=== PATIENT | female | born 1960 | race Caucasian/White ===

== ENCOUNTER → 2017-12-12 11:21 | Outpatient (CLI) | payer MEDICAID, SELFPAY ==
[2017-12-12 12:36] LABS: Amphetamine Urine VISTA NEGATIVE (<1000 ng/mL); Barbiturate Urine VISTA NEGATIVE (< 200 ng/mL); Benzodiazepine Urine VISTA NEGATIVE (< 200 ng/mL); Cocaine Urine VISTA NEGATIVE (< 300 ng/mL); Ecstacy Urine VISTA POSITIVE (< 500 ng/mL); Methadone Urine VISTA NEGATIVE (< 300 ng/mL); PCP Urine VISTA NEGATIVE (< 25 ng/mL); THC Urine VISTA NEGATIVE (< 50 ng/mL); Vista UDS pH Range 5
== END ==
PROVIDERS: Family Provider Internal Medicine; PCP Internal Medicine; Visit Provider Anesthesiology Pain Medicine
DX: F11.20 Opioid dependence, uncomplicated (principal)
CPT/HCPCS: 80307

== ENCOUNTER → 2018-09-24 15:18 | Outpatient (CLI) | payer MEDICAID, SELFPAY ==
[2018-09-24 17:06] LABS: Amphetamine Urine VISTA NEGATIVE (<1000 ng/mL); Barbiturate Urine VISTA NEGATIVE (< 200 ng/mL); Benzodiazepine Urine VISTA NEGATIVE (< 200 ng/mL); Cocaine Urine VISTA NEGATIVE (< 300 ng/mL); Ecstacy Urine VISTA POSITIVE (< 500 ng/mL); Methadone Urine VISTA NEGATIVE (< 300 ng/mL); PCP Urine VISTA NEGATIVE (< 25 ng/mL); THC Urine VISTA NEGATIVE (< 50 ng/mL); Vista UDS pH Range 7
--- OUTSIDE RECORDS SUMMARY | 2018-11-26 17:47 | XMS RPT_ITS ---
:1960 Author Organization OHIP Care Team Providers Name Role Phone [place], Dipika S Attending Unavailable [place], Dipika S Primary Care Unavailable [place], Dipika S Admitting Unavailable [place], Dipika S Attending Unavailable [place], Dipika S Primary Care Unavailable [place], Dipika S Attending Unavailable [place], Dipika S Primary Care Unavailable [place], Dipika S Admitting Unavailable [place], Dipika S Admitting Unavailable [place], Dipika S Attending Unavailable [place], Dipika S Primary Care Unavailable [place], Dipika S Attending Unavailable [place], Dipika S Primary Care Unavailable [place], Dipika S Admitting Unavailable [place], Dipika S Admitting Unavailable [place], Dipika S Attending Unavailable [place], Dipika S Primary Care Unavailable Rodrigo De La Torre Admitting Unavailable Rodrigo De La Torre Attending Unavailable [place], Dipika S Primary Care Unavailable Rodrigo De La Torre Admitting Unavailable BrittRodrigo looney Attending Unavailable [place], Dipika S Primary Care Unavailable [place], Dipika S Admitting Unavailable [place], Dipika S Attending Unavailable [place], Dipika S Primary Care Unavailable Alejandro Smith Admitting Unavailable SmithAlejandro chavez Attending Unavailable [place], Dipika S Primary Care Unavailable [place], Dipika S Admitting Unavailable [place], Dipika S Attending Unavailable [place], Dipika S Primary Care Unavailable SmithAlejandro chavez Admitting Unavailable SmithAlejandro chavez Attending Unavailable [place], Dipika S Primary Care Unavailable Alejandro Smith Admitting Unavailable SmithAlejandro chavez Attending Unavailable [place], Dipika S Primary Care Unavailable Alejandro Smith Admitting Unavailable SmithAlejandro chavez Attending Unavailable [place], Dipika S Primary Care Unavailable Alejandro Smith Admitting Unavailable Alejandro Smith Attending Unavailable [place], Dipika S Primary Care Unavailable Khalida Daniels Admitting Unavailable Khalida Daniels Attending Unavailable [place], Dipika S Primary Care Unavailable Carol Cancino Attending Unavailable BasaliCarol Referring Unavailable ROYAL, DIPIKA Primary Care Unavailable BasaliCarol Attending Unavailable BasaliCarol Referring Unavailable ROYAL, DIPIKA Primary Care Unavailable BasalCarol callahan Attending Unavailable BasaliCarol Referring Unavailable ROYAL, DIPIKA Primary Care Unavailable Mogalla, Yashasvini Admitting Unavailable Mogalla, Yashasvini Attending Unavailable Physician, No PCP Primary Care Unavailable JUAN J PARK Attending Unavailable PARKJUAN J Referring Unavailable PARKJUAN J Attending Unavailable JUAN J PARK Referring Unavailable TESTRACHRISTIAN BOSS Attending Unavailable ROYAL, DIPIKA S Referring Unavailable PARKJUAN J DOBBINS Attending Unavailable TESTRACHRISTIAN BOSS Attending Unavailable TESTCHRISTIAN IRVIN Referring Unavailable PARKJUAN J DOBBINS Attending Unavailable PARKJUAN J DOBBINS K Referring Unavailable PARKJUAN J Attending Unavailable JUAN J PARK Attending Unavailable PARKJUAN J K Referring Unavailable PARKJUAN J Attending Unavailable PARK, JUAN J K Referring Unavailable PARK, JUAN J K Attending Unavailable PARK, JUAN J K Referring Unavailable PARK, JUAN J K Attending Unavailable PARK, JUAN J K Referring Unavailable TESTRAKE, CHRISTIAN Attending Unavailable TESTRAKE, CHRISTIAN Referring Unavailable TESTRAKE, CHRISTIAN Attending Unavailable TESTRAKE, CHRISTIAN Attending Unavailable TESTRAKE, CHRISTIAN Attending Unavailable TESTRAKE, CHRISTIAN Referring Unavailable TESTRAKE, CHRISTIAN Referring Unavailable TESTRAKE, CHRISTIAN Attending Unavailable TESTRAKE, CHRISTIAN Referring Unavailable TESTRAKE, CHRISTIAN Attending Unavailable CAROLINE KENDALL Attending Unavailable DIPIKA EL Primary Care Unavailable PROBLEMS PROBLEMS DATE TYPE CONDITION / CODE ATTENDING STATUS SOURCE 08/20/2018 Active Nondisplaced NA Active [facility] fracture of distal [facility] phalanx of left [place] lesser toe(s), Repository subsequent encounter for fracture with routine healing / S92.535D(ICD-10) 07/29/2018 Active Other instability, NA Active [place] left ankle / [facility] M25.372(ICD-10) [place] Repository 07/11/2018 Active Pain, unspecified / NA Active [facility] R52(ICD-10) [facility] [place] Rep[facility] 06/08/2018 Admitting Unknown / [place], Active [place] Diagnosis UNK(Unknown) [facility] Repository 05/29/2018 Active Tinea unguium / NA Active [facility] B35.1(ICD-10) [facility] [place] Repository 12/12/2017 Unknown F11.20 - Opioid Basali, Ayman Active [facility] dependence, Community uncomplicated / Hospital F11.20(ICD-10) Repository PROCEDURES PROCEDURES No Procedure Records FoundRESULTS RESULTS CNOV Observed: 09/26/2018 Status: COMPLETED Source: [place] 2:50 PM [facility] REPOSITORY Office Visit (PODIWS) NADYA MONCADA ([id number]) 1960 F Date Time Provider Department 09/26/18 2:50 PM TESTCHRISTIAN IRVIN During your visit today, we recorded the following information about you: Taya Hannah RN 09/26/2018 2:59 PM Signed AMB ROOMING INTAKE FLOWSHEET DATA Risk Screening Do you have concerns about personal safety or safety in the home?: No Patient presents for diabetic nail care. She does not check her blood sugar regularly. Christian Salmeron, DPM 09/26/2018 2:59 PM Signed Subjective: Patient presents to clinic c/o painful toenails. They state that the nails are especially painful with shoe gear and pressure. Patient states that nails 1-5 b/l are painful. Patient admits to being diabetic and but does not check her sugars. Has had toe fracture but has no issues since transferring back to diabetic shoes. States her diabetic shoes are amazing. No other pedal complaints at this time. Patient states no change in medications or medical history since last visit. Objective: Patient presents to clinic ambulating in diabetic shoes Vasc: DP and PT pulses are palpable bilateral. CFT is less than 5 seconds bilateral. Skin temperature is warm to cool proximal to distal bilateral. There is no edema or varicosities noted. Neuro: Protective sensation is intact to the foot and toes when tested with the 5.07 SWM bilateral. Vibratory sensation is decreased at the hallux IPJ bilateral. The hallux is downgoing bilateral. Derm: Nails 1-5 b/l are present, discolored-yellow, thick, crumbly, dystrophic and with subungal debris. Skin is of normal turgor, texture and hair growth is present bilateral. There are callus to left 1st metatarsal. No ulcerations, scars, verruca or other lesions noted. Ortho: Muscle strength is 5/5 for all pedal groups tested. Ankle joint DF is full with the knee extended with no pain or crepitus noted. 1st MPJ ROM is full bilateral. Assessment: (B35.1) Onychomycosis (primary encounter diagnosis) (M79.675) Pain in toe of left foot (M79.674) Pain in toe of right foot (E11.49) Other diabetic neurological complication associated with type 2 diabetes mellitus (HCC) hyperkeratosis Plan: Patient was seen and evaluated. Nails 1-5 bilateral were debrided in length and thickness. Callus filed today as courtesy. Continue with lotion to feet. Continue with diabetic shoes. Patient was instructed on the continued importance of diabetic foot care along with proper diet and keeping their blood sugar under control to prevent complications. Patient is to RTC in 3-4 months. Christian Salmeron DPM Referring Provider: SELF [200] Allergies As of Date: 09/26/2018 (No Known Allergies) Date Reviewed: 09/26/2018 Reviewed by: Taya Hannah RN - Fully Assessed Reason for Visit: Diabetic Foot Care [916] Primary Visit Diagnosis:Onychomycosis [B35.1] Other Visit Diagnoses:Pain in toe of left foot [M79.675] Pain in toe of right foot [M79.674] Other diabetic neurological complication associated with type 2 diabetes mellitus (HCC) [E11.49] Prescriptions as of 09/26/2018 Sig: MULTIVITAMIN TABLET Take 1 tablet by mouth once d* HYDROCODONE 5 MG-ACETAMINOPHE* Take 1 tablet by mouth every * METFORMIN 500 MG TABLET Take 500 mg by mouth daily wi* LYRICA 100 MG CAPSULE Take 1 capsule by mouth three* BUSPIRONE 15 MG TABLET Take 15 mg by mouth three jody* MELOXICAM 15 MG TABLET Take 15 mg by mouth once maria eugenia* ATORVASTATIN 40 MG TABLET Take 40 mg by mouth once maria eugenia* UREA 40 % TOPICAL CREAM Apply 1 application to affect* AMMONIUM LACTATE-SODIUM LACTA* Apply 1 application to affect* LOSARTAN 50 MG TABLET Take 50 mg by mouth once maria eugenia* OMEPRAZOLE 40 MG CAPSULE,MARLENE* Take 40 mg by mouth once maria eugenia* AMITRIPTYLINE 50 MG TABLET Take 50 mg by mouth daily at * TIZANIDINE 4 MG TABLET Take 4 mg by mouth every 6 ho* BUPROPION XL 150 MG TAB Take 300 mg by mouth once kaylynn* SERTRALINE 100 MG TABLET Take 200 mg by mouth once kaylynn* MILNACIPRAN 50 MG TABLET Take by mouth twice daily. METRONIDAZOLE 0.75 % TOPICAL * Apply 1 application to affect* POLYETHYLENE GLYCOL 3350 17 G* Take 17 g by mouth once daily. CHOLECALCIFEROL (VITAMIN D3) * Take by mouth. TRAMADOL 50 MG TABLET Take 1 tablet by mouth four t* PREGABALIN 50 MG CAPSULE Take 50 mg by mouth three jody* FENTANYL 75 MCG/HR TRANSDERMA* Apply 1 Patch as directed delmi* Problem List As Of Date 09/26/2018 Noted Resolved Type 2 diabetes mellitus without retinopathy (H*INVALID FOR* Other vitreous opacities [H43.399] INVALID FOR*05/25/2016 Vitreous floaters of both eyes [H43.393] INVALID FOR* Essential hypertension [I10] INVALID FOR* Prediabetes [R73.03] INVALID FOR* Corneal abrasion, right, subsequent encounter [*INVALID FOR* Contusion of right eyeball [S05.11XA] INVALID FOR* Rce (recurrent corneal erosion), 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 Follow-up and Disposition History Recorded Encounter Status:Closed by CHRISTIAN SALMERON DPM on 09/26/18 PROGRESS Observed: 09/26/2018 Status: COMPLETED Source: [place] 2:46 PM [facility] HNO ID: [id number] Author: Christian Salmeron Service: (none) Author Type: Physician Type: Progress Notes Filed: 09/26/2018 2:59 PM Note Text: Subjective: Patient presents to clinic c/o painful toenails. They state that the nails are especially painful with shoe gear and pressure. Patient states that nails 1-5 b/l are painful. Patient admits to being diabetic and but does not check her sugars. Has had toe fracture but has no issues since transferring back to diabetic shoes. States her diabetic shoes are amazing. No other pedal complaints at this time. Patient states no change in medications or medical history since last visit. Objective: Patient presents to clinic ambulating in diabetic shoes Vasc: DP and PT pulses are palpable bilateral. CFT is less than 5 seconds bilateral. Skin temperature is warm to cool proximal to distal bilateral. There is no edema or varicosities noted. Neuro: Protective sensation is intact to the foot and toes when tested with the 5.07 SWM bilateral. Vibratory sensation is decreased at the hallux IPJ bilateral. The hallux is downgoing bilateral. Derm: Nails 1-5 b/l are present, discolored-yellow, thick, crumbly, dystrophic and with subungal debris. Skin is of normal turgor, texture and hair growth is present bilateral. There are callus to left 1st metatarsal. No ulcerations, scars, verruca or other lesions noted. Ortho: Muscle strength is 5/5 for all pedal groups tested. Ankle joint DF is full with the knee extended with no pain or crepitus noted. 1st MPJ ROM is full bilateral. Assessment: (B35.1) Onychomycosis (primary encounter diagnosis) (M79.675) Pain in toe of left foot (M79.674) Pain in toe of right foot (E11.49) Other diabetic neurological complication associated with type 2 diabetes mellitus (HCC) hyperkeratosis Plan: Patient was seen and evaluated. Nails 1-5 bilateral were debrided in length and thickness. Callus filed today as courtesy. Continue with lotion to feet. Continue with diabetic shoes. Patient was instructed on the continued importance of diabetic foot care along with proper diet and keeping their blood sugar under control to prevent complications. Patient is to RTC in 3-4 months. Christian Salmeron DPM PROGRESS Observed: 09/26/2018 Status: COMPLETED Source: [place] 2:32 PM [facility] REPOSITORY HNO ID: [id number] Author: Taya Hannah RN Service: (none) Author Type: (none) Type: Progress Notes Filed: 09/26/2018 2:59 PM Note Text: AMB ROOMING INTAKE FLOWSHEET DATA Risk Screening Do you have concerns about personal safety or safety in the home?: No Patient presents for diabetic nail care. She does not check her blood sugar regularly. URINE DRUG SCREEN Collected: 09/24/2018 Status: F Source: [place] ([place]) 3:22 PM [facility] REPOSITORY Order Comment: List of Drugs Taken or Suspected? UNK TYPE CODE TESTS RESULT OUT OF RANGE REFERENCE UNITS LAB L505.0075 TO BE Normal CONFIRMED Result Comment: CONFIRMATORY TESTING FOR ALL POSITIVE URINE DRUG SCREEN RESULTS WILL ONLY BE SENT OUT UPON PHYSICIAN ORDER. VISTA Urine Drug Screen methods provide only preliminary analytical test results. A more specific alternate chemical method must be used in order to obtain a confirmed analytical result. Gas chromatography/mass spectrometery (GC/MS) is the preferred confirmatory method. Clinical consideration and professional judgement should be applied to any drug of abuse test result, particularly when preliminary positive results are used. URINE TCA TESTING MUST BE ORDERED SEPARATELY. USE TEST MNEMONIC: [facility] LAB L505.5005 VISTA UDS PH 7 Normal LAB L505.5015 <1000 ng/mL AMPHETAMINES Normal NEGATIVE LAB L505.5025 < 200 ng/mL BARBITIURATES Normal NEGATIVE LAB L505.5035 < 200 ng/mL BENZODIAZIPINE Normal NEGATIVE LAB L505.5045 < 300 ng/mL COCAINE Normal NEGATIVE LAB L505.5055 < 500 High ng/mL ECSTACY POSITIVE LAB L505.5065 < 300 ng/mL METHADONE Normal NEGATIVE LAB L505.5075 < 300 ng/mL OPIATES Normal NEGATIVE LAB L505.5085 < 25 ng/mL PCP Normal NEGATIVE LAB L505.5095 < 50 ng/mL THC Normal NEGATIVE Performed By: #### L505.5000 #### [facility] [address] [place], [place], [address] PROGRESS Observed: 08/20/2018 Status: COMPLETED Source: [place] 11:38 AM [facility] HNO ID: [id number] Author: Christian Salmeron Service: (none) Author Type: Physician Type: Progress Notes Filed: 08/23/2018 9:31 PM Note Text: Follow up podiatric office visit for: Chief Complaint: This 58 year old who presents for follow up:fracture of left 3rd toe and left hallux. Patient was wearing surgical shoes but has stopped. Patient has very little pain. She feels the pain is worse with cold weather. She does have ankle instability on left but has discontinued the brace. Patient has new xrays to review. PAIN EVALUATION No data found. No results found for: HBA1C PCP: Dipika El DO PAST MEDICAL HISTORY Diagnosis Date - Degenerative disc disease - Depression - Fibromyalgia - PTSD (post-traumatic stress disorder) - Rosacea - Sleep apnea Current Outpatient Prescriptions: amitriptyline (ELAVIL) 50 mg tablet Take 50 mg by mouth daily at bedtime. Ammonium,Pot.and Sodium Lactates (AMLACTIN) crea Apply 1 application to affected area once daily. atorvastatin (LIPITOR) 40 mg tablet Take 40 mg by mouth once daily. buPROPion XL (WELLBUTRIN XL) 150 mg 24 hr tablet Take 300 mg by mouth once daily. busPIRone (BUSPAR) 15 mg tablet Take 15 mg by mouth three times daily. Half tab AM Half tab PM Cholecalciferol, Vitamin D3, 3,000 unit tab Take by mouth. losartan (COZAAR) 50 mg tablet Take 50 mg by mouth once daily. LYRICA 100 mg capsule Take 1 capsule by mouth three times daily. meloxicam (MOBIC) 15 mg tablet Take 15 mg by mouth once daily. metFORMIN (GLUCOPHAGE) 500 mg tablet Take 500 mg by mouth daily with breakfast. metroNIDAZOLE (METROCREAM) 0.75 % cream Apply 1 application to affected area twice daily. Milnacipran (SAVELLA) 50 mg tab Take by mouth twice daily. multivitamin (DAILY MULTI-VITAMIN) tablet Take 1 tablet by mouth once daily. Omeprazole 40 mg capsule Take 40 mg by mouth once daily. polyethylene glycol 3350 (MIRALAX, GLYCOLAX) 17 gram packet Take 17 g by mouth once daily. pregabalin (LYRICA) 50 mg capsule Take 50 mg by mouth three times daily. sertraline (ZOLOFT) 100 mg tablet Take 200 mg by mouth once daily. tiZANidine (ZANAFLEX) 4 mg tablet Take 4 mg by mouth every 6 hours as needed. traMADol (ULTRAM) 50 mg tablet Take 1 tablet by mouth four times daily. urea (CARMOL) 40 % crea Apply 1 application to affected area as needed. fentaNYL (DURAGESIC) 75 mcg/hr Apply 1 Patch as directed every 72 hours. HYDROcodone-acetaminophen (NORCO) 5-325 mg per tablet Take 1 tablet by mouth every 8 hours as needed. Receives from Dr. Cancino - Pain management No current facility-administered medications for this visit. ALLERGIES No Known Allergies PAST SURGICAL HISTORY Procedure Laterality Date - APPENDECTOMY HX 1990 - KNEE SCOPE,DIAGNOSTIC 2012 Left knee - PAST SURGICAL HISTORY OF 2013 Cervical Fusion C6-C7 - PAST SURGICAL HISTORY OF 2002 Left Carpal Tunnel Release - PAST SURGICAL HISTORY OF 1998 D AND C Hysteroscopy with Balloon Ablation - PAST SURGICAL HISTORY OF 1996 D AND C - PAST SURGICAL HISTORY OF 1988 Right Carpal Tunnel Release - PAST SURGICAL HISTORY OF 1984 Benign Lesions Removed from face and body - ROTATOR CUFF REPAIR 1991 Right shoulder (2nd repair) - ROTATOR CUFF REPAIR 1989 Right shoulder - TONSILLECTOMY HX 1964 Physical Exam: Constitutional: Pt is a well developed 58 year old female who is alert, oriented, cooperative and in no apparent distress. OBJECTIVE: NVSI unchanged from previous visit. Dermatological: Nails 1-5 b/l are normal. Webspaces clean and dry 1-4 b/l. Skin appears well hydrated and supple. good color, texture, turgor. No open lesions present. No callosities present. Musculoskeletal/Orthopaedic: Patient has no pain to palpation of b/l feet xrays of left foot reviewed. There is healing fracture of left 3rd toe ASSESSMENT: (F12.103I) Closed nondisplaced fracture of proximal phalanx of lesser toe of left foot with routine healing, subsequent encounter (primary encounter diagnosis) (M25.372) Ankle instability, left PLAN: 1. History and physical examination completed today. 2. Patient was examined and informed of current findings. Fracture of left 3rd toe appears to be healing. Discussed continued use of surgical shoe. Patient has already resumed regular shoes. Recommend firm sole shoe. Discussed repeating xrays in 3 weeks. Patient declined. 3. Discussed ankle instability. Patient has discontinued ankle brace. Christian Salmeron DPM PROGRESS Observed: 08/20/2018 Status: COMPLETED Source: [place] 11:13 AM [facility] REPOSITORY HNO ID: [id number] Author: Francisca Trotter Ma Service: (none) Author Type: (none) Type: Progress Notes Filed: 08/23/2018 9:31 PM Note Text: Patient presents with: Established Patient: 3 week follow up left ankle instability and left toe fracture AMB ROOMING INTAKE FLOWSHEET DATA Risk Screening Do you have concerns about personal safety or safety in the home?: No Patient states she got tired of wearing the post op shoe and stopped wearing it on Saturday. Has not been wearing the lace up ankle brace either. Denies any pain today in her toe and ankle. X-ray done today. CNOV Observed: 08/20/2018 Status: COMPLETED Source: [place] 10:40 AM [facility] REPOSITORY Office Visit (PODIWS) NADYA MONCADA ([id number]) 1960 F Date Time Provider Department 08/20/18 10:40 AM CHRISTIAN SALMERON During your visit today, we recorded the following information about you: Francisca Trotter Lilly 08/23/2018 9:31 PM Signed Patient presents with: Established Patient: 3 week follow up left ankle instability and left toe fracture AMB ROOMING INTAKE FLOWSHEET DATA Risk Screening Do you have concerns about personal safety or safety in the home?: No Patient states she got tired of wearing the post op shoe and stopped wearing it on Saturday. Has not been wearing the lace up ankle brace either. Denies any pain today in her toe and ankle. X-ray done today. Christian EVERARDO Salmeron 08/23/2018 9:31 PM Signed Follow up podiatric office visit for: Chief Complaint: This 58 year old who presents for follow up:fracture of left 3rd toe and left hallux. Patient was wearing surgical shoes but has stopped. Patient has very little pain. She feels the pain is worse with cold weather. She does have ankle instability on left but has discontinued the brace. Patient has new xrays to review. PAIN EVALUATION No data found. No results found for: HBA1C PCP: Dipika El DO PAST MEDICAL HISTORY Diagnosis Date - Degenerative disc disease - Depression - Fibromyalgia - PTSD (post-traumatic stress disorder) - Rosacea - Sleep apnea Current Outpatient Prescriptions: amitriptyline (ELAVIL) 50 mg tablet Take 50 mg by mouth daily at bedtime. Ammonium,Pot.and Sodium Lactates (AMLACTIN) crea Apply 1 application to affected area once daily. atorvastatin (LIPITOR) 40 mg tablet Take 40 mg by mouth once daily. buPROPion XL (WELLBUTRIN XL) 150 mg 24 hr tablet Take 300 mg by mouth once daily. busPIRone (BUSPAR) 15 mg tablet Take 15 mg by mouth three times daily. Half tab AM Half tab PM Cholecalciferol, Vitamin D3, 3,000 unit tab Take by mouth. losartan (COZAAR) 50 mg tablet Take 50 mg by mouth once daily. LYRICA 100 mg capsule Take 1 capsule by mouth three times daily. meloxicam (MOBIC) 15 mg tablet Take 15 mg by mouth once daily. metFORMIN (GLUCOPHAGE) 500 mg tablet Take 500 mg by mouth daily with breakfast. metroNIDAZOLE (METROCREAM) 0.75 % cream Apply 1 application to affected area twice daily. Milnacipran (SAVELLA) 50 mg tab Take by mouth twice daily. multivitamin (DAILY MULTI-VITAMIN) tablet Take 1 tablet by mouth once daily. Omeprazole 40 mg capsule Take 40 mg by mouth once daily. polyethylene glycol 3350 (MIRALAX, GLYCOLAX) 17 gram packet Take 17 g by mouth once daily. pregabalin (LYRICA) 50 mg capsule Take 50 mg by mouth three times daily. sertraline (ZOLOFT) 100 mg tablet Take 200 mg by mouth once daily. tiZANidine (ZANAFLEX) 4 mg tablet Take 4 mg by mouth every 6 hours as needed. traMADol (ULTRAM) 50 mg tablet Take 1 tablet by mouth four times daily. urea (CARMOL) 40 % crea Apply 1 application to affected area as needed. fentaNYL (DURAGESIC) 75 mcg/hr Apply 1 Patch as directed every 72 hours. HYDROcodone-acetaminophen (NORCO) 5-325 mg per tablet Take 1 tablet by mouth every 8 hours as needed. Receives from Dr. Cancino - Pain management No current facility-administered medications for this visit. ALLERGIES No Known Allergies PAST SURGICAL HISTORY Procedure Laterality Date - APPENDECTOMY HX 1990 - KNEE SCOPE,DIAGNOSTIC 2012 Left knee - PAST SURGICAL HISTORY OF 2013 Cervical Fusion C6-C7 - PAST SURGICAL HISTORY OF 2002 Left Carpal Tunnel Release - PAST SURGICAL HISTORY OF 1998 D AND C Hysteroscopy with Balloon Ablation - PAST SURGICAL HISTORY OF 1996 D AND C - PAST SURGICAL HISTORY OF 1988 Right Carpal Tunnel Release - PAST SURGICAL HISTORY OF 1984 Benign Lesions Removed from face and body - ROTATOR CUFF REPAIR 1991 Right shoulder (2nd repair) - ROTATOR CUFF REPAIR 1989 Right shoulder - TONSILLECTOMY HX 1964 Physical Exam: Constitutional: Pt is a well developed 58 year old female who is alert, oriented, cooperative and in no apparent distress. OBJECTIVE: NVSI unchanged from previous visit. Dermatological: Nails 1-5 b/l are normal. Webspaces clean and dry 1-4 b/l. Skin appears well hydrated and supple. good color, texture, turgor. No open lesions present. No callosities present. Musculoskeletal/Orthopaedic: Patient has no pain to palpation of b/l feet xrays of left foot reviewed. There is healing fracture of left 3rd toe ASSESSMENT: (E11.256I) Closed nondisplaced fracture of proximal phalanx of lesser toe of left foot with routine healing, subsequent encounter (primary encounter diagnosis) (M25.372) Ankle instability, left PLAN: 1. History and physical examination completed today. 2. Patient was examined and informed of current findings. Fracture of left 3rd toe appears to be healing. Discussed continued use of surgical shoe. Patient has already resumed regular shoes. Recommend firm sole shoe. Discussed repeating xrays in 3 weeks. Patient declined. 3. Discussed ankle instability. Patient has discontinued ankle brace. EVERARDO Haas RN 08/20/2018 11:46 AM Signed Follow up as scheduled for nail care OK to wear regular shoe Referring Provider: CHRISTIAN SALMERON [[id number]] Allergies As of Date: 08/20/2018 (No Known Allergies) Date Reviewed: 08/20/2018 Reviewed by: Francisca Trotter Ma - Fully Assessed Reason for Visit: Established Patient [175] Cmt: 3 week follow up left ankle instability and left toe fracture Primary Visit Diagnosis:Closed nondisplaced fracture of proximal phalanx of lesser toe of left foot with routine healing, subsequent encounter [S92.515D] Other Visit Diagnosis:Ankle instability, left [M25.372] Prescriptions as of 08/20/2018 Sig: AMITRIPTYLINE 50 MG TABLET Take 50 mg by mouth daily at * AMMONIUM LACTATE-SODIUM LACTA* Apply 1 application to affect* ATORVASTATIN 40 MG TABLET Take 40 mg by mouth once maria eugenia* BUPROPION XL 150 MG TAB Take 300 mg by mouth once kaylynn* BUSPIRONE 15 MG TABLET Take 15 mg by mouth three jody* CHOLECALCIFEROL (VITAMIN D3) * Take by mouth. LOSARTAN 50 MG TABLET Take 50 mg by mouth once maria eugenia* LYRICA 100 MG CAPSULE Take 1 capsule by mouth three* MELOXICAM 15 MG TABLET Take 15 mg by mouth once maria eugenia* METFORMIN 500 MG TABLET Take 500 mg by mouth daily wi* METRONIDAZOLE 0.75 % TOPICAL * Apply 1 application to affect* MILNACIPRAN 50 MG TABLET Take by mouth twice daily. MULTIVITAMIN TABLET Take 1 tablet by mouth once d* OMEPRAZOLE 40 MG CAPSULE,MARLENE* Take 40 mg by mouth once maria eugenia* POLYETHYLENE GLYCOL 3350 17 G* Take 17 g by mouth once daily. PREGABALIN 50 MG CAPSULE Take 50 mg by mouth three jody* SERTRALINE 100 MG TABLET Take 200 mg by mouth once kaylynn* TIZANIDINE 4 MG TABLET Take 4 mg by mouth every 6 ho* TRAMADOL 50 MG TABLET Take 1 tablet by mouth four t* UREA 40 % TOPICAL CREAM Apply 1 application to affect* FENTANYL 75 MCG/HR TRANSDERMA* Apply 1 Patch as directed delmi* HYDROCODONE 5 MG-ACETAMINOPHE* Take 1 tablet by mouth every * Problem List As Of Date 08/20/2018 Noted Resolved Type 2 diabetes mellitus without retinopathy (H*INVALID FOR* Other vitreous opacities [H43.399] INVALID FOR*05/25/2016 Vitreous floaters of both eyes [H43.393] INVALID FOR* Essential hypertension [I10] INVALID FOR* Prediabetes [R73.03] INVALID FOR* Corneal abrasion, right, subsequent encounter [*INVALID FOR* Contusion of right eyeball [S05.11XA] INVALID FOR* Rce (recurrent corneal erosion), 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]INVALID FOR* Corneal epithelial and basement membrane dystro*INVALID FOR* Other instructions from your clinician: Follow up as scheduled for nail care OK to wear regular shoe Follow-up and Disposition History Recorded Encounter Status:Closed by CHRISTIAN SALMERON DPM on 08/23/18 XR FOOT 3V AP/LAT/OBL Observed: 08/20/2018 Status: F Source: [facility] 9:09 AM [facility] REPOSITORY * * *Final Report* * * DATE OF EXAM: Aug 20 2018 9:09AM WRX [id number] - XR FOOT 3V AP/LAT/OBL LT / PROCEDURE REASON: Closed nondisplaced fracture of distal phalanx of lesser toe of left foot with r * * * * Physician Interpretation * * * * HISTORY: 58-YEAR-OLD FEMALE WITH Closed nondisplaced fracture of distal phalanx of lesser toe of left foot with routine healing, subsequent encounter . follow up to left foot fracture TECHNIQUE: XR FOOT 3V AP/LAT/OBL LT Laterality: LEFT Number of different views (projections): 3 COMPARISON: and 07/29/2018 RESULT: Nondisplaced intra-articular fracture of the third proximal phalanx is unchanged in appearance with indistinctness of the proximal extent of the fracture consistent with partial healing. IMPRESSION: INTRA-ARTICULAR NONDISPLACED FRACTURE OF THE THIRD PROXIMAL PHALANX PARTIALLY HEALED AND UNCHANGED. Pathology Manager: MANISHA Transcribe Date/Time: Aug 20 2018 2:26P Dictated by : VIOLA WATERS MD This examination was interpreted and the report reviewed and electronically signed by: VIOLA WATERS MD on Aug 20 2018 2:31PM EST [id number] PROGRESS Observed: 08/20/2018 Status: COMPLETED Source: [place] 9:01 AM [facility] REPOSITORY O ID: [id number] Author: Temitope (Rt) Itzel Augustin Service: (none) Author Type: Iron Erector Type: Progress Notes Filed: 08/20/2018 9:10 AM Note Text: Radiology Service Progress Note PATIENT NAME: Nadya Moncada DATE OF SERVICE: August 20, 2018 TIME: 9:01 AM PATIENT IDENTITY VERIFICATION COMPLETED USING TWO (2) METHODS: Patient confirmed name verbally and Date of . PATIENT GENDER DATA: Female. status: : No status: NO. PATIENT RELEVANT IMPLANT DATA REVIEWED: Not Applicable RADIOLOGY DEPARTMENT: General X-ray: Exam(s) Completed: Lower Extremity X-Ray(s): Foot, Left and Wt. Bearing: PERIPHERAL IV DATA: Not applicable SIGNED BY: RT Rachelle August 20, 2018 9:01 AM MRI KNEE W/O CONTRAST Observed: 08/07/2018 Status: C Source: [facility] 10:00 AM [facility] REPOSITORY Exam Date/Time: 08/07/2018 10:49 EST Reason for Exam: LEFT KNEE INTERNAL DERANGEMENT SPRAIN OF POSTERIOR CRUCIATE LIGAMENT OF LEFT KNEE FEET FIRST;Internal derangement Addendum ADDENDUM: Ordering clinician is Alejandro Smith. This should be reflected in the report. FINAL REPORT Dictated: 08/13/2018 12:22 pm Daryl Padilla MD Signed (Electronic Signature): 08/13/2018 12:22 pm Signed by: Daryl Padilla MD Technologist: CF Report STUDY: MRI of the left knee without contrast dated 08/07/2018. INDICATION: Knee pain. Multiple falls. Assess for internal derangement. COMPARISON: None. ACCESSION NUMBER(S): [id number] ORDERING CLINICIAN: Rodrigo Smith TECHNIQUE: Multiplanar multisequence MRI of the left knee was performed without intravenous contrast. FINDINGS: LIGAMENTS AND TENDONS: There is thickening of the anterior cruciate ligament with diffuse increased intermediate signal intensity within its substance. There is a mild partial-thickness interstitial tear at the femoral attachment in the anterior cruciate ligament, as seen at slice 12 of the coronal plane and 15 of the axial plane. The posterior cruciate ligament is intact. The medial and fibular collateral ligaments are intact. The popliteus and biceps femoris tendons, iliotibial band, and extensor mechanism are intact. MENISCI: There is complex tearing of the lateral meniscus, with appearance of flap tear component at the posterior horn into posterior horn body junction as seen at slice 21 of the axial 21 of the sagittal and 11 of the coronal planes. There may be a degree of horizontal tearing of the anterior horn of the lateral meniscus. There is complex tearing of the medial meniscus with Exam Date/Time: 08/07/2018 10:49 EST Report maceration of the posterior horn into the body of the medial meniscus. The body of the medial meniscus is extruded peripherally. JOINTS: There is moderate diffuse thinning of the hyaline articular cartilage in the medial femorotibial joint space with foci of full-thickness fissuring/loss. There is mild diffuse thinning of the hyaline articular cartilage in the lateral femorotibial joint space with some foci of full- thickness fissuring such as seen on the lateral femoral condyle at slice 15 of the coronal plane. There is moderate diffuse thinning of the hyaline articular cartilage in the patellofemoral joint space with a focus of full-thickness fissuring/loss on the medial facet of the patella near the patellar apex. There is a small volume joint effusion. OSSEOUS STRUCTURES: There is edema in the inferior pole the patella without macrotrabecular fracture line evident. There is marginal femorotibial and patellofemoral osteophyte formation. No dislocation is evident. SOFT TISSUES: There is a small volume of fluid in a popliteal cyst. IMPRESSION: 1. Contusion of the inferior pole of the patella. 2. Complex tearing of the medial and lateral meniscus discussed above. 3. Myxoid degeneration of the anterior cruciate ligament with mild interstitial tearing at the femoral attachment. 4. Tricompartmental degenerative change of the knee, moderate to severe in nature. 5. Small volume joint effusion and popliteal cyst. FINAL REPORT Dictated: 08/08/2018 1:27 pm Daryl Padilla MD Signed (Electronic Signature): 08/08/2018 1:27 pm Signed by: Daryl Padilla MD Technologist: CFF Report last revised on 08/13/2018 12:22 EST by Daryl Padilla MD PROGRESS Observed: 07/29/2018 Status: COMPLETED Source: [place] 11:54 AM [facility] REPOSITORY HNO ID: [id number] Author: Taya Hannah RN Service: (none) Author Type: (none) Type: Progress Notes Filed: 07/29/2018 12:37 PM Note Text: Per Nadya Ruffin provided with a lace up ankle brace, size M, and instructed/educated in its application, wear, and care. All questions were answered, and patient was able to demonstrate competence with the necessary skills to utilize the above equipment. Patient signed Madelyn PPA. Brace billed to Madelyn. Taya Hannah RN XR ANKLE 3V AP/LAT/OBL Observed: 07/29/2018 Status: F Source: [facility] 11:34 AM [facility] REPOSITORY * * *Final Report* * * DATE OF EXAM: Jul 29 2018 11:34AM [id number] - XR ANKLE 3V AP/LAT/OBL LT / PROCEDURE REASON: Ankle instability, left * * * * Physician Interpretation * * * * Left ankle Indication: Pain. Views: AP, Lat, Oblique Comparison: July 11 Findings: .. Degenerative changes are seen. There are calcifications at the Achilles insertion site, and there is a plantar calcaneal spur (enthesophytes). IMPRESSION: No acute pathology LEFT FOOT: Indication: Fracture follow-up. Views: AP, Lat, Oblique Comparison: 07/11/2018 Findings: Nondisplaced fracture through the base of the proximal phalanx of the third digit again seen in good alignment. There is new bone formation. Degenerative changes are seen. There are calcifications at the Achilles insertion site, and there is a plantar calcaneal spur (enthesophytes). Impression Healing fracture Pathology Manager: PSCB Transcribe Date/Time: Jul 29 2018 11:16P Dictated by : ALEXEI CRAIN DO This examination was interpreted and the report reviewed and electronically signed by: ALEXEI CRAIN DO on Jul 29 2018 11:25PM EST [id number] XR FOOT 3V AP/LAT/OBL Observed: 07/29/2018 Status: F Source: [facility] 11:32 AM [facility] REPOSITORY * * *Final Report* * * DATE OF EXAM: Jul 29 2018 11:32AM [id number] - XR FOOT 3V AP/LAT/OBL LT / PROCEDURE REASON: Pain * * * * Physician Interpretation * * * * Left ankle Indication: Pain. Views: AP, Lat, Oblique Comparison: July 11 Findings: .. Degenerative changes are seen. There are calcifications at the Achilles insertion site, and there is a plantar calcaneal spur (enthesophytes). IMPRESSION: No acute pathology LEFT FOOT: Indication: Fracture follow-up. Views: AP, Lat, Oblique Comparison: 07/11/2018 Findings: Nondisplaced fracture through the base of the proximal phalanx of the third digit again seen in good alignment. There is new bone formation. Degenerative changes are seen. There are calcifications at the Achilles insertion site, and there is a plantar calcaneal spur (enthesophytes). Impression Healing fracture [facility] Transcribe Date/Time: Jul 29 2018 11:16P Dictated by : ALEXEI CRAIN DO This examination was interpreted and the report reviewed and electronically signed by: ALEXEI CRAIN DO on Jul 29 2018 11:25PM EST [id number] PROGRESS Observed: 07/29/2018 Status: COMPLETED Source: [place] 11:15 AM [facility] REPOSITORY HNO ID: [id number] Author: Itzel Bush (Rt) Service: (none) Author Type: Iron Erector Type: Progress Notes Filed: 07/29/2018 11:35 AM Note Text: Radiology Service Progress Note PATIENT NAME: Nadya Moncada DATE OF SERVICE: July 29, 2018 TIME: 11:15 AM PATIENT IDENTITY VERIFICATION COMPLETED USING TWO (2) METHODS: Patient confirmed name verbally and Date of . PATIENT GENDER DATA: Female. status: : No status: NO. PATIENT RELEVANT IMPLANT DATA REVIEWED: Not Applicable RADIOLOGY DEPARTMENT: General X-ray: Exam(s) Completed: Lower Extremity X-Ray(s): Ankle, Left and Wt. Bearing and Foot, Left and Wt. Bearing: PERIPHERAL IV DATA: Not applicable SIGNED BY: RT Rachelle July 29, 2018 11:15 AM PROGRESS Observed: 07/29/2018 Status: COMPLETED Source: [place] 10:47 AM [facility] REPOSITORY O ID: [id number] Author: Christian Salmeron Service: (none) Author Type: Physician Type: Progress Notes Filed: 07/29/2018 12:37 PM Note Text: Follow up podiatric office visit for: Chief Complaint: This 58 year old who presents for follow up:fracture of left hallux and left 3rd toe. Patient also here because of left ankle pain. HPI: Patient presents to clinic for evaluation primarily of left ankle. Patient reports that last week she fell on the left ankle but is unsure regarding the exact mechanism. She states that since falling, she has pain to left ankle. Patient does report instability of left ankle. Of note, she has fallen at least 3 times in last month. She states the left lower extremity is weak. Patient is taking norco for left knee pain but this is not helping with the ankle. She does have fracture of left hallux and left 3rd toe. She has no pain. She is wearing surgical shoe. PAIN EVALUATION 07/29/2018 Pain Score: 10 Pain Location: Ankle-Left Description: Aching;Throbbing Duration Amount of Time: 8 Duration Units: Days Frequency: Continuous Intervention: Medication No results found for: HBA1C PCP: Dipika El DO PAST MEDICAL HISTORY Diagnosis Date - Degenerative disc disease - Depression - Fibromyalgia - PTSD (post-traumatic stress disorder) - Rosacea - Sleep apnea Current Outpatient Prescriptions: multivitamin (DAILY MULTI-VITAMIN) tablet Take 1 tablet by mouth once daily. LYRICA 100 mg capsule Take 1 capsule by mouth three times daily. busPIRone (BUSPAR) 15 mg tablet Take 15 mg by mouth three times daily. Half tab AM Half tab PM meloxicam (MOBIC) 15 mg tablet Take 15 mg by mouth once daily. atorvastatin (LIPITOR) 40 mg tablet Take 40 mg by mouth once daily. urea (CARMOL) 40 % crea Apply 1 application to affected area as needed. Ammonium,Pot.and Sodium Lactates (AMLACTIN) crea Apply 1 application to affected area once daily. losartan (COZAAR) 50 mg tablet Take 50 mg by mouth once daily. Omeprazole 40 mg capsule Take 40 mg by mouth once daily. amitriptyline (ELAVIL) 50 mg tablet Take 50 mg by mouth daily at bedtime. tiZANidine (ZANAFLEX) 4 mg tablet Take 4 mg by mouth every 6 hours as needed. buPROPion XL (WELLBUTRIN XL) 150 mg 24 hr tablet Take 300 mg by mouth once daily. sertraline (ZOLOFT) 100 mg tablet Take 200 mg by mouth once daily. Milnacipran (SAVELLA) 50 mg tab Take by mouth twice daily. metroNIDAZOLE (METROCREAM) 0.75 % cream Apply 1 application to affected area twice daily. polyethylene glycol 3350 (MIRALAX, GLYCOLAX) 17 gram packet Take 17 g by mouth once daily. Cholecalciferol, Vitamin D3, 3,000 unit tab Take by mouth. metFORMIN (GLUCOPHAGE) 500 mg tablet Take 500 mg by mouth daily with breakfast. traMADol (ULTRAM) 50 mg tablet Take 1 tablet by mouth four times daily. pregabalin (LYRICA) 50 mg capsule Take 50 mg by mouth three times daily. fentaNYL (DURAGESIC) 75 mcg/hr Apply 1 Patch as directed every 72 hours. No current facility-administered medications for this visit. ALLERGIES No Known Allergies PAST SURGICAL HISTORY Procedure Laterality Date - APPENDECTOMY HX 1990 - KNEE SCOPE,DIAGNOSTIC 2012 Left knee - PAST SURGICAL HISTORY OF 2013 Cervical Fusion C6-C7 - PAST SURGICAL HISTORY OF 2002 Left Carpal Tunnel Release - PAST SURGICAL HISTORY OF 1998 D AND C Hysteroscopy with Balloon Ablation - PAST SURGICAL HISTORY OF 1996 D AND C - PAST SURGICAL HISTORY OF 1988 Right Carpal Tunnel Release - PAST SURGICAL HISTORY OF 1984 Benign Lesions Removed from face and body - ROTATOR CUFF REPAIR 1991 Right shoulder (2nd repair) - ROTATOR CUFF REPAIR 1989 Right shoulder - TONSILLECTOMY HX 1964 Physical Exam: Constitutional: Pt is a well developed 58 year old female who is alert, oriented, cooperative and in no apparent distress. OBJECTIVE: NVSI unchanged from previous visit. Dermatological: Nails 1-5 b/l are normal. Webspaces clean and dry 1-4 b/l. Skin appears well hydrated and supple. good color, texture, turgor. No open lesions present. No callosities present. Musculoskeletal/Orthopaedic: Patient has pain to palpation of left lateral ankle along atfl. There is no pain to palpation of left 1st or left 3rd toe xrays of left foot reviewed. There is healing of fracture of left hallux and left 3rd toe xrays of left ankle reviewed. No acute fracture present ASSESSMENT: (M25.372) Ankle instability, left (primary encounter diagnosis) (S92.503D) Closed nondisplaced fracture of proximal phalanx of lesser toe of left foot with routine healing, subsequent encounter PLAN: 1. History and physical examination completed today. 2. Patient was examined and informed of current findings 3. Discussed her left ankle pain. xrays of left ankle were ordered. No fracture. Recommend ankle brace and she can resume home therapy as she was doing prior to injury. 4. Fractures of toes are healing nicely. Continue with surgical shoe or stiff sole shoe. Repeat xrays in 3 weeks Christian Salmeron DPM CNOV Observed: 07/29/2018 Status: COMPLETED Source: [place] 10:25 AM [facility] REPOSITORY Office Visit (PODIWS) NADYA MONCADA ([id number]) 1960 F Date Time Provider Department 07/29/18 10:25 AM CHRISTIAN SALMERON During your visit today, we recorded the following information about you: Christian Salmeron DPM 07/29/2018 12:37 PM Signed Follow up podiatric office visit for: Chief Complaint: This 58 year old who presents for follow up:fracture of left hallux and left 3rd toe. Patient also here because of left ankle pain. HPI: Patient presents to clinic for evaluation primarily of left ankle. Patient reports that last week she fell on the left ankle but is unsure regarding the exact mechanism. She states that since falling, she has pain to left ankle. Patient does report instability of left ankle. Of note, she has fallen at least 3 times in last month. She states the left lower extremity is weak. Patient is taking norco for left knee pain but this is not helping with the ankle. She does have fracture of left hallux and left 3rd toe. She has no pain. She is wearing surgical shoe. PAIN EVALUATION 07/29/2018 Pain Score: 10 Pain Location: Ankle-Left Description: Aching;Throbbing Duration Amount of Time: 8 Duration Units: Days Frequency: Continuous Intervention: Medication No results found for: HBA1C PCP: Dipika El DO PAST MEDICAL HISTORY Diagnosis Date - Degenerative disc disease - Depression - Fibromyalgia - PTSD (post-traumatic stress disorder) - Rosacea - Sleep apnea Current Outpatient Prescriptions: multivitamin (DAILY MULTI-VITAMIN) tablet Take 1 tablet by mouth once daily. LYRICA 100 mg capsule Take 1 capsule by mouth three times daily. busPIRone (BUSPAR) 15 mg tablet Take 15 mg by mouth three times daily. Half tab AM Half tab PM meloxicam (MOBIC) 15 mg tablet Take 15 mg by mouth once daily. atorvastatin (LIPITOR) 40 mg tablet Take 40 mg by mouth once daily. urea (CARMOL) 40 % crea Apply 1 application to affected area as needed. Ammonium,Pot.and Sodium Lactates (AMLACTIN) crea Apply 1 application to affected area once daily. losartan (COZAAR) 50 mg tablet Take 50 mg by mouth once daily. Omeprazole 40 mg capsule Take 40 mg by mouth once daily. amitriptyline (ELAVIL) 50 mg tablet Take 50 mg by mouth daily at bedtime. tiZANidine (ZANAFLEX) 4 mg tablet Take 4 mg by mouth every 6 hours as needed. buPROPion XL (WELLBUTRIN XL) 150 mg 24 hr tablet Take 300 mg by mouth once daily. sertraline (ZOLOFT) 100 mg tablet Take 200 mg by mouth once daily. Milnacipran (SAVELLA) 50 mg tab Take by mouth twice daily. metroNIDAZOLE (METROCREAM) 0.75 % cream Apply 1 application to affected area twice daily. polyethylene glycol 3350 (MIRALAX, GLYCOLAX) 17 gram packet Take 17 g by mouth once daily. Cholecalciferol, Vitamin D3, 3,000 unit tab Take by mouth. metFORMIN (GLUCOPHAGE) 500 mg tablet Take 500 mg by mouth daily with breakfast. traMADol (ULTRAM) 50 mg tablet Take 1 tablet by mouth four times daily. pregabalin (LYRICA) 50 mg capsule Take 50 mg by mouth three times daily. fentaNYL (DURAGESIC) 75 mcg/hr Apply 1 Patch as directed every 72 hours. No current facility-administered medications for this visit. ALLERGIES No Known Allergies PAST SURGICAL HISTORY Procedure Laterality Date - APPENDECTOMY 1990 - KNEE SCOPE,DIAGNOSTIC 2012 Left knee - PAST SURGICAL HISTORY OF 2013 Cervical Fusion C6-C7 - PAST SURGICAL HISTORY OF 2002 Left Carpal Tunnel Release - PAST SURGICAL HISTORY OF 1998 D AND C Hysteroscopy with Balloon Ablation - PAST SURGICAL HISTORY OF 1996 D AND C - PAST SURGICAL HISTORY OF 1988 Right Carpal Tunnel Release - PAST SURGICAL HISTORY OF 1984 Benign Lesions Removed from face and body - ROTATOR CUFF REPAIR 1991 Right shoulder (2nd repair) - ROTATOR CUFF REPAIR 1989 Right shoulder - TONSILLECTOMY HX 1964 Physical Exam: Constitutional: Pt is a well developed 58 year old female who is alert, oriented, cooperative and in no apparent distress. OBJECTIVE: NVSI unchanged from previous visit. Dermatological: Nails 1-5 b/l are normal. Webspaces clean and dry 1-4 b/l. Skin appears well hydrated and supple. good color, texture, turgor. No open lesions present. No callosities present. Musculoskeletal/Orthopaedic: Patient has pain to palpation of left lateral ankle along atfl. There is no pain to palpation of left 1st or left 3rd toe xrays of left foot reviewed. There is healing of fracture of left hallux and left 3rd toe xrays of left ankle reviewed. No acute fracture present ASSESSMENT: (M25.372) Ankle instability, left (primary encounter diagnosis) (S92.515D) Closed nondisplaced fracture of proximal phalanx of lesser toe of left foot with routine healing, subsequent encounter PLAN: 1. History and physical examination completed today. 2. Patient was examined and informed of current findings 3. Discussed her left ankle pain. xrays of left ankle were ordered. No fracture. Recommend ankle brace and she can resume home therapy as she was doing prior to injury. 4. Fractures of toes are healing nicely. Continue with surgical shoe or stiff sole shoe. Repeat xrays in 3 weeks EVERARDO Haas RN 07/29/2018 12:37 PM Signed Per Nadya Ruffin provided with a lace up ankle brace, size M, and instructed/educated in its application, wear, and care. All questions were answered, and patient was able to demonstrate competence with the necessary skills to utilize the above equipment. Patient signed Madelyn RINALDI. Brace billed to Madelyn. Taya Hannah RN Referring Provider: SELF [[id number]] Allergies As of Date: 07/29/2018 (No Known Allergies) Date Reviewed: 07/29/2018 Reviewed by: Francisca Trotter Ma - Fully Assessed Reason for Visit: Established Patient [175] Cmt: 3 week follow up Left hallux and Left 3rd toe fracture Primary Visit Diagnosis:Ankle instability, left [M25.372] Other Visit Diagnosis:Closed nondisplaced fracture of proximal phalanx of lesser toe of left foot with routine healing, subsequent encounter [H67.915I] Order(s):XR ANKLE GENERAL 3V AP/LAT/OBL LT [[id number]] Order #: [id number] FUTURE Prescriptions as of 07/29/2018 Sig: MULTIVITAMIN TABLET Take 1 tablet by mouth once d* HYDROCODONE 5 MG-ACETAMINOPHE* Take 1 tablet by mouth every * LYRICA 100 MG CAPSULE Take 1 capsule by mouth three* BUSPIRONE 15 MG TABLET Take 15 mg by mouth three jody* MELOXICAM 15 MG TABLET Take 15 mg by mouth once maria eugenia* ATORVASTATIN 40 MG TABLET Take 40 mg by mouth once maria eugenia* UREA 40 % TOPICAL CREAM Apply 1 application to affect* AMMONIUM LACTATE-SODIUM LACTA* Apply 1 application to affect* LOSARTAN 50 MG TABLET Take 50 mg by mouth once maria eugenia* OMEPRAZOLE 40 MG CAPSULE,MARLENE* Take 40 mg by mouth once maria eugenia* AMITRIPTYLINE 50 MG TABLET Take 50 mg by mouth daily at * TIZANIDINE 4 MG TABLET Take 4 mg by mouth every 6 ho* BUPROPION XL 150 MG TAB Take 300 mg by mouth once kaylynn* SERTRALINE 100 MG TABLET Take 200 mg by mouth once kaylynn* MILNACIPRAN 50 MG TABLET Take by mouth twice daily. METRONIDAZOLE 0.75 % TOPICAL * Apply 1 application to affect* POLYETHYLENE GLYCOL 3350 17 G* Take 17 g by mouth once daily. CHOLECALCIFEROL (VITAMIN D3) * Take by mouth. METFORMIN 500 MG TABLET Take 500 mg by mouth daily wi* TRAMADOL 50 MG TABLET Take 1 tablet by mouth four t* PREGABALIN 50 MG CAPSULE Take 50 mg by mouth three jody* FENTANYL 75 MCG/HR TRANSDERMA* Apply 1 Patch as directed delmi* Problem List As Of Date 07/29/2018 Noted Resolved Type 2 diabetes mellitus without retinopathy (H*INVALID FOR* Other vitreous opacities [H43.399] INVALID FOR*05/25/2016 Vitreous floaters of both eyes [H43.393] INVALID FOR* Essential hypertension [I10] INVALID FOR* Prediabetes [R73.03] INVALID FOR* Corneal abrasion, right, subsequent encounter [*INVALID FOR* Contusion of right eyeball [S05.11XA] INVALID FOR* Rce (recurrent corneal erosion), 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 Follow-up and Disposition History Recorded Encounter Status:Closed by CHRISTIAN SALMERON DPM on 07/29/18 PROGRESS Observed: 07/11/2018 Status: COMPLETED Source: [place] 11:15 AM [facility] REPOSIT[facility] O ID: [id number] Author: Christian Salmeron Service: (none) Author Type: Physician Type: Progress Notes Filed: 07/19/2018 10:33 PM Note Text: Follow up podiatric office visit for: Chief Complaint: This 58 year old who presents for follow up:fracture of left hallux Patient has been wearing surgical shoe. Patient has no pain in left great toe Patient has new xrays to review. Patient does have pain of left 2nd interspace. She is unsure if she has pain due to neuropathy or possible recent injury. PAIN EVALUATION No data found. No results found for: HBA1C PCP: Dipika El DO PAST MEDICAL HISTORY Diagnosis Date - Degenerative disc disease - Depression - Fibromyalgia - PTSD (post-traumatic stress disorder) - Rosacea - Sleep apnea Current Outpatient Prescriptions: metFORMIN (GLUCOPHAGE) 500 mg tablet Take 500 mg by mouth daily with breakfast. LYRICA 100 mg capsule Take 1 capsule by mouth three times daily. traMADol (ULTRAM) 50 mg tablet Take 1 tablet by mouth four times daily. busPIRone (BUSPAR) 15 mg tablet Take 15 mg by mouth three times daily. Half tab AM Half tab PM meloxicam (MOBIC) 15 mg tablet Take 15 mg by mouth once daily. atorvastatin (LIPITOR) 40 mg tablet Take 40 mg by mouth once daily. urea (CARMOL) 40 % crea Apply 1 application to affected area as needed. Ammonium,Pot.and Sodium Lactates (AMLACTIN) crea Apply 1 application to affected area once daily. losartan (COZAAR) 50 mg tablet Take 50 mg by mouth once daily. Omeprazole 40 mg capsule Take 40 mg by mouth once daily. amitriptyline (ELAVIL) 50 mg tablet Take 50 mg by mouth daily at bedtime. tiZANidine (ZANAFLEX) 4 mg tablet Take 4 mg by mouth every 6 hours as needed. buPROPion XL (WELLBUTRIN XL) 150 mg 24 hr tablet Take 300 mg by mouth once daily. sertraline (ZOLOFT) 100 mg tablet Take 200 mg by mouth once daily. pregabalin (LYRICA) 50 mg capsule Take 50 mg by mouth three times daily. Milnacipran (SAVELLA) 50 mg tab Take by mouth twice daily. fentaNYL (DURAGESIC) 75 mcg/hr Apply 1 Patch as directed every 72 hours. metroNIDAZOLE (METROCREAM) 0.75 % cream Apply 1 application to affected area twice daily. polyethylene glycol 3350 (MIRALAX, GLYCOLAX) 17 gram packet Take 17 g by mouth once daily. Cholecalciferol, Vitamin D3, 3,000 unit tab Take by mouth. No current facility-administered medications for this visit. ALLERGIES No Known Allergies PAST SURGICAL HISTORY Procedure Laterality Date - APPENDECTOMY HX 1990 - KNEE SCOPE,DIAGNOSTIC 2012 Left knee - PAST SURGICAL HISTORY OF 2013 Cervical Fusion C6-C7 - PAST SURGICAL HISTORY OF 2002 Left Carpal Tunnel Release - PAST SURGICAL HISTORY OF 1998 D AND C Hysteroscopy with Balloon Ablation - PAST SURGICAL HISTORY OF 1996 D AND C - PAST SURGICAL HISTORY OF 1988 Right Carpal Tunnel Release - PAST SURGICAL HISTORY OF 1984 Benign Lesions Removed from face and body - ROTATOR CUFF REPAIR 1991 Right shoulder (2nd repair) - ROTATOR CUFF REPAIR 1989 Right shoulder - TONSILLECTOMY HX 1964 Physical Exam: Constitutional: Pt is a well developed 58 year old female who is alert, oriented, cooperative and in no apparent distress. OBJECTIVE: NVSI unchanged from previous visit. Dermatological: Nails 1-5 b/l are normal. Webspaces clean and dry 1-4 b/l. Skin appears well hydrated and supple. good color, texture, turgor. No open lesions present. No callosities present. Musculoskeletal/Orthopaedic: Patient has no pain to palpation of left foot xrays of left foot reviewed. Healing hallux fracture was noted. There appears lucency of left 3rd toe concerning for new fracture. ASSESSMENT: (S63.925H) Closed nondisplaced fracture of distal phalanx of lesser toe of left foot with routine healing, subsequent encounter (primary encounter diagnosis) PLAN: 1. History and physical examination completed today. 2. Patient was examined and informed of current findings. Fracture of left hallux appears healing nicely. 3. On xray findings, there appears to be new fracture of left 3rd toe. It appears nondisplaced 4. Recommend continued use of surgical shoe. 5. Repeat xrays in 3 weeks. 6. F/u in 3 weeks Christian Salmeron DPM CNOV Observed: 07/11/2018 Status: COMPLETED Source: [place] 10:25 AM [facility] REPOSITORY Office Visit (PODIWS) NADYA MONCADA ([id number]) 1960 F Date Time Provider Department 07/11/18 10:25 AM CHRISTIAN SALMERON PODADAIR During your visit today, we recorded the following information about you: Christian Salmeron DPM 07/19/2018 10:33 PM Signed Follow up podiatric office visit for: Chief Complaint: This 58 year old who presents for follow up:fracture of left hallux Patient has been wearing surgical shoe. Patient has no pain in left great toe Patient has new xrays to review. Patient does have pain of left 2nd interspace. She is unsure if she has pain due to neuropathy or possible recent injury. PAIN EVALUATION No data found. No results found for: HBA1C PCP: Dipika El, PAST MEDICAL HISTORY Diagnosis Date - Degenerative disc disease - Depression - Fibromyalgia - PTSD (post-traumatic stress disorder) - Rosacea - Sleep apnea Current Outpatient Prescriptions: metFORMIN (GLUCOPHAGE) 500 mg tablet Take 500 mg by mouth daily with breakfast. LYRICA 100 mg capsule Take 1 capsule by mouth three times daily. traMADol (ULTRAM) 50 mg tablet Take 1 tablet by mouth four times daily. busPIRone (BUSPAR) 15 mg tablet Take 15 mg by mouth three times daily. Half tab AM Half tab PM meloxicam (MOBIC) 15 mg tablet Take 15 mg by mouth once daily. atorvastatin (LIPITOR) 40 mg tablet Take 40 mg by mouth once daily. urea (CARMOL) 40 % crea Apply 1 application to affected area as needed. Ammonium,Pot.and Sodium Lactates (AMLACTIN) crea Apply 1 application to affected area once daily. losartan (COZAAR) 50 mg tablet Take 50 mg by mouth once daily. Omeprazole 40 mg capsule Take 40 mg by mouth once daily. amitriptyline (ELAVIL) 50 mg tablet Take 50 mg by mouth daily at bedtime. tiZANidine (ZANAFLEX) 4 mg tablet Take 4 mg by mouth every 6 hours as needed. buPROPion XL (WELLBUTRIN XL) 150 mg 24 hr tablet Take 300 mg by mouth once daily. sertraline (ZOLOFT) 100 mg tablet Take 200 mg by mouth once daily. pregabalin (LYRICA) 50 mg capsule Take 50 mg by mouth three times daily. Milnacipran (SAVELLA) 50 mg tab Take by mouth twice daily. fentaNYL (DURAGESIC) 75 mcg/hr Apply 1 Patch as directed every 72 hours. metroNIDAZOLE (METROCREAM) 0.75 % cream Apply 1 application to affected area twice daily. polyethylene glycol 3350 (MIRALAX, GLYCOLAX) 17 gram packet Take 17 g by mouth once daily. Cholecalciferol, Vitamin D3, 3,000 unit tab Take by mouth. No current facility-administered medications for this visit. ALLERGIES No Known Allergies PAST SURGICAL HISTORY Procedure Laterality Date - APPENDECTOMY HX 1990 - KNEE SCOPE,DIAGNOSTIC 2012 Left knee - PAST SURGICAL HISTORY OF 2013 Cervical Fusion C6-C7 - PAST SURGICAL HISTORY OF 2002 Left Carpal Tunnel Release - PAST SURGICAL HISTORY OF 1998 D AND C Hysteroscopy with Balloon Ablation - PAST SURGICAL HISTORY OF 1996 D AND C - PAST SURGICAL HISTORY OF 1988 Right Carpal Tunnel Release - PAST SURGICAL HISTORY OF 1984 Benign Lesions Removed from face and body - ROTATOR CUFF REPAIR 1991 Right shoulder (2nd repair) - ROTATOR CUFF REPAIR 1989 Right shoulder - TONSILLECTOMY HX 1964 Physical Exam: Constitutional: Pt is a well developed 58 year old female who is alert, oriented, cooperative and in no apparent distress. OBJECTIVE: NVSI unchanged from previous visit. Dermatological: Nails 1-5 b/l are normal. Webspaces clean and dry 1-4 b/l. Skin appears well hydrated and supple. good color, texture, turgor. No open lesions present. No callosities present. Musculoskeletal/Orthopaedic: Patient has no pain to palpation of left foot xrays of left foot reviewed. Healing hallux fracture was noted. There appears lucency of left 3rd toe concerning for new fracture. ASSESSMENT: (J83.433P) Closed nondisplaced fracture of distal phalanx of lesser toe of left foot with routine healing, subsequent encounter (primary encounter diagnosis) PLAN: 1. History and physical examination completed today. 2. Patient was examined and informed of current findings. Fracture of left hallux appears healing nicely. 3. On xray findings, there appears to be new fracture of left 3rd toe. It appears nondisplaced 4. Recommend continued use of surgical shoe. 5. Repeat xrays in 3 weeks. 6. F/u in 3 weeks EVERARDO Haas RN 07/11/2018 11:22 AM Signed OK to transition into a regular shoe Referring Provider: SELF [[id number]] Allergies As of Date: 07/11/2018 (No Known Allergies) Date Reviewed: 07/11/2018 Reviewed by: Taya Hannah RN - Fully Assessed Reason for Visit: Established Patient [[id number]] Cmt: follow up left great toe fx Primary Visit Diagnosis:Closed nondisplaced fracture of distal phalanx of lesser toe of left foot with routine healing, subsequent encounter [B07.208B] Order(s):XR FOOT GENERAL 3V AP/LAT/OBL LT [[id number]] Order #: [id number] FUTURE Prescriptions as of 07/11/2018 Sig: METFORMIN 500 MG TABLET Take 500 mg by mouth daily wi* LYRICA 100 MG CAPSULE Take 1 capsule by mouth three* TRAMADOL 50 MG TABLET Take 1 tablet by mouth four t* BUSPIRONE 15 MG TABLET Take 15 mg by mouth three jody* MELOXICAM 15 MG TABLET Take 15 mg by mouth once maria eugenia* ATORVASTATIN 40 MG TABLET Take 40 mg by mouth once maria eugenia* UREA 40 % TOPICAL CREAM Apply 1 application to affect* AMMONIUM LACTATE-SODIUM LACTA* Apply 1 application to affect* LOSARTAN 50 MG TABLET Take 50 mg by mouth once maria eugenia* OMEPRAZOLE 40 MG CAPSULE,MARLENE* Take 40 mg by mouth once maria eugenia* AMITRIPTYLINE 50 MG TABLET Take 50 mg by mouth daily at * CONNIEZANIDINE 4 MG TABLET Take 4 mg by mouth every 6 ho* BUPROPION XL 150 MG TAB Take 300 mg by mouth once kaylynn* SERTRALINE 100 MG TABLET Take 200 mg by mouth once kaylynn* PREGABALIN 50 MG CAPSULE Take 50 mg by mouth three jody* MILNACIPRAN 50 MG TABLET Take by mouth twice daily. FENTANYL 75 MCG/HR TRANSDERMA* Apply 1 Patch as directed delmi* METRONIDAZOLE 0.75 % TOPICAL * Apply 1 application to affect* POLYETHYLENE GLYCOL 3350 17 G* Take 17 g by mouth once daily. CHOLECALCIFEROL (VITAMIN D3) * Take by mouth. 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 Follow-up and Disposition History Recorded Encounter Status:Closed by CHRISTIAN SALMERON DPM on 07/19/18 PROGRESS Observed: 07/11/2018 Status: COMPLETED Source: [place] 10:09 AM [facility] REPOS[facility] O ID: [id number] Author: Temitope (Rt) Itzel Augustin Service: (none) Author Type: Iron Erector Type: Progress Notes Filed: 07/11/2018 10:09 AM Note Text: Radiology Service Progress Note PATIENT NAME: Nadya Moncada DATE OF SERVICE: July 11, 2018 TIME: 10:09 AM PATIENT IDENTITY VERIFICATION COMPLETED USING TWO (2) METHODS: Patient confirmed name verbally and Date of . PATIENT GENDER DATA: Female. status: : No status: NO. PATIENT RELEVANT IMPLANT DATA REVIEWED: Not Applicable RADIOLOGY DEPARTMENT: General X-ray: Exam(s) Completed: Lower Extremity X-Ray(s): Foot, Left and Wt. Bearing: PERIPHERAL IV DATA: Not applicable SIGNED BY: RT Rachelle July 11, 2018 10:09 AM XR FOOT 3V AP/LAT/OBL Observed: 07/11/2018 Status: F Source: [facility] 10:08 AM [facility] REPOSITORY * * *Final Report* * * DATE OF EXAM: Jul 11 2018 10:08AM [id number] [id number] - XR FOOT 3V AP/LAT/OBL LT / PROCEDURE REASON: Pain * * * * Physician Interpretation * * * * Indication: Left foot pain Comparison: None 3 views of the left foot are obtained. There is an oblique fracture through the base of the proximal phalanx of the left third toe extending to the articular surface. There is no dislocation. Joint spaces are maintained. Impression: Fracture of the base of the proximal phalanx of the left third toe Pathology Manager: MANISHA Transcribe Date/Time: Jul 11 2018 5:05P Dictated by : DIMITRY FLYNN MD This examination was interpreted and the report reviewed and electronically signed by: DIMITRY FLYNN MD on Jul 11 2018 5:08PM EST [id number] PROGRESS Observed: 06/24/2018 Status: COMPLETED Source: [place] 1:50 PM [facility] REPOSIT[facility] HNO ID: [id number] Author: Christian Salmeron Service: (none) Author Type: Physician Type: Progress Notes Filed: 06/24/2018 8:30 PM Note Text: Chief Complaint: This 57 year old female who presents with chief complaint:fracture of left hallux HPI Patient presents to clinic for evaluation of left hallux Patient recently admitted to ICU for medication overdose for attempted suicide. She was admitted to hospital and when admitted to hospital, she fell when nurses attempted to transfer. She subsequently broke her left great toe. She was seen by podiatry in [place] who treated patient with surgical shoe. She is currently taping the left hallux and left 2nd toe together. She states that the surgical shoe has higher heel than her right shoe and is causing her right lower extremity pain. Of note, patient is in counseling for the attempted suicide. She has significant support at [facility]. She has no desire to commit suicide. PAIN EVALUATION No data found. No results found for: HBA1C PCP: Dipika El DO PAST MEDICAL HISTORY Diagnosis Date - Degenerative disc disease - Depression - Fibromyalgia - PTSD (post-traumatic stress disorder) - Rosacea - Sleep apnea Current Outpatient Prescriptions: metFORMIN (GLUCOPHAGE) 500 mg tablet Take 500 mg by mouth daily with breakfast. LYRICA 100 mg capsule Take 1 capsule by mouth three times daily. traMADol (ULTRAM) 50 mg tablet Take 1 tablet by mouth four times daily. busPIRone (BUSPAR) 15 mg tablet Take 15 mg by mouth three times daily. Half tab AM Half tab PM meloxicam (MOBIC) 15 mg tablet Take 15 mg by mouth once daily. atorvastatin (LIPITOR) 40 mg tablet Take 40 mg by mouth once daily. urea (CARMOL) 40 % crea Apply 1 application to affected area as needed. Ammonium,Pot.and Sodium Lactates (AMLACTIN) crea Apply 1 application to affected area once daily. losartan (COZAAR) 50 mg tablet Take 50 mg by mouth once daily. Omeprazole 40 mg capsule Take 40 mg by mouth once daily. amitriptyline (ELAVIL) 50 mg tablet Take 50 mg by mouth daily at bedtime. tiZANidine (ZANAFLEX) 4 mg tablet Take 4 mg by mouth every 6 hours as needed. buPROPion XL (WELLBUTRIN XL) 150 mg 24 hr tablet Take 300 mg by mouth once daily. sertraline (ZOLOFT) 100 mg tablet Take 200 mg by mouth once daily. pregabalin (LYRICA) 50 mg capsule Take 50 mg by mouth three times daily. Milnacipran (SAVELLA) 50 mg tab Take by mouth twice daily. fentaNYL (DURAGESIC) 75 mcg/hr Apply 1 Patch as directed every 72 hours. metroNIDAZOLE (METROCREAM) 0.75 % cream Apply 1 application to affected area twice daily. polyethylene glycol 3350 (MIRALAX, GLYCOLAX) 17 gram packet Take 17 g by mouth once daily. Cholecalciferol, Vitamin D3, 3,000 unit tab Take by mouth. No current facility-administered medications for this visit. ALLERGIES No Known Allergies PAST SURGICAL HISTORY Procedure Laterality Date - APPENDECTOMY HX 1990 - KNEE SCOPE,DIAGNOSTIC 2012 Left knee - PAST SURGICAL HISTORY OF 2013 Cervical Fusion C6-C7 - PAST SURGICAL HISTORY OF 2002 Left Carpal Tunnel Release - PAST SURGICAL HISTORY OF 1998 D AND C Hysteroscopy with Balloon Ablation - PAST SURGICAL HISTORY OF 1996 D AND C - PAST SURGICAL HISTORY OF 1988 Right Carpal Tunnel Release - PAST SURGICAL HISTORY OF 1984 Benign Lesions Removed from face and body - ROTATOR CUFF REPAIR 1991 Right shoulder (2nd repair) - ROTATOR CUFF REPAIR 1989 Right shoulder - TONSILLECTOMY HX 1964 FAMILY HISTORY Problem Relation Age of Onset - Glaucoma Father - Cataract Mother Social History Marital status: Spouse name: Years of education: Number of children: Social History Main Topics Smoking status: Former Smoker Packs/day: 1.00 Years: 20.00 Types: Cigarettes Quit date: 12/31/2008 Smokeless tobacco: Never Used Alcohol use: No Drug use: No REVIEW OF SYSTEMS GENERAL: Negative for Malaise, significant weight loss, fever RESPIRATORY: Negative for cough, wheezing and shortness of breath CARDIOVASCULAR: Negative for chest pain, leg swelling and palpitations GI: Negative for abdominal discomfort, blood in stools or black stools and change in bowel habits : Negative for dysuria, frequency and incontinence MUSCULOSKELETAL: Negative for joint pain or swelling, back pain, and muscle pain. SKIN: Negative for lesions, rash, and itching. HEMATOLOGY/LYMPHOLOGY Negative for prolonged bleeding, bruising easily, and swollen nodes. ENDOCRINE: Negative for cold or heat intolerance, polyuria, polydipsia and goiter. NEURO: negative Physical Exam: Constitutional: Pt is a well developed 57 year old female who is alert, oriented and cooperative Eyes: Following during examination. No redness or drainage. Respiratory: RR normal and nonlabored. Even breathing. No evidence of distress or shortness of breath. Psychology: Patient is engaged during conversation. Normal affect and mood. Does not appear depressed or anxious during encounter. Vascular: Dorsalis pedis and posterior tibial pulses palpable as b/l Capillary Fill time < 5 seconds to digits 1-5 b/l Skin temperature warm to warm proximal to distal b/l Hair growth present to digits Neurological: intact light touch/epicritic sensation b/l intact protective sensation no significant neurological deficits Dermatological: Nails 1-5 b/l appear normal. Webspaces clean and dry 1-4 b/l. Skin appears well hydrated and supple. good color, texture, turgor. No open lesions present. No callosities present. Musculoskeletal/Orthopaedic: Patient has no pain to palpation of left hallux Foot type is neutral structurally AJ ROM is full with knee extended and flexed 1st MPJ is full when loaded and no pain or crepitus are noted with ROM. MTJ, STJ are full and free of pain and crepitus. +5/5 muscle strength dorsiflexion, plantarflexion, inversion, eversion b/l Radiographs: 3 views left foot reviewed June 24, 2018 from outside hospital: I have personally reviewed and interpreted these XR myself: Nondisplaced fracture of left hallux distal phalanx. Fracture appears to be intra-articular ASSESSMENT: (S92.425A) Closed nondisplaced fracture of distal phalanx of left great toe, initial encounter (primary encounter diagnosis) PLAN: 1. History and physical examination performed. 2. XR reviewed with patient and interpreted today 3. Discussed fracture of left hallux. Fracture appears nondisplaced. Recommend continued use of surgical shoe. Will repeat xrays in 3 weeks. Possible transition to diabetic shoes in 3 weeks 4. Discussed past attempt as suicide. Patient currently in rehab and under counseling. Christian Salmeron DPM PROGRESS Observed: 06/24/2018 Status: COMPLETED Source: [place] 1:40 PM [facility] REPOSITORY HNO ID: [id number] Author: Maryam Weems Ma Service: (none) Author Type: (none) Type: Progress Notes Filed: 06/24/2018 8:30 PM Note Text: AMB ROOMING INTAKE FLOWSHEET DATA Risk Screening Do you have concerns about personal safety or safety in the home?: No Patient fell in bathroom at rehab on 06/14/18 and had XR taken showing broken L great toe. She reports constant numbness. She is NWB and using post op shoe with lukas tape. Maryam Weems Ma CNOV Observed: 06/24/2018 Status: COMPLETED Source: [place] 1:25 PM [facility] REPOSITORY Office Visit (PODIWS) NADYA MONCADA ([id number]) 1960 F Date Time Provider Department 06/24/18 1:25 PM CHRISTIAN SALMERON During your visit today, we recorded the following information about you: Maryam Weems Ma 06/24/2018 8:30 PM Signed AMB ROOMING INTAKE FLOWSHEET DATA Risk Screening Do you have concerns about personal safety or safety in the home?: No Patient fell in bathroom at rehab on 06/14/18 and had XR taken showing broken L great toe. She reports constant numbness. She is NWB and using post op shoe with lukas tape. Maryam Mustafa [place], [facility] 06/24/2018 8:30 PM Signed Chief Complaint: This 57 year old female who presents with chief complaint:fracture of left hallux HPI Patient presents to clinic for evaluation of left hallux Patient recently admitted to ICU for medication overdose for attempted suicide. She was admitted to hospital and when admitted to hospital, she fell when nurses attempted to transfer. She subsequently broke her left great toe. She was seen by podiatry in [place] who treated patient with surgical shoe. She is currently taping the left hallux and left 2nd toe together. She states that the surgical shoe has higher heel than her right shoe and is causing her right lower extremity pain. Of note, patient is in counseling for the attempted suicide. She has significant support at [facility]. She has no desire to commit suicide. PAIN EVALUATION No data found. No results found for: HBA1C PCP: Dipika El, PAST MEDICAL HISTORY Diagnosis Date - Degenerative disc disease - Depression - Fibromyalgia - PTSD (post-traumatic stress disorder) - Rosacea - Sleep apnea Current Outpatient Prescriptions: metFORMIN (GLUCOPHAGE) 500 mg tablet Take 500 mg by mouth daily with breakfast. LYRICA 100 mg capsule Take 1 capsule by mouth three times daily. traMADol (ULTRAM) 50 mg tablet Take 1 tablet by mouth four times daily. busPIRone (BUSPAR) 15 mg tablet Take 15 mg by mouth three times daily. Half tab AM Half tab PM meloxicam (MOBIC) 15 mg tablet Take 15 mg by mouth once daily. atorvastatin (LIPITOR) 40 mg tablet Take 40 mg by mouth once daily. urea (CARMOL) 40 % crea Apply 1 application to affected area as needed. Ammonium,Pot.and Sodium Lactates (AMLACTIN) crea Apply 1 application to affected area once daily. losartan (COZAAR) 50 mg tablet Take 50 mg by mouth once daily. Omeprazole 40 mg capsule Take 40 mg by mouth once daily. amitriptyline (ELAVIL) 50 mg tablet Take 50 mg by mouth daily at bedtime. tiZANidine (ZANAFLEX) 4 mg tablet Take 4 mg by mouth every 6 hours as needed. buPROPion XL (WELLBUTRIN XL) 150 mg 24 hr tablet Take 300 mg by mouth once daily. sertraline (ZOLOFT) 100 mg tablet Take 200 mg by mouth once daily. pregabalin (LYRICA) 50 mg capsule Take 50 mg by mouth three times daily. Milnacipran (SAVELLA) 50 mg tab Take by mouth twice daily. fentaNYL (DURAGESIC) 75 mcg/hr Apply 1 Patch as directed every 72 hours. metroNIDAZOLE (METROCREAM) 0.75 % cream Apply 1 application to affected area twice daily. polyethylene glycol 3350 (MIRALAX, GLYCOLAX) 17 gram packet Take 17 g by mouth once daily. Cholecalciferol, Vitamin D3, 3,000 unit tab Take by mouth. No current facility-administered medications for this visit. ALLERGIES No Known Allergies PAST SURGICAL HISTORY Procedure Laterality Date - APPENDECTOMY HX 1990 - KNEE SCOPE,DIAGNOSTIC 2012 Left knee - PAST SURGICAL HISTORY OF 2013 Cervical Fusion C6-C7 - PAST SURGICAL HISTORY OF 2002 Left Carpal Tunnel Release - PAST SURGICAL HISTORY OF 1998 D AND C Hysteroscopy with Balloon Ablation - PAST SURGICAL HISTORY OF 1996 D AND C - PAST SURGICAL HISTORY OF 1988 Right Carpal Tunnel Release - PAST SURGICAL HISTORY OF 1984 Benign Lesions Removed from face and body - ROTATOR CUFF REPAIR 1991 Right shoulder (2nd repair) - ROTATOR CUFF REPAIR 1989 Right shoulder - TONSILLECTOMY HX 1964 FAMILY HISTORY Problem Relation Age of Onset - Glaucoma Father - Cataract Mother Social History Marital status: Spouse name: Years of education: Number of children: Social History Main Topics Smoking status: Former Smoker Packs/day: 1.00 Years: 20.00 Types: Cigarettes Quit date: 12/31/2008 Smokeless tobacco: Never Used Alcohol use: No Drug use: No REVIEW OF SYSTEMS GENERAL: Negative for Malaise, significant weight loss, fever RESPIRATORY: Negative for cough, wheezing and shortness of breath CARDIOVASCULAR: Negative for chest pain, leg swelling and palpitations GI: Negative for abdominal discomfort, blood in stools or black stools and change in bowel habits : Negative for dysuria, frequency and incontinence MUSCULOSKELETAL: Negative for joint pain or swelling, back pain, and muscle pain. SKIN: Negative for lesions, rash, and itching. HEMATOLOGY/LYMPHOLOGY Negative for prolonged bleeding, bruising easily, and swollen nodes. ENDOCRINE: Negative for cold or heat intolerance, polyuria, polydipsia and goiter. NEURO: negative Physical Exam: Constitutional: Pt is a well developed 57 year old female who is alert, oriented and cooperative Eyes: Following during examination. No redness or drainage. Respiratory: RR normal and nonlabored. Even breathing. No evidence of distress or shortness of breath. Psychology: Patient is engaged during conversation. Normal affect and mood. Does not appear depressed or anxious during encounter. Vascular: Dorsalis pedis and posterior tibial pulses palpable as b/l Capillary Fill time < 5 seconds to digits 1-5 b/l Skin temperature warm to warm proximal to distal b/l Hair growth present to digits Neurological: intact light touch/epicritic sensation b/l intact protective sensation no significant neurological deficits Dermatological: Nails 1-5 b/l appear normal. Webspaces clean and dry 1-4 b/l. Skin appears well hydrated and supple. good color, texture, turgor. No open lesions present. No callosities present. Musculoskeletal/Orthopaedic: Patient has no pain to palpation of left hallux Foot type is neutral structurally AJ ROM is full with knee extended and flexed 1st MPJ is full when loaded and no pain or crepitus are noted with ROM. MTJ, STJ are full and free of pain and crepitus. +5/5 muscle strength dorsiflexion, plantarflexion, inversion, eversion b/l Radiographs: 3 views left foot reviewed June 24, 2018 from outside hospital: I have personally reviewed and interpreted these XR myself: Nondisplaced fracture of left hallux distal phalanx. Fracture appears to be intra-articular ASSESSMENT: (T37.362G) Closed nondisplaced fracture of distal phalanx of left great toe, initial encounter (primary encounter diagnosis) PLAN: 1. History and physical examination performed. 2. XR reviewed with patient and interpreted today 3. Discussed fracture of left hallux. Fracture appears nondisplaced. Recommend continued use of surgical shoe. Will repeat xrays in 3 weeks. Possible transition to diabetic shoes in 3 weeks 4. Discussed past attempt as suicide. Patient currently in rehab and under counseling. EVERARDO Haas Ma 06/24/2018 2:01 PM Signed Continue post op shoe Follow up in 2 weeks with repeat XR Referring Provider: ER STAFF [[id number]] Allergies As of Date: 06/24/2018 (No Known Allergies) Date Reviewed: 06/24/2018 Reviewed by: Maryam Weems Ma - Fully Assessed Reason for Visit: New Patient [172] Primary Visit Diagnosis:Closed nondisplaced fracture of distal phalanx of left great toe, initial encounter [S92.425A] Order(s):XR FOOT GENERAL 3V AP/LAT/OBL LT [[id number]] Order #: [id number] FUTURE Prescriptions as of 06/24/2018 Sig: METFORMIN 500 MG TABLET Take 500 mg by mouth daily wi* LYRICA 100 MG CAPSULE Take 1 capsule by mouth three* TRAMADOL 50 MG TABLET Take 1 tablet by mouth four t* BUSPIRONE 15 MG TABLET Take 15 mg by mouth three jody* MELOXICAM 15 MG TABLET Take 15 mg by mouth once maria eugenia* ATORVASTATIN 40 MG TABLET Take 40 mg by mouth once maria eugenia* UREA 40 % TOPICAL CREAM Apply 1 application to affect* AMMONIUM LACTATE-SODIUM LACTA* Apply 1 application to affect* LOSARTAN 50 MG TABLET Take 50 mg by mouth once maria eugenia* OMEPRAZOLE 40 MG CAPSULE,MARLNEE* Take 40 mg by mouth once maria eugenia* AMITRIPTYLINE 50 MG TABLET Take 50 mg by mouth daily at * TIZANIDINE 4 MG TABLET Take 4 mg by mouth every 6 ho* BUPROPION XL 150 MG TAB Take 300 mg by mouth once kaylynn* SERTRALINE 100 MG TABLET Take 200 mg by mouth once kaylynn* PREGABALIN 50 MG CAPSULE Take 50 mg by mouth three jody* MILNACIPRAN 50 MG TABLET Take by mouth twice daily. FENTANYL 75 MCG/HR TRANSDERMA* Apply 1 Patch as directed delmi* METRONIDAZOLE 0.75 % TOPICAL * Apply 1 application to affect* POLYETHYLENE GLYCOL 3350 17 G* Take 17 g by mouth once daily. CHOLECALCIFEROL (VITAMIN D3) * Take by mouth. 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 Follow-up and Disposition History Recorded Encounter Status:Closed by CHRISTIAN SALMERON DPM on 06/24/18 PATIENT SUMMARY Observed: 06/18/2018 Status: C Source: [facility] 3:04 PM HEALTH SYSTEM REPOSITORY PATIENT DISCHARGE INSTRUCTIONS If you are having an emergency and are not able to reach your physician, CALL 911 or go to the nearest emergency room and take this document with you. [facility]04 [address] [place]. [address] PATIENT INFORMATION Name: NADYA MONCADA Address: [address] [place] [id number] Age: 57 Years Phone: : 1960 12:00 MRN: [id number] Sex: Female Race: White Ethnicity: Not Hispan/Lat Admitted From: [facility] Medical Service: Internal Medicine Nurse Unit/Bed: (PA) [facility] [id number] Admit Date: 06/09/2018 00:22 PCP: Physician, No PCP PHYSICIANS INVOLVED WITH CARE Attending Physicians: None found Admitting Physician: Laith Wilcox MD - Internal Medicine Primary Care Physician:Physician, No PCP,Family Practice,Internal Medicine,, - Consults: Emilee Benites MD - Psychiatry Shazia MCGEE, Gerard - Podiatry Ria GUILLORY, Shanta Veronica - Internal Medicine YOU WERE TREATED IN THE HOSPITAL FOR: Drug overdose, intentional; Rhabdomyolysis FOLLOW-UP APPOINTMENTS: Provider: Specialty: Address: Date: No PCP Physician Family Practice; Internal Medicine 5 to 7 days Provider: Specialty: Address: Date: Ramon Rodrigeuz MD Neurological Surgery [address] [place] [address] [place] [address] (1) Three Weeks ALLERGIES: No Known Allergies MEASUREMENTS: Last Charted: Weight: 112.5 kg /248 lbs 0 oz ( 06/09/18 02:19:00 ) MEDICATIONS For: STONE, NADYA This is your list of medication(s). Keep it with you at all times. Your doctor may have changed doses, add, held or stopped some of your medications. Please share this information with your family docto r. Carry this list of medications with you in case of an emergency. Update it when medications are stopped, doses are changed, or new medications (including [id number] products) are added. Ask your doctor if you have any questions. THESE ARE THE MEDICATIONS YOU SHOULD BE TAKING amitriptyline (amitriptyline 50 mg oral tablet) 1 Tab(s) By Mouth 3 Times a day. ascorbic acid (Vitamin C 500 mg oral tablet) 2 Tab(s) By Mouth once a day. 2 tab = 1000 mg. atorvastatin (atorvastatin 40 mg oral tablet) 1 Tab(s) By Mouth Bedtime. BuPROPion (buPROPion 300 mg/24 hours oral tablet, extended release) 1 Tab(s) By Mouth every 24 hours. BusPIRone (busPIRone 15 mg oral tablet) 1 Tab(s) By Mouth Bedtime. BusPIRone (busPIRone 15 mg oral tablet) 0.5 Tab(s) By Mouth once a day. 0.5 tab = 7.5 mg. cholecalciferol (Vitamin D3 5000 intl units oral capsule) 1 Capsule By Mouth Once Daily, Saturday, Saturday, Saturday. losartan (losartan 50 mg oral tablet) 1 Tab(s) By Mouth once a day. MetFORMIN (metFORMIN 500 mg oral tablet, extended release) 1 Tab(s) By Mouth once a day. MethylPREDNISolone (Medrol Dosepak 4 mg oral tablet) as directed on package labeling. Refills: 0. milnacipran (Savella 50 mg oral tablet) 1 Tab(s) By Mouth Twice a day. multivitamin 1 Tab(s) By Mouth once a day. multivitamin with minerals (PreserVision AREDS 2 oral capsule) 1 Capsule By Mouth once a day. omeprazole (omeprazole 40 mg oral delayed release capsule) 1 Capsule By Mouth once a day. polyethylene glycol 3350 (Glycolax oral powder for reconstitution(Obsolete)) 17 gram By Mouth once a day as needed Constipation. pregabalin (Lyrica 100 mg oral capsule) 1 Capsule By Mouth 3 Times a day., SEE COMPLIANCE sertraline (sertraline 100 mg oral tablet) 1.5 Tab(s) By Mouth Bedtime. 1.5 tab = 150 mg. TiZANidine (tiZANidine 4 mg oral tablet) 1 Tab(s) By Mouth Twice a day., SEE COMPLIANCE MEDICATION CHANGE DETAILS (Not your Final Home Medication List) During the course of your visit, your home medication list was updated with the most current information. The details of those changes are shown below: NEW MEDICATIONS [facility], [address] [place] [address], [phone] MethylPREDNISolone (Medrol Dosepak 4 mg oral tablet) as directed on package labeling. Refills: 0. Comment UPDATED MEDICATIONS None UNCHANGED MEDICATIONS Other Medications amitriptyline (amitriptyline 50 mg oral tablet) 1 Tab(s) By Mouth 3 Times a day. Comment ascorbic acid (Vitamin C 500 mg oral tablet) 2 Tab(s) By Mouth once a day. 2 tab = 1000 mg. Comment atorvastatin (atorvastatin 40 mg oral tablet) 1 Tab(s) By Mouth Bedtime. Comment BuPROPion (buPROPion 300 mg/24 hours oral tablet, extended release) 1 Tab(s) By Mouth every 24 hours. Comment BusPIRone (busPIRone 15 mg oral tablet) 1 Tab(s) By Mouth Bedtime. Comment BusPIRone (busPIRone 15 mg oral tablet) 0.5 Tab(s) By Mouth once a day. 0.5 tab = 7.5 mg. Comment cholecalciferol (Vitamin D3 5000 intl units oral capsule) 1 Capsule By Mouth Once Daily, Saturday, Saturday, Saturday. Comment losartan (losartan 50 mg oral tablet) 1 Tab(s) By Mouth once a day. Comment MetFORMIN (metFORMIN 500 mg oral tablet, extended release) 1 Tab(s) By Mouth once a day. Comment milnacipran (Savella 50 mg oral tablet) 1 Tab(s) By Mouth Twice a day. Comment multivitamin 1 Tab(s) By Mouth once a day. Comment multivitamin with minerals (PreserVision AREDS 2 oral capsule) 1 Capsule By Mouth once a day. Comment omeprazole (omeprazole 40 mg oral delayed release capsule) 1 Capsule By Mouth once a day. Comment polyethylene glycol 3350 (Glycolax oral powder for reconstitution(Obsolete)) 17 gram By Mouth once a day as needed Constipation. Comment pregabalin (Lyrica 100 mg oral capsule) 1 Capsule By Mouth 3 Times a day., SEE COMPLIANCE Comment sertraline (sertraline 100 mg oral tablet) 1.5 Tab(s) By Mouth Bedtime. 1.5 tab = 150 mg. Comment TiZANidine (tiZANidine 4 mg oral tablet) 1 Tab(s) By Mouth Twice a day., SEE COMPLIANCE Comment STOP TAKING THESE MEDICATIONS meloxicam (meloxicam 15 mg oral tablet) 1 Tab(s) By Mouth Bedtime. DO NOT TAKE UNTIL YOU TALK TO YOUR DOCTOR None NON-MEDICATION PRESCRIPTION SCHEDULING PHONE NUMBER: IMMUNIZATIONS/VACCINATIONS: The Center for Disease Control recommends that all adults caring for infants, receive the Tdap vaccination. Please ask your physician about this vaccine. Administered during your visit Date Influenza Quadrivalent PF Vaccine 0.5 mL (Flucelvax GEq) 06/12/2018 13:28 SELECTED LAB RESULTS Lab Result Order Date Hemoglobin 12.0 gm/dL 06/16/2018 Hematocrit 37.3 % 06/16/2018 WBC Count 12.8 thou/mcL 06/16/2018 Platelet Count 288 thou/mcL 06/16/2018 Sodium Level 139 mMol/L 06/16/2018 Potassium Level 4.0 mMol/L 06/16/2018 Creatinine 0.99 mg/dL 06/16/2018 BUN 18 mg/dL 06/16/2018 Thyroid Stimulating Hormone 2.19 mcIU/mL 06/08/2018 Total Bilirubin 0.6 mg/dL 06/09/2018 Hemoglobin A1c 6.6 % tl hgb 06/09/2018 Glucose Level 115 mg/dL 06/16/2018 ADVANCE DIRECTIVE/HEALTH CARE DECISIONS: Advance Directive/Health Care Decisions Executed by Patient: Patient/family unable to respond DISCHARGE INSTRUCTIONS: Discharge Diet Continue your regular diet. Discharge Activities As tolerated. Notify Physician If you gain 2-3 pounds overnight or 4-5 pounds in 5 days, notify your physician. Worsening or recurring symptoms. SUICIDE HOTLINE: Your mental and emotional well-being are important. If you are in a mental health crisis, or having thoughts of suicide, please call the nationwide suicide hotline, anytime day or night, at 5-758-950-DQFD. Important information about accessing your health information through the [facility] [employer] patient portal If you initiated the self-registration process for [facility] [employer] during your stay, please check your personal email for an invitation to enroll in [employer] and complete the steps outlined in the email. If you would prefer to enroll while in the hospital, ask a member of your care team. We would be happy to assist you. If you have already [facility], go to [email or web address] to login and access your health information. [facility] PATIENT EDUCATION PATIENT DISCHARGE INSTRUCTION Signature Page for: NADYA MONCADA Date/Time: 06/18/2018 15:04:30 A Clinician has explained the information on my discharge instructions and has provided me with a copy. My questions have been answered to my satisfaction. Patient Signature Date/Time Responsible Party Date/Time Relationship to Patient Clinician Signature Date/Time CLINICAL SUMMARY Observed: 06/18/2018 Status: C Source: [facility] RO[facility] 3:04 PM HEALTH SYSTEM REPOSITORY CLINICAL SUMMARY Please take this summary document to your follow up appointments. Mag[facility] Galvez'tanya 06/18/18 15:04 [address] [place]. [address] PATIENT INFORMATION Name: NADYA MONCADA Address: [facility] [address] Age: 57 Years Phone: : 1960 12:00 MRN: [id number] Sex: Female Race: White Ethnicity: Not Hispan/Lat [facility] Medical Service: Internal Medicine Nurse Unit/Bed: ([address] [id number] Admit Date: 06/09/2018 00:22 PCP: Physician, No PCP PHYSICIANS INVOLVED WITH CARE Attending Physicians: None found Admitting Physician: Laith Wilcox MD - Internal Medicine Primary Care Physician:Physician, No PCP,Family Practice,Internal Medicine,, - Consults: Delmis GUILLORY , Emilee - Psychiatry Shazia MCGEE, Gerard - Podiatry Ria GUILLORY, Shanta Veronica - Internal Medicine DIAGNOSES: Drug overdose, intentional; Rhabdomyolysis Problems Active Hypotension Back pain Allergies NKA Procedures Neck MEASUREMENTS: Last Charted: Weight: 112.5 kg /248 lbs 0 oz ( 06/09/18 02:19:00 ) VITAL SIGNS: Last Charted: Pulse Rate: 94 BPM (06/18 13:33) Blood Pressure: 132/73 mm Hg (06/18 13:33) Pain Score: 6(06/18 12:36) CODE STATUS: Full Resuscitation Comment: Provide all therapy to prevent/treat cardiac or respiratory arrest. Last Bowel Movement: Date/Time: 06/18 11:00 Formed Stool X: 1 MENTAL STATUS: Level of Conciousness: Alert (06/18 08:37) Orientation: Oriented x 4 (06/18 08:37) MEDICATIONS ORDERED / RECOMMENDED TO BE CONTINUED for: STONE, NADYA amitriptyline (amitriptyline 50 mg oral tablet) 1 Tab(s) By Mouth 3 Times a day. ascorbic acid (Vitamin C 500 mg oral tablet) 2 Tab(s) By Mouth once a day. 2 tab = 1000 mg. atorvastatin (atorvastatin 40 mg oral tablet) 1 Tab(s) By Mouth Bedtime. BuPROPion (buPROPion 300 mg/24 hours oral tablet, extended release) 1 Tab(s) By Mouth every 24 hours. BusPIRone (busPIRone 15 mg oral tablet) 1 Tab(s) By Mouth Bedtime. BusPIRone (busPIRone 15 mg oral tablet) 0.5 Tab(s) By Mouth once a day. 0.5 tab = 7.5 mg. cholecalciferol (Vitamin D3 5000 intl units oral capsule) 1 Capsule By Mouth Once Daily, Saturday, Saturday, Saturday. losartan (losartan 50 mg oral tablet) 1 Tab(s) By Mouth once a day. MetFORMIN (metFORMIN 500 mg oral tablet, extended release) 1 Tab(s) By Mouth once a day. MethylPREDNISolone (Medrol Dosepak 4 mg oral tablet) as directed on package labeling. Refills: 0. milnacipran (Savella 50 mg oral tablet) 1 Tab(s) By Mouth Twice a day. multivitamin 1 Tab(s) By Mouth once a day. multivitamin with minerals (PreserVision AREDS 2 oral capsule) 1 Capsule By Mouth once a day. omeprazole (omeprazole 40 mg oral delayed release capsule) 1 Capsule By Mouth once a day. polyethylene glycol 3350 (Glycolax oral powder for reconstitution(Obsolete)) 17 gram By Mouth once a day as needed Constipation. pregabalin (Lyrica 100 mg oral capsule) 1 Capsule By Mouth 3 Times a day., SEE COMPLIANCE sertraline (sertraline 100 mg oral tablet) 1.5 Tab(s) By Mouth Bedtime. 1.5 tab = 150 mg. TiZANidine (tiZANidine 4 mg oral tablet) 1 Tab(s) By Mouth Twice a day., SEE COMPLIANCE MEDICATION CHANGE DETAILS NEW MEDICATIONS [facility], [address] [place] [address], [phone] MethylPREDNISolone (Medrol Dosepak 4 mg oral tablet) as directed on package labeling. Refills: 0. Comment UPDATED MEDICATIONS None UNCHANGED MEDICATIONS Other Medications amitriptyline (amitriptyline 50 mg oral tablet) 1 Tab(s) By Mouth 3 Times a day. Comment ascorbic acid (Vitamin C 500 mg oral tablet) 2 Tab(s) By Mouth once a day. 2 tab = 1000 mg. Comment atorvastatin (atorvastatin 40 mg oral tablet) 1 Tab(s) By Mouth Bedtime. Comment BuPROPion (buPROPion 300 mg/24 hours oral tablet, extended release) 1 Tab(s) By Mouth every 24 hours. Comment BusPIRone (busPIRone 15 mg oral tablet) 1 Tab(s) By Mouth Bedtime. Comment BusPIRone (busPIRone 15 mg oral tablet) 0.5 Tab(s) By Mouth once a day. 0.5 tab = 7.5 mg. Comment cholecalciferol (Vitamin D3 5000 intl units oral capsule) 1 Capsule By Mouth Once Daily, Saturday, Saturday, Saturday. Comment losartan (losartan 50 mg oral tablet) 1 Tab(s) By Mouth once a day. Comment MetFORMIN (metFORMIN 500 mg oral tablet, extended release) 1 Tab(s) By Mouth once a day. Comment milnacipran (Savella 50 mg oral tablet) 1 Tab(s) By Mouth Twice a day. Comment multivitamin 1 Tab(s) By Mouth once a day. Comment multivitamin with minerals (PreserVision AREDS 2 oral capsule) 1 Capsule By Mouth once a day. Comment omeprazole (omeprazole 40 mg oral delayed release capsule) 1 Capsule By Mouth once a day. Comment polyethylene glycol 3350 (Glycolax oral powder for reconstitution(Obsolete)) 17 gram By Mouth once a day as needed Constipation. Comment pregabalin (Lyrica 100 mg oral capsule) 1 Capsule By Mouth 3 Times a day., SEE COMPLIANCE Comment sertraline (sertraline 100 mg oral tablet) 1.5 Tab(s) By Mouth Bedtime. 1.5 tab = 150 mg. Comment TiZANidine (tiZANidine 4 mg oral tablet) 1 Tab(s) By Mouth Twice a day., SEE COMPLIANCE Comment STOP TAKING THESE MEDICATIONS meloxicam (meloxicam 15 mg oral tablet) 1 Tab(s) By Mouth Bedtime. DO NOT TAKE UNTIL YOU TALK TO YOUR DOCTOR None RECONCILING PROVIDER(S) 06/18/18 13:22:24 EDT Electronically Signed by Laith Wilcox MD MethylPREDNISolone (Medrol Dosepak 4 mg oral tablet) 06/11/18 11:58:05 EDT Electronically Signed by Shanta Hawthorne MD BuPROPion (buPROPion 300 mg/24 hours oral tablet, extended release) BusPIRone (busPIRone 15 mg oral tablet) MetFORMIN (metFORMIN 500 mg oral tablet, extended release) TiZANidine (tiZANidine 4 mg oral tablet) amitriptyline (amitriptyline 50 mg oral tablet) ascorbic acid (Vitamin C 500 mg oral tablet) atorvastatin (atorvastatin 40 mg oral tablet) cholecalciferol (Vitamin D3 5000 intl units oral capsule) losartan (losartan 50 mg oral tablet) milnacipran (Savella 50 mg oral tablet) multivitamin multivitamin with minerals (PreserVision AREDS 2 oral capsule) omeprazole (omeprazole 40 mg oral delayed release capsule) polyethylene glycol 3350 (Glycolax oral powder for reconstitution(Obsolete)) pregabalin (Lyrica 100 mg oral capsule) sertraline (sertraline 100 mg oral tablet) Inpatient Medication History (active at the time of summary): Do not administer these medications until re-evaluated by a provider at the next level of care. Dexamethasone 4 mg Tab (Decadron GEq) (Decadron) 4 mg = 1 Tab, PO, Tab, Q6h, x 30 Day(s), 06/14/18 11:15:00 EDT Last Dose: 06/18/18 12:36:00 TiZANidine 4 mg Tab (Zanaflex GEq) (TiZANidine) 4 mg = 1 Tab, PO, Tab, BID,, x 30 Day(s), 06/12/18 10:20:00 EDT Last Dose: 06/18/18 08:42:00 Pantoprazole 40 mg Tab EC (Protonix GEq) (pantoprazole) 40 mg = 1 Tab, PO, Tab EC, ac bkfst,, x 30 Day(s), 06/12/18 10:24:00 EDT Last Dose: 06/18/18 08:42:00 BusPIRone 15 mg Tab (Buspar GEq) (BusPIRone) 15 mg = 1 Tab, PO, Tab, Bedtime,, x 30 Day(s), 06/11/18 11:54:00 EDT Last Dose: 06/17/18 20:47:00 Sertraline 50 mg Tab (Zoloft GEq) (sertraline) 150 mg = 3 Tab, PO, Tab, Bedtime,, x 30 Day(s), 06/11/18 11:54:00 EDT Last Dose: 06/17/18 20:48:00 Amitriptyline 50 mg Tab (Elavil GEq) (amitriptyline) 50 mg = 1 Tab, PO, Tab, TID,, x 30 Day(s), 06/11/18 11:54:00 EDT Last Dose: 06/18/18 14:08:00 Pregabalin 100 mg Cap (Lyrica GEq) (Lyrica) 100 mg = 1 Cap, PO, Cap, TID,, x 30 Day(s), 06/11/18 11:54:00 EDT Last Dose: 06/18/18 14:08:00 Ascorbic Acid 250 mg Tab (Vitamin C GEq) (Vitamin C) 1,000 mg = 4 Tab, PO, Tab, Daily,, x 30 Day(s), 06/11/18 11:54:00 EDT Last Dose: 06/18/18 08:43:00 BuPROPion XL 150 mg Tab (Wellbutrin XL GEq) (BuPROPion) 300 mg = 2 Tab, PO, Tab XL, Daily,, x 30 Day(s), 06/11/18 11:54:00 EDT Last Dose: 06/18/18 08:44:00 BusPIRone 5 mg Tab (Buspar GEq) (BusPIRone) 7.5 mg = 1.5 Tab, PO, Tab, Daily,, x 30 Day(s), 06/11/18 11:54:00 EDT Last Dose: 06/18/18 08:44:00 Cholecalciferol 5000 Unit Cap (Vitamin D-3 GEq) (Vitamin D3) 5,000 Unit = 1 Cap, PO, Cap, QMon+Wed+Fri,, x 30 Day(s), 06/11/18 11:54:00 EDT Last Dose: 06/18/18 08:42:00 Losartan 50 mg Tab (Cozaar GEq) (losartan) 50 mg = 1 Tab, PO, Tab, Daily,, x 30 Day(s), 06/11/18 11:54:00 EDT Last Dose: 06/18/18 08:42:00 Insulin U100 Lispro per unit MDV (HumaLOG GEq) (Insulin Lispro Sliding Scale (HumaLOG)*) Conservative Scale, Inject, Subcut,, ac+bedtime, x 30 Day(s), 06/10/18 19:38:00 EDT COMMENTS and SPECIAL INSTRUCTIONS: > 0 - 60 Give 12.5 grams (25 mL) of Dextrose 50% for hypoglycemia blood glucose less than 60 mg/dL and patient cannot eat or drink. Repeat in 15 minutes if glucose remains less than 60 mg/dL. 61 - 200 0 Unit 201 - 250 2 Unit 251 - 300 4 Unit 301 - 350 6 Unit 351 - 400 8 Unit 401 - 450 10 Unit 451 or greater 12 Unit and call physician > Enoxaparin 40 mg/0.4 mL Syringe (Lovenox GEq) (Lovenox) 40 mg = 0.4 mL, Subcut, Inject, Daily, x 30 Day(s), 06/10/18 9:45:00 EDT Last Dose: 06/18/18 08:43:00 oxygen Nasal Cannula, FIO2/LPM: 0-6, Target O2 Sat: Greater Than 92%, Supplemental oxygen titration to maintain saturation greater than 92% OxyCODONE/Acetaminophen 5 mg/325 mg Tab (Percocet GEq) (Percocet 5 mg/325 mg) 1 Tab, PO, Tab, Q4h, x 30 Day(s), PRN Pain - Moderate, 06/15/18 9:09:00 EDT Last Dose: 06/18/18 12:36:00 COMMENTS and SPECIAL INSTRUCTIONS: Maximum 4 Gm Acetaminophen/Day for Adults PEG Powder 17 Gm (MiraLax GEq) (polyethylene glycol 3350) 17 Gm = 1 Packet, PO, Powder, Daily, PRN, Constipation Last Dose: 06/15/18 21:04:00 COMMENTS and SPECIAL INSTRUCTIONS: Mix with 4 to 8 oz. of water, juice, soda, coffee, or tea until completely dissolved. Acetaminophen 325 mg Tab (Tylenol GEq) (acetaminophen) 650 mg = 2 Tab, PO, Tab, Q4h, PRN, Pain - Mild, x 30 Day(s), 06/11/18 22:47:00 EDT Last Dose: 06/15/18 13:33:00 Atropine 0.1 mg/mL Syringe 10 mL 0.5 mg = 5 mL, IV Push, Inject, Q3min, PRN, See Comments, x 6 Time(s)/Dose(s), 06/09/18 8:16:00 EDT COMMENTS and SPECIAL INSTRUCTIONS: as needed for symptomatic bradycardia with a heart rate less than 50 beats per minute. If needed, may repeat doses in 3 - 5 minutes up to a TOTAL of 3 mg. Nitroglycerin Subl Tab 0.4 mg #25 (Nitrostat GEq) (Nitrostat*) 0.4 mg = 1 Tab, Subl, Tab Subl, Q5min, PRN, See Comments, x 30 Day(s), 06/09/18 8:16:00 EDT COMMENTS and SPECIAL INSTRUCTIONS: PRN Chest Pain - Administer Q5 min x 3 doses as needed per episode of chest pain. If no relief after 3 doses contact Physician. Hold if systolic blood pressure less than 100 mmHg. Dextrose 50% Syringe 25 Gm/50 mL (Dextrose 50% Syringe*) 12.5 Gm = 25 mL, IV Push, Inject, PRN, PRN, See Comments, x 30 Day(s), 06/09/18 2:31:00 EDT Glucagon 1 mg Vial (Glucagen GEq) (Glucagon) 1 mg, Subcut, Inject, PRN, PRN, See Comments, x 30 Day(s), 06/09/18 2:31:00 EDT COMMENTS and SPECIAL INSTRUCTIONS: If IV access is not obtainable: For hypoglycemia blood glucose less than 60 mg/dL and patient cannot eat or drink. Repeat in 15 minutes if glucose remains less than 60 mg/dL. INACTIVE MEDICATIONS GIVEN IN THE LAST 36 HOURS: Medications Discontinued or Completed in the last 36 hours: Amitriptyline 50 mg Tab (Elavil GEq)(unverified) 50 mg = 1 Tab, PO, Tab,, 06/11/18 11:54:00 EDT Last Dose: 06/18/18 14:08:00 Pregabalin 100 mg Cap (Lyrica GEq)(unverified) 100 mg = 1 Cap, PO, Cap,, 06/11/18 11:54:00 EDT Last Dose: 06/18/18 14:08:00 Dexamethasone 4 mg Tab (Decadron GEq)(unverified) 4 mg = 1 Tab, PO, Tab, 06/14/18 11:15:00 EDT Last Dose: 06/18/18 12:36:00 Insulin U100 Lispro per unit MDV (HumaLOG GEq)(unverified) Conservative Scale, Inject, Subcut,, 06/10/18 19:38:00 EDT BuPROPion XL 150 mg Tab (Wellbutrin XL GEq)(unverified) 300 mg = 2 Tab, PO, Tab XL,, 06/11/18 11:54:00 EDT Last Dose: 06/18/18 08:44:00 BusPIRone 5 mg Tab (Buspar GEq)(unverified) 7.5 mg = 1.5 Tab, PO, Tab,, 06/11/18 11:54:00 EDT Last Dose: 06/18/18 08:44:00 Cholecalciferol 5000 Unit Cap (Vitamin D-3 GEq)(unverified) 5,000 Unit = 1 Cap, PO, Cap,, 06/11/18 11:54:00 EDT Last Dose: 06/18/18 08:42:00 Losartan 50 mg Tab (Cozaar GEq)(unverified) 50 mg = 1 Tab, PO, Tab,, 06/11/18 11:54:00 EDT Last Dose: 06/18/18 08:42:00 Pregabalin 100 mg Cap (Lyrica GEq)(unverified) 100 mg = 1 Cap, PO, Cap,, 06/11/18 11:54:00 EDT Last Dose: 06/18/18 08:44:00 Amitriptyline 50 mg Tab (Elavil GEq)(unverified) 50 mg = 1 Tab, PO, Tab,, 06/11/18 11:54:00 EDT Last Dose: 06/18/18 08:43:00 Enoxaparin 40 mg/0.4 mL Syringe (Lovenox GEq)(unverified) 40 mg = 0.4 mL, Subcut, Inject, 06/10/18 9:45:00 EDT Last Dose: 06/18/18 08:43:00 TiZANidine 4 mg Tab (Zanaflex GEq)(unverified) 4 mg = 1 Tab, PO, Tab,, 06/12/18 10:20:00 EDT Last Dose: 06/18/18 08:42:00 Ascorbic Acid 250 mg Tab (Vitamin C GEq)(unverified) 1,000 mg = 4 Tab, PO, Tab,, 06/11/18 11:54:00 EDT Last Dose: 06/18/18 08:43:00 Insulin U100 Lispro per unit MDV (HumaLOG GEq)(unverified) Conservative Scale, Inject, Subcut,, 06/10/18 19:38:00 EDT Pantoprazole 40 mg Tab EC (Protonix GEq)(unverified) 40 mg = 1 Tab, PO, Tab EC,, 06/12/18 10:24:00 EDT Last Dose: 06/18/18 08:42:00 Dexamethasone 4 mg Tab (Decadron GEq)(unverified) 4 mg = 1 Tab, PO, Tab, 06/14/18 11:15:00 EDT Last Dose: 06/18/18 06:06:00 Dexamethasone 4 mg Tab (Decadron GEq)(unverified) 4 mg = 1 Tab, PO, Tab, 06/14/18 11:15:00 EDT Last Dose: 06/18/18 00:21:00 BusPIRone 15 mg Tab (Buspar GEq)(unverified) 15 mg = 1 Tab, PO, Tab,, 06/11/18 11:54:00 EDT Last Dose: 06/17/18 20:47:00 Amitriptyline 50 mg Tab (Elavil GEq)(unverified) 50 mg = 1 Tab, PO, Tab,, 06/11/18 11:54:00 EDT Last Dose: 06/17/18 20:48:00 Pregabalin 100 mg Cap (Lyrica GEq)(unverified) 100 mg = 1 Cap, PO, Cap,, 06/11/18 11:54:00 EDT Last Dose: 06/17/18 20:48:00 Sertraline 50 mg Tab (Zoloft GEq)(unverified) 150 mg = 3 Tab, PO, Tab,, 06/11/18 11:54:00 EDT Last Dose: 06/17/18 20:48:00 TiZANidine 4 mg Tab (Zanaflex GEq)(unverified) 4 mg = 1 Tab, PO, Tab,, 06/12/18 10:20:00 EDT Last Dose: 06/17/18 20:48:00 Dexamethasone 4 mg Tab (Decadron GEq)(unverified) 4 mg = 1 Tab, PO, Tab, 06/14/18 11:15:00 EDT Last Dose: 06/17/18 17:08:00 Insulin U100 Lispro per unit MDV (HumaLOG GEq)(unverified) Conservative Scale, Inject, Subcut,, 06/10/18 19:38:00 EDT Amitriptyline 50 mg Tab (Elavil GEq)(unverified) 50 mg = 1 Tab, PO, Tab,, 06/11/18 11:54:00 EDT Last Dose: 06/17/18 13:06:00 Pregabalin 100 mg Cap (Lyrica GEq)(unverified) 100 mg = 1 Cap, PO, Cap,, 06/11/18 11:54:00 EDT Last Dose: 06/17/18 13:06:00 Dexamethasone 4 mg Tab (Decadron GEq)(unverified) 4 mg = 1 Tab, PO, Tab, 06/14/18 11:15:00 EDT Last Dose: 06/17/18 13:06:00 Insulin U100 Lispro per unit MDV (HumaLOG GEq)(unverified) Conservative Scale, Inject, Subcut,, 06/10/18 19:38:00 EDT Amitriptyline 50 mg Tab (Elavil GEq)(unverified) 50 mg = 1 Tab, PO, Tab,, 06/11/18 11:54:00 EDT Last Dose: 06/17/18 09:10:00 Enoxaparin 40 mg/0.4 mL Syringe (Lovenox GEq)(unverified) 40 mg = 0.4 mL, Subcut, Inject, 06/10/18 9:45:00 EDT Last Dose: 06/17/18 09:10:00 Pregabalin 100 mg Cap (Lyrica GEq)(unverified) 100 mg = 1 Cap, PO, Cap,, 06/11/18 11:54:00 EDT Last Dose: 06/17/18 09:10:00 Losartan 50 mg Tab (Cozaar GEq)(unverified) 50 mg = 1 Tab, PO, Tab,, 06/11/18 11:54:00 EDT Last Dose: 06/17/18 09:09:00 BusPIRone 5 mg Tab (Buspar GEq)(unverified) 7.5 mg = 1.5 Tab, PO, Tab,, 06/11/18 11:54:00 EDT Last Dose: 06/17/18 09:09:00 BuPROPion XL 150 mg Tab (Wellbutrin XL GEq)(unverified) 300 mg = 2 Tab, PO, Tab XL,, 06/11/18 11:54:00 EDT Last Dose: 06/17/18 09:14:00 Ascorbic Acid 250 mg Tab (Vitamin C GEq)(unverified) 1,000 mg = 4 Tab, PO, Tab,, 06/11/18 11:54:00 EDT Last Dose: 06/17/18 09:10:00 TiZANidine 4 mg Tab (Zanaflex GEq)(unverified) 4 mg = 1 Tab, PO, Tab,, 06/12/18 10:20:00 EDT Last Dose: 06/17/18 09:08:00 Pantoprazole 40 mg Tab EC (Protonix GEq)(unverified) 40 mg = 1 Tab, PO, Tab EC,, 06/12/18 10:24:00 EDT Last Dose: 06/17/18 09:09:00 Insulin U100 Lispro per unit MDV (HumaLOG GEq)(unverified) Conservative Scale, Inject, Subcut,, 06/10/18 19:38:00 EDT Dexamethasone 4 mg Tab (Decadron GEq)(unverified) 4 mg = 1 Tab, PO, Tab, 06/14/18 11:15:00 EDT Last Dose: 06/17/18 09:09:00 MEDICATION LEVEL RESULTS: Lab Result Date Acetaminophen (Tylenol) Level <10 06/09/18 11:39:00 Salicylate Level <4.0 06/08/18 22:33:00 Tricyclic Antidepressants Urine (Tricyclic Antidep POSITIVE 06/08/18 23:02:00 IMMUNIZATIONS/VACCINATIONS: The Center for Disease Control recommends that all adults caring for infants, receive the Tdap vaccination. Please ask your physician about this vaccine. Administered during your visit Date Influenza Quadrivalent PF Vaccine 0.5 mL (Flucelvax GEq) 06/12/2018 13:28 FOLLOW-UP APPOINTMENTS: Provider: Specialty: Address: Date: No PCP Physician Family Practice; Internal Medicine 5 to 7 days Provider: Specialty: Address: Date: Ramon Rodriguez MD Neurological Surgery [address] [place] [address] [place] [address] (2) Three Weeks TRANSFER ORDERS/INSTRUCTIONS: 06/18/18 13:20:01 EDT- Electronically signed by Laith Wilcox MD Transfer Details Admit to Care of Provider: Admit to covering physician. Provider contact for questions: [facility] [phone]. Skilled Care Duration: Other: TBD. Skilled Care Medical Predictability: SNF services necessary for continued skilled care needs. Transfer Level of Care: [facility]. Transfer Reason: PT/OT/Nursing. Transfer Orders Transfer Consults: Occupational Therapy. Physical Therapy. Registered Nurse. ADVANCE DIRECTIVE/HEALTH CARE DECISIONS: Advance Directive/Health Care Decisions Executed by Patient: Patient/family unable to respond DISCHARGE INSTRUCTIONS: Discharge Diet Continue your regular diet. Discharge Activities As tolerated. Notify Physician If you gain 2-3 pounds overnight or 4-5 pounds in 5 days, notify your physician. Worsening or recurring symptoms. SELECTED LAB RESULTS Lab Result Order Date Hemoglobin 12.0 gm/dL 06/16/2018 Hematocrit 37.3 % 06/16/2018 WBC Count 12.8 thou/mcL 06/16/2018 Platelet Count 288 thou/mcL 06/16/2018 Sodium Level 139 mMol/L 06/16/2018 Potassium Level 4.0 mMol/L 06/16/2018 Creatinine 0.99 mg/dL 06/16/2018 BUN 18 mg/dL 06/16/2018 Thyroid Stimulating Hormone 2.19 mcIU/mL 06/08/2018 Total Bilirubin 0.6 mg/dL 06/09/2018 Hemoglobin A1c 6.6 % tl hgb 06/09/2018 Glucose Level 115 mg/dL 06/16/2018 X-RAY EXAMS: XR Chest 1 View - 06/09/18 10:28:58 See Radiology Report for More Detail Physician Signature Date/Time PATIENT EDUCATION DISCHARGE SUMMARY Observed: 06/18/2018 Status: F Source: [place] 1:24 PM HEALTH SYSTEM REPOSITORY Patient: NADYA MONCADA MRN: [id number] Age: 57 years Sex: Female : 1960 Associated Diagnoses: None Author: Laith Wilcox MD Discharge Information Admit Date: 06/09/18 00:22 Discharge Disposition: longterm facility 03 Reason For Visit: OVERDOSE Admitting Physician: Laith Wilcox MD Attending Physician: MCSA, Manda Consulting Physician: Shanta Rollins MD Consulting Physician: Delmis GUILLORY , Emilee Consulting Physician: Gerard Mccray DPM Primary Care Physician: Physician, No PCP Active/Final Diagnosis(es) Hypotension, unspecified Poisoning by unspecified drugs, medicaments and biological substances, accidental (unintentional), initial encounter Poisoning by unspecified drugs, medicaments and biological substances, intentional self-harm, initial encounter Radiculopathy, site unspecified Rhabdomyolysis . Hospital Course Hospital Course 57-year-old woman with history of hypertension, diabetes mellitus, hyperlipidemia, GERD, obesity, anxiety/depression, chronic back pain came in with altered mental status, family found her less responsi ve with bottles of wine and empty medication bottles. She took tizanidine, amitriptyline. She became hypotensive, was started on bicarbonate infusion per poison control recommendations and admitted to [facility]. Improved clinically and transfered to the floor , doing well . Patient is not suicidal or homicidal at this point and expresses remorse and understanding for her attempt. 1. Intentional Drug overdose with tizanidine, TCAs: off bicarb gtt, resolved. Not suicidal now , cleared for dc by psych . 2. Hypotension, combination of volume depletion, tizanidine, TCAs: resolved. Off IV fluids and eating at this time. 2. Suicidal attempt: Seen by psych cleared for discharge with no need for inpatient psych hospitalilzation as has good family support and patient is remorseful. Psychotropic drugs resumed . 3. Acute encephalopathy: From drug overdose, resolved. She is alert awake oriented ?4 4. Acute kidney injury: Improved. 5. Rhabdomyolysis: CPK levels trended down to normal . left leg is chronically weaker as patient has seen pain management for 20+ years. PT/OT per neurosurgery 6. Depression/anxiety: on SSRI. stable, no SI or HI now . Psych following 7. Type 2 diabetes mellitus: stable. resume home metformin on dc 8. Physical deconditioning- PT/OT recommends snf #9: Back pain/left leg pain/numbness: Hip x-ray did not reveal any fracture. There is severe degenerative disc disease which patient states she has had. MRI L spine is demonstrates mod DJD, systemic sidra roid and aggressive PT/OT per neurosurgery.change dexamethasone to medrol pack on discharge. 11. Obesity, with BMI 38.8, wt loss advised. OP diet and lifestyle modifications Patient feels well , wants to be discharged . d/c to SNF today . Procedures Performed None. Medications Discharge Medications BuPROPion (buPROPion 300 mg/24 hours oral tablet, extended release) 1 Tab = 300 mg By Mouth every 24 hours BusPIRone (busPIRone 15 mg oral tablet) 0.5 Tab = 7.5 mg By Mouth once a day 0.5 tab = 7.5 mg BusPIRone (busPIRone 15 mg oral tablet) 1 Tab = 15 mg By Mouth Tablet Bedtime MetFORMIN (metFORMIN 500 mg oral tablet, extended release) 1 Tab = 500 mg By Mouth Tab, Extended Release once a day MethylPREDNISolone (Medrol Dosepak 4 mg oral tablet) See instructions By Mouth x 6 Day(s) TiZANidine (tiZANidine 4 mg oral tablet) 1 Tab = 4 mg By Mouth Twice a day COMMENTS: SEE COMPLIANCE amitriptyline (amitriptyline 50 mg oral tablet) 1 Tab = 50 mg By Mouth 3 Times a day ascorbic acid (Vitamin C 500 mg oral tablet) 2 Tab = 1,000 mg By Mouth once a day atorvastatin (atorvastatin 40 mg oral tablet) 1 Tab = 40 mg By Mouth Bedtime cholecalciferol (Vitamin D3 5000 intl units oral capsule) 1 Cap = 5,000 Unit By Mouth Once Daily, Saturday, Saturday, Saturday losartan (losartan 50 mg oral tablet) 1 Tab = 50 mg By Mouth Tablet once a day milnacipran (Savella 50 mg oral tablet) 1 Tab = 50 mg By Mouth Twice a day multivitamin 1 Tab By Mouth once a day multivitamin with minerals (PreserVision AREDS 2 oral capsule) 1 Cap By Mouth once a day omeprazole (omeprazole 40 mg oral delayed release capsule) 1 Cap = 40 mg By Mouth once a day polyethylene glycol 3350 (Glycolax oral powder for reconstitution(Obsolete)) 17 Gm By Mouth once a day, As Needed Constipation pregabalin (Lyrica 100 mg oral capsule) 1 Cap = 100 mg By Mouth 3 Times a day COMMENTS: SEE COMPLIANCE sertraline (sertraline 100 mg oral tablet) 1.5 Tab = 150 mg By Mouth Bedtime 1.5 tab = 150 mg Non-medication prescriptions No non-medication prescriptions charted Immunizations Influenza Quadrivalent PF Vaccine 0.5 mL (Flucelvax GEq): 06/12/2018 13:28, current visit influenza virus vaccine: 06/12/2018, historical Allergies NKA Results Review Discharge Lab Results 06/16/18 04:01, Hemoglobin = 12.0 gm/dL 06/16/18 04:01, Hematocrit = 37.3 % 06/16/18 04:01, WBC Count = 12.8 thou/mcL H 06/16/18 04:01, Platelet Count = 288 thou/mcL 06/16/18 04:01, Sodium Level = 139 mMol/L 06/16/18 04:01, Potassium Level = 4.0 mMol/L 06/16/18 04:01, Creatinine = 0.99 mg/dL 06/16/18 04:01, BUN = 18 mg/dL 06/08/18 22:33, TSH = 2.19 mcIU/mL 06/09/18 04:56, Bilirubin Total = 0.6 mg/dL 06/09/18 05:08, Glucose POCT = 88 mg/dL 06/16/18 04:01, Glucose Level = 115 mg/dL H 06/09/18 04:56, Hemoglobin A1c = 6.6 % tl hgb H Pending Labs/ Orders No unresulted orders Measurements (Last Charted) Weight: 112.5 kg /248 lbs 0 oz (Actual) (06/09/18 02:19:00) Height: 170.18 cm /67.00 in (Type not Indicated) (06/09/18 02:19:00) Physical Examination General: Appears to be stated age. No acute distress. Pleasant. Skin: Warm/dry. No icterus noted. Neck: Supple. No thyromegaly or adenopathy noted. Cardiovascular: No thrills or heaves. Regular rate and rhythm. S1-S2. No murmurs, rubs or gallops.. Respiratory: Patient appears to be breathing comfortably. No wheeze, rales or rhonchi noted bilaterally.. Abdomen: Positive bowel sounds. No organomegaly noted. Soft nontender nondistended.. Extremities: No signs of muscle atrophy noted. No clubbing, cyanosis or edema. 2+ radial pulses. Psych: Alert and oriented x3. Normal mood. Neurology: No focal motor deficits in both the upper and lower extremities. No gross sensory loss noted in both the upper or lower extremities. Discharge Plan Discharge Instructions for the patient Discharge Activities As tolerated. Discharge Diet Continue your regular diet. Notify Physician If you gain 2-3 pounds overnight or 4-5 pounds in 5 days, notify your physician Worsening or recurring symptoms. Follow Up Appointments Provider: No PCP Physician Specialty: Family Practice; Internal Medicine Address: Date: 5 to 7 days Provider: Ramon Rodriguez MD Specialty: Neurological Surgery Address: [address] [place] [address] [place] [address] (1) Date: Three Weeks Patient Education Given No patient education charted Total Discharge Time 40 min GLUCOSE POCT Collected: 06/18/2018 Status: F Source: [facility] (UPLOADED) 12:17 PM HEALTH SYSTEM REPOSITORY TYPE CODE TESTS RESULT OUT OF RANGE REFERENCE UNITS LAB 2340-8(LOIN 70-110 mg/dL C) Normal Glucose 92 POCT-LAB Result Comment: Treatment ranges and critical values established by Patient Care Services. All follow-up actions were taken by Patient Care Services. Performed By: #### [id number] #### [facility] POINT OF CARE CREATINE KINASE (CK) Collected: 06/18/2018 Status: F Source: [facility] 11:06 AM HEALTH SYSTEM REPOSITORY TYPE CODE TESTS RESULT OUT OF RANGE REFERENCE UNITS LAB 2157-6(SUKHDEEP 21-232 Units/L NC) Normal Creatine 74 Kinase Random Performed By: #### [id number] #### [facility], [address] [place], [place]. GLUCOSE POCT Collected: 06/18/2018 Status: F Source: [facility] (UPLOADED) 7:25 AM HEALTH SYSTEM REPOSITORY TYPE CODE TESTS RESULT OUT OF RANGE REFERENCE UNITS LAB 2340-8(LOIN 70-110 mg/dL C) Normal Glucose 94 POCT-LAB Result Comment: Treatment ranges and critical values established by Patient Care Services. All follow-up actions were taken by Patient Care Services. Performed By: #### [id number] #### [facility] POINT OF CARE GLUCOSE POCT Collected: 06/17/2018 Status: F Source: [facility] (UPLOADED) 8:40 PM HEALTH SYSTEM REPOSITORY TYPE CODE TESTS RESULT OUT OF REFERENCE UNITS RANGE LAB 2340-8(LOIN 70-110 mg/dL C) High Glucose 123 POCT-LAB Result Comment: Treatment ranges and critical values established by Patient Care Services. All follow-up actions were taken by Patient Care Services. Performed By: #### [id number] #### [facility] POINT OF CARE GLUCOSE POCT Collected: 06/17/2018 Status: F Source: [facility] (UPLOADED) 4:48 PM HEALTH SYSTEM REPOSITORY TYPE CODE TESTS RESULT OUT OF RANGE REFERENCE UNITS LAB 2340-8(LOIN 70-110 mg/dL C) Normal Glucose 98 POCT-LAB Result Comment: Treatment ranges and critical values established by Patient Care Services. All follow-up actions were taken by Patient Care Services. Performed By: #### 2430-8 #### [facility] POINT OF CARE PROGRESS NOTES Observed: 06/17/2018 Status: F Source: [facility] 1:30 PM HEALTH SYSTEM REPOSITORY Patient: NADYA MONCADA MRN: [id number] Age: 57 years Sex: Female : 1960 Associated Diagnoses: None Author: Emilee Benites MD Admit Date: 06/09/18 00:22 Hospital Days: 8 date of service: 06/17/2018 Assessment Narrative Description: Reviewed chart. Discussed patient with nursing staff. Discussed stressors with patient. Insight-oriented and supportive psychotherapy employed. 57 yo with PMH of HTN, HLD, DM, GERD, obesity, anxiety, depression and chronic back pain presented with altered mental status after being found at a hotel with empty bottles of wine and pill tevin les nearby. Pt apparently took 14 tabs of Tizainidine 4mg, unknown amount of amitryptyline 50 mg each and drank 1 and a half bottles of wine. Pt's family suspected sucide attempt related to possible internet scam where pt had been talking to someone online, sending money and had finally planned to meet him but he failed to show up at the airport. Pt treated in the ICU and placed on suicide preca utions. Psychiatry consulted and pt cleared for d/c when medically stable due to impulsive nature of overedose, good outpt support and pt remorseful and future oriented. Pt seen after chart review and d/w staff. Pt remains in house waiting for SNF placement in [facility]. She is oriented and pleasant, cooperative and ready to engage today. She was sitting up in a c hair and admits she continues to grieve the loss of the relationship she thought she had for the past 4.5months. she knows she was scammed but is still emotionally hurt by it. She is very glad she survived the overdose and adamantly denies she has any further thoughts of suicide/. She states it was impulsive and after things had built up for so many months and after waiting at the airport f or 10hours and he no showed, she felt there was no way out and no way to save face. She has a great support system and is back on her medication. she is future oriented and trying to get herself stab le physically/emotionally then will proceed with prosecution of the scammer. Pt will f/u with her outpt mental health providers in [place] and has already checked in with her therapist. Pt showed t his MD and the [facility] resident pics/vid of the [facility] which seemed to be therapeutic for her. she reports being in a much better place emotionally. denies current cp/sob/n/v. has ongoing acute on c hronic back and leg pain. sleep and appetite are stable. time spent in support exclusive of em service Psychotherapy Reported by: patient Treatment Compliance: engaged Psychotherapy interventions: supportive/insight oriented. 11:50-12:10p. time exclusive of em [facility] Progress: beginning Themes Discussed: improve insight, sobriety, acceptance, interpersonal conflict Treatment Factors: ongoing treatment and compliance needed Treatment Goals: manage stress, symptom reduction, improve coping skills/ insight, treatment compliance Physical Examination Last Charted Vital Signs Temperature: 97 (06/17 07:48) Pulse: 77 (06/17 07:48) Respiration: 16 (06/17 07:48) BP: 145/80 (06/17 07:48) Pulse Ox: 96 (06/17 07:48) Oxygen Delivery: Room air (06/17 10:48) Pain Score: 6 (06/17 10:10) Mental Status Exam Appearance/Behavior: Age appears stated age, Grooming appropriate, dress subdued, Eye contact appropriate, Attitude towards examiner cooperative. Motor: normal. Level of consciousness: normal. Orientation: Alert, person, place, time, situation. Affect: appropriate. Mood: anxious, depressed, lessening. Speech: coherent, Language names 2 objects, rate of speech normal. Thought: process coherent, content (Normal, Hallucinations none, Delusions none). Associations: intact. Lethality: Suicidal s/p impulsive attempt. no current ideation, intent or plan and contracts for safety, Homicidal none. Memory: normal. Attention span/Concentration: normal. Fund of knowledge: estimated intelligence average. Judgment: improving. Insight: improving. Strengths: supportive family, supportive friends, desire to get better. 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 clear for d/c from psych s/p 2. pt linked with [facility] in [place] with Dr. Chacon and sees therapist weekly 3. restarted on home psychotropics- tolerating well following peripherally feel free to call with questions or concerns. Psychiatry staff may be reached through our answering service, [facility] at [phone]. thank you Health Status Allergies NKA Vital Signs (Past 36 Hours) Last Charted Minimum Maximum Temperature 97 (06/17 07:48) 97 (06/17 07:48) 97.2 (06/16 22:00) Pulse 77 (06/17 07:48) 77 (06/17 07:48) 101 (06/16 15:00) Resp 16 (06/17 07:48) 16 (06/17 07:48) 18 (06/16 22:00) Pulse Ox 96 (06/17 07:48) 91 (06/16 15:00) 96 (06/17 07:48) Pain Score 6 (06/17 10:10) 3 (06/16 11:30) 9 (06/17 09:10) BP 145/80 (06/17 07:48) Minimum Maximum Systolic BP 123/87 (06/16 15:00) 145/80 (06/17 07:48) Diastolic BP 145/67 (06/16 07:00) 132/87 (06/16 22:00) Inpatient Medications: Dexamethasone 4 mg Tab (Decadron GEq) 4 mg = 1 Tab, PO, Tab, Q6h, x 30 Day(s), 06/14/18 11:15:00 EDT Last Dose: 06/17/18 13:06:00 TiZANidine 4 mg Tab (Zanaflex GEq) 4 mg = 1 Tab, PO, Tab, BID,, x 30 Day(s), 06/12/18 10:20:00 EDT Last Dose: 06/17/18 09:08:00 Pantoprazole 40 mg Tab EC (Protonix GEq) 40 mg = 1 Tab, PO, Tab EC, ac bkfst,, x 30 Day(s), 06/12/18 10:24:00 EDT Last Dose: 06/17/18 09:09:00 BusPIRone 15 mg Tab (Buspar GEq) 15 mg = 1 Tab, PO, Tab, Bedtime,, x 30 Day(s), 06/11/18 11:54:00 EDT Last Dose: 06/16/18 22:07:00 Sertraline 50 mg Tab (Zoloft GEq) 150 mg = 3 Tab, PO, Tab, Bedtime,, x 30 Day(s), 06/11/18 11:54:00 EDT Last Dose: 06/16/18 22:07:00 Amitriptyline 50 mg Tab (Elavil GEq) 50 mg = 1 Tab, PO, Tab, TID,, x 30 Day(s), 06/11/18 11:54:00 EDT Last Dose: 06/17/18 13:06:00 Pregabalin 100 mg Cap (Lyrica GEq) 100 mg = 1 Cap, PO, Cap, TID,, x 30 Day(s), 06/11/18 11:54:00 EDT Last Dose: 06/17/18 13:06:00 Ascorbic Acid 250 mg Tab (Vitamin C GEq) 1,000 mg = 4 Tab, PO, Tab, Daily,, x 30 Day(s), 06/11/18 11:54:00 EDT Last Dose: 06/17/18 09:10:00 BuPROPion XL 150 mg Tab (Wellbutrin XL GEq) 300 mg = 2 Tab, PO, Tab XL, Daily,, x 30 Day(s), 06/11/18 11:54:00 EDT Last Dose: 06/17/18 09:14:00 BusPIRone 5 mg Tab (Buspar GEq) 7.5 mg = 1.5 Tab, PO, Tab, Daily,, x 30 Day(s), 06/11/18 11:54:00 EDT Last Dose: 06/17/18 09:09:00 Cholecalciferol 5000 Unit Cap (Vitamin D-3 GEq) 5,000 Unit = 1 Cap, PO, Cap, QMon+Wed+Fri,, x 30 Day(s), 06/11/18 11:54:00 EDT Last Dose: 06/16/18 08:23:00 Losartan 50 mg Tab (Cozaar GEq) 50 mg = 1 Tab, PO, Tab, Daily,, x 30 Day(s), 06/11/18 11:54:00 EDT Last Dose: 06/17/18 09:09:00 Insulin U100 Lispro per unit MDV (HumaLOG GEq) Conservative Scale, Inject, Subcut,, ac+bedtime, x 30 Day(s), 06/10/18 19:38:00 EDT , Comment: << Sliding Scale Comments >> 0 - 60 Give 12.5 grams (25 mL) of Dextrose 50% for hypogl Last Dose: Not Given Enoxaparin 40 mg/0.4 mL Syringe (Lovenox GEq) 40 mg = 0.4 mL, Subcut, Inject, Daily, x 30 Day(s), 06/10/18 9:45:00 EDT Last Dose: 06/17/18 09:10:00 oxygen Nasal Cannula, FIO2/LPM: 0-6, Target O2 Sat: Greater Than 92%, Supplemental oxygen titration to maintain saturation greater than 92% Last Dose: Not Given OxyCODONE/Acetaminophen 5 mg/325 mg Tab (Percocet GEq) 1 Tab, PO, Tab, Q4h, x 30 Day(s), PRN Pain - Moderate, 06/15/18 9:09:00 EDT , Comment: Maximum 4 Gm Acetaminophen/Day for Adults Last Dose: 06/17/18 10:10:00 PEG Powder 17 Gm (MiraLax GEq) 17 Gm = 1 Packet, PO, Powder, Daily, PRN, Constipation , Comment: Mix with 4 to 8 oz. of water, juice, soda, coffee, or tea until completely dissolved. Last Dose: 06/15/18 21:04:00 Acetaminophen 325 mg Tab (Tylenol GEq) 650 mg = 2 Tab, PO, Tab, Q4h, PRN, Pain - Mild, x 30 Day(s), 06/11/18 22:47:00 EDT Last Dose: 06/15/18 14:33:00 Nitroglycerin Subl Tab 0.4 mg #25 (Nitrostat GEq) 0.4 mg = 1 Tab, Subl, Tab Subl, Q5min, PRN, See Comments, x 30 Day(s), 06/09/18 8:16:00 EDT , Comment: PRN Chest Pain - Administer Q5 min x 3 doses as needed per episode of chest pain. Last Dose: Not Given Glucagon 1 mg Vial (Glucagen GEq) 1 mg, Subcut, Inject, PRN, PRN, See Comments, x 30 Day(s), 06/09/18 2:31:00 EDT , Comment: If IV access is not obtainable: For hypoglycemia blood glucose less than 60 mg/dL and patient c Last Dose: Not Given Current IV Orders: Atropine 0.1 mg/mL Syringe 10 mL 0.5 mg = 5 mL, IV Push, Inject, Q3min, PRN, See Comments, x 6 Time(s)/Dose(s), 06/09/18 8:16:00 EDT , Comment: as needed for symptomatic bradycardia with a heart rate less than 50 beats Last Dose: Not Given Dextrose 50% Syringe 25 Gm/50 mL 12.5 Gm = 25 mL, IV Push, Inject, PRN, PRN, See Comments, x 30 Day(s), 06/09/18 2:31:00 EDT Last Dose: Not Given 06/16/18 04:01, Hemoglobin = 12.0 gm/dL 06/16/18 04:01, Hematocrit = 37.3 % 06/16/18 04:01, WBC Count = 12.8 thou/mcL H 06/16/18 04:01, Platelet Count = 288 thou/mcL 06/16/18 04:01, Sodium Level = 139 mMol/L 06/16/18 04:01, Potassium Level = 4.0 mMol/L 06/16/18 04:01, Creatinine = 0.99 mg/dL 06/16/18 04:01, BUN = 18 mg/dL 06/08/18 22:33, TSH = 2.19 mcIU/mL 06/09/18 04:56, Bilirubin Total = 0.6 mg/dL 06/09/18 05:08, Glucose POCT = 88 mg/dL 06/16/18 04:01, Glucose Level = 115 mg/dL H 06/09/18 04:56, Hemoglobin A1c = 6.6 % tl hgb H reviewed History of Present Illness Date of Admission Admit Date: 06/09/18 00:22 Hospital Days: 8 GLUCOSE POCT Collected: 06/17/2018 Status: F Source: [facility] (UPLOADED) 11:31 AM HEALTH SYSTEM REPOSITORY TYPE CODE TESTS RESULT OUT OF RANGE REFERENCE UNITS LAB 2340-8(LOIN 70-110 mg/dL C) Normal Glucose 106 POCT-LAB Result Comment: Treatment ranges and critical values established by Patient Care Services. All follow-up actions were taken by Patient Care Services. Performed By: #### [id number] #### [facility] POINT OF CARE PROGRESS NOTES Observed: 06/17/2018 Status: F Source: [facility] 9:03 AM [facility]ALTH SYSTEM REPOSITORY Patient: NADYA MONCADA MRN: [id number] Age: 57 years Sex: Female : 1960 Associated Diagnoses: None Author: Dee GUILLORY , Manuel Daigle Supervising Physician Comments Documentation By: Attending Physician. Chief Complaint F/U Drug overdose/suicidal attempt Subjective: sitting up in bed , no new issues ambulating and tolerating diet better still awaiting SNF placement Health Status Allergies Allergic Reactions (Selected) NKA Medication List (Selected) Inpatient Medications Ordered Atropine 0.1 mg/mL Syringe 10 mL: 0.5 mg, IV Push, Q3min, PRN: See Comments BuPROPion: 300 mg, PO, Daily BusPIRone: 15 mg, PO, Bedtime BusPIRone: 7.5 mg, PO, Daily Decadron: 4 mg, PO, Q6h Dextrose 50% Syringe*: 12.5 Gm, IV Push, PRN, PRN: See Comments Glucagon: 1 mg, Subcut, PRN, PRN: See Comments Insulin Lispro Sliding Scale (HumaLOG)*: Conservative Scale, Subcut, ac+bedtime Lovenox: 40 mg, Subcut, Daily Lyrica: 100 mg, PO, TID Nitrostat*: 0.4 mg, Subl, Q5min, PRN: See Comments Percocet 5 mg/325 m Tab, PO, Q4h, PRN: Pain - Moderate TiZANidine: 4 mg, PO, BID Vitamin C: 1,000 mg, PO, Daily Vitamin D3: 5,000 Unit, PO, QMon+Wed+Fri acetaminophen: 650 mg, PO, Q4h, PRN: Pain - Mild amitriptyline: 50 mg, PO, TID losartan: 50 mg, PO, Daily oxygen: 1 Each, Inhalation, Daily pantoprazole: 40 mg, PO, ac bkfst polyethylene glycol 3350: 17 Gm, PO, Daily, PRN: Constipation sertraline: 150 mg, PO, Bedtime Documented Medications Documented Glycolax oral powder for reconstitution(Obsolete): 17 Gm, PO, Daily, PRN: Constipation, Each, 0 Refill(s) Lyrica 100 mg oral capsule: 1 Cap, PO, TID, Each, 0 Refill(s) PreserVision AREDS 2 oral capsule: 1 Cap, PO, Daily, Each, 0 Refill(s) Savella 50 mg oral tablet: 1 Tab, PO, BID, Each, 0 Refill(s) Vitamin C 500 mg oral tablet: 2 Tab, PO, Daily, 2 tab = 1000 mg, Each, 0 Refill(s) Vitamin D3 5000 intl units oral capsule: 1 Cap, PO, QMon+Wed+Fri, Each, 0 Refill(s) amitriptyline 50 mg oral tablet: 1 Tab, PO, TID, Each, 0 Refill(s) atorvastatin 40 mg oral tablet: 1 Tab, PO, Bedtime, Each, 0 Refill(s) buPROPion 300 mg/24 hours oral tablet, extended release: 1 Tab, PO, Q24h, Each, 0 Refill(s) busPIRone 15 mg oral tablet: 0.5 Tab, PO, Daily, 0.5 tab = 7.5 mg, Each, 0 Refill(s) busPIRone 15 mg oral tablet: 1 Tab, PO, Bedtime, Each, 0 Refill(s) losartan 50 mg oral tablet: 1 Tab, PO, Daily, 30 Tab, 0 Refill(s) metFORMIN 500 mg oral tablet, extended release: 1 Tab, PO, Daily, 30 Tab, 0 Refill(s) multivitamin: 1 Tab, PO, Daily, Tab, 0 Refill(s) omeprazole 40 mg oral delayed release capsule: 1 Cap, PO, Daily, Each, 0 Refill(s) sertraline 100 mg oral tablet: 1.5 Tab, PO, Bedtime, 1.5 tab = 150 mg, Each, 0 Refill(s) tiZANidine 4 mg oral tablet: 1 Tab, PO, BID, Each, 0 Refill(s) Subjective see above Objective Last Charted Vital Signs Temperature: 97 (06/17 07:48) Pulse: 77 (06/17 07:48) Respiration: 16 (06/17 07:48) BP: 145/80 (06/17 07:48) Pulse Ox: 96 (06/17 07:48) Oxygen Delivery: Room air (06/16 22:00) Pain Score: 7 (06/17 02:24) General: pt is morbidly obese, awake, alert, oriented x3, vitals stable, no acute distress , +obese HEENT: NC, AT, conj clear, no tearing, oral mucosa moist NECK: Supple, trachea-central CHEST: CAROL+, Clear to auscultation. no wheezing, rales, Unlaboured breathing CVS: S1S2 +, RRR, No murmurs P/A: Soft, NT, ND, BS are present. RESP THERAPIST: moving all extremities without any focal motor or sensory deficits PSYCH: Mood and affect WNL, denies hallucinations or delusions EXTREMITIES: appears to have trouble ambulating on the left leg. has 5/5 strength in bilateral LE Skin: warm, dry, no rash Results Review Labs - Last 36 hours (Max 2 / lab test) CHEMISTRY Sodium 139 (06/16 04:01) Potassium 4.0 (06/16 04:01) Chloride 101 (06/16 04:01) CO2 29 (06/16 04:01) Glucose 115 (06/16 04:01) Glucose POCT No result BUN 18 (06/16 04:01) Creatinine 0.99 (06/16 04:01) Calcium Total 9.7 (06/16 04:01) Magnesium No result HEMATOLOGY WBC 12.8 (06/16 04:01) RBC 4.64 (06/16 04:01) Hb 12.0 (06/16 04:01) Hematocrit 37.3 (06/16 04:01) Platelets 288 (06/16 04:01) MCV 80.3 (06/16 04:01) MCH 25.9 (06/16 04:01) RDW 17.2 (06/16 04:) MCHC 32.2 (06/16 04:01) Neutrophil Ab No result Monocyte Ab No result Eosinophil Ab No result Basophil Ab No result Lymphocyte Ab No result OTHER LABS Anion Gap 9.0 mMol/L (06/16 04:01) 9.0 mMol/L (06/15 04:36) Est CrCl IBW (mL/min)-RX 59.50 mL/min (06/16 04:01) 66.94 mL/min (06/15 04:36) Est CrCl AdjBW (mL/min)-R 79.17 mL/min (06/16 04:01) 89.06 mL/min (06/15 04:36) GFR Est. Non >60 mL/min (06/15 04:36) GFR Est. Lucia >60 mL/min (06/15 04:36) MPV 8.3 FL (06/16 04:01) 8.9 FL (06/15 04:36) General Results Reviewed Results: Radiology : RADIOLOGY(Date Range: 06/08/2018 23:11 EDT - 06/09/2018 10:28 EDT) Assessment Assessment and Plan 57-year-old woman with history of hypertension, diabetes mellitus, hyperlipidemia, GERD, obesity, anxiety/depression, chronic back pain came in with altered mental status, family found her less responsi ve with bottles of wine and empty medication bottles. Pubertal surgery she took tizanidine, amitriptyline. She became hypotensive, was started on bicarbonate infusion per poison control recommendations and admitted to ICU.now awake and doing well. Patient is actively not suicidal or homicidal at this point and expresses remorse and understanding for her attempt. 1. Intentional Drug overdose with tizanidine, TCAs: off bicarb gtt, resolved 2. Hypotension, combination of volume depletion, tizanidine, TCAs: resolved. Off IV fluids and eating at this time. 2. Suicidal attempt: Seen by psych cleared for discharge with no need for inpatient psych hospitalilzation as has good family support and patient is remorseful. Will fold back psychotropic drugs. 3. Acute encephalopathy: From drug overdose, resolved. She is alert awake oriented ?4 4. Acute kidney injury: Improved. 5. Rhabdomyolysis: CPK levels trending down, off IVF from 6K-->1K . continue to hold statin for now. Counseled patient to avoid Mobic for now. left leg is chronically weaker as patient has seen pain management for 20+ years. PT/OT per neurosurgery 6. Depression/anxiety: on SSRI. stable . Psych following 7. Type 2 diabetes mellitus: stable. On insulin sliding scale 8. Physical deconditioning- PT?OT recommends snf #9: Back pain/left leg pain/numbness: Hip x-ray did not reveal any fracture. There is severe degenerative disc disease which patient states she has had. MRI L spine is demonstrates mod DJD, systemic sidra roid and aggressive PT/OT per neurosurgery.change dexamethasone to medrol pack on discharge. 11. Obesity, with BMI 38.8, wt loss advised. OP diet and lifestyle modifications 10. DVT prophylaxis: SQ Lovenox Patient is full code Disposition: retirement facility when precert available c/w PT/OT and ambulate in [place] under supervision GLUCOSE POCT Collected: 06/17/2018 Status: F Source: [facility] (UPLOADED) 6:42 AM [facility]ALTH SYSTEM REPOSITORY TYPE CODE TESTS RESULT OUT OF RANGE REFERENCE UNITS LAB 2340-8(LOIN 70-110 mg/dL C) Normal Glucose 110 POCT-LAB Result Comment: Treatment ranges and critical values established by Patient Care Services. All follow-up actions were taken by Patient Care Services. Performed By: #### [id number] #### [facility] POINT OF CARE GLUCOSE POCT Collected: 06/16/2018 Status: F Source: [facility] (UPLOADED) 8:45 PM [facility]ALTH SYSTEM REPOSITORY TYPE CODE TESTS RESULT OUT OF RANGE REFERENCE UNITS LAB 2340-8(LOIN 70-110 mg/dL C) Normal Glucose 108 POCT-LAB Result Comment: Treatment ranges and critical values established by Patient Care Services. All follow-up actions were taken by Patient Care Services. Performed By: #### [id number] #### [facility]INT [facility] CARE GLUCOSE POCT Collected: 06/16/2018 Status: F Source: [facility] (UPLOADED) 5:15 PM [facility]ALTH SYSTEM REPOSITORY TYPE CODE TESTS RESULT OUT OF RANGE REFERENCE UNITS LAB 2340-8(LOIN 70-110 mg/dL C) Normal Glucose 91 POCT-LAB Result Comment: Treatment ranges and critical values established by Patient Care Services. All follow-up actions were taken by Patient Care Services. Performed By: #### [id number] #### [facility]INT [facility] C[facility] GLUCOSE POCT Collected: 06/16/2018 Status: F Source: [facility] (UPLOADED) 12:29 PM [facility]ALTH SYSTEM REPOSITORY TYPE CODE TESTS RESULT OUT OF RANGE REFERENCE UNITS LAB 2340-8(LOIN 70-110 mg/dL C) Normal Glucose 90 POCT-LAB Result Comment: Treatment ranges and critical values established by Patient Care Services. All follow-up actions were taken by Patient Care Services. Performed By: #### [id number] #### [facility] POINT OF CARE PROGRESS NOTES Observed: 06/16/2018 Status: F Source: [facility] 9:55 AM [facility] SYSTEM REPOSITORY Patient: NADYA MONCADA MRN: [id number] Age: 57 years Sex: Female : 1960 Associated Diagnoses: None Author: Dee GUILLORY , Manuel Daigle Supervising Physician Comments Documentation By: Attending Physician. Chief Complaint F/U Drug overdose/suicidal attempt Subjective: sitting up in bed , no new issues states left leg is not any better awaiting SNF placement Health Status Allergies Allergic Reactions (Selected) NKA Medication List (Selected) Inpatient Medications Ordered Atropine 0.1 mg/mL Syringe 10 mL: 0.5 mg, IV Push, Q3min, PRN: See Comments BuPROPion: 300 mg, PO, Daily BusPIRone: 15 mg, PO, Bedtime BusPIRone: 7.5 mg, PO, Daily Decadron: 4 mg, PO, Q6h Dextrose 50% Syringe*: 12.5 Gm, IV Push, PRN, PRN: See Comments Glucagon: 1 mg, Subcut, PRN, PRN: See Comments Insulin Lispro Sliding Scale (HumaLOG)*: Conservative Scale, Subcut, ac+bedtime Lovenox: 40 mg, Subcut, Daily Lyrica: 100 mg, PO, TID Nitrostat*: 0.4 mg, Subl, Q5min, PRN: See Comments Percocet 5 mg/325 m Tab, PO, Q4h, PRN: Pain - Moderate TiZANidine: 4 mg, PO, BID Vitamin C: 1,000 mg, PO, Daily Vitamin D3: 5,000 Unit, PO, QMon+Wed+Fri acetaminophen: 650 mg, PO, Q4h, PRN: Pain - Mild amitriptyline: 50 mg, PO, TID losartan: 50 mg, PO, Daily oxygen: 1 Each, Inhalation, Daily pantoprazole: 40 mg, PO, ac bkfst polyethylene glycol 3350: 17 Gm, PO, Daily, PRN: Constipation sertraline: 150 mg, PO, Bedtime Documented Medications Documented Glycolax oral powder for reconstitution(Obsolete): 17 Gm, PO, Daily, PRN: Constipation, Each, 0 Refill(s) Lyrica 100 mg oral capsule: 1 Cap, PO, TID, Each, 0 Refill(s) PreserVision AREDS 2 oral capsule: 1 Cap, PO, Daily, Each, 0 Refill(s) Savella 50 mg oral tablet: 1 Tab, PO, BID, Each, 0 Refill(s) Vitamin C 500 mg oral tablet: 2 Tab, PO, Daily, 2 tab = 1000 mg, Each, 0 Refill(s) Vitamin D3 5000 intl units oral capsule: 1 Cap, PO, QMon+Wed+Fri, Each, 0 Refill(s) amitriptyline 50 mg oral tablet: 1 Tab, PO, TID, Each, 0 Refill(s) atorvastatin 40 mg oral tablet: 1 Tab, PO, Bedtime, Each, 0 Refill(s) buPROPion 300 mg/24 hours oral tablet, extended release: 1 Tab, PO, Q24h, Each, 0 Refill(s) busPIRone 15 mg oral tablet: 0.5 Tab, PO, Daily, 0.5 tab = 7.5 mg, Each, 0 Refill(s) busPIRone 15 mg oral tablet: 1 Tab, PO, Bedtime, Each, 0 Refill(s) losartan 50 mg oral tablet: 1 Tab, PO, Daily, 30 Tab, 0 Refill(s) metFORMIN 500 mg oral tablet, extended release: 1 Tab, PO, Daily, 30 Tab, 0 Refill(s) multivitamin: 1 Tab, PO, Daily, Tab, 0 Refill(s) omeprazole 40 mg oral delayed release capsule: 1 Cap, PO, Daily, Each, 0 Refill(s) sertraline 100 mg oral tablet: 1.5 Tab, PO, Bedtime, 1.5 tab = 150 mg, Each, 0 Refill(s) tiZANidine 4 mg oral tablet: 1 Tab, PO, BID, Each, 0 Refill(s) Subjective see above Objective Last Charted Vital Signs Temperature: 97.1 (06/16 07:00) Pulse: 100 (06/16 07:00) Respiration: 16 (06/16 07:00) BP: 145/67 (06/16 07:00) Pulse Ox: 92 (06/16 07:00) Oxygen Delivery: Room air (06/16 07:00) Pain Score: 9 (06/16 05:38) General: pt is morbidly obese, awake, alert, oriented x3, vitals stable, no acute distress HEENT: NC, AT, conj clear, no tearing, oral mucosa moist NECK: Supple, trachea-central CHEST: CAROL+, Clear to auscultation. no wheezing, rales, Unlaboured breathing CVS: S1S2 +, RRR, No murmurs P/A: Soft, NT, ND, BS are present. RESP THERAPIST: moving all extremities without any focal motor or sensory deficits PSYCH: Mood and affect WNL, denies hallucinations or delusions EXTREMITIES: appears to have trouble ambulating on the left leg. has 5/5 strength in bilateral LE Skin: warm, dry, no rash Results Review Labs - Last 36 hours (Max 2 / lab test) CHEMISTRY Sodium 139 (06/16 04:01) 138 (06/15 04:36) Potassium 4.0 (06/16 04:01) 4.5 (06/15 04:36) Chloride 101 (06/16 04:01) 102 (06/15 04:36) CO2 29 (06/16 04:01) 27 (06/15 04:36) Glucose 115 (06/16 04:01) 140 (06/15 04:36) Glucose POCT No result BUN 18 (06/16 04:01) 14 (06/15 04:36) Creatinine 0.99 (06/16 04:01) 0.88 (06/15 04:36) Calcium Total 9.7 (06/16 04:01) 9.5 (06/15 04:36) Magnesium No result HEMATOLOGY WBC 12.8 (06/16 04:01) 8.2 (06/15 04:36) RBC 4.64 (06/16 04:01) 4.42 (06/15 04:36) Hb 12.0 (06/16 04:01) 11.5 (06/15 04:36) Hematocrit 37.3 (06/16 04:01) 35.6 (06/15 04:36) Platelets 288 (06/16 04:01) 224 (06/15 04:36) MCV 80.3 (06/16 04:01) 80.5 (06/15 04:36) MCH 25.9 (06/16 04:01) 26.0 (06/15 04:36) RDW 17.2 (06/16 04:01) 16.7 (06/15 04:36) MCHC 32.2 (06/16 04:01) 32.3 (06/15 04:36) Neutrophil Ab No result Monocyte Ab No result Eosinophil Ab No result Basophil Ab No result Lymphocyte Ab No result OTHER LABS Anion Gap 9.0 mMol/L (06/16 04:01) 9.0 mMol/L (06/15 04:36) Est CrCl IBW (mL/min)-RX 59.50 mL/min (06/16 04:01) 66.94 mL/min (06/15 04:36) Est CrCl AdjBW (mL/min)-R 79.17 mL/min (06/16 04:01) 89.06 mL/min (06/15 04:36) GFR Est. Non >60 mL/min (06/15 04:36) 57 mL/min (06/14 04:13) GFR Est. Lucia >60 mL/min (06/15 04:36) >60 mL/min (06/14 04:13) MPV 8.3 FL (06/16 04:01) 8.9 FL (06/15 04:36) General Results Reviewed Results: Radiology : RADIOLOGY(Date Range: 06/08/2018 23:11 EDT - 06/09/2018 10:28 EDT) Assessment Assessment and Plan 57-year-old woman with history of hypertension, diabetes mellitus, hyperlipidemia, GERD, obesity, anxiety/depression, chronic back pain came in with altered mental status, family found her less responsi ve with bottles of wine and empty medication bottles. Pubertal surgery she took tizanidine, amitriptyline. She became hypotensive, was started on bicarbonate infusion per poison control recommendations and admitted to ICU.now awake and doing well. Patient is actively not suicidal or homicidal at this point and expresses remorse and understanding for her attempt. 1. Intentional Drug overdose with tizanidine, TCAs: off bicarb gtt, resolved 2. Hypotension, combination of volume depletion, tizanidine, TCAs: resolved. Off IV fluids and eating at this time. 2. Suicidal attempt: Seen by psych cleared for discharge with no need for inpatient psych hospitalilzation as has good family support and patient is remorseful. Will fold back psychotropic drugs. 3. Acute encephalopathy: From drug overdose, resolved. She is alert awake oriented ?4 4. Acute kidney injury: Improved. 5. Rhabdomyolysis: CPK levels trending down, off IVF from 6K-->1K . continue to hold statin for now. Counseled patient to avoid Mobic for now. left leg is chronically weaker as patient has seen pain management for 20+ years. PT/OT per neurosurgery 6. Depression/anxiety: on SSRI. stable . Psych following 7. Type 2 diabetes mellitus: stable. On insulin sliding scale 8. Physical deconditioning- PT?OT recommends snf #9: Back pain/left leg pain/numbness: Hip x-ray did not reveal any fracture. There is severe degenerative disc disease which patient states she has had. MRI L spine is demonstrates mod DJD, systemic sidra roid and aggressive PT/OT per neurosurgery.change dexamethasone to medrol pack on discharge. 11. Obesity, with BMI 38.8, wt loss advised. OP diet and lifestyle modifications 10. DVT prophylaxis: Lovenox Patient is full code Disposition: retirement facility in 1-2 days if precert available c/w PT/OT and ambulate in [place] tid under supervision GLUCOSE POCT Collected: 06/16/2018 Status: F Source: [facility] (UPLOADED) 7:15 AM HEALTH SYSTEM REPOSITORY TYPE CODE TESTS RESULT OUT OF REFERENCE UNITS RANGE LAB 2340-8(LOIN 70-110 mg/dL C) High Glucose 116 POCT-LAB Result Comment: Treatment ranges and critical values established by Patient Care Services. All follow-up actions were taken by Patient Care Services. Performed By: #### [id number] #### [facility] POINT OF CARE CBC Collected: 06/16/2018 Status: F Source: [facility] 4:01 AM [facility]ALTH SYSTEM REPOSITORY TYPE CODE TESTS RESULT OUT OF REFERENCE UNITS RANGE LAB 50056-1(LO 142-424 thou/mcL INC) Normal Platelet Count 288 LAB 95442-2(LO 35.0-45.0 % INC) Normal Hematocrit 37.3 LAB 70804-7(LO 11.0-14.8 % INC) RDW High 17.2 LAB 718-7(LOIN 12.0-16.0 gm/dL C) Normal Hemoglobin 12.0 LAB 05117-9(LO 3.80-5.10 million/mcL INC) Red Normal Blood Cell 4.64 Count LAB 77142-1(LO 32.0-36.0 gm/dL INC) MCHC Normal 32.2 LAB 58880-3(LO 27.0-34.0 Picograms INC) Low MCH 25.9 LAB 50591-4(LO 6.2-12.1 FL INC) MPV Normal 8.3 LAB 23708-0(LO 80.0-97.0 FL INC) MCV Normal 80.3 LAB 30731-4(LO 4.6-10.2 thou/mcL INC) WBC High Count 12.8 Performed By: #### [id number] #### [facility], [address] [place], [place] BASIC METABOLIC PANEL Collected: 06/16/2018 Status: F Source: [facility] 4:01 AM [facility] SYSTEM REPOSITORY TYPE CODE TESTS RESULT OUT OF RANGE REFERENCE UNITS LAB 2160-0(SUKHDEEP 0.66-1.30 mg/dL NC) Normal Creatinine 0.99 LAB 27275-2(LO 70-110 mg/dL INC) High Glucose Level 115 LAB 2951-2(SUKHDEEP 136-145 mMol/L NC) Sodium Normal Level 139 LAB 08573-8(LO 8-20 mg/dL INC) BUN Normal 18 LAB 74272-9(LO 6.0-18.0 mMol/L INC) Anion Normal Gap 9.0 LAB 2823-3(SUKHDEEP 3.6-5.1 mMol/L NC) Normal Potassium Level 4.0 LAB 2028-9(SUKHDEEP 22-32 mMol/L NC) Carbon Normal Dioxide Level 29 LAB 09047-8(LO 8.9-10.3 mg/dL INC) Calcium Normal Total 9.7 LAB 2075-0(SUKHDEEP 98-107 mMol/L NC) Chloride Normal Level 101 Performed By: #### [id number] #### [facility], [address], [place]. GLUCOSE POCT Collected: 06/15/2018 Status: F Source: [facility] (UPLOADED) 8:23 PM [facility]ALTH SYSTEM REPOSITORY TYPE CODE TESTS RESULT OUT OF REFERENCE UNITS RANGE LAB 2340-8(LOIN 70-110 mg/dL C) High Glucose 138 POCT-LAB Result Comment: Treatment ranges and critical values established by Patient Care Services. All follow-up actions were taken by Patient Care Services. Performed By: #### [id number] #### [facility] POINT [facility] CARE GLUCOSE POCT Collected: 06/15/2018 Status: F Source: [facility] (UPLOADED) 4:32 PM HEALTH SYSTEM REPOSITORY TYPE CODE TESTS RESULT OUT OF REFERENCE UNITS RANGE LAB 2340-8(LOIN 70-110 mg/dL C) High Glucose 141 POCT-LAB Result Comment: Treatment ranges and critical values established by Patient Care Services. All follow-up actions were taken by Patient Care Services. Performed By: #### [id number] #### [facility] POINT OF CARE PROGRESS NOTES Observed: 06/15/2018 Status: F Source: [facility] 12:43 PM [facility]ALTH SYSTEM REPOSITORY Patient: NADYA MONCADA MRN: [id number] Age: 57 years Sex: Female : 1960 Associated Diagnoses: None Author: Christoph GUILLORY , Shanta Alvarez Supervising Physician Comments Documentation By: Attending Physician. Chief Complaint F/U Drug overdose Subjective: ;left leg pain is better but fell on 06/14/18 with left toe fracture nondisplaced Health Status Allergies Allergic Reactions (Selected) NKA Medication List (Selected) Inpatient Medications Ordered Atropine 0.1 mg/mL Syringe 10 mL: 0.5 mg, IV Push, Q3min, PRN: See Comments BuPROPion: 300 mg, PO, Daily BusPIRone: 15 mg, PO, Bedtime BusPIRone: 7.5 mg, PO, Daily Decadron: 4 mg, PO, Q6h Dextrose 50% Syringe*: 12.5 Gm, IV Push, PRN, PRN: See Comments Glucagon: 1 mg, Subcut, PRN, PRN: See Comments Insulin Lispro Sliding Scale (HumaLOG)*: Conservative Scale, Subcut, ac+bedtime Lovenox: 40 mg, Subcut, Daily Lyrica: 100 mg, PO, TID Nitrostat*: 0.4 mg, Subl, Q5min, PRN: See Comments Percocet 5 mg/325 m Tab, PO, Q4h, PRN: Pain - Moderate TiZANidine: 4 mg, PO, BID Vitamin C: 1,000 mg, PO, Daily Vitamin D3: 5,000 Unit, PO, QMon+Wed+Fri acetaminophen: 650 mg, PO, Q4h, PRN: Pain - Mild amitriptyline: 50 mg, PO, TID losartan: 50 mg, PO, Daily oxygen: 1 Each, Inhalation, Daily pantoprazole: 40 mg, PO, ac bkfst polyethylene glycol 3350: 17 Gm, PO, Daily, PRN: Constipation sertraline: 150 mg, PO, Bedtime Documented Medications Documented Glycolax oral powder for reconstitution(Obsolete): 17 Gm, PO, Daily, PRN: Constipation, Each, 0 Refill(s) Lyrica 100 mg oral capsule: 1 Cap, PO, TID, Each, 0 Refill(s) PreserVision AREDS 2 oral capsule: 1 Cap, PO, Daily, Each, 0 Refill(s) Savella 50 mg oral tablet: 1 Tab, PO, BID, Each, 0 Refill(s) Vitamin C 500 mg oral tablet: 2 Tab, PO, Daily, 2 tab = 1000 mg, Each, 0 Refill(s) Vitamin D3 5000 intl units oral capsule: 1 Cap, PO, QMon+Wed+Fri, Each, 0 Refill(s) amitriptyline 50 mg oral tablet: 1 Tab, PO, TID, Each, 0 Refill(s) atorvastatin 40 mg oral tablet: 1 Tab, PO, Bedtime, Each, 0 Refill(s) buPROPion 300 mg/24 hours oral tablet, extended release: 1 Tab, PO, Q24h, Each, 0 Refill(s) busPIRone 15 mg oral tablet: 0.5 Tab, PO, Daily, 0.5 tab = 7.5 mg, Each, 0 Refill(s) busPIRone 15 mg oral tablet: 1 Tab, PO, Bedtime, Each, 0 Refill(s) losartan 50 mg oral tablet: 1 Tab, PO, Daily, 30 Tab, 0 Refill(s) metFORMIN 500 mg oral tablet, extended release: 1 Tab, PO, Daily, 30 Tab, 0 Refill(s) multivitamin: 1 Tab, PO, Daily, Tab, 0 Refill(s) omeprazole 40 mg oral delayed release capsule: 1 Cap, PO, Daily, Each, 0 Refill(s) sertraline 100 mg oral tablet: 1.5 Tab, PO, Bedtime, 1.5 tab = 150 mg, Each, 0 Refill(s) tiZANidine 4 mg oral tablet: 1 Tab, PO, BID, Each, 0 Refill(s) Subjective see above Objective Last Charted Vital Signs Temperature: 97.4 (06/15 07:35) Pulse: 111 (06/15 07:35) Respiration: 18 (06/15 07:35) BP: 131/76 (06/15 07:35) Pulse Ox: 96 (06/15 07:35) Oxygen Delivery: Room air (06/15 07:35) Pain Score: 5 (06/15 07:14) General: pt is morbidly obese, awake, alert, oriented x3, vitals stable, no acute distress HEENT: NC, AT, conj clear, no tearing, oral mucosa moist NECK: Supple, trachea-central CHEST: CAROL+, Clear to auscultation. no wheezing, rales, Unlaboured breathing CVS: S1S2 +, RRR, No murmurs P/A: Soft, NT, ND, BS are present. RESP THERAPIST: moving all extremities without any focal motor or sensory deficits PSYCH: Mood and affect WNL EXTREMITIES: appears to have trouble ambulating on the left leg. left toe TTP Skin: warm, dry, no rash Results Review Labs - Last 36 hours (Max 2 / lab test) CHEMISTRY Sodium 138 (06/15 04:36) 138 (06/14 04:13) Potassium 4.5 (06/15 04:36) 4.1 (06/14 04:13) Chloride 102 (06/15 04:36) 101 (06/14 04:13) CO2 27 (06/15 04:36) 29 (06/14 04:13) Glucose 140 (06/15 04:36) 111 (06/14 04:13) Glucose POCT No result BUN 14 (06/15 04:36) 15 (06/14 04:13) Creatinine 0.88 (06/15 04:36) 0.99 (06/14 04:13) Calcium Total 9.5 (06/15 04:36) 9.1 (06/14 04:13) Magnesium No result HEMATOLOGY WBC 8.2 (06/15 04:36) 6.1 (06/14 04:13) RBC 4.42 (06/15 04:36) 4.17 (06/14 04:13) Hb 11.5 (06/15 04:36) 10.7 (06/14 04:13) Hematocrit 35.6 (06/15 04:36) 33.5 (06/14 04:13) Platelets 224 (06/15 04:36) 218 (06/14 04:13) MCV 80.5 (06/15 04:36) 80.4 (06/14 04:13) MCH 26.0 (06/15 04:36) 25.8 (06/14 04:13) RDW 16.7 (06/15 04:36) 16.5 (06/14 04:13) MCHC 32.3 (06/15 04:36) 32.1 (06/14 04:13) Neutrophil Ab No result Monocyte Ab No result Eosinophil Ab No result Basophil Ab No result Lymphocyte Ab No result OTHER LABS Anion Gap 9.0 mMol/L (06/15 04:36) 8.0 mMol/L (06/14 04:13) Est CrCl IBW (mL/min)-RX 66.94 mL/min (06/15 04:36) 59.50 mL/min (06/14 04:13) Est CrCl AdjBW (mL/min)-R 89.06 mL/min (06/15 04:36) 79.17 mL/min (06/14 04:13) GFR Est. Non >60 mL/min (06/15 04:36) 57 mL/min (06/14 04:13) GFR Est. Lucia >60 mL/min (06/15 04:36) >60 mL/min (06/14 04:13) Creatine Kinase Random 1481 Units/L (06/12 12:24) MPV 8.9 FL (06/15 04:36) 8.5 FL (06/14 04:) General Results Reviewed Results: Radiology : RADIOLOGY(Date Range: 06/08/2018 23:11 EDT - 06/09/2018 10:28 EDT) Assessment Assessment and Plan 57-year-old woman with history of hypertension, diabetes mellitus, hyperlipidemia, GERD, obesity, anxiety/depression, chronic back pain came in with altered mental status, family found her less responsi ve with bottles of wine and empty medication bottles. Pubertal surgery she took tizanidine, amitriptyline. She became hypotensive, was started on bicarbonate infusion per poison control recommendations and admitted to ICU.now awake and doing well. Patient is actively not suicidal or homicidal at this point and expresses remorse and understanding for her attempt. patient fell on 06/14/18 and foot x ra y demonstrated Subtle nondisplaced fracture of the lateral base of the distal phalanx of the great toe extending into the IP joint. 1. Intentional Drug overdose with tizanidine, TCAs: off bicarb gtt, doing well. 2. Hypotension, combination of volume depletion, tizanidine, TCAs: Improved with IV fluids, blood pressure is stable today. Off IV fluids and eating at this time. 2. Suicidal attempt: Seen by psych cleared for discharge with no need for inpatient psych hospitalilzation as has good family support and patient is remorseful. Will fold back psychotropic drugs. 3. Acute encephalopathy: From drug overdose, improved, is alert awake oriented ?4 4. Acute kidney injury: Improved. 5. Rhabdomyolysis: CPK levels trending down, off IVF from 6K-->1K . We will hold statin for now. Counseled patient to avoid Mobic for now. left leg is chronically weaker as patient has seen pain management for 20+ years. 6. Depression/anxiety: restarted home medications and monitor on psychotropic drugs. 7. Type 2 diabetes mellitus: On insulin sliding scale 8. DVT prophylaxis: Lovenox #9: Back pain/left leg pain/numbness: Hip x-ray did not reveal any fracture. There is severe degenerative disc disease which patient states she has had. MRI L spine is demonstrates Modest degenerative changes primarily involving lower lumbar facets. Central canal and foramina remain patent. There is a small 2 mm nodular focus along the cauda equina of the L2 level NS evalauted. likely no need for surgery. aggressive PT 10) nondisplaced toe fracture on left: podiatry consult. boot, splint, conserbative manageemnt Patient is full code Disposition: pending acceptance by retirement facility for ambulation and aggressive PT . hopefully can d/c saturday if pre-cert comes through appreciate podiatry GLUCOSE POCT Collected: 06/15/2018 Status: F Source: [facility] (UPLOADED) 11:53 AM HEALTH SYSTEM REPOSITORY TYPE CODE TESTS RESULT OUT OF REFERENCE UNITS RANGE LAB 2340-8(LOIN 70-110 mg/dL C) High Glucose 137 POCT-LAB Result Comment: Treatment ranges and critical values established by Patient Care Services. All follow-up actions were taken by Patient Care Services. Performed By: #### 0370-8 #### [facility] GLUCOSE POCT Collected: 06/15/2018 Status: F Source: [facility] (UPLOADED) 7:36 AM HEALTH SYSTEM REPOSITORY TYPE CODE TESTS RESULT OUT OF REFERENCE UNITS RANGE LAB 2340-8(LOIN 70-110 mg/dL C) High Glucose 133 POCT-LAB Result Comment: Treatment ranges and critical values established by Patient Care Services. All follow-up actions were taken by Patient Care Services. Performed By: #### 0120-8 #### [facility] CONSULTATION Observed: 06/15/2018 Status: F Source: [facility] 7:29 AM [facility]ALTH SYSTEM REPOSITORY Patient: NADYA MONCADA MRN: [id number] Age: 57 years Sex: Female : 1960 Associated Diagnoses: None Author: Gerard Mccray DPM Supervising Physician Comments Documentation By: Consulting Physician. Admission Information admitted for overdose History of Present Illness she tells me fell using walker going to bathroom and foot gave out under her and felt pop in toe area. Past Medical History Active Back pain Hypotension Suicidal thoughts Surgical History Surgical/Procedure Hx Neck ([id number]). Health Status Allergies Allergic Reactions (All) NKA Family History Family Hx No family history items have been selected or recorded. Physical Examination Last Charted Vital Signs Temperature: 98.7 (06/14 22:47) Pulse: 90 (06/14 22:47) Respiration: 16 (06/14 22:47) BP: 137/72 (06/14 22:47) Pulse Ox: 94 (06/14 22:47) Oxygen Delivery: Room air (06/15 00:00) Pain Score: 7 (06/15 06:14) Pulses DP/PT palpable to toes. sensation intact to toes. Pain ipj hallux direct palpation and with rom mild edema. No pain ankle no pain rearfoot no pain 5th met base. Results Review General Results Radiology : RADIOLOGY 06/14/2018 15:59 EDT XR Foot 3+ Views LT REPORT Impression and Plan Impression and Plan Diagnosis Hypotension, unspecified Poisoning by unspecified drugs, medicaments and biological substances, accidental (unintentional), initial encounter Poisoning by unspecified drugs, medicaments and biological substances, intentional self-harm, initial encounter Radiculopathy, site unspecified Rhabdomyolysis Fracture lateral base distal phalanx <5% of ipj joint involvement non displaced initial encounter. . Narrative Description: Discussed fracture small non displaced base minimal joint involvement. No surgical internvetion needed. Strapping of toe with tape. Demonstrated to conitnue upon discharge. WB as tolerated to foot in surgical shoe. \ She will follow with her current [facility] at [facility]. GFRAA Collected: 06/15/2018 Status: F Source: [facility] 4:36 AM [facility]ALTH SYSTEM REPOSITORY TYPE CODE TESTS RESULT OUT OF RANGE REFERENCE UNITS LAB 01819-3(LO mL/min INC) GFR Normal Estimated >60 Result Comment: The MDRD equation has not been validated for those over 70 years, women, patients with serious co-morbid conditions, or with extremes of body size, muscle mass of nutritional status. Performed By: #### 97611-4, 92298-9n1, 45381-3 #### [facility], [facility] [place], [place]. GFRBB Collected: 06/15/2018 Status: F Source: [facility] 4:36 AM [facility]ALTH SYSTEM REPOSITORY TYPE CODE TESTS RESULT OUT OF RANGE REFERENCE UNITS LAB 23345-1(LO mL/min INC) GFR Normal Estimated Non >60 Performed By: #### 79719-2, 24349-1l9, 37216-3 #### [facility], [address] [place], [place]. BASIC METABOLIC PANEL Collected: 06/15/2018 Status: F Source: [facility] 4:36 AM [facility]ALTH SYSTEM REPOSITORY TYPE CODE TESTS RESULT OUT OF RANGE REFERENCE UNITS LAB 41480-3(LO 8.9-10.3 mg/dL INC) Calcium Normal Total 9.5 LAB 51738-1(LO 70-110 mg/dL INC) High Glucose Level 140 LAB 64932-7(LO 8-20 mg/dL INC) BUN Normal 14 LAB 2951-2(SUKHDEEP 136-145 mMol/L NC) Sodium Normal Level 138 LAB 2823-3(SUKHDEEP 3.6-5.1 mMol/L NC) Normal Potassium Level 4.5 LAB 2075-0(SUKHDEEP 98-107 mMol/L NC) Chloride Normal Level 102 LAB 2160-0(SUKHDEEP 0.66-1.30 mg/dL NC) Normal Creatinine 0.88 LAB 71666-5(LO 6.0-18.0 mMol/L INC) Anion Normal Gap 9.0 LAB 2028-9(SUKHDEEP 22-32 mMol/L NC) Carbon Normal Dioxide Level 27 Performed By: #### 75387-4, 43812-7c3, 17136-8 #### [facility], [address] [place] [address]. CBC Collected: 06/15/2018 Status: F Source: [facility] 4:36 AM [facility] REPOSITORY TYPE CODE TESTS RESULT OUT OF REFERENCE UNITS RANGE LAB 33694-1(LO 80.0-97.0 FL INC) MCV Normal 80.5 LAB 718-7(LOIN 12.0-16.0 gm/dL C) Low Hemoglobin 11.5 LAB 25342-4(LO 6.2-12.1 FL INC) MPV Normal 8.9 LAB 45220-5(LO 32.0-36.0 gm/dL INC) MCHC Normal 32.3 LAB 79148-5(LO 3.80-5.10 million/mcL INC) Red Normal Blood Cell 4.42 Count LAB 90434-8(LO 4.6-10.2 thou/mcL INC) WBC Normal Count 8.2 LAB 59996-9(LO 142-424 thou/mcL INC) Normal Platelet Count 224 LAB 71648-7(LO 27.0-34.0 Picograms INC) Low MCH 26.0 LAB 21906-9(LO 35.0-45.0 % INC) Normal Hematocrit 35.6 LAB 44804-5(LO 11.0-14.8 % INC) RDW High 16.7 Performed By: #### 71943-1 #### [facility], [address] [place] [address]. GLUCOSE POCT Collected: 06/14/2018 Status: F Source: [facility] (UPLOADED) 8:13 PM [facility]ALTH SYSTEM REPOSITORY TYPE CODE TESTS RESULT OUT OF REFERENCE UNITS RANGE LAB 2340-8(LOIN 70-110 mg/dL C) High Glucose 152 POCT-LAB Result Comment: Treatment ranges and critical values established by Patient Care Services. All follow-up actions were taken by Patient Care Services. Performed By: #### 2430-8 #### [facility] GLUCOSE POCT Collected: 06/14/2018 Status: F Source: [facility] (UPLOADED) 4:51 PM HEALTH SYSTEM REPOSITORY TYPE CODE TESTS RESULT OUT OF REFERENCE UNITS RANGE LAB 2340-8(LOIN 70-110 mg/dL C) High Glucose 131 POCT-LAB Result Comment: Treatment ranges and critical values established by Patient Care Services. All follow-up actions were taken by Patient Care Services. Performed By: #### 2430-8 #### [facility] XR FOOT 3+ VIEWS LT Observed: 06/14/2018 Status: F Source: [facility] 3:59 PM [facility]ALTH SYSTEM REPOSITORY EXAMINATION TYPE: XR Foot 3+ Views LT DATE OF EXAM: 06/14/2018 3:59 PM HISTORY: Pain w Trauma, fell today with severe dorsal foot pain 1st digit COMPARISON: NONE VIEWS: AP, lateral and oblique FINDINGS: The bones are normally mineralized. There is subtle lucency identified involving the lateral base of the distal phalanx of the great toe extending into the IP joint space suggestive of a nondisplaced f racture with some surrounding soft tissue swelling. No other fracture or subluxation is identified.. No lytic lesion or bony erosion or periosteal reaction is seen. The joint spaces are well preserved. Soft tissues are otherwise unremarkable. IMPRESSION: 1. Subtle nondisplaced fracture of the lateral base of the distal phalanx of the great toe extending into the IP joint. 2. No other acute bony or joint abnormality. [facility] thanks you for the opportunity to care for your patient. Workstation ID: [id number] - [id number] FINAL REPORT Dictated By: Fabiano Hayden MD 06/14/2018 16:09 Assigned Physician: Fabiano Hayden MD Reviewed and Electronically Signed By: Fabiano Hayden MD 06/14/2018 16:12 Transcribed by: QUENTIN 06/14/2018 16:09 Technologist: NLB XR KNEE 4+ VIEWS LT Observed: 06/14/2018 Status: F Source: [facility] 3:48 PM [facility]ALTH SYSTEM REPOSITORY EXAMINATION TYPE: XR Knee 4+ Views LT DATE OF EXAM : 06/14/2018 3:48 PM HISTORY: Pain w Trauma, COMPARISON: NONE FINDINGS: No fracture, dislocation, or joint effusion. Tricompartmental degenerative changes are most notable in the medial compartment with osteophytes present. IMPRESSION: No acute findings. [facility] thanks you for the opportunity to care for your patient. Workstation ID: [id number] - [id number] FINAL REPORT Dictated By: Teressa Corrales MD 06/14/2018 15:49 Assigned Physician: Teressa Corrales MD Reviewed and Electronically Signed By: Teressa Corrales MD 06/14/2018 15:50 Transcribed by: QUENTIN 06/14/2018 15:49 Technologist: LEE ANN PROGRESS NOTES Observed: 06/14/2018 Status: F Source: [facility] 12:11 PM [facility]ALTH SYSTEM REPOSITORY Patient: NADYA MONCADA MRN: [id number] Age: 57 years Sex: Female : 1960 Associated Diagnoses: None Author: Shanta Hawthorne MD Supervising Physician Comments Documentation By: Attending Physician. Chief Complaint F/U Drug overdose Subjective: sitting up in bed very pleasant, states left leg is not any better. Health Status Allergies Allergic Reactions (Selected) NKA Medication List (Selected) Inpatient Medications Ordered Atropine 0.1 mg/mL Syringe 10 mL: 0.5 mg, IV Push, Q3min, PRN: See Comments BuPROPion: 300 mg, PO, Daily BusPIRone: 15 mg, PO, Bedtime BusPIRone: 7.5 mg, PO, Daily Decadron: 4 mg, PO, Q6h Dextrose 50% Syringe*: 12.5 Gm, IV Push, PRN, PRN: See Comments Glucagon: 1 mg, Subcut, PRN, PRN: See Comments Insulin Lispro Sliding Scale (HumaLOG)*: Conservative Scale, Subcut, ac+bedtime Lovenox: 40 mg, Subcut, Daily Lyrica: 100 mg, PO, TID Nitrostat*: 0.4 mg, Subl, Q5min, PRN: See Comments TiZANidine: 4 mg, PO, BID Ultram: 50 mg, PO, Q6h, PRN: Pain - Moderate Vitamin C: 1,000 mg, PO, Daily Vitamin D3: 5,000 Unit, PO, QMon+Wed+Sat acetaminophen: 650 mg, PO, Q4h, PRN: Pain - Mild amitriptyline: 50 mg, PO, TID losartan: 50 mg, PO, Daily oxygen: 1 Each, Inhalation, Daily pantoprazole: 40 mg, PO, ac bkfst polyethylene glycol 3350: 17 Gm, PO, Daily, PRN: Constipation sertraline: 150 mg, PO, Bedtime Documented Medications Documented Glycolax oral powder for reconstitution(Obsolete): 17 Gm, PO, Daily, PRN: Constipation, Each, 0 Refill(s) Lyrica 100 mg oral capsule: 1 Cap, PO, TID, Each, 0 Refill(s) PreserVision AREDS 2 oral capsule: 1 Cap, PO, Daily, Each, 0 Refill(s) Savella 50 mg oral tablet: 1 Tab, PO, BID, Each, 0 Refill(s) Vitamin C 500 mg oral tablet: 2 Tab, PO, Daily, 2 tab = 1000 mg, Each, 0 Refill(s) Vitamin D3 5000 intl units oral capsule: 1 Cap, PO, QMon+Sat+Sat, Each, 0 Refill(s) amitriptyline 50 mg oral tablet: 1 Tab, PO, TID, Each, 0 Refill(s) atorvastatin 40 mg oral tablet: 1 Tab, PO, Bedtime, Each, 0 Refill(s) buPROPion 300 mg/24 hours oral tablet, extended release: 1 Tab, PO, Q24h, Each, 0 Refill(s) busPIRone 15 mg oral tablet: 0.5 Tab, PO, Daily, 0.5 tab = 7.5 mg, Each, 0 Refill(s) busPIRone 15 mg oral tablet: 1 Tab, PO, Bedtime, Each, 0 Refill(s) losartan 50 mg oral tablet: 1 Tab, PO, Daily, 30 Tab, 0 Refill(s) metFORMIN 500 mg oral tablet, extended release: 1 Tab, PO, Daily, 30 Tab, 0 Refill(s) multivitamin: 1 Tab, PO, Daily, Tab, 0 Refill(s) omeprazole 40 mg oral delayed release capsule: 1 Cap, PO, Daily, Each, 0 Refill(s) sertraline 100 mg oral tablet: 1.5 Tab, PO, Bedtime, 1.5 tab = 150 mg, Each, 0 Refill(s) tiZANidine 4 mg oral tablet: 1 Tab, PO, BID, Each, 0 Refill(s) Subjective see above Objective Last Charted Vital Signs Temperature: 97.4 (06/14 08:10) Pulse: 75 (06/14 08:10) Respiration: 18 (06/14 08:10) BP: 120/82 (10/13 08:10) Pulse Ox: 93 (06/14 08:10) Oxygen Delivery: Room air (06/13 12:38) Pain Score: 9 (06/14 09:00) General: pt is morbidly obese, awake, alert, oriented x3, vitals stable, no acute distress HEENT: NC, AT, conj clear, no tearing, oral mucosa moist NECK: Supple, trachea-central CHEST: CAROL+, Clear to auscultation. no wheezing, rales, Unlaboured breathing CVS: S1S2 +, RRR, No murmurs P/A: Soft, NT, ND, BS are present. RESP THERAPIST: moving all extremities without any focal motor or sensory deficits PSYCH: Mood and affect WNL EXTREMITIES: appears to have trouble ambulating on the left leg. has 5/5 strength in bilateral LE Skin: warm, dry, no rash Results Review Labs - Last 36 hours (Max 2 / lab test) CHEMISTRY Sodium 138 (06/14 04:13) 139 (06/13 04:03) Potassium 4.1 (06/14 04:13) 3.6 (06/13 04:03) Chloride 101 (06/14 04:13) 100 (06/13 04:03) CO2 29 (06/14 04:13) 30 (06/13 04:03) Glucose 111 (06/14 04:13) 105 (06/13 04:03) Glucose POCT No result BUN 15 (06/14 04:13) 13 (06/13 04:03) Creatinine 0.99 (06/14 04:13) 0.98 (06/13 04:03) Calcium Total 9.1 (06/14 04:13) 9.0 (06/13 04:03) Magnesium No result HEMATOLOGY WBC 6.1 (06/14 04:) 5.9 (06/13 04:03) RBC 4.17 (06/14) 4.33 (06/13 04:03) Hb 10.7 (06/14 04:) 11.0 (06/13 04:03) Hematocrit 33.5 (06/14) 34.9 (06/13 04:03) Platelets 218 (06/14) 217 (06/13 04:03) MCV 80.4 (06/14 04:) 80.5 (06/13 04:03) MCH 25.8 (06/14) 25.3 (06/13 04:03) RDW 16.5 (06/14) 16.6 (06/13 04:03) MCHC 32.1 (06/14 04:) 31.4 (06/13 04:03) Neutrophil Ab No result Monocyte Ab No result Eosinophil Ab No result Basophil Ab No result Lymphocyte Ab No result OTHER LABS Anion Gap 8.0 mMol/L (06/14 04:) 9.0 mMol/L (06/13 04:) Est CrCl IBW (mL/min)-RX 59.50 mL/min (06/14) 60.11 mL/min (06/13 04:03) Est CrCl AdjBW (mL/min)-R 79.17 mL/min (06/14) 79.97 mL/min (06/13 04:03) GFR Est. Non 57 mL/min (06/14) 58 mL/min (06/13 04:03) GFR Est. Lucia >60 mL/min (06/14) >60 mL/min (06/13 04:03) Creatine Kinase Random 1481 Units/L (06/12 12:24) MPV 8.5 FL (06/14 04:13) 8.5 FL (06/13 04:03) General Results Reviewed Results: Radiology : RADIOLOGY(Date Range: 06/08/2018 23:11 EDT - 06/09/2018 10:28 EDT) Assessment Assessment and Plan 57-year-old woman with history of hypertension, diabetes mellitus, hyperlipidemia, GERD, obesity, anxiety/depression, chronic back pain came in with altered mental status, family found her less responsi ve with bottles of wine and empty medication bottles. Pubertal surgery she took tizanidine, amitriptyline. She became hypotensive, was started on bicarbonate infusion per poison control recommendations and admitted to ICU.now awake and doing well. Patient is actively not suicidal or homicidal at this point and expresses remorse and understanding for her attempt. 1. Intentional Drug overdose with tizanidine, TCAs: off bicarb gtt, doing well. 2. Hypotension, combination of volume depletion, tizanidine, TCAs: Improved with IV fluids, blood pressure is stable today. Off IV fluids and eating at this time. 2. Suicidal attempt: Seen by psych cleared for discharge with no need for inpatient psych hospitalilzation as has good family support and patient is remorseful. Will fold back psychotropic drugs. 3. Acute encephalopathy: From drug overdose, improved, is alert awake oriented ?4 4. Acute kidney injury: Improved. 5. Rhabdomyolysis: CPK levels trending down, off IVF from 6K-->1K . We will hold statin for now. Counseled patient to avoid Mobic for now. left leg is chronically weaker as patient has seen pain management for 20+ years. 6. Depression/anxiety: restarted home medications and monitor on psychotropic drugs. 7. Type 2 diabetes mellitus: On insulin sliding scale 8. DVT prophylaxis: Lovenox #9: Back pain/left leg pain/numbness: Hip x-ray did not reveal any fracture. There is severe degenerative disc disease which patient states she has had. MRI L spine is demonstrates Modest degenerative changes primarily involving lower lumbar facets. Central canal and foramina remain patent. There is a small 2 mm nodular focus along the cauda equina of the L2 level NS evalauted. likely no need for surgery. aggressive PT Patient is full code Disposition: pending acceptance by retirement facility for ambulation and aggressive PT . hopefully can d/c saturday if pre-cert comes through GLUCOSE POCT Collected: 06/14/2018 Status: F Source: [facility] (UPLOADED) 11:16 AM HEALTH SYSTEM REPOSITORY TYPE CODE TESTS RESULT OUT OF REFERENCE UNITS RANGE LAB 2340-8(LOIN 70-110 mg/dL C) High Glucose 138 POCT-LAB Result Comment: Treatment ranges and critical values established by Patient Care Services. All follow-up actions were taken by Patient Care Services. Performed By: #### 2430-8 #### [facility] POINT OF CARE PROGRESS NOTES Observed: 06/14/2018 Status: C Source: [facility] 7:13 AM [facility] SYSTEM REPOSITORY Patient: NADYA MONCADA MRN: [id number] Age: 57 years Sex: Female : 1960 Associated Diagnoses: None Author: Cely Guallpa CNP Supervising Physician Comments [employer] PUSHER with Dr. Hernandez Chief Complaint left leg pain Health Status Allergies Allergic Reactions (Selected) NKA Medication List Medications reviewed. Subjective Awake, states she slept well overnight. Leg still with nerve pain to knee and numb below knee, but sates she feels better the more she moves. Objective Last Charted Vital Signs Temperature: 97.6 (06/13 22:57) Pulse: 83 (06/13 22:57) Respiration: 14 (06/13 22:57) BP: 108/64 (06/13 22:57) Pulse Ox: 94 (06/13 22:57) Oxygen Delivery: Room air (06/13 12:38) Pain Score: 8 (06/13 22:17) Appears stated age. Resting quietly in bed. Calm and cooperative Alert and oriented x4. Face symmetrical, Speech clear Bilateral lower extremities: Hip flexion/extension 4/5 on the left, 5/5 on the right, pain limiting; knee flexion/extension 4+/5 on the left, 5/5 on the right; plantar flexion 5/5; dorsiflexion 5/ 5; . No leg drift noted. sensation intact S1S2. 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 Hernandez Patient discussed with and imaging reviewd by Dr. Rodriguez will place on PO Decadron while inpatient and transition to Medrol dose pack at DC no neurosurgical intervention indicated should follow up with Dr. Rodriguez within 2-3 weeks after DC GLUCOSE POCT Collected: 06/14/2018 Status: F Source: [facility] (UPLOADED) 7:06 AM HEALTH SYSTEM REPOSITORY TYPE CODE TESTS RESULT OUT OF RANGE REFERENCE UNITS LAB 2340-8(LOIN 70-110 mg/dL C) Normal Glucose 90 POCT-LAB Result Comment: Treatment ranges and critical values established by Patient Care Services. All follow-up actions were taken by Patient Care Services. Performed By: #### 2430-8 #### [facility] CBC Collected: 06/14/2018 Status: F Source: [facility] 4:13 AM [facility]ALTH SYSTEM REPOSITORY TYPE CODE TESTS RESULT OUT OF REFERENCE UNITS RANGE LAB 41739-7(LO 32.0-36.0 gm/dL INC) MCHC Normal 32.1 LAB 78858-7(LO 35.0-45.0 % INC) Low Hematocrit 33.5 LAB 69420-5(LO 142-424 thou/mcL INC) Normal Platelet Count 218 LAB 23650-8(LO 27.0-34.0 Picograms INC) Low MCH 25.8 LAB 718-7(LOIN 12.0-16.0 gm/dL C) Low Hemoglobin 10.7 LAB 62263-3(LO 6.2-12.1 FL INC) MPV Normal 8.5 LAB 73655-5(LO 11.0-14.8 % INC) RDW High 16.5 LAB 33271-5(LO 80.0-97.0 FL INC) MCV Normal 80.4 LAB 50178-9(LO 3.80-5.10 million/mcL INC) Red Normal Blood Cell 4.17 Count LAB 73049-1(LO 4.6-10.2 thou/mcL INC) WBC Normal Count 6.1 Performed By: #### 09692-1 #### [facility], [address] [place] [address]. GFRAA Collected: 06/14/2018 Status: F Source: [facility] 4:13 AM [facility] SYSTEM REPOSITORY TYPE CODE TESTS RESULT OUT OF RANGE REFERENCE UNITS LAB 42821-6(LO mL/min INC) GFR Normal Estimated >60 Result Comment: The MDRD equation has not been validated for those over 70 years, women, patients with serious co-morbid conditions, or with extremes of body size, muscle mass of nutritional status. Performed By: #### 16455-9, 21845-8i4, 71171-7 #### [facility], [address] [place] [address]. GFRBB Collected: 06/14/2018 Status: F Source: [facility] 4:13 AM [facility] SYSTEM REPOSITORY TYPE CODE TESTS RESULT OUT OF RANGE REFERENCE UNITS LAB 96484-7(LO mL/min INC) GFR Normal Estimated Non 57 Performed By: #### 80515-6, 28801-2d5, 25141-5 #### [facility], [address] [place] [address]. BASIC METABOLIC PANEL Collected: 06/14/2018 Status: F Source: [facility] 4:13 AM [facility] SYSTEM REPOSITORY TYPE CODE TESTS RESULT OUT OF RANGE REFERENCE UNITS LAB 2823-3(SUKHDEEP 3.6-5.1 mMol/L NC) Normal Potassium Level 4.1 LAB 8-9(SUKHDEEP 22-32 mMol/L NC) Carbon Normal Dioxide Level 29 LAB 2160-0(SUKHDEEP 0.66-1.30 mg/dL NC) Normal Creatinine 0.99 LAB 06409-6(LO 70-110 mg/dL INC) High Glucose Level 111 LAB 28010-4(LO 8-20 mg/dL INC) BUN Normal 15 LAB 2075-0(SUKHDEEP 98-107 mMol/L NC) Chloride Normal Level 101 LAB 13306-5(LO 6.0-18.0 mMol/L INC) Anion Normal Gap 8.0 LAB 22372-6(LO 8.9-10.3 mg/dL INC) Calcium Normal Total 9.1 LAB 2951-2(SUKHDEEP 136-145 mMol/L NC) Sodium Normal Level 138 Performed By: #### 04756-3, 49609-7x9, 34915-3 #### [facility], [address], [place]. GLUCOSE POCT Collected: 06/13/2018 Status: F Source: [facility] (UPLOADED) 8:34 PM [facility]ALTH SYSTEM REPOSITORY TYPE CODE TESTS RESULT OUT OF RANGE REFERENCE UNITS LAB 2340-8(LOIN 70-110 mg/dL C) Normal Glucose 92 POCT-LAB Result Comment: Treatment ranges and critical values established by Patient Care Services. All follow-up actions were taken by Patient Care Services. Performed By: #### 2430-8 #### [facility] GLUCOSE POCT Collected: 06/13/2018 Status: F Source: [facility] (UPLOADED) 4:39 PM [facility]ALTH SYSTEM REPOSITORY TYPE CODE TESTS RESULT OUT OF RANGE REFERENCE UNITS LAB 2340-8(LOIN 70-110 mg/dL C) Normal Glucose 79 POCT-LAB Result Comment: Treatment ranges and critical values established by Patient Care Services. All follow-up actions were taken by Patient Care Services. Performed By: #### 2430-8 #### [facility] PROGRESS NOTES Observed: 06/13/2018 Status: F Source: [facility] 4:04 PM [facility]ALTH SYSTEM REPOSITORY Patient: NADYA MONCADA MRN: ([id number] Age: 57 years Sex: Female : 1960 Associated Diagnoses: None Author: Christoph GUILLORY , Shanta Alvarez Supervising Physician Comments Documentation By: Attending Physician. Chief Complaint F/U Drug overdose Subjective: patient sitting up but stating left leg hurts more than normal. working with PT in the room while i examined patient. patient stated she may be willing to go home with home health if SNF could not be found as she has exellent family support Health Status Allergies Allergic Reactions (Selected) NKA Medication List (Selected) Inpatient Medications Ordered Atropine 0.1 mg/mL Syringe 10 mL: 0.5 mg, IV Push, Q3min, PRN: See Comments BuPROPion: 300 mg, PO, Daily BusPIRone: 15 mg, PO, Bedtime BusPIRone: 7.5 mg, PO, Daily Dextrose 50% Syringe*: 12.5 Gm, IV Push, PRN, PRN: See Comments Glucagon: 1 mg, Subcut, PRN, PRN: See Comments Insulin Lispro Sliding Scale (HumaLOG)*: Conservative Scale, Subcut, ac+bedtime Lovenox: 40 mg, Subcut, Daily Lyrica: 100 mg, PO, TID Nitrostat*: 0.4 mg, Subl, Q5min, PRN: See Comments TiZANidine: 4 mg, PO, BID Ultram: 50 mg, PO, Q6h, PRN: Pain - Moderate Vitamin C: 1,000 mg, PO, Daily Vitamin D3: 5,000 Unit, PO, QMon+Wed+Fri acetaminophen: 650 mg, PO, Q4h, PRN: Pain - Mild amitriptyline: 50 mg, PO, TID losartan: 50 mg, PO, Daily oxygen: 1 Each, Inhalation, Daily pantoprazole: 40 mg, PO, ac bkfst polyethylene glycol 3350: 17 Gm, PO, Daily, PRN: Constipation sertraline: 150 mg, PO, Bedtime Documented Medications Documented Glycolax oral powder for reconstitution(Obsolete): 17 Gm, PO, Daily, PRN: Constipation, Each, 0 Refill(s) Lyrica 100 mg oral capsule: 1 Cap, PO, TID, Each, 0 Refill(s) PreserVision AREDS 2 oral capsule: 1 Cap, PO, Daily, Each, 0 Refill(s) Savella 50 mg oral tablet: 1 Tab, PO, BID, Each, 0 Refill(s) Vitamin C 500 mg oral tablet: 2 Tab, PO, Daily, 2 tab = 1000 mg, Each, 0 Refill(s) Vitamin D3 5000 intl units oral capsule: 1 Cap, PO, QMon+Wed+Fri, Each, 0 Refill(s) amitriptyline 50 mg oral tablet: 1 Tab, PO, TID, Each, 0 Refill(s) atorvastatin 40 mg oral tablet: 1 Tab, PO, Bedtime, Each, 0 Refill(s) buPROPion 300 mg/24 hours oral tablet, extended release: 1 Tab, PO, Q24h, Each, 0 Refill(s) busPIRone 15 mg oral tablet: 0.5 Tab, PO, Daily, 0.5 tab = 7.5 mg, Each, 0 Refill(s) busPIRone 15 mg oral tablet: 1 Tab, PO, Bedtime, Each, 0 Refill(s) losartan 50 mg oral tablet: 1 Tab, PO, Daily, 30 Tab, 0 Refill(s) metFORMIN 500 mg oral tablet, extended release: 1 Tab, PO, Daily, 30 Tab, 0 Refill(s) multivitamin: 1 Tab, PO, Daily, Tab, 0 Refill(s) omeprazole 40 mg oral delayed release capsule: 1 Cap, PO, Daily, Each, 0 Refill(s) sertraline 100 mg oral tablet: 1.5 Tab, PO, Bedtime, 1.5 tab = 150 mg, Each, 0 Refill(s) tiZANidine 4 mg oral tablet: 1 Tab, PO, BID, Each, 0 Refill(s) Subjective see above Objective Last Charted Vital Signs Temperature: 98.2 (06/13 15:01) Pulse: 82 (06/13 15:01) Respiration: 18 (06/13 15:01) BP: 91/57 (06/13 15:01) Pulse Ox: 93 (06/13 15:01) Oxygen Delivery: Room air (06/13 12:38) Pain Score: 6 (06/13 15:34) General: pt is morbidly obese, awake, alert, oriented x3, vitals stable, no acute distress HEENT: NC, AT, conj clear, no tearing, oral mucosa moist NECK: Supple, trachea-central CHEST: CAROL+, Clear to auscultation. no wheezing, rales, Unlaboured breathing CVS: S1S2 +, RRR, No murmurs P/A: Soft, NT, ND, BS are present. RESP THERAPIST: moving all extremities without any focal motor or sensory deficits PSYCH: Mood and affect WNL EXTREMITIES: appears to have trouble ambulating on the left leg. has 5/5 strength in bilateral LE Skin: warm, dry, no rash Results Review Labs - Last 36 hours (Max 2 / lab test) CHEMISTRY Sodium 139 (06/13 04:03) 140 (06/12 05:15) Potassium 3.6 (06/13 04:03) 3.7 (06/12 05:15) Chloride 100 (06/13 04:03) 100 (06/12 05:15) CO2 30 (06/13 04:03) 32 (06/12 05:15) Glucose 105 (06/13 04:03) 103 (06/12 05:15) Glucose POCT No result BUN 13 (06/13 04:03) 9 (06/12 05:15) Creatinine 0.98 (06/13 04:03) 0.92 (06/12 05:15) Calcium Total 9.0 (06/13 04:03) 8.8 (06/12 05:15) Magnesium No result HEMATOLOGY WBC 5.9 (06/13 04:03) 4.9 (06/12 05:15) RBC 4.33 (06/13 04:03) 4.21 (06/12 05:15) Hb 11.0 (06/13 04:03) 11.0 (06/12 05:15) Hematocrit 34.9 (06/13 04:03) 34.2 (06/12 05:15) Platelets 217 (06/13 04:03) 198 (06/12 05:15) MCV 80.5 (06/13 04:03) 81.4 (06/12 05:15) MCH 25.3 (06/13 04:03) 26.1 (06/12 05:15) RDW 16.6 (06/13 04:03) 16.8 (06/12 05:15) MCHC 31.4 (06/13 04:03) 32.1 (06/12 05:15) Neutrophil Ab No result Monocyte Ab No result Eosinophil Ab No result Basophil Ab No result Lymphocyte Ab No result OTHER LABS Anion Gap 9.0 mMol/L (06/13 04:03) 8.0 mMol/L (06/12 05:15) Est CrCl IBW (mL/min)-RX 60.11 mL/min (06/13 04:03) 64.03 mL/min (06/12 05:15) Est CrCl AdjBW (mL/min)-R 79.97 mL/min (06/13 04:03) 85.19 mL/min (06/12 05:15) GFR Est. Non 58 mL/min (06/13 04:03) >60 mL/min (06/11 05:25) GFR Est. Lucia >60 mL/min (06/13 04:03) >60 mL/min (06/11 05:25) Creatine Kinase Random 1481 Units/L (06/12 12:24) 1167 Units/L (06/11 05:25) MPV 8.5 FL (06/13 04:03) 8.4 FL (06/12 05:15) General Results Reviewed Results: Radiology : RADIOLOGY(Date Range: 06/08/2018 23:11 EDT - 06/09/2018 10:28 EDT) Assessment Assessment and Plan 57-year-old woman with history of hypertension, diabetes mellitus, hyperlipidemia, GERD, obesity, anxiety/depression, chronic back pain came in with altered mental status, family found her less responsi ve with bottles of wine and empty medication bottles. Pubertal surgery she took tizanidine, amitriptyline. She became hypotensive, was started on bicarbonate infusion per poison control recommendations and admitted to ICU.now awake and doing well. Patient is actively not suicidal or homicidal at this point and expresses remorse and understanding for her attempt. 1. Intentional Drug overdose with tizanidine, TCAs: off bicarb gtt, doing well. 2. Hypotension, combination of volume depletion, tizanidine, TCAs: Improved with IV fluids, blood pressure is stable today. Off IV fluids and eating at this time. 2. Suicidal attempt: Seen by psych cleared for discharge with no need for inpatient psych hospitalilzation as has good family support and patient is remorseful. Will fold back psychotropic drugs. 3. Acute encephalopathy: From drug overdose, improved, is alert awake oriented ?4 4. Acute kidney injury: Improved. 5. Rhabdomyolysis: CPK levels trending down, off IVF from 6K-->1K . We will hold statin for now. Counseled patient to avoid Mobic for now. left leg is chronically weaker as patient has seen pain management for 20+ years. 6. Depression/anxiety: restarted home medications and monitor on psychotropic drugs. 7. Type 2 diabetes mellitus: On insulin sliding scale 8. DVT prophylaxis: Lovenox #9: Back pain/left leg pain/numbness: Hip x-ray did not reveal any fracture. There is severe degenerative disc disease which patient states she has had. MRI L spine is demonstrates Modest degenerative changes primarily involving lower lumbar facets. Central canal and foramina remain patent. There is a small 2 mm nodular focus along the cauda equina of the L2 level NS evalauted. likely no need for surgery. aggressive PT Patient is full code Disposition: pending acceptance by retirement facility.spoke to . has good family support at home. GLUCOSE POCT Collected: 06/13/2018 Status: F Source: [facility] (UPLOADED) 11:47 AM HEALTH SYSTEM REPOSITORY TYPE CODE TESTS RESULT OUT OF RANGE REFERENCE UNITS LAB 2340-8(LOIN 70-110 mg/dL C) Normal Glucose 107 POCT-LAB Result Comment: Treatment ranges and critical values established by Patient Care Services. All follow-up actions were taken by Patient Care Services. Performed By: #### 2430-8 #### [facility] CONSULTATION Observed: 06/13/2018 Status: F Source: [facility] 9:06 AM [facility]ALTH SYSTEM REPOSITORY Patient: NADYA MONCADA MRN: ([id number] Age: 57 years Sex: Female : 1960 Associated Diagnoses: None Author: Cely Guallpa CNP Supervising Physician Comments CAR PUSHER with Dr. Hernandez Admission Information Reason for consultation left leg pain, back pain History of Present Illness This is a plesant 57 year old female with a PMH significant for chronic back pain s/p multiple cervical and lumbar PERLA, peripheral neuropathy, prior cervical ACDF with a surgeon on [place] and recent whitten icide attempt who is being evaluated by neurosurgery service for complaints of left leg pain and back pain. She attempted suicide on saturday 06/09 evening and was minimally resposnive with little memor y of preceeding events until about Saturday when she realized she had sudden onset left leg pain. She states she doesnt know if she was lying in an undesireable position when she was unresponsive that m ay have hurt her back. She states she had left leg peripheral neuropathy 20 years ago that has gotten better over time. She sees a pain management specialize in [facility] for chronic low back pain that she has also had for 20 years. MRI of her L spine showed modest degenerative changes and a possible 2mm schwannoma at the level of L2 She states she has left sided anterior radicular pain in an L4-5 distribution. She denies weakness but states her pain has made it difficult for her to ambulate since this acute event. She states she has numbness to left distal leg as well. Denies bowel or bladder involvement. Past Medical History Active Back pain Hypotension Suicidal thoughts Surgical History Surgical/Procedure Hx Neck ([id number]). Health Status Allergies Allergic Reactions (Selected) NKA Medication List Medications reviewed. Review of Systems A complete ROS was completed with the patient with the pertinent postives listed in the above [place] Family History Family Hx No family history items have been selected or recorded. Social History occasional alcohol usage Physical Examination Last Charted Vital Signs Temperature: 96.8 (06/13 08:16) Pulse: 88 (06/13 08:16) Respiration: 18 (06/13 08:16) BP: 114/74 (06/13 08:16) Pulse Ox: 92 (06/13 08:16) Oxygen Delivery: Room air (06/12 19:00) Pain Score: 9 (06/13 07:31) Appears stated age. Resting quietly in bed. Calm and cooperative Alert and oriented x4. Face symmetrical, Speech clear Bilateral lower extremities: Hip flexion/extension 4/5 on the left, 5/5 on the right, pain limiting; knee flexion/extension 4+/5 on the left, 5/5 on the right; plantar flexion 5/5; dorsiflexion 5/ 5; . No leg drift noted. sensation intact S1S2. RRR Respiring comfortably on RA peripheral pulses palpable. Abdomen soft, non-tender and non-distended. 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 Hernandez Impression and Plan Diagnosis Radicular syndrome of left leg (LXS07-LJ M54.10, Working, Medical). GLUCOSE POCT Collected: 06/13/2018 Status: F Source: [facility] (UPLOADED) 7:05 AM HEALTH SYSTEM REPOSITORY TYPE CODE TESTS RESULT OUT OF RANGE REFERENCE UNITS LAB 2340-8(LOIN 70-110 mg/dL C) Normal Glucose 98 POCT-LAB Result Comment: Treatment ranges and critical values established by Patient Care Services. All follow-up actions were taken by Patient Care Services. Performed By: #### 2430-8 #### [facility]INT [facility] C[facility] CBC Collected: 06/13/2018 Status: F Source: [facility] 4:03 AM [facility]ALTH SYSTEM REPOSITORY TYPE CODE TESTS RESULT OUT OF REFERENCE UNITS RANGE LAB 59233-8(LO 6.2-12.1 FL INC) MPV Normal 8.5 LAB 24550-0(LO 27.0-34.0 Picograms INC) Low MCH 25.3 LAB 16765-8(LO 80.0-97.0 FL INC) MCV Normal 80.5 LAB 51980-2(LO 4.6-10.2 thou/mcL INC) WBC Normal Count 5.9 LAB 82754-7(LO 142-424 thou/mcL INC) Normal Platelet Count 217 LAB 84210-9(LO 35.0-45.0 % INC) Low Hematocrit 34.9 LAB 55741-8(LO 11.0-14.8 % INC) RDW High 16.6 LAB 718-7(LOIN 12.0-16.0 gm/dL C) Low Hemoglobin 11.0 LAB 76005-8(LO 32.0-36.0 gm/dL INC) Low MCHC 31.4 LAB 18373-3(LO 3.80-5.10 million/mcL INC) Red Normal Blood Cell 4.33 Count Performed By: #### 75200-2 #### [facility], [address] [place] [address]. GFRAA Collected: 06/13/2018 Status: F Source: [facility] 4:03 AM [facility] SYSTEM REPOSITORY TYPE CODE TESTS RESULT OUT OF RANGE REFERENCE UNITS LAB 77593-9(LO mL/min INC) GFR Normal Estimated >60 Result Comment: The MDRD equation has not been validated for those over 70 years, women, patients with serious co-morbid conditions, or with extremes of body size, muscle mass of nutritional status. Performed By: #### 73028-4, 95175-7j8, 08276-9 #### [facility], [address] [place], [place]. GFRBB Collected: 06/13/2018 Status: F Source: [facility] 4:03 AM [facility] SYSTEM REPOSITORY TYPE CODE TESTS RESULT OUT OF RANGE REFERENCE UNITS LAB 35320-5(LO mL/min INC) GFR Normal Estimated Non 58 Performed By: #### 93786-8, 72198-0p7, 59084-7 #### [facility], [address] [place], [place]. BASIC METABOLIC PANEL Collected: 06/13/2018 Status: F Source: [facility] 4:03 AM [facility] REPOSITORY TYPE CODE TESTS RESULT OUT OF RANGE REFERENCE UNITS LAB 01906-6(LO 8.9-10.3 mg/dL INC) Calcium Normal Total 9.0 LAB 58369-0(LO 6.0-18.0 mMol/L INC) Anion Normal Gap 9.0 LAB 2160-0(SUKHDEEP 0.66-1.30 mg/dL NC) Normal Creatinine 0.98 LAB 33915-2(LO 70-110 mg/dL INC) Glucose Normal Level 105 LAB 2951-2(SUKHDEEP 136-145 mMol/L NC) Sodium Normal Level 139 LAB 2823-3(SUKHDEEP 3.6-5.1 mMol/L NC) Normal Potassium Level 3.6 LAB 2028-9(SUKHDEEP 22-32 mMol/L NC) Carbon Normal Dioxide Level 30 LAB 08803-5(LO 8-20 mg/dL INC) BUN Normal 13 LAB 2075-0(SUKHDEEP 98-107 mMol/L NC) Chloride Normal Level 100 Performed By: #### 01036-2, 22080-1y8, 15496-3 #### [facility], [address], [place]. GLUCOSE POCT Collected: 06/12/2018 Status: F Source: [facility] (UPLOADED) 10:16 PM [facility]ALTH SYSTEM REPOSITORY TYPE CODE TESTS RESULT OUT OF RANGE REFERENCE UNITS LAB 2340-8(LOIN 70-110 mg/dL C) Normal Glucose 101 POCT-LAB Result Comment: Treatment ranges and critical values established by Patient Care Services. All follow-up actions were taken by Patient Care Services. Performed By: #### 2430-8 #### [facility] MRI L-SPINE W/O Observed: 06/12/2018 Status: F Source: [facility] CONTRAST 9:36 PM HEALTH SYSTEM REPOSITORY EXAMINATION TYPE: MRI L-Spine w/o Contrast DATE OF EXAM : 06/12/2018 9:36 PM HISTORY: Radiculopathy, L-Spine, left leg pain. TECHNIQUE: MR of lumbar spine was performed without contrast per routine protocol. COMPARISON: NONE FINDINGS: Lumbar vertebral body heights preserved. Disc spaces are fairly well-preserved with some loss of disc T2 signal in the mid lumbar spine. No evidence of discitis/osteomyelitis. Conus terminates at L1- L2 with unremarkable signal. T12-L1: No central canal or foraminal stenosis. L1-L2: No central canal or foraminal stenosis. L2-L3: No central canal or foraminal stenosis. L3-L4: Mild to moderate left facet degenerative change. Central canal and foramina remain adequate. L4-L5: Moderate facet degenerative changes. Central canal and foramina remain adequate. L5-S1: Moderate to severe facet degenerative change. Central canal foramina remain adequate. No epidural collection is appreciated. There is a nodular focus along the cauda equina at the L2 level seen on sagittal image 8 measuring about 2 mm in size. It may represent a small schwannoma. Bird mmend postcontrast imaging for further evaluation. 4.2 cm right renal cystic focus. IMPRESSION: Modest degenerative changes primarily involving lower lumbar facets. Central canal and foramina remain patent. There is a small 2 mm nodular focus along the cauda equina of the L2 level, see discussion above. [facility] thanks you for the opportunity to care for your patient. Workstation ID: [id number] - [id number] FINAL REPORT Dictated By: Eliseo Navarrete MD 06/12/2018 21:39 Assigned Physician: Eliseo Navarrete MD Reviewed and Electronically Signed By: Eliseo Navarrete MD 06/12/2018 21:45 Transcribed by: QUENTIN 06/12/2018 21:39 Technologist: AB GLUCOSE POCT Collected: 06/12/2018 Status: F Source: [facility] (UPLOADED) 4:15 PM HEALTH SYSTEM REPOSITORY TYPE CODE TESTS RESULT OUT OF REFERENCE UNITS RANGE LAB 2340-8(LOIN 70-110 mg/dL C) High Glucose 140 POCT-LAB Result Comment: Treatment ranges and critical values established by Patient Care Services. All follow-up actions were taken by Patient Care Services. Performed By: #### 2430-8 #### [facility] POINT [facility] CARE PROGRESS NOTES Observed: 06/12/2018 Status: F Source: [facility] 4:00 PM [facility]ALTH SYSTEM REPOSITORY Patient: NADYA MONCADA MRN: ([id number] Age: 57 years Sex: Female : 1960 Associated Diagnoses: None Author: Christoph GUILLORY , Shanta Alvarez Supervising Physician Comments Documentation By: Attending Physician. Chief Complaint F/U Drug overdose Subjective: patient states that she has numbness and pain in her left leg but is not very specific. She also is complaining about back pain. Otherwise, she denies any HI or SI. Health Status Allergies Allergic Reactions (Selected) NKA Medication List (Selected) Inpatient Medications Ordered Atropine 0.1 mg/mL Syringe 10 mL: 0.5 mg, IV Push, Q3min, PRN: See Comments BuPROPion: 300 mg, PO, Daily BusPIRone: 15 mg, PO, Bedtime BusPIRone: 7.5 mg, PO, Daily Dextrose 50% Syringe*: 12.5 Gm, IV Push, PRN, PRN: See Comments Glucagon: 1 mg, Subcut, PRN, PRN: See Comments Insulin Lispro Sliding Scale (HumaLOG)*: Conservative Scale, Subcut, ac+bedtime Lovenox: 40 mg, Subcut, Daily Lyrica: 100 mg, PO, TID Nitrostat*: 0.4 mg, Subl, Q5min, PRN: See Comments TiZANidine: 4 mg, PO, BID Ultram: 50 mg, PO, Q6h, PRN: Pain - Moderate Vitamin C: 1,000 mg, PO, Daily Vitamin D3: 5,000 Unit, PO, QMon+Wed+Sat acetaminophen: 650 mg, PO, Q4h, PRN: Pain - Mild amitriptyline: 50 mg, PO, TID losartan: 50 mg, PO, Daily oxygen: 1 Each, Inhalation, Daily pantoprazole: 40 mg, PO, ac bkfst polyethylene glycol 3350: 17 Gm, PO, Daily, PRN: Constipation sertraline: 150 mg, PO, Bedtime Documented Medications Documented Glycolax oral powder for reconstitution(Obsolete): 17 Gm, PO, Daily, PRN: Constipation, Each, 0 Refill(s) Lyrica 100 mg oral capsule: 1 Cap, PO, TID, Each, 0 Refill(s) PreserVision AREDS 2 oral capsule: 1 Cap, PO, Daily, Each, 0 Refill(s) Savella 50 mg oral tablet: 1 Tab, PO, BID, Each, 0 Refill(s) Vitamin C 500 mg oral tablet: 2 Tab, PO, Daily, 2 tab = 1000 mg, Each, 0 Refill(s) Vitamin D3 5000 intl units oral capsule: 1 Cap, PO, QMon+Wed+Fri, Each, 0 Refill(s) amitriptyline 50 mg oral tablet: 1 Tab, PO, TID, Each, 0 Refill(s) atorvastatin 40 mg oral tablet: 1 Tab, PO, Bedtime, Each, 0 Refill(s) buPROPion 300 mg/24 hours oral tablet, extended release: 1 Tab, PO, Q24h, Each, 0 Refill(s) busPIRone 15 mg oral tablet: 0.5 Tab, PO, Daily, 0.5 tab = 7.5 mg, Each, 0 Refill(s) busPIRone 15 mg oral tablet: 1 Tab, PO, Bedtime, Each, 0 Refill(s) losartan 50 mg oral tablet: 1 Tab, PO, Daily, 30 Tab, 0 Refill(s) metFORMIN 500 mg oral tablet, extended release: 1 Tab, PO, Daily, 30 Tab, 0 Refill(s) multivitamin: 1 Tab, PO, Daily, Tab, 0 Refill(s) omeprazole 40 mg oral delayed release capsule: 1 Cap, PO, Daily, Each, 0 Refill(s) sertraline 100 mg oral tablet: 1.5 Tab, PO, Bedtime, 1.5 tab = 150 mg, Each, 0 Refill(s) tiZANidine 4 mg oral tablet: 1 Tab, PO, BID, Each, 0 Refill(s) Subjective denies HI or SI at this time. complaining of left lower extremity weakness that is increased from baseline. Objective Last Charted Vital Signs Temperature: 97.4 (06/12 12:50) Pulse: 97 (06/12 12:50) Respiration: 18 (06/12 12:50) BP: 120/105 (06/12 12:50) Pulse Ox: 95 (06/12 12:50) Oxygen Delivery: Room air (06/12 12:50) Pain Score: 10 (06/12 13:31) General: pt is morbidly obese, awake, alert, orientedx3, vitals stable, no acute distress HEENT: NC, AT, conj clear, no tearing, oral mucosa moist NECK: Supple, trachea-central CHEST: CAROL+, Clear to auscultation. no wheezing, rales, Unlaboured breathing CVS: S1S2 +, RRR, No murmurs P/A: Soft, NT, ND, BS are present. RESP THERAPIST: moving all extremities without any focal motor or sensory deficits PSYCH: Mood and affect WNL EXTREMITIES: appears to have trouble ambulating on the left leg but strength is intact Skin: warm, dry, no rash Results Review Labs - Last 36 hours (Max 2 / lab test) CHEMISTRY Sodium 140 (06/12 05:15) 140 (06/11 05:25) Potassium 3.7 (06/12 05:15) 3.8 (06/11 05:25) Chloride 100 (06/12 05:15) 99 (06/11 05:25) CO2 32 (06/12 05:15) 34 (06/11 05:25) Glucose 103 (06/12 05:15) 87 (06/11 05:25) Glucose POCT No result BUN 9 (06/12 05:15) 5 (06/11 05:25) Creatinine 0.92 (06/12 05:15) 0.85 (06/11 05:25) Calcium Total 8.8 (06/12 05:15) 8.4 (06/11 05:25) Magnesium No result HEMATOLOGY WBC 4.9 (06/12 05:15) 4.4 (06/11 05:25) RBC 4.21 (06/12 05:15) 4.16 (06/11 05:25) Hb 11.0 (06/12 05:15) 10.7 (06/11 05:25) Hematocrit 34.2 (06/12 05:15) 33.1 (06/11 05:25) Platelets 198 (06/12 05:15) 188 (06/11 05:25) MCV 81.4 (06/12 05:15) 79.5 (06/11 05:25) MCH 26.1 (06/12 05:15) 25.8 (06/11 05:25) RDW 16.8 (06/12 05:15) 16.5 (06/11 05:25) MCHC 32.1 (06/12 05:15) 32.4 (06/11 05:25) Neutrophil Ab No result Monocyte Ab No result Eosinophil Ab No result Basophil Ab No result Lymphocyte Ab No result OTHER LABS Anion Gap 8.0 mMol/L (06/12 05:15) 7.0 mMol/L (06/11 05:25) Est CrCl IBW (mL/min)-RX 64.03 mL/min (06/12 05:15) 69.30 mL/min (06/11 05:25) Est CrCl AdjBW (mL/min)-R 85.19 mL/min (06/12 05:15) 92.20 mL/min (06/11 05:25) GFR Est. Non >60 mL/min (06/11 05:25) >60 mL/min (06/10 04:46) GFR Est. Lucia >60 mL/min (06/11 05:25) >60 mL/min (06/10 04:46) Phosphorus Level 2.4 mg/dL (06/10 04:46) Magnesium Level 1.8 mg/dL (06/10 04:46) 1.8 mg/dL (06/09 22:58) Calcium Ionized 1.13 mMol/L (06/10 04:46) Calcium Ionized Normalize 1.10 mMol/L (10/09 04:46) Creatine Kinase Random 1481 Units/L (06/12 12:24) 1167 Units/L (06/11 05:25) MPV 8.4 FL (06/12 05:15) 8.8 FL (06/11 05:25) General Results Reviewed Results: Radiology : RADIOLOGY(Date Range: 06/08/2018 23:11 EDT - 06/09/2018 10:28 EDT) Assessment Assessment and Plan 57-year-old woman with history of hypertension, diabetes mellitus, hyperlipidemia, GERD, obesity, anxiety/depression, chronic back pain came in with altered mental status, family found her less responsi ve with bottles of wine and empty medication bottles. Pubertal surgery she took tizanidine, amitriptyline. She became hypotensive, was started on bicarbonate infusion per poison control recommendations and admitted to ICU.now awake and doing well. Patient is actively not suicidal or homicidal at this point and expresses remorse and understanding for her attempt. 1. Intentional Drug overdose with tizanidine, TCAs: off bicarb gtt, doing well. 2. Hypotension, combination of volume depletion, tizanidine, TCAs: Improved with IV fluids, blood pressure is stable today. Off IV fluids and eating at this time. 2. Suicidal attempt: Seen by psych today, cleared for discharge as has good family support and patient is remorseful. Will fold back psychotropic drugs. 3. Acute encephalopathy: From drug overdose, improved, is alert awake oriented ?4 4. Acute kidney injury: Improved. 5. Rhabdomyolysis: CPK levels trending down, off IVF from 6K-->1K . We will hold statin for now. Counseled patient to avoid Mobic for now. left leg is chronically weaker as patient has seen jimmie ngo for 20+ years. however, CK trended just slightly uptoday but I think this is from not ambulating. 6. Depression/anxiety: restarted home medications and monitor on psychotropic drugs. 7. Type 2 diabetes mellitus: On insulin sliding scale 8. DVT prophylaxis: Lovenox #9: Back pain/left leg pain/numbness: Hip x-ray did not reveal any fracture. There is severe degenerative disc disease which patient states she has had. Will obtain back MRI to see if there is any acute nerve impingement. However, I do expect this to get better with physical therapy. Also restarted Zanaflex Patient is full code Disposition: pending acceptance by retirement facility. Patient has been denied by 2 retirement facilities. CREATINE KINASE (CK) Collected: 06/12/2018 Status: F Source: [facility] 12:24 PM [facility] SYSTEM REPOSITORY TYPE CODE TESTS RESULT OUT OF REFERENCE UNITS RANGE LAB 2157-6(LOIN 21-232 Units/L C) High Creatine 1481 Kinase Random Performed By: #### 2157-6 #### [facility], [address] [place], [place]. GLUCOSE POCT Collected: 06/12/2018 Status: F Source: [facility] (UPLOADED) 12:12 PM [facility]ALTH SYSTEM REPOSITORY TYPE CODE TESTS RESULT OUT OF REFERENCE UNITS RANGE LAB 2340-8(LOIN 70-110 mg/dL C) High Glucose 127 POCT-LAB Result Comment: Treatment ranges and critical values established by Patient Care Services. All follow-up actions were taken by Patient Care Services. Performed By: #### 2430-8 #### [facility] XR HIP 2-3 VIEWS LT Observed: 06/12/2018 Status: F Source: [facility] 11:15 AM [facility] SYSTEM REPOSITORY LEFT HIP, 2 VIEWS: CLINICAL STATEMENT: Several day history of left hip and back pain. COMPARISON: None FINDINGS: No acute fracture, dislocation or focal destructive lesions. I do not identify findings of avascular necrosis. There is minimal remodeling of the left femoral head suggesting early osteoarthritis. Th ere are prominent degenerative changes in the left facet joints at the L4-5 and L5-S1 disc level. IMPRESSION: No acute findings. [facility] thanks you for the opportunity to care for your patient. Workstation ID: [id number] - [id number] FINAL REPORT Dictated By: Daryl Sanders MD 06/12/2018 12:26 Assigned Physician: Daryl Sanders MD Reviewed and Electronically Signed By: Daryl Sanders MD 06/12/2018 12:27 Transcribed by: QUENTIN 06/12/2018 12:26 Technologist: DAY GLUCOSE POCT Collected: 06/12/2018 Status: F Source: [facility] (UPLOADED) 6:15 AM [facility]ALTH SYSTEM REPOSITORY TYPE CODE TESTS RESULT OUT OF RANGE REFERENCE UNITS LAB 2340-8(LOIN 70-110 mg/dL C) Normal Glucose 103 POCT-LAB Result Comment: Treatment ranges and critical values established by Patient Care Services. All follow-up actions were taken by Patient Care Services. Performed By: #### 2430-8 #### [facility] CBC Collected: 06/12/2018 Status: F Source: [place] 5:15 AM [facility] SYSTEM REPOSITORY TYPE CODE TESTS RESULT OUT OF REFERENCE UNITS RANGE LAB 89389-4(LO 142-424 thou/mcL INC) Normal Platelet Count 198 LAB 85986-3(LO 35.0-45.0 % INC) Low Hematocrit 34.2 LAB 15150-5(LO 11.0-14.8 % INC) RDW High 16.8 LAB 70452-6(LO 32.0-36.0 gm/dL INC) MCHC Normal 32.1 LAB 718-7(LOIN 12.0-16.0 gm/dL C) Low Hemoglobin 11.0 LAB 72539-8(LO 3.80-5.10 million/mcL INC) Red Normal Blood Cell 4.21 Count LAB 33407-1(LO 27.0-34.0 Picograms INC) Low MCH 26.1 LAB 24217-5(LO 6.2-12.1 FL INC) MPV Normal 8.4 LAB 23476-4(LO 80.0-97.0 FL INC) MCV Normal 81.4 LAB 77213-9(LO 4.6-10.2 thou/mcL INC) WBC Normal Count 4.9 Performed By: #### 75122-9 #### [facility], [address] [place] [address]. BASIC METABOLIC PANEL Collected: 06/12/2018 Status: F Source: [place] 5:15 AM [facility] SYSTEM REPOSITORY TYPE CODE TESTS RESULT OUT OF RANGE REFERENCE UNITS LAB 97593-4(LO 8.9-10.3 mg/dL INC) Low Calcium Total 8.8 LAB 59182-7(LO 8-20 mg/dL INC) BUN Normal 9 LAB 2823-3(SUKHDEEP 3.6-5.1 mMol/L NC) Normal Potassium Level 3.7 LAB 2075-0(SUKHDEEP 98-107 mMol/L NC) Chloride Normal Level 100 LAB 2160-0(SUKHDEEP 0.66-1.30 mg/dL NC) Normal Creatinine 0.92 LAB 2028-9(SUKHDEEP 22-32 mMol/L NC) Carbon Normal Dioxide Level 32 LAB 36781-8(LO 70-110 mg/dL INC) Glucose Normal Level 103 LAB 46974-4(LO 6.0-18.0 mMol/L INC) Anion Normal Gap 8.0 LAB 2951-2(SUKHDEEP 136-145 mMol/L NC) Sodium Normal Level 140 Performed By: #### 49253-7 #### [facility], [address] [place], [place]. GLUCOSE POCT Collected: 06/11/2018 Status: F Source: [facility] (UPLOADED) 9:17 PM HEALTH SYSTEM REPOSITORY TYPE CODE TESTS RESULT OUT OF RANGE REFERENCE UNITS LAB 2340-8(LOIN 70-110 mg/dL C) Normal Glucose 107 POCT-LAB Result Comment: Treatment ranges and critical values established by Patient Care Services. All follow-up actions were taken by Patient Care Services. Performed By: #### 2430-8 #### [facility] PROGRESS NOTES Observed: 06/11/2018 Status: F [facility] REPOSITORY Patient: NADYA MONCADA MRN: [id number] Age: 57 years Sex: Female : 1960 Associated Diagnoses: None Author: Christoph GUILLORY , Shanta Alvarez Supervising Physician Comments Documentation By: Attending Physician. Chief Complaint F/U Drug overdose Subjective: patient is awake and alert she complains of pain in her left leg which she states is chronic but maybe slightly worse today . States she has trouble ambulating Health Status Allergies Allergic Reactions (Selected) NKA Medication List (Selected) Inpatient Medications Ordered Atropine 0.1 mg/mL Syringe 10 mL: 0.5 mg, IV Push, Q3min, PRN: See Comments BuPROPion: 300 mg, PO, Daily BusPIRone: 15 mg, PO, Bedtime BusPIRone: 7.5 mg, PO, Daily Dextrose 50% Syringe*: 12.5 Gm, IV Push, PRN, PRN: See Comments Glucagon: 1 mg, Subcut, PRN, PRN: See Comments Insulin Lispro Sliding Scale (HumaLOG)*: Conservative Scale, Subcut, ac+bedtime Lovenox: 40 mg, Subcut, Daily Lyrica: 100 mg, PO, TID Nitrostat*: 0.4 mg, Subl, Q5min, PRN: See Comments Ultram: 50 mg, PO, Q6h, PRN: Pain - Moderate Vitamin C: 1,000 mg, PO, Daily Vitamin D3: 5,000 Unit, PO, QMon+Wed+Fri amitriptyline: 50 mg, PO, TID influenza virus vaccine: 0.5 mL, IM, Prior to Discharge losartan: 50 mg, PO, Daily oxygen: 1 Each, Inhalation, Daily sertraline: 150 mg, PO, Bedtime Documented Medications Documented Glycolax oral powder for reconstitution(Obsolete): 17 Gm, PO, Daily, PRN: Constipation, Each, 0 Refill(s) Lyrica 100 mg oral capsule: 1 Cap, PO, TID, Each, 0 Refill(s) PreserVision AREDS 2 oral capsule: 1 Cap, PO, Daily, Each, 0 Refill(s) Savella 50 mg oral tablet: 1 Tab, PO, BID, Each, 0 Refill(s) Vitamin C 500 mg oral tablet: 2 Tab, PO, Daily, 2 tab = 1000 mg, Each, 0 Refill(s) Vitamin D3 5000 intl units oral capsule: 1 Cap, PO, QMon+Wed+Fri, Each, 0 Refill(s) amitriptyline 50 mg oral tablet: 1 Tab, PO, TID, Each, 0 Refill(s) atorvastatin 40 mg oral tablet: 1 Tab, PO, Bedtime, Each, 0 Refill(s) buPROPion 300 mg/24 hours oral tablet, extended release: 1 Tab, PO, Q24h, Each, 0 Refill(s) busPIRone 15 mg oral tablet: 0.5 Tab, PO, Daily, 0.5 tab = 7.5 mg, Each, 0 Refill(s) busPIRone 15 mg oral tablet: 1 Tab, PO, Bedtime, Each, 0 Refill(s) losartan 50 mg oral tablet: 1 Tab, PO, Daily, 30 Tab, 0 Refill(s) metFORMIN 500 mg oral tablet, extended release: 1 Tab, PO, Daily, 30 Tab, 0 Refill(s) multivitamin: 1 Tab, PO, Daily, Tab, 0 Refill(s) omeprazole 40 mg oral delayed release capsule: 1 Cap, PO, Daily, Each, 0 Refill(s) sertraline 100 mg oral tablet: 1.5 Tab, PO, Bedtime, 1.5 tab = 150 mg, Each, 0 Refill(s) tiZANidine 4 mg oral tablet: 1 Tab, PO, BID, Each, 0 Refill(s) Subjective denies HI or SI at this time. Objective Last Charted Vital Signs Temperature: 97.8 (06/11 16:00) Pulse: 86 (06/11 19:00) Respiration: 14 (06/11 19:) BP: 132/74 (06/11 08:00) Pulse Ox: 100 (06/11 10:31) Oxygen Delivery: Room air (06/11 16:00) Pain Score: 9 (06/11 10:31) General: pt is morbidly obese, awake, alert, orientedx3, vitals stable, no acute distress HEENT: NC, AT, conj clear, no tearing, oral mucosa moist NECK: Supple, trachea-central CHEST: CAROL+, Clear to auscultation. no wheezing, rales, Unlaboured breathing CVS: S1S2 +, RRR, No murmurs P/A: Soft, NT, ND, BS are present. RESP THERAPIST: moving all extremities without any focal motor or sensory deficits PSYCH: Mood and affect WNL EXTREMITIES: no cyanosis, clubbing, pedal edema Skin: warm, dry, no rash Results Review Labs - Last 36 hours (Max 2 / lab test) CHEMISTRY Sodium 140 (06/11 05:25) Potassium 3.8 (06/11 05:25) Chloride 99 (06/11 05:25) CO2 34 (06/11 05:25) Glucose 87 (06/11 05:25) Glucose POCT No result BUN 5 (06/11 05:25) Creatinine 0.85 (10/10 05:25) Calcium Total 8.4 (06/11 05:25) Magnesium No result HEMATOLOGY WBC 4.4 (06/11 05:25) RBC 4.16 (06/11 05:25) Hb 10.7 (06/11 05:25) Hematocrit 33.1 (06/11 05:) Platelets 188 (06/11 05:) MCV 79.5 (06/11 05:) MCH 25.8 (06/11 05:) RDW 16.5 (06/11 05:25) MCHC 32.4 (06/11 05:25) Neutrophil Ab No result Monocyte Ab No result Eosinophil Ab No result Basophil Ab No result Lymphocyte Ab No result OTHER LABS Anion Gap 7.0 mMol/L (06/11 05:25) 7.0 mMol/L (06/10 04:46) Est CrCl IBW (mL/min)-RX 69.30 mL/min (06/11 05:25) 64.03 mL/min (06/10 04:46) Est CrCl AdjBW (mL/min)-R 92.20 mL/min (06/11 05:25) 85.19 mL/min (06/10 04:46) GFR Est. Non >60 mL/min (06/11 05:25) >60 mL/min (06/10 04:46) GFR Est. Lucia >60 mL/min (06/11 05:25) >60 mL/min (06/10 04:46) Alkaline Phosphatase 50 Units/L (06/09 04:56) 73 Units/L (10/07 22:33) ALT/SGPT 33 Units/L (06/0956) 38 Units/L (06/08 22:33) AST/SGOT 67 Units/L (06/09) 52 Units/L (06/08) Bilirubin Total 0.6 mg/dL (06/0956) 0.7 mg/dL (06/08) Bilirubin Direct 0.1 mg/dL (06/09) 0.2 mg/dL (06/08) Phosphorus Level 2.4 mg/dL (06/10 04:46) 4.9 mg/dL (06/09) Protein 4.6 gm/dL (06/09) 7.1 gm/dL (06/08) Albumin Level 2.7 gm/dL (06/09) 4.0 gm/dL (06/08) Bilirubin Indirect 0.5 mg/dL (06/09) 0.5 mg/dL (06/08) Magnesium Level 1.8 mg/dL (06/10 04:46) 1.8 mg/dL (06/09 22:58) Osmolality Serum 297 mOsm/kg (06/09 11:39) Calcium Ionized 1.13 mMol/L (06/10 04:46) 1.15 mMol/L (06/08 23:55) Calcium Ionized Normalize 1.10 mMol/L (06/10 04:46) Creatine Kinase Random 1167 Units/L (06/11 05:25) 2615 Units/L (06/10 04:46) Troponin I <0.03 ng/mL (06/08 22:33) Acetaminophen (Tylenol) L <10 mcg/mL (06/09 11:39) <10 mcg/mL (06/08 22:33) Alcohol (Ethanol) Level <0.01 gm/dL (06/08 22:) Amphetamine Scr Urine NEGATIVE (06/08 23:02) Barbiturates Scr Urine NEGATIVE (06/08 23:02) Benzodiazepine Scr Urine POSITIVE (06/08 23:02) Cocaine Scr Urine NEGATIVE (06/08 23:02) Methadone Scr Urine NEGATIVE (06/08 23:) Opiate Scr Urine NEGATIVE (06/08 23:02) Oxycodone Scr Urine NEGATIVE (06/08 23:) Salicylate Level <4.0 mg/dL (06/08 22:) Tetrahydrocannabinoid Scr NEGATIVE (06/08 23:) Tricyclic Antidepressant POSITIVE (06/08 23:) Thyroid Stimulating Hormo 2.19 mcIU/mL (06/08 22:33) Hemoglobin A1c 6.6 % tl hgb (06/09 04:56) MPV 8.8 FL (06/11 05:25) 9.0 FL (06/09 04:56) Neutrophil 82.4 % (06/09 04:56) 71.3 % (06/08 22:33) Lymphocyte 12.4 % (06/09 04:56) 23.4 % (06/08 22:) Monocyte 4.5 % (06/09 04:56) 4.1 % (06/08 22:33) Eosinophil 0.4 % (06/09 04:56) 0.7 % (06/08 22:) Basophil 0.3 % (06/09 04:56) 0.5 % (06/08 22:) Neutrophil Absolute 7.10 thou/mcL (06/09 04:56) 7.20 thou/mcL (06/08 22:33) Lymphocyte Absolute 1.10 thou/mcL (06/09 04:56) 2.40 thou/mcL (06/08 22:33) Monocyte Absolute 0.40 thou/mcL (06/09 04:56) 0.40 thou/mcL (06/08 22:33) Eosinophil Absolute 0.00 thou/mcL (06/09 04:56) 0.10 thou/mcL (06/08 22:33) Basophil Absolute 0.00 thou/mcL (06/09 04:56) 0.10 thou/mcL (06/08 22:33) General Results Reviewed Results: Radiology : RADIOLOGY(Date Range: 06/08/2018 23:11 EDT - 06/09/2018 10:28 EDT) Assessment Assessment and Plan 57-year-old woman with history of hypertension, diabetes mellitus, hyperlipidemia, GERD, obesity, anxiety/depression, chronic back pain came in with altered mental status, family found her less responsi ve with bottles of wine and empty medication bottles. Pubertal surgery she took tizanidine, amitriptyline. She became hypotensive, was started on bicarbonate infusion per poison control recommendations and admitted to ICU.now awake and doing well. Patient is actively not suicidal or homicidal at this point and expresses remorse and understanding for her attempt. 1. Intentional Drug overdose with tizanidine, TCAs: off bicarb gtt, doing well. 2. Hypotension, combination of volume depletion, tizanidine, TCAs: Improved with IV fluids, blood pressure is stable today. Off IV fluids and eating at this time. 2. Suicidal attempt: Seen by psych today, cleared for discharge as has good family support and patient is remorseful. Will fold back psychotropic drugs. 3. Acute encephalopathy: From drug overdose, improved, is alert awake oriented ?4 4. Acute kidney injury: Improved. 5. Rhabdomyolysis: CPK levels trending down, off IVF from 6K-->1K . We will hold statin for now. Counseled patient to avoid Mobic for now. left leg is chronically weaker as patient has seen pain management for 20+ years. 6. Depression/anxiety: To restart home meds today and monitor on psychotropic drugs. 7. Type 2 diabetes mellitus: On insulin sliding scale 8. DVT prophylaxis: Lovenox Patient is full code Disposition: Cleared by psych to be discharged. Initially plan to discharge home however, physical therapy evaluations note concern in safety going home.will need precert for SNF otherwise medically stable. Transfe r out of ICU today. has adequate family support GLUCOSE POCT Collected: 06/11/2018 Status: F Source: [facility] (UPLOADED) 4:18 PM HEALTH SYSTEM REPOSITORY TYPE CODE TESTS RESULT OUT OF REFERENCE UNITS RANGE LAB 2340-8(LOIN 70-110 mg/dL C) High Glucose 124 POCT-LAB Result Comment: Treatment ranges and critical values established by Patient Care Services. All follow-up actions were taken by Patient Care Services. Performed By: #### 2430-8 #### [facility] GLUCOSE POCT Collected: 06/11/2018 Status: F Source: [facility] (UPLOADED) 10:54 AM HEALTH SYSTEM REPOSITORY TYPE CODE TESTS RESULT OUT OF RANGE REFERENCE UNITS LAB 2340-8(LOIN 70-110 mg/dL C) Normal Glucose 109 POCT-LAB Result Comment: Treatment ranges and critical values established by Patient Care Services. All follow-up actions were taken by Patient Care Services. Performed By: #### 2430-8 #### [facility] CBC Collected: 06/11/2018 Status: F Source: [place] 5:25 AM [facility] REPOSITORY TYPE CODE TESTS RESULT OUT OF REFERENCE UNITS RANGE LAB 04996-2(LO 6.2-12.1 FL INC) MPV Normal 8.8 LAB 74979-7(LO 142-424 thou/mcL INC) Normal Platelet Count 188 LAB 90348-3(LO 11.0-14.8 % INC) RDW High 16.5 LAB 45864-3(LO 3.80-5.10 million/mcL INC) Red Normal Blood Cell 4.16 Count LAB 23400-9(LO 4.6-10.2 thou/mcL INC) Low WBC Count 4.4 LAB 53961-2(LO 27.0-34.0 Picograms INC) Low MCH 25.8 LAB 08085-9(LO 35.0-45.0 % INC) Low Hematocrit 33.1 LAB 78054-5(LO 80.0-97.0 FL INC) Low MCV 79.5 LAB 41977-1(LO 32.0-36.0 gm/dL INC) MCHC Normal 32.4 LAB 718-7(LOIN 12.0-16.0 gm/dL C) Low Hemoglobin 10.7 Performed By: #### 21139-9 #### [facility], [address] [place], [place]. GFRAA Collected: 06/11/2018 Status: F Source: [place] 5:25 AM [facility] REPOSITORY TYPE CODE TESTS RESULT OUT OF RANGE REFERENCE UNITS LAB 16220-8(LO mL/min INC) GFR Normal Estimated >60 Result Comment: The MDRD equation has not been validated for those over 70 years, women, patients with serious co-morbid conditions, or with extremes of body size, muscle mass of nutritional status. Performed By: #### 25697-4, 93854-7t9, 60941-6 #### [facility], [facility] [place], [place]. GFRBB Collected: 06/11/2018 Status: F Source: [place] 5:25 AM [facility]ALTH SYSTEM REPOSITORY TYPE CODE TESTS RESULT OUT OF RANGE REFERENCE UNITS LAB 76487-8(LO mL/min INC) GFR Normal Estimated Non >60 Performed By: #### 11997-9, 70493-0h4, 46873-7 #### [facility], [address] [place], [place]. BASIC METABOLIC PANEL Collected: 06/11/2018 Status: F Source: [place] 5:25 AM [facility] SYSTEM REPOSITORY TYPE CODE TESTS RESULT OUT OF RANGE REFERENCE UNITS LAB 72320-1(LO 8.9-10.3 mg/dL INC) Low Calcium Total 8.4 LAB 2951-2(SUKHDEEP 136-145 mMol/L NC) Sodium Normal Level 140 LAB 2160-0(SUKHDEEP 0.66-1.30 mg/dL NC) Normal Creatinine 0.85 LAB 2823-3(SUKHDEEP 3.6-5.1 mMol/L NC) Normal Potassium Level 3.8 LAB 36602-9(LO 70-110 mg/dL INC) Glucose Normal Level 87 LAB 2028-9(SUKHDEEP 22-32 mMol/L NC) High Carbon Dioxide Level 34 LAB 71056-7(LO 8-20 mg/dL INC) Low BUN 5 LAB 48168-3(LO 6.0-18.0 mMol/L INC) Anion Normal Gap 7.0 LAB 2075-0(SUKHDEEP 98-107 mMol/L NC) Chloride Normal Level 99 Performed By: #### 72419-8, 95507-5v2, 25633-9 #### [facility], [address] [place], [place]. CREATINE KINASE (CK) Collected: 06/11/2018 Status: F Source: [place] 5:25 AM [facility]ALTH SYSTEM REPOSITORY TYPE CODE TESTS RESULT OUT OF REFERENCE UNITS RANGE LAB 2157-6(LOIN 21-232 Units/L C) High Creatine 1167 Kinase Random Performed By: #### 2157-6 #### [facility], [address] [place], [place]. GLUCOSE POCT Collected: 06/10/2018 Status: F Source: [facility] (UPLOADED) 9:27 PM HEALTH SYSTEM REPOSITORY TYPE CODE TESTS RESULT OUT OF RANGE REFERENCE UNITS LAB 2340-8(LOIN 70-110 mg/dL C) Normal Glucose 109 POCT-LAB Result Comment: Treatment ranges and critical values established by Patient Care Services. All follow-up actions were taken by Patient Care Services. Performed By: #### 2430-8 #### [facility] GLUCOSE POCT Collected: 06/10/2018 Status: F Source: [facility] (UPLOADED) 5:52 PM HEALTH SYSTEM REPOSITORY TYPE CODE TESTS RESULT OUT OF RANGE REFERENCE UNITS LAB 2340-8(LOIN 70-110 mg/dL C) Normal Glucose 78 POCT-LAB Result Comment: Treatment ranges and critical values established by Patient Care Services. All follow-up actions were taken by Patient Care Services. Performed By: #### 2430-8 #### [facility] C[facility] PROGRESS NOTES Observed: 06/10/2018 Status: F Source: [facility] 2:28 PM [facility] SYSTEM REPOSITORY Pulmonary/Critical Care Progress Note cc: overdose Overnight, no issues. BP stable and UOP good. Mental status back to baseline ROS: Denies fevers, chills, chest pain, palpitations. Medications: reviewed in EMR Physical Exam Temperature: 98.1 (06/10 12:00) Pulse: 102 (06/10 12:00) Respiration: 18 (06/10 12:00) BP: 127/60 (06/10 12:00) Pulse Ox: 99 (06/10 11:00) Oxygen Delivery: Nasal cannula (06/10 09:00) O2 Device Flow: 1 L/min Pain Score: 7 (06/10 12:26) Vitals signs and pulse oximetry reviewed. O2 sat is > 98%on 1L Comprehensive: Nontoxic, obese ENT: Moist mucus membranes. No thrush. Resp: Breathing nonlabored. Symmetric expansion. Clear breath sounds CV: RRR no murmur. No edema. GI: Abdomen nondistended, nontender. +bowel sounds. MS/Extremities: No clubbing, cyanosis. Skin: No rashes Neuro/psych: A/Ox3, affect normal, mood: okay. No SI/HI Labs, imaging, medical testing including pulse oximetry (above) were reveiwed. WBC Count: 8.6 thou/mcL (06/09/18 04:56:00) Hemoglobin: 10.9 gm/dL Low (06/09/18 04:56:00) Platelet Count: 180 thou/mcL (06/09/18 04:56:00) Sodium Level: 142 mMol/L (06/10/18 04:46:00) Potassium Level: 4 mMol/L (06/10/18 04:46:00) Chloride Level: 103 mMol/L (06/10/18 04:46:00) Carbon Dioxide Level: 32 mMol/L (06/10/18 04:46:00) Anion Gap: 7 mMol/L (06/10/18 04:46:00) Glucose Level: 69 mg/dL Low (06/10/18 04:46:00) BUN: 7 mg/dL Low (06/10/18 04:46:00) Creatinine: 0.92 mg/dL (06/10/18 04:46:00) Est CrCl IBW (mL/min)-RX: 64.03 mL/min (06/10/18 04:46:00) Est CrCl AdjBW (mL/min)-RX: 85.19 mL/min (06/10/18 04:46:00) GFR Estimated Non : >60 (06/10/18 04:46:00) GFR Estimated : >60 (06/10/18 04:46:00) Calcium Total: 7.8 mg/dL Low (06/10/18 04:46:00) Alkaline Phosphatase: 50 Units/L (06/09/18 04:56:00) ALT/SGPT: 33 Units/L (06/09/18 04:56:00) AST/SGOT: 67 Units/L High (06/09/18 04:56:00) Bilirubin Total: 0.6 mg/dL (06/09/18 04:56:00) Bilirubin Direct: 0.1 mg/dL (06/09/18 04:56:00) Phosphorus Level: 2.4 mg/dL (06/10/18 04:46:00) Protein: 4.6 gm/dL Low (06/09/18 04:56:00) Albumin Level: 2.7 gm/dL Low (06/09/18 04:56:00) Bilirubin Indirect: 0.5 mg/dL (06/09/18 04:56:00) Magnesium Level: 1.8 mg/dL (06/10/18 04:46:00) Osmolality Serum: 297 mOsm/kg High (06/09/18 11:39:00) Calcium Ionized: 1.13 mMol/L Low (06/10/18 04:46:00) Calcium Ionized Normalized: 1.1 mMol/L (06/10/18 04:46:00) Creatine Kinase Random: 2615 Units/L High (06/10/18 04:46:00) I personally reviewed the CXR which show right IJ cvc in good position, clear lungs Tele: NSR EKG: i personally reviewed. NSR w/ QRS 94, QTc 470 TTE: normal Assessment/Plan: 1. Hypotension - combination of volume depletion, tizanideine/TCA OD; resolved 2. Encephalopathy- resolved 3. Overdose, intentional- TCA, tizanidine 4. GEETHA- resolved 5. Rhabdomyolysis- improved 6. Chronic respiratory acidosis 7. Hx tobacco abuse 8. SINDHU, untreated 9. DM2 10. Suicide attempt -D/c IVF -Monitor daily CK, renal function. I'd hold off on NSAIDS at this point -prn bronchodilators -SSI -Psych consult -Defer restart of home meds to primary team. -Nutrition: regular diet -Prophylaxis: switch to lovenox -Lines/tubes: CVC -Goals: FULL Stable for transfer to floor. I'll sign off. PROGRESS NOTES Observed: 06/10/2018 Status: F Source: [facility] [place] 12:31 PM [facility] REPOSITORY Patient: NADYA MONCADA MRN: [id number] Age: 57 years Sex: Female : 1960 Associated Diagnoses: None Author: Diya GUILLORY , Ashleigh Chief Complaint F/U Drug overdose Subjective: Pt is awake, alert, well oriented, denies any CP, SOB feels remorseful about the episode, reports inaddition to meds listed in ER, she might have taken motrin and ativan Brother is at bedside Health Status Allergies Allergic Reactions (Selected) NKA Medication List (Selected) Inpatient Medications Ordered Atropine 0.1 mg/mL Syringe 10 mL: 0.5 mg, IV Push, Q3min, PRN: See Comments Dextrose 50% Syringe*: 12.5 Gm, IV Push, PRN, PRN: See Comments Glucagon: 1 mg, Subcut, PRN, PRN: See Comments Insulin Lispro Sliding Scale (HumaLOG)*: Conservative Scale, Subcut, Q6h Lovenox: 40 mg, Subcut, Daily Nitrostat*: 0.4 mg, Subl, Q5min, PRN: See Comments Ultram: 50 mg, PO, Q6h, PRN: Pain - Moderate oxygen: 1 Each, Inhalation, Daily Objective Last Charted Vital Signs Temperature: 98.1 (06/10 12:00) Pulse: 102 (06/10 12:00) Respiration: 18 (06/10 12:00) BP: 127/60 (06/10 12:00) Pulse Ox: 99 (06/10 11:00) Oxygen Delivery: Nasal cannula (06/10 09:) O2 Device Flow: 1 L/min Pain Score: 7 (06/10 12:26) General: pt is morbidly obese, awake, alert, orientedx3, vitals stable, no acute distress HEENT: NC, AT, EOMI, conj clear, no tearing, oral mucosa moist NECK: Supple, trachea-central CHEST: CAROL+, Clear to auscultation. no wheezing, rales, Unlaboured breathing CVS: S1S2 +, RRR, No murmurs P/A: Soft, NT, ND, BS are present. RESP THERAPIST: moving all extremities without any focal motor or sensory deficits PSYCH: Mood and affect WNL EXTREMITIES: no cyanosis, clubbing, pedal edema Skin: warm, dry, no rash Results Review Labs - Last 36 hours (Max 2 / lab test) CHEMISTRY Sodium 142 (06/10 04:46) Potassium 4.0 (06/10 04:46) 3.3 (06/09 22:58) Chloride 103 (06/10 04:46) CO2 32 (06/10 04:46) Glucose 69 (06/10 04:46) Glucose POCT No result BUN 7 (06/10 04:46) Creatinine 0.92 (06/10 04:46) Calcium Total 7.8 (06/10 04:46) Magnesium 1.8 (06/10 04:46) 1.8 (06/09 22:58) HEMATOLOGY WBC No result RBC No result Hb No result Hematocrit No result Platelets No result MCV No result MCH No result RDW No result MCHC No result Neutrophil Ab No result Monocyte Ab No result Eosinophil Ab No result Basophil Ab No result Lymphocyte Ab No result OTHER LABS Anion Gap 7.0 mMol/L (06/10 04:46) 9.0 mMol/L (06/09 04:56) Est CrCl IBW (mL/min)-RX 64.03 mL/min (06/10 04:46) 32.01 mL/min (06/09 04:56) Est CrCl AdjBW (mL/min)-R 85.19 mL/min (06/10 04:46) 42.59 mL/min (06/09 04:56) GFR Est. Non >60 mL/min (06/10 04:46) 23 mL/min (06/08 22:33) GFR Est. Lucia >60 mL/min (06/10 04:46) 28 mL/min (06/08 22:33) Alkaline Phosphatase 50 Units/L (06/09 04:56) 73 Units/L (06/08 22:33) ALT/SGPT 33 Units/L (06/09 04:56) 38 Units/L (06/08 22:33) AST/SGOT 67 Units/L (10/08 04:56) 52 Units/L (06/08 22:) Bilirubin Total 0.6 mg/dL (06/09) 0.7 mg/dL (06/08) Bilirubin Direct 0.1 mg/dL (06/09) 0.2 mg/dL (06/08) Phosphorus Level 2.4 mg/dL (06/10 04:46) 4.9 mg/dL (06/09) Protein 4.6 gm/dL (06/09) 7.1 gm/dL (06/08) Albumin Level 2.7 gm/dL (06/09) 4.0 gm/dL (06/08) Bilirubin Indirect 0.5 mg/dL (06/09) 0.5 mg/dL (06/08) Osmolality Serum 297 mOsm/kg (06/09 11:39) Calcium Ionized 1.13 mMol/L (06/10 04:46) 1.15 mMol/L (06/08 23:55) Calcium Ionized Normalize 1.10 mMol/L (06/10 04:46) Creatine Kinase Random 2615 Units/L (06/10 04:46) 6017 Units/L (06/09 04:) Troponin I <0.03 ng/mL (06/08 22:) Acetaminophen (Tylenol) L <10 mcg/mL (06/09 11:39) <10 mcg/mL (06/08 22:) Alcohol (Ethanol) Level <0.01 gm/dL (06/08) Amphetamine Scr Urine NEGATIVE (06/08 23:02) Barbiturates Scr Urine NEGATIVE (06/08 23:) Benzodiazepine Scr Urine POSITIVE (06/08 23:) Cocaine Scr Urine NEGATIVE (06/08 23:) Methadone Scr Urine NEGATIVE (06/08 23:) Opiate Scr Urine NEGATIVE (06/08 23:) Oxycodone Scr Urine NEGATIVE (06/08 23:) Salicylate Level <4.0 mg/dL (06/08 22:33) Tetrahydrocannabinoid Scr NEGATIVE (06/08 23:02) Tricyclic Antidepressant POSITIVE (06/08 23:) Thyroid Stimulating Hormo 2.19 mcIU/mL (06/08) Hemoglobin A1c 6.6 % tl hgb (06/09) WBC Count 8.6 thou/mcL (06/0956) 10.1 thou/mcL (06/08) Red Blood Cell Count 4.26 million/mcL (06/09) 5.43 million/mcL (06/08) Hemoglobin 10.9 gm/dL (06/09) 13.9 gm/dL (06/08) Hematocrit 33.8 % (06/09) 43.4 % (06/08) MCV 79.4 FL (06/09) 79.9 FL (06/08) MCH 25.6 Picograms (06/09) 25.6 Picograms (06/08) MCHC 32.3 gm/dL (06/09) 32.0 gm/dL (06/08) RDW 16.6 % (06/09) 16.6 % (06/08) Platelet Count 180 thou/mcL (06/0956) 322 thou/mcL (06/08) MPV 9.0 FL (06/09) 8.7 FL (06/08) Neutrophil 82.4 % (06/0956) 71.3 % (06/08 22:) Lymphocyte 12.4 % (06/09) 23.4 % (06/08 22:) Monocyte 4.5 % (06/0956) 4.1 % (06/08 22:) Eosinophil 0.4 % (06/09 04:56) 0.7 % (06/08 22:) Basophil 0.3 % (06/09) 0.5 % (06/08 22:) Neutrophil Absolute 7.10 thou/mcL (06/0956) 7.20 thou/mcL (06/08 22:33) Lymphocyte Absolute 1.10 thou/mcL (06/0956) 2.40 thou/mcL (06/08 22:) Monocyte Absolute 0.40 thou/mcL (06/09 04:56) 0.40 thou/mcL (06/08 22:33) Eosinophil Absolute 0.00 thou/mcL (06/09 04:56) 0.10 thou/mcL (06/08 22:33) Basophil Absolute 0.00 thou/mcL (06/09 04:56) 0.10 thou/mcL (06/08 22:33) General Results Reviewed Results: Radiology : RADIOLOGY(Date Range: 06/08/2018 23:11 EDT - 06/09/2018 10:28 EDT) Assessment Assessment and Plan 57-year-old woman with history of hypertension, diabetes mellitus, hyperlipidemia, GERD, obesity, anxiety/depression, chronic back pain came in with altered mental status, family found her less responsi ve with bottles of wine and empty medication bottles. Pubertal surgery she took tizanidine, amitriptyline. She became hypotensive, was started on bicarbonate infusion per poison control recommendations and admitted to ICU. 1. Intentional Drug overdose with tizanidine, TCAs: off bicarb gtt, doing well 2. Hypotension, combination of volume depletion, tizanidine, TCAs: Improved with IV fluids, blood pressure is stable today. 2. Suicidal attempt: Seen by psych today, cleared for discharge as has good family support and patient is remorseful. 3. Acute encephalopathy: From drug overdose, improved, he is alert awake oriented ?4 4. Acute kidney injury: Improved 5. Rhabdomyolysis: CPK levels trending down, monitor off fluids 6. Depression/anxiety: To restart home meds and the next day per psych 7. Type 2 diabetes mellitus: On insulin sliding scale 8. DVT prophylaxis: Lovenox Patient is full code Disposition: To transfer out of ICU today, anticipate discharge home in next 1-2 days Discussed with patient's RN Updated patient's brother at bedside CONSULTATION Observed: 06/10/2018 Status: F Source: [place] 12:00 PM [facility] REPOSITORY Patient: NADYA MONCADA Age: 57 years Sex: Female : 1960 Associated Diagnoses: None Author: Emilee Benites MD Admit Date: 06/09/18 00:22 Hospital Days: 1 date of service: 06/10/2018 reason for consult: intentional drug OD Assessment Narrative Description: Reviewed chart. Discussed patient with nursing staff. Discussed stressors with patient. Insight-oriented and supportive psychotherapy employed. 57 yo with PMH of HTN, HLD, DM, GERD, obesity, anxiety, depression and chronic back pain presented with altered mental status after being found at a hotel with empty bottles of wine and pill tevin les nearby. Pt apparently took 14 tabs of Tizainidine 4mg, unknown amount of amitryptyline 50 mg each and drank 1 and a half bottles of wine. Pt's family suspected sucide attempt related to possible internet scam where pt had been talking to someone online, sending money and had finally planned to meet him but he failed to show up at the airport. Pt treated in the ICU and placed on suicide preca utions. Psychiatry consulted when mentation improved and could be evalutated. Pt seen after chart review and d/w staff. Pt seen along with her brother who is very supportive. Pt admits she was trying to end her life when she overdosed on multiple meds and alcohol. She reports t his was impulsive as she had been very happy and looking forward to meeting who she thought would be her life partner. When he did not show up and the whole story started to unravel and she realized it was a scam, she panicked and saw no way out but to overdose as she had built up the relationship, given her savings and told everyone she knew about him and now it was all a lie. Pt now realizes her friends and family care about her and are there to support her no matter what. Pt states she is remorseful and would never do anything to harm herself again and contracts for safety. She will follow up with her therapist weekly and will move up her appt with her psychiatrist. Her brother who is also the director of the board of mental health in [place] was comfortable with her being d/c and will b e checking on her frequently. Pt was given the option of going to inpt psych on a Voluntary basis but will not be made to go Involuntarily. She and brother are comfortable with pt being d/c after medi jud clear and fol up with her outpt providers. Pt reminded of emergency services and agrees to seek help if feeling in crisis or unsafe in the future. currently denies cp/sob/n/v/f/c and only c/o is pain in hip and back. time in support and discussion exclusive of eval/mgmt service psych hx: no inpt admits, no prior suicide attempts. treated for derpression and ptsd. no psychotic sxs. goes to [facility] in [place] and sees counselor weekly and psychiatrist, Dr. Chacon. family hx: father with significant mental illness, depression and h/o suicide attempts, ECT, inpt admits. also abused alcohol. social hx: from [place], [place] originally. , no children. sig other 2yrs ago. on disability. resides alone in [place] near her mother. rare etoh, former tobacco, THC at times. famly a nd friends are supportive. Physical Examination Last Charted Vital Signs Temperature: 98.1 (06/10 12:00) Pulse: 102 (06/10 12:00) Respiration: 18 (06/10 12:00) BP: 127/60 (06/10 12:00) Pulse Ox: 99 (06/10 11:00) Oxygen Delivery: Nasal cannula (06/10 09:00) O2 Device Flow: 1 L/min Pain Score: 7 (06/10 12:26) Mental Status Exam Appearance/Behavior: Age appears stated age, Grooming disheveled, Eye contact appropriate, Attitude towards examiner cooperative. Motor: normal. Level of consciousness: normal. Orientation: Alert, person, place, time, situation. Affect: appropriate. Mood: anxious, depressed. Speech: coherent, Language names 2 objects, rate of speech normal. Thought: process coherent, content (Normal, Hallucinations none, Delusions none). Associations: intact. Lethality: Suicidal s/p impulsive attempt. no current ideation, intent or plan and contracts for safety, Homicidal none. Memory: normal. Attention span/Concentration: normal. Fund of knowledge: estimated intelligence average. Judgment: has been impaired but intends to make better choices. Insight: improving. Strengths: supportive family, supportive friends, desire to get better. 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 does not require involuntary inpt psych admit and does not request voluntary placement. ok to d/c sitter and suicide precautions. 2. pt linked with [facility] in [place] with Dr. Chacon and sees therapist weekly 3. restart home psychotropics in next day or so 4. clear for d/c from psych s/p when medically stable thank you for this consult d/w pt, brother and staff feel free to call with questions or concerns. Psychiatry staff may be reached through our answering service, [facility] at [phone]. thank you Health Status Allergies NKA Vital Signs (Past 36 Hours) Last Charted Minimum Maximum Temperature 98.1 (06/10 12:00) 97.2 (06/09 04:25) 98.8 (06/09 18:00) Pulse 102 (06/10 12:00) 73 (06/09 04:00) 102 (06/10 12:00) Resp 18 (06/10 12:00) 13 (06/10 08:00) 23 (06/10 11:00) Pulse Ox 99 (06/10 11:00) 94 (06/10 08:00) 100 (06/09 10:) Pain Score 7 (06/10 12:26) 0 (06/10 04:00) 7 (06/10 12:26) BP 127/60 (06/10 12:00) Minimum Maximum Systolic BP 74/57 (06/09 11:00) 157/75 (06/10 11:00) Diastolic BP 110/47 (06/09 10:00) 145/100 (06/10 10:00) Inpatient Medications: Enoxaparin 40 mg/0.4 mL Syringe (Lovenox GEq) 40 mg = 0.4 mL, Subcut, Inject, Daily, x 30 Day(s), 06/10/18 9:45:00 EDT Last Dose: Not Given Insulin U100 Lispro per unit MDV (HumaLOG GEq) Conservative Scale, Inject, Subcut,, Q6h, x 30 Day(s), 06/09/18 2:31:00 EDT , Comment: << Sliding Scale Comments >> 0 - 60 Give 12.5 grams (25 mL) of Dextrose 50% for hypoglycemia b Last Dose: Not Given oxygen Nasal Cannula, FIO2/LPM: 0-6, Target O2 Sat: Greater Than 92%, Supplemental oxygen titration to maintain saturation greater than 92% Last Dose: Not Given TraMADol 50 mg Tab (Ultram GEq) 50 mg = 1 Tab, PO, Tab, Q6h, PRN, Pain - Moderate, x 30 Day(s), 06/10/18 9:54:00 EDT , Comment: Maximum 400 mg/24 hours (Age 75+ : 300 mg/24 hr) Last Dose: 06/10/18 12:26:00 Nitroglycerin Subl Tab 0.4 mg #25 (Nitrostat GEq) 0.4 mg = 1 Tab, Subl, Tab Subl, Q5min, PRN, See Comments, x 30 Day(s), 06/09/18 8:16:00 EDT , Comment: PRN Chest Pain - Administer Q5 min x 3 doses as needed per episode of chest pain. Last Dose: Not Given Glucagon 1 mg Vial (Glucagen GEq) 1 mg, Subcut, Inject, PRN, PRN, See Comments, x 30 Day(s), 06/09/18 2:31:00 EDT , Comment: If IV access is not obtainable: For hypoglycemia blood glucose less than 60 mg/dL and patient c Last Dose: Not Given Current IV Orders: Atropine 0.1 mg/mL Syringe 10 mL 0.5 mg = 5 mL, IV Push, Inject, Q3min, PRN, See Comments, x 6 Time(s)/Dose(s), 06/09/18 8:16:00 EDT , Comment: as needed for symptomatic bradycardia with a heart rate less than 50 beats Last Dose: Not Given Dextrose 50% Syringe 25 Gm/50 mL 12.5 Gm = 25 mL, IV Push, Inject, PRN, PRN, See Comments, x 30 Day(s), 06/09/18 2:31:00 EDT Last Dose: Not Given Lactated Ringers 1,000 mL 1,000 ml, 100 mL/hr, IV, x 30 Day(s), 1,000 mL, Infusion, 06/09/18 11:25:00 EDT, 112.5 kg Last Dose: 06/10/18 07:02:36 06/09/18 04:56, Hemoglobin = 10.9 gm/dL L 06/09/18 04:56, Hematocrit = 33.8 % L 06/09/18 04:56, WBC Count = 8.6 thou/mcL 06/09/18 04:56, Platelet Count = 180 thou/mcL 06/10/18 04:46, Sodium Level = 142 mMol/L 06/10/18 04:46, Potassium Level = 4.0 mMol/L 06/10/18 04:46, Creatinine = 0.92 mg/dL 06/10/18 04:46, BUN = 7 mg/dL L 06/08/18 22:33, TSH = 2.19 mcIU/mL 06/09/18 04:56, Bilirubin Total = 0.6 mg/dL 06/09/18 05:08, Glucose POCT = 88 mg/dL 06/10/18 04:46, Glucose Level = 69 mg/dL L 06/09/18 04:56, Hemoglobin A1c = 6.6 % tl hgb H reviewed History of Present Illness Date of Admission Admit Date: 06/09/18 00:22 Hospital Days: 1 GLUCOSE POCT Collected: 06/10/2018 Status: F Source: [facility] (UPLOADED) 11:08 AM HEALTH SYSTEM REPOSITORY TYPE CODE TESTS RESULT OUT OF RANGE REFERENCE UNITS LAB 2340-8(LOIN 70-110 mg/dL C) Normal Glucose 81 POCT-LAB Result Comment: Treatment ranges and critical values established by Patient Care Services. All follow-up actions were taken by Patient Care Services. Performed By: #### 2430-8 #### [facility] GLUCOSE POCT Collected: 06/10/2018 Status: F Source: [facility] (UPLOADED) 8:07 AM HEALTH SYSTEM REPOSITORY TYPE CODE TESTS RESULT OUT OF RANGE REFERENCE UNITS LAB 2340-8(LOIN 70-110 mg/dL C) Normal Glucose 79 POCT-LAB Result Comment: Treatment ranges and critical values established by Patient Care Services. All follow-up actions were taken by Patient Care Services. Performed By: #### 2430-8 #### [facility] GFRAA Collected: 06/10/2018 Status: F Source: [facility] 4:46 AM [facility]ALTH SYSTEM REPOSITORY TYPE CODE TESTS RESULT OUT OF RANGE REFERENCE UNITS LAB 39525-6(LO mL/min INC) GFR Normal Estimated >60 Result Comment: The MDRD equation has not been validated for those over 70 years, women, patients with serious co-morbid conditions, or with extremes of body size, muscle mass of nutritional status. Performed By: #### 38899-4, 74881-9n7, 98247-5, 51181-3, 2157-6, 61570-1 #### [facility], [address] [place], [place]. GFRBB Collected: 06/10/2018 Status: F Source: [place] 4:46 AM [facility]ALTH SYSTEM REPOSITORY TYPE CODE TESTS RESULT OUT OF RANGE REFERENCE UNITS LAB 42315-3(LO mL/min INC) GFR Normal Estimated Non >60 Performed By: #### 00559-6, 88704-7j3, 29492-2, 46649-8, 2157-6, 03638-8 #### [facility], [address] [place], [place]. PHOSPHORUS LEVEL Collected: 06/10/2018 Status: F Source: [place] 4:46 AM [facility]ALTH SYSTEM REPOSITORY TYPE CODE TESTS RESULT OUT OF RANGE REFERENCE UNITS LAB 89776-8(LO 2.4-4.7 mg/dL INC) Normal Phosphorus Level 2.4 Performed By: #### 77727-8, 64595-3b9, 34832-2, 52346-6, 2157-6, 31882-2 #### [facility], [address] [place], [place]. MAGNESIUM LEVEL Collected: 06/10/2018 Status: F Source: [place] 4:46 AM [facility]ALTH SYSTEM REPOSITORY TYPE CODE TESTS RESULT OUT OF RANGE REFERENCE UNITS LAB 95477-8(LO 1.8-2.5 mg/dL INC) Normal Magnesium Level 1.8 Performed By: #### 23911-4, 30300-9d3, 30949-1, 46668-8, 2157-6, 10408-1 #### [facility], [address] [place], [place]. CREATINE KINASE (CK) Collected: 06/10/2018 Status: F Source: [place] 4:46 AM [facility] SYSTEM REPOSITORY TYPE CODE TESTS RESULT OUT OF REFERENCE UNITS RANGE LAB 2157-6(LOIN 21-232 Units/L C) High Creatine 2615 Kinase Random Performed By: #### 10710-9, 74519-6p8, 31058-9, 02899-7, 7-6, 49908-3 #### [facility], [address] [place], [place]. BASIC METABOLIC PANEL Collected: 06/10/2018 Status: F Source: [facility] 4:46 AM [facility] SYSTEM REPOSITORY TYPE CODE TESTS RESULT OUT OF RANGE REFERENCE UNITS LAB 2160-0(SUKHDEEP 0.66-1.30 mg/dL NC) Normal Creatinine 0.92 LAB 74486-2(LO 70-110 mg/dL INC) Low Glucose Level 69 LAB 26450-5(LO 8.9-10.3 mg/dL INC) Low Calcium Total 7.8 LAB 2951-2(SUKHDEEP 136-145 mMol/L NC) Sodium Normal Level 142 LAB 2823-3(SUKHDEEP 3.6-5.1 mMol/L NC) Normal Potassium Level 4.0 LAB 2075-0(SUKHDEEP 98-107 mMol/L NC) Chloride Normal Level 103 LAB 73919-1(LO 6.0-18.0 mMol/L INC) Anion Normal Gap 7.0 LAB 20582-8(LO 8-20 mg/dL INC) Low BUN 7 LAB 2028-9(SUKHDEEP 22-32 mMol/L NC) Carbon Normal Dioxide Level 32 Performed By: #### 91935-5, 50756-9r0, 25194-0, 11367-2, 7-6, 32130-2 #### [facility], [address] [place], [place]. CALCIUM IONIZED Collected: 06/10/2018 Status: F Source: [facility] 4:46 AM [facility] SYSTEM REPOSITORY TYPE CODE TESTS RESULT OUT OF RANGE REFERENCE UNITS LAB 77228-2(LO 1.09-1.32 mMol/L INC) Calcium Normal Ionized 1.10 Normalized LAB 03122-5(LO 1.15-1.37 mMol/L INC) Low Calcium Ionized 1.13 Performed By: #### 1994-3 #### [facility], [address] [place], [place]. GLUCOSE POCT Collected: 06/10/2018 Status: F Source: [facility] (UPLOADED) 3:26 AM HEALTH SYSTEM REPOSITORY TYPE CODE TESTS RESULT OUT OF RANGE REFERENCE UNITS LAB 2340-8(LOIN 70-110 mg/dL C) Normal Glucose 71 POCT-LAB Result Comment: Treatment ranges and critical values established by Patient Care Services. All follow-up actions were taken by Patient Care Services. Performed By: #### 2430-8 #### [facility] GLUCOSE POCT Collected: 06/09/2018 Status: F Source: [facility] (UPLOADED) 11:18 PM HEALTH SYSTEM REPOSITORY TYPE CODE TESTS RESULT OUT OF REFERENCE UNITS RANGE LAB 2340-8(LOIN 70-110 mg/dL C) Low Glucose 62 POCT-LAB Result Comment: Treatment ranges and critical values established by Patient Care Services. All follow-up actions were taken by Patient Care Services. Performed By: #### 2430-8 #### [facility] POTASSIUM LEVEL Collected: 06/09/2018 Status: F Source: [facility] 10:58 PM [facility]ALTH SYSTEM REPOSITORY TYPE CODE TESTS RESULT OUT OF REFERENCE UNITS RANGE LAB 2823-3(SUKHDEEP 3.6-5.1 mMol/L NC) Low Potassium Level 3.3 Performed By: #### 2823-3, 97171-2 #### [facility], [address] [facility], [place]. MAGNESIUM LEVEL Collected: 06/09/2018 Status: F Source: [facility] 10:58 PM HEALTH SYSTEM REPOSITORY TYPE CODE TESTS RESULT OUT OF RANGE REFERENCE UNITS LAB 60410-6(LO 1.8-2.5 mg/dL INC) Normal Magnesium Level 1.8 Performed By: #### 2823-3, 88035-4 #### [facility], [address] [facility], [place]. GLUCOSE POCT Collected: 06/09/2018 Status: F Source: [facility] (UPLOADED) 8:46 PM HEALTH SYSTEM REPOSITORY TYPE CODE TESTS RESULT OUT OF RANGE REFERENCE UNITS LAB 2340-8(LOIN 70-110 mg/dL C) Normal Glucose 73 POCT-LAB Result Comment: Treatment ranges and critical values established by Patient Care Services. All follow-up actions were taken by Patient Care Services. Performed By: #### 2430-8 #### [facility] GLUCOSE POCT Collected: 06/09/2018 Status: F Source: [facility] (UPLOADED) 6:44 PM HEALTH SYSTEM REPOSITORY TYPE CODE TESTS RESULT OUT OF RANGE REFERENCE UNITS LAB 2340-8(LOIN 70-110 mg/dL C) Normal Glucose 84 POCT-LAB Result Comment: Treatment ranges and critical values established by Patient Care Services. All follow-up actions were taken by Patient Care Services. Performed By: #### 2430-8 #### [facility] GLUCOSE POCT Collected: 06/09/2018 Status: F Source: [facility] (UPLOADED) 5:44 PM HEALTH SYSTEM REPOSITORY TYPE CODE TESTS RESULT OUT OF REFERENCE UNITS RANGE LAB 2340-8(LOIN 70-110 mg/dL C) Low Glucose 55 POCT-LAB Result Comment: Treatment ranges and critical values established by Patient Care Services. All follow-up actions were taken by Patient Care Services. Performed By: #### 2430-8 #### [facility] ECHOCARDIOGRAM TXT Observed: 06/09/2018 Status: F Source: [facility] 1:26 PM HEALTH SYSTEM REPOSITORY Transthoracic Echocardiography Report (TTE) Demographics Patient Name KYLE COVINGTON Date of 1960 Patient Number [id number] Age 57 year(s) Visit Number [id number] Gender Female Room Number SI11 [facility] Java Swing Developer Angela Oviedo RVT, Physician RDCS Interpreting Eliseo Villalta Douglas MD Provider MD Physician Procedure Type of Study TTE procedure: Echo 2D Cmplt w M-Mode and Dopp Cmplt. Procedure date Date: 06/09/2018Start: 13:26 PM Technical Quality: Fair visualizationStudy Location: Portable Indications: Shock. Additional Indications:hypotension Patient Status: Routine Height: 66.93 inchesWeight: 249.12 poundsBSA: 2.22 m2 BMI: 39.1 kg/m2 HR: 89 bpmBP: 110/47 mmHg CONCLUSIONS SUMMARY Normal trans-thoracic echocardiogram. Findings Mitral Valve The mitral valve appears structurally normal. Aortic Valve Structurally normal aortic valve. Tricuspid Valve Tricuspid valve is structurally normal. Trivial tricuspid regurgitation is present by color Doppler. Normal RV systolic pressure is present. Pulmonic Valve The pulmonic valve is grossly normal in appearance. Left Atrium Normal left atrial size. Left Ventricle Normal left ventricular cavity size/wall thickness/wall motion and systolic function. The left ventricular ejection fraction is 60% per visual estimation. Normal diastolic filling pattern for age. Right Atrium Normal right atrial size. Right Ventricle Normal right ventricular structure and function. Pericardial Effusion No pericardial effusion noted. Aorta Normal aortic root and ascending aortic dimensions. M-Mode/2D Measurements and Calculations LV Diastolic LV Systolic Dimension: AV Cusp Separation: 2.2 cmLA Dimension: 4.33 3.2 cm Dimension: 3.4 cmAO Root cm LV Volume Diastolic: 77.8 Dimension: 3.4 cmLA Area: 19.7 LV FS:26.1 % ml cm2 LV PW LV Volume Systolic: 31.8 Diastolic: 0.9 ml cm LV EDV/LV EDV Index: 77.8 Septum ml/35ml/ m2 LV ESV/LV ESV Diastolic: 1 cm Index: 31.8 ml/14ml/ m2 RV Lenght:7.85 cm LA/Aorta: 1 LV Length: 7.31 cm Ascending Aorta: 3.6 cm LA volume/Index: 68.8 ml LV Area /31ml/m2 Diastolic: 26.3 cm2 LV Area Systolic: 14.7 cm2 Doppler Measurements and Calculations MV Peak E-Wave: 100 cm/s AV Peak Velocity: 131 LVOT Peak Velocity: 97 MV Peak A-Wave: 78.1 cm/s cm/s cm/s MV E/A Ratio: 1.28 AV Peak Gradient: 6.86 LVOT Peak Gradient: 4 MV Peak Gradient: 4 mmHg mmHg mmHg MV Mean Gradient: 2 mmHg Estimated RVSP: 29 mmHg MV Mean Velocity: 60 cm/s Estimated RAP:3 mmHg MV Deceleration Time: 151 msec MV P1/2t: 50 msec Estimated PASP: 28.6 TR Velocity:253 cm/s MVA by PHT4.4 mmHg TR Gradient:25.6036 mmHg PV Peak Velocity: 87.8 MV E' Velocity: 10.1 cm/s cm/s PV Peak Gradient: 3.08 mmHg MV VTI: 20.4 cm E/E Prime (Sep)9.9 E/E Prime (Lat)10.7 Signature Observed: 06/09/2018 Status: F Source: [facility] TEST RESULT EJECTION 1:26 PM [facility]ALTH SYSTEM FRACTION REPOSITORY 60 POTASSIUM LEVEL Collected: 06/09/2018 Status: F Source: [facility] 12:24 PM [facility] SYSTEM REPOSITORY TYPE CODE TESTS RESULT OUT OF REFERENCE UNITS RANGE LAB 2823-3(SUKHDEEP 3.6-5.1 mMol/L FL) Low Potassium Level 3.0 Performed By: #### 2823-3 #### [facility], [address] [place], [place]. Observed: 06/09/2018 Status: F Source: [facility] CULTURE BLOOD 12:24 PM HEALTH SYSTEM REPOSITORY [facility] Microbiology PROCEDURE: Culture Blood SOURCE: Blood BODY SITE: COLLECTED DATE/TIME: 06/09/2018 12:24 EDT RECEIVED DATE/TIME: 06/09/2018 12:24 EDT START DATE/TIME: 06/09/2018 12:24 EDT FREE TEXT SOURCE: BLOOD INTERFACED REPORTS Final Report [] Verified Date/Time/Personnel: 06/14/2018 21:56 EDT CONTRIBUTOR_SYSTEM, CO_PN NO GROWTH AT 5 DAYS Preliminary Report [] Verified Date/Time/Personnel: 06/10/2018 03:25 EDT CONTRIBUTOR_SYSTEM, CO_PN NO GROWTH. CULTURE IN PROGRESS. POSITIVE CULTURES WILL BE PHONED TO THE UNIT/FLOOR. Performed By: #### 600-7 #### [facility] [address] [place], [place] GLUCOSE POCT Collected: 06/09/2018 Status: F Source: [facility] (UPLOADED) 11:41 AM HEALTH SYSTEM REPOSITORY TYPE CODE TESTS RESULT OUT OF RANGE REFERENCE UNITS LAB 2340-8(LOIN 70-110 mg/dL C) Normal Glucose 80 POCT-LAB Result Comment: Treatment ranges and critical values established by Patient Care Services. All follow-up actions were taken by Patient Care Services. Performed By: #### 2430-8 #### [facility] URINALYSIS WITH Collected: 06/09/2018 Status: F Source: [place] MICROSCOPIC AUTOMATIC 11:39 AM HEALTH SYSTEM WITH REFLEX REPOSITORY TYPE CODE TESTS RESULT OUT OF RANGE REFERENCE UNITS LAB 5778-6(LO YELLOW INC) Normal Color Urine YELLOW LAB 29330-6(L NORMAL OINC) Normal Urobilinogen NORMAL Urine LAB 5767-9(LO CLEAR INC) Appearance Abnormal Urine HAZY LAB 5811-5(LO 1.002-1.030 INC) Normal Specific Parnell Urine 1.021 LAB 5799-2(LO NEGATIVE INC) Leukocyte Abnormal Esterase Urine 250/UL LAB 5794-3(LO NEGATIVE INC) Blood Urine Abnormal 70/UL LAB 5804-0(LO NEGATIVE INC) Protein Abnormal Urine 30MG/DL LAB 5803-2(LO 4.5-8.0 INC) Normal pH Urine 5.0 LAB 00152-8(L NEGATIVE OINC) Normal Bilirubin Urine NEGATIVE LAB 5792-7(LO NORMAL INC) Normal Glucose Urine NORMAL LAB 5797-6(LO NEGATIVE INC) Normal Ketones Urine NEGATIVE LAB 43567-7(L NEGATIVE OINC) Normal Nitrite Urine NEGATIVE Performed By: #### 40173-8, 99761-0 #### [facility], [address] [place] [address]. URINALYSIS MICROSCOPIC Collected: 06/09/2018 Status: F Source: [place] 11:39 AM [facility]ALTH SYSTEM REPOSITORY TYPE CODE TESTS RESULT OUT OF RANGE REFERENCE UNITS LAB 5774-5(SUKHDEEP NONE/HPF NC) Abnormal Calcium Oxalate RARE Crystal Urine LAB 5769-5(SUKHDEEP NONE/HPF NC) Abnormal Bacteria Urine RARE LAB 5821-4x1(L 0-5 /hpf OINC) High WBC Urine 34 LAB 8247-9(SUKHDEEP NONE/LPF NC) Abnormal Mucous Urine MODERATE LAB 81767-3(LO FEW/LPF INC) Normal Squamous RARE Epithelial Cells Urine LAB 21999-5(LO 0-5 /hpf INC) High RBC Urine 7 LAB 5796-8(SUKHDEEP /lpf NC) Normal Hyaline Casts 42 Performed By: #### 93321-0, 50174-0 #### [facility], [address] [place], [place]. ACETAMINOPHEN (TYLENOL) Collected: 06/09/2018 Status: F Source: [facility] LEVEL 11:39 AM HEALTH SYSTEM REPOSITORY TYPE CODE TESTS RESULT OUT OF REFERENCE UNITS RANGE LAB 3298-7(SUKHDEEP 10.0-30.0 mcg/mL NC) Acetaminophen Normal (Tylenol) Level <10 Performed By: #### 08244-8 #### [facility], [address] [place], [place]. OSMOLALITY SERUM Collected: 06/09/2018 Status: F Source: [facility] 11:39 AM HEALTH SYSTEM REPOSITORY TYPE CODE TESTS RESULT OUT OF REFERENCE UNITS RANGE LAB 2692-2(SUKHDEEP 280-295 mOsm/kg NC) High Osmolality Serum 297 Performed By: #### 2692-2 #### [facility], [address] [place] [address]. #### 52193-5 #### MISCELLANEOUS LAB MISCELLANEOUS LAB Collected: 06/09/2018 Status: F Source: [facility] PROCEDURE 11:39 AM HEALTH SYSTEM REPOSITORY TYPE CODE TESTS RESULT OUT OF REFERENCE UNITS RANGE LAB 8251-1(SUKHDEEP NC) Miscellaneous Normal Test * Result Comment: BLOOD DRUGS DETECTED: LIDOCAINE BUPROPION NORTRIPTYLINE/PROTRIPTYLINE AMITRIPTYLINE SERTRALINE TESTS PEFORMED BY: [facility] [place] [address] Performed By: #### 2692-2 #### [facility], [address] [place], [place]. #### 70561-4 #### MISCELLANEOUS LAB Observed: 06/09/2018 Status: F Source: [facility] CULTURE BLOOD 11:39 AM HEALTH SYSTEM REPOSITORY [facility] Microbiology PROCEDURE: Culture Blood SOURCE: Blood BODY SITE: COLLECTED DATE/TIME: 06/09/2018 11:39 EDT RECEIVED DATE/TIME: 06/09/2018 11:39 EDT START DATE/TIME: 06/09/2018 11:39 EDT FREE TEXT SOURCE: BLOOD INTERFACED REPORTS Final Report [] Verified Date/Time/Personnel: 06/14/2018 21:56 EDT CONTRIBUTOR_SYSTEM, CO_PN NO GROWTH AT 5 DAYS Preliminary Report [] Verified Date/Time/Personnel: 06/10/2018 03:25 EDT CONTRIBUTOR_SYSTEM, CO_PN NO GROWTH. CULTURE IN PROGRESS. POSITIVE CULTURES WILL BE PHONED TO THE UNIT/FLOOR. Performed By: #### 600-7 #### [place] [address], [place] Observed: 06/09/2018 Status: F Source: [facility] CULTURE URINE + 11:39 AM HEALTH SYSTEM SUSCEPTIBILITY REPOSITORY [facility] Microbiology PROCEDURE: Culture Urine + Susceptibility SOURCE: Urine BODY SITE: COLLECTED DATE/TIME: 06/09/2018 11:39 EDT RECEIVED DATE/TIME: 06/09/2018 11:39 EDT START DATE/TIME: 06/09/2018 11:39 EDT FREE TEXT SOURCE: URINE INTERFACED REPORTS Final Report [] Verified Date/Time/Personnel: 06/10/2018 10:14 EDT CONTRIBUTOR_SYSTEM, CO_PN NO GROWTH Performed By: #### 630-4 #### [facility] [place] [id number] [place], [place] XR CHEST 1 VIEW Observed: 06/09/2018 Status: F Source: [facility] 10:28 AM HEALTH SYSTEM REPOSITORY EXAMINATION TYPE: XR Chest 1 View HISTORY: Line Placement COMPARISON: 06/08/2018 FINDINGS: Interval placement of right IJ central venous catheter with tip in the upper SVC. Stable cardiomediastinal silhouette. No large pleural effusion. No pneumothorax. There are low lung volumes with mil d bibasilar atelectasis. Fixation hardware in the cervical spine. IMPRESSION: Right central venous catheter with tip in the SVC. No pneumothorax. [facility] thanks you for the opportunity to care for your patient. Workstation ID: [id number] - [id number] FINAL REPORT Dictated By: Yaron Shah MD 06/09/2018 11:11 Assigned Physician: Yaron Shah MD Reviewed and Electronically Signed By: Yaron Shah MD 06/09/2018 11:14 Transcribed by: QUENTIN 06/09/2018 11:11 Technologist: RAMÍREZ CONSULTATION Observed: 06/09/2018 Status: F Source: [facility] 10:28 AM HEALTH SYSTEM REPOSITORY Pulmonary/Critical Care Consultation cc: overdose, hypotension HPI: 57yo female w/ hx of depression and SI w/ apparent suicide attempt by overdose of tizanidine and amitryptyline. She was apparently supposed to be meeting a gentleman from out of the country but u nclear if he ever showed. She was found by family unresponsive at a motel. Pill bottles suggest she took 14 tizanidine 4mg tabs and 14 amitripytline 50mg tabs. Wine was also there but etoh level was neg ative. On arrival, she was confused and hemodynamically stable. She did become hypotensive later. Poison control recommended a bicarb infusion. EKG did show mild elevation in QRS but this is now <100. She remains confused. ROS: Pertinent positives include dry mouth, low UOP. Pertinent negatives include fever, chills, chest pain, palpitations, sob, LH, dizzy, dysuria, flank pain, abd pain, nausea. Otherwise a comprehensive /complete ROS was discussed and is negative. Medical History: back pain, depression, hx SI per chart, DM, HTN, GERD, HLD, anxiety, possible SINDHU, possible COPD Surgical History: neck surgery Meds: Reviewed in EMR and discussed w/ patient. Allergies: NKDA Social History: former smoker, quit in 1997. Occasional etoh use. smokes marijuana Family History: no heart/lung problems Physical Exam Temperature: 98.4 (06/09 10:00) Pulse: 89 (06/09 10:00) Respiration: 17 (06/09 10:00) BP: 110/47 (06/09 10:00) Pulse Ox: 100 (06/09 10:00) Oxygen Delivery: Nasal cannula (06/09 08:) O2 Device Flow: 2 L/min Pain Score: 0 (06/09 04:50) VS and pulse ox reviewed. Ventilator settings, pressures, waveforms reviewed. Comprehensive: Nontoxic, obese Eyes: Conjunctiva normal. Pupils equal, symmetric, reactive. ENT: Dentition fair. Dry mucus membranes. No thrush. Mallampati 4 Neck: Supple. Trachea midline. Resp: Breathing nonlabored. Symmetric expansion. Clear breath sounds CV: RRR, no murmur. Warm extremities. No edema. Good cap refill GI: Abdomen nondistended, nontender. Normal bowel sounds. MS/Extremities: No clubbing, cyanosis. No synovitis or deformity in hands. Skin: No rashes, normal turgor Neuro/psych: Alert but confused, affect normal, mood fine, denies SI. Nonfocal. Labs, Imaging, and medical testing including pulse oximetry (above) were reviewed. WBC Count: 8.6 thou/mcL (06/09/18 04:56:00) Hemoglobin: 10.9 gm/dL Low (06/09/18 04:56:00) Platelet Count: 180 thou/mcL (06/09/18 04:56:00) Sodium Level: 144 mMol/L (06/09/18 04:56:00) Potassium Level: 3.3 mMol/L Low (06/09/18 04:56:00) Chloride Level: 101 mMol/L (06/09/18 04:56:00) Carbon Dioxide Level: 34 mMol/L High (06/09/18 04:56:00) Anion Gap: 9 mMol/L (06/09/18 04:56:00) Glucose Level: 90 mg/dL (06/09/18 04:56:00) BUN: 15 mg/dL (06/09/18 04:56:00) Creatinine: 1.84 mg/dL High (06/09/18 04:56:00) Est CrCl IBW (mL/min)-RX: 32.01 mL/min (06/09/18 04:56:00) Est CrCl AdjBW (mL/min)-RX: 42.59 mL/min (06/09/18 04:56:00) GFR Estimated Non : 23 mL/min (06/08/18 22:33:00) GFR Estimated : 28 mL/min (06/08/18 22:33:00) Calcium Total: 7.9 mg/dL Low (06/09/18 04:56:00) Alkaline Phosphatase: 50 Units/L (06/09/18 04:56:00) ALT/SGPT: 33 Units/L (06/09/18 04:56:00) AST/SGOT: 67 Units/L High (06/09/18 04:56:00) Bilirubin Total: 0.6 mg/dL (06/09/18 04:56:00) Bilirubin Direct: 0.1 mg/dL (06/09/18 04:56:00) Phosphorus Level: 4.9 mg/dL High (06/09/18 04:56:00) Protein: 4.6 gm/dL Low (06/09/18 04:56:00) Albumin Level: 2.7 gm/dL Low (06/09/18 04:56:00) Bilirubin Indirect: 0.5 mg/dL (06/09/18 04:56:00) Magnesium Level: 1.7 mg/dL Low (06/09/18 04:56:00) Calcium Ionized: 1.15 mMol/L (06/08/18 23:55:00) Creatine Kinase Random: 6017 Units/L High (06/09/18 04:56:00) Troponin I: <0.03 (06/08/18 22:33:00) Acetaminophen (Tylenol) Level: <10 (06/08/18 22:33:00) Alcohol (Ethanol) Level: <0.01 (06/08/18 22:33:00) Amphetamine Scr Urine: NEGATIVE (06/08/18 23:02:00) Barbiturates Scr Urine: NEGATIVE (06/08/18 23:02:00) Benzodiazepine Scr Urine: POSITIVE Abnormal (06/08/18 23:02:00) Cocaine Scr Urine: NEGATIVE (06/08/18 23:02:00) Methadone Scr Urine: NEGATIVE (06/08/18 23:02:00) Opiate Scr Urine: NEGATIVE (06/08/18 23:02:00) Oxycodone Scr Urine: NEGATIVE (06/08/18 23:02:00) Salicylate Level: <4.0 (06/08/18 22:33:00) Tetrahydrocannabinoid Scr Urine: NEGATIVE (06/08/18 23:02:00) Tricyclic Antidepressant Scr Urine: POSITIVE Abnormal (06/08/18 23:02:00) Thyroid Stimulating Hormone: 2.19 mcIU/mL (06/08/18 22:33:00) Hemoglobin A1c: 6.6 % tl hgb High (06/09/18 04:56:00) Alkaline Phosphatase: 50 Units/L (06/09/18 04:56:00) ALT/SGPT: 33 Units/L (06/09/18 04:56:00) AST/SGOT: 67 Units/L High (06/09/18 04:56:00) Bilirubin Total: 0.6 mg/dL (06/09/18 04:56:00) Bilirubin Direct: 0.1 mg/dL (06/09/18 04:56:00) ABGs suggest chronic hypercapnia EKGS reviewed. NSR. QTc 460-490. QRS 108-->90s. MA normal. I personally reviewed the CXR which shows clear lungs Impression/Plan: 57yo w/ multidrug overdose and hypotension. Apparent suicide attempt. 1. Hypotension - combination of volume depletion, tizanideine, TCA 2. Encephalopathy 3. Overdose, intentional- TCA, tizanidine 4. GEETHA 5. Rhabdomyolysis 6. Chronic respiratory acidosis 7. Hx possible COPD, SINDHU 8. Suicide attempt -IVF resuscitation, bolus 2 L now -Keep bicarb gtt for now but may be able to d/c soon as QRS now <100 -Vasopressor support if needed -Monitor mental status/airway. Minimize sedatives -Monitor UOP, trend CK daily. No nephrotoxic drugs and continue IVF -Suicide precautions, will hold on pysch consult today as not able to give much meaningful history -prn bronchodilators -Nutrition: clears -Prophylaxis: heparin -Lines/tubes: placed CVC in event of need for pressor and frequent labs draws -Goals: FULL This patient is critically ill with impairment of one or more vital organ system, such that there is a high probability of imminent or life- threatening deterioration in the patient's condition. I spent 36 minutes of critical care time in the care of this patient, independent of procedures. OPERATIVE/PROCEDURE REPORT Observed: 06/09/2018 Status: F Source: [facility] 10:21 AM [facility] REPOSITORY Patient: NADYA MONCADA MRN: (HRR)-[id number] Age: 57 years Sex: Female : 1960 Associated Diagnoses: None Author: Amish VARGHESE, Cee Right IJ CVC insertion Procedure Time Out [place] Protocol: patient identity verified, site verified, procedure to be done verified, patient position verified. Site Verification Form. Central line insertion procedure Time: See nursing notes. Performed by: nurse practitioner. Assisted by: Eddy bansal CNP, Angela A. Supervised by: Bharat Strong MD. Informed consent: not signed due to emergency circumstance. Indication: Medication delivery, Need for venous access. Preparation: Sterile preparation (chlorhexidine and isopropyl alcohol, with full drapes, gown, gloves and mask), site right internal jugular, vessel identified ultrasound guided. Medication given: Anesthesia (Local, 1% xylocaine). Technique: location confirmed via flashback, catheter flushed with saline, total catheter length 16 cm, method (percutaneous, Seldinger technique, ultrasound localization), Insertion point (right, int ernal jugular vein, number of attempts 3), catheter type (number of lumens 3, antimicrobial coating), catheter secured sutured at 16 cm ashley to skin, dressing applied (semi-permeable transparent dressing, Chlorhexidine impregnated patch). Findings: chest x-ray pending. Estimated Blood Loss: none. Specimen(s) obtained: none. Procedure tolerated: well. Complications: none. Impression and Plan Dx and Plan (repeat): Diagnosis: Hypotension (ICD10- CM I95.9, Working, Medical). GLUCOSE POCT Collected: 06/09/2018 Status: F Source: [facility] (UPLOADED) 6:44 AM HEALTH SYSTEM REPOSITORY TYPE CODE TESTS RESULT OUT OF REFERENCE UNITS RANGE LAB 2340-8(LOIN 70-110 mg/dL C) High Glucose 171 POCT-LAB Result Comment: Treatment ranges and critical values established by Patient Care Services. All follow-up actions were taken by Patient Care Services. Performed By: #### 2430-8 #### [facility] GLUCOSE POCT Collected: 06/09/2018 Status: F Source: [facility] (UPLOADED) 6:06 AM [facility]ALTH SYSTEM REPOSITORY TYPE CODE TESTS RESULT OUT OF REFERENCE UNITS RANGE LAB 2340-8(LOIN 70-110 mg/dL C) Low Glucose 66 POCT-LAB Result Comment: Treatment ranges and critical values established by Patient Care Services. All follow-up actions were taken by Patient Care Services. Performed By: #### 2430-8 #### [facility] BLOOD GAS POCT VBG Collected: 06/09/2018 Status: F Source: [facility] 5:08 AM [facility]ALTH SYSTEM (UPLOADED) REPOSITORY TYPE CODE TESTS RESULT OUT OF REFERENCE UNITS RANGE LAB 97876-6(L 1.12-1.32 mMol/L OINC) Low Calcium Ionized POCT 1.06 LAB 7-1x1( 22.0-29.0 mMol/L LOINC) Total CO2 Venous POCT High 35.4 LAB 31719-4(L 6.0-18.0 mEq/L OINC) Low Anion Gap POCT 5.9 LAB 91394-1(L 0.5-2.2 mMol/L OINC) Lactic Acid POCT Normal 1.3 LAB 91362-4(L 12.0-16.0 gm/dL OINC) Low HCO3 Venous POCT 10.5 LAB 18232-9(L OINC) FiO2 POCT Normal 28.0 LAB 56409-3(L 25-40 mmHg OINC) pO2 Venous POCT Normal 26 LAB 28019-2(L VOL% OINC) O2 Content POCT Normal 5.9 LAB 6298-4(LO 3.5-5.0 mEq/L INC) Low Potassium Whole Blood POCT 3.1 LAB 2614-6(LO 0.2-0.6 % INC) Methemoglobin POCT High 1.9 LAB 2021-4x1( 41-51 mmHg LOINC) pCO2 Venous POCT High 67 LAB 2947-0(LO 136-146 mEq/L INC) Sodium Whole Blood Normal POCT 143 LAB 54435-2(L -2.0-3.0 mMol/L OINC) Base Excess POCT High 9.6 LAB 97038-6(L 40.0-70.0 % OINC) O2 Low Hemoglobin POCT 39.9 LAB 26651-1(L 36-53 % OINC) Low Hematocrit POCT 32 LAB 2746-6x1( 7.31-7.41 LOINC) Blood Gas ph Venous Normal POCT 7.35 LAB 16142-6(L 40.0-70.0 % OINC) O2 Saturation Venous POCT Normal 41.2 LAB 82401-9(L 70-110 mg/dL OINC) Glucose POCT Normal 88 LAB 57024-0(L % OINC) Carboxyhemoglobin POCT Normal 1.2 Result Comment: NON SMOKERS <1.5% SMOKERS 1.5 - 9.0% Performed By: #### [id number] #### POINT OF CARE PHOSPHORUS LEVEL Collected: 06/09/2018 Status: F Source: [place] 4:56 AM HEALTH SYSTEM REPOSITORY TYPE CODE TESTS RESULT OUT OF REFERENCE UNITS RANGE LAB 56536-0(LO 2.4-4.7 mg/dL INC) High Phosphorus Level 4.9 Performed By: #### 96390-6, 26149-2, 66740- 3, 93852-4, 2157-6 #### [facility], [address], [place] MAGNESIUM LEVEL Collected: 06/09/2018 Status: F Source: [place] 4:56 [facility] SYSTEM REPOSITORY TYPE CODE TESTS RESULT OUT OF REFERENCE UNITS RANGE LAB 05350-7(LO 1.8-2.5 mg/dL INC) Low Magnesium Level 1.7 Performed By: #### 65458-3, 63595-4, 22161- 3, 49810-6, 2157-6 #### [facility], [address] [place], [place] HEPATIC FUNCTION Collected: 06/09/2018 Status: F Source: [facility] 4:56 AM HEALTH SYSTEM REPOSITORY TYPE CODE TESTS RESULT OUT OF RANGE REFERENCE UNITS LAB 6768-6(SUKHDEEP 32-91 Units/L NC) Alkaline Normal Phosphatase 50 LAB 2885-2(SUKHDEEP 6.1-7.9 gm/dL NC) Low Protein 4.6 LAB 1742-6(SUKHDEEP 14-63 Units/L NC) ALT/SGPT Normal 33 LAB 1971-1(SUKHDEEP 0.0-1.0 mg/dL NC) Bilirubin Normal Indirect 0.5 LAB 1751-7(SUKHDEEP 3.5-4.8 gm/dL NC) Low Albumin Level 2.7 LAB 1968-7(SUKHDEEP 0.1-0.5 mg/dL NC) Bilirubin Normal Direct 0.1 LAB 1920-8(SUKHDEEP 15-41 Units/L NC) High AST/SGOT 67 LAB 1975-2(SUKHDEEP 0.3-1.2 mg/dL NC) Bilirubin Normal Total 0.6 Performed By: #### 12385-3, 07441-6, 74958- 3, 77430-8, 2157-01 #### [facility], [address] [place], [place] BASIC METABOLIC PANEL Collected: 06/09/2018 Status: F Source: [place] 4:56 AM [facility] SYSTEM REPOSITORY TYPE CODE TESTS RESULT OUT OF RANGE REFERENCE UNITS LAB 04675-3(LO 70-110 mg/dL INC) Glucose Normal Level 90 LAB 43368-2(LO 8-20 mg/dL INC) BUN Normal 15 LAB 2075-0(SUKHDEEP 98-107 mMol/L NC) Chloride Normal Level 101 LAB 97363-2(LO 6.0-18.0 mMol/L INC) Anion Normal Gap 9.0 LAB 12409-1(LO 8.9-10.3 mg/dL INC) Low Calcium Total 7.9 LAB 2951-2(SUKHDEEP 136-145 mMol/L NC) Sodium Normal Level 144 LAB 2160-0(SUKHDEEP 0.66-1.30 mg/dL NC) High Creatinine 1.84 LAB 2823-3(SUKHDEEP 3.6-5.1 mMol/L NC) Low Potassium Level 3.3 LAB 2028-9(SUKHDEEP 22-32 mMol/L NC) High Carbon Dioxide Level 34 Performed By: #### 55650-3, 02392-0, 02244- 3, 19037-5, 2157-01 #### [facility], [address] [place], [place] CREATINE KINASE (CK) Collected: 06/09/2018 Status: F Source: [place] 4:56 AM [facility] SYSTEM REPOSITORY TYPE CODE TESTS RESULT OUT OF REFERENCE UNITS RANGE LAB 2157-6(LOIN 21-232 Units/L C) High Creatine 6017 Kinase Random Performed By: #### 00041-8, 82222-9, 19337- 3, 97537-7, 2157-01 #### [facility], [address] [place], [place] CBC WITH DIFFERENTIAL Collected: 06/09/2018 Status: F Source: [facility] 4:56 AM [facility] SYSTEM REPOSITORY TYPE CODE TESTS RESULT OUT OF RANGE REFERENCE UNITS LAB 704-7(LOIN 0.00-0.20 thou/mcL C) Basophil Normal Absolute 0.00 LAB 26994-6(LO 6.2-12.1 FL INC) MPV Normal 9.0 LAB 55067-5(LO 0.0-12.0 % INC) Monocyte Normal 4.5 LAB 77601-4(LO 35.0-45.0 % INC) Low Hematocrit 33.8 LAB 15397-4(LO 32.0-36.0 gm/dL INC) MCHC Normal 32.3 LAB 711-2(LOIN 0.00-0.70 thou/mcL C) Normal Eosinophil 0.00 Absolute LAB 70566-1(LO 142-424 thou/mcL INC) Platelet Normal Count 180 LAB 718-7(LOIN 12.0-16.0 gm/dL C) Low Hemoglobin 10.9 Result Comment: Test reassayed to verify results. LAB 64348-0(LOINC) 27.0-34.0 Picograms Low MCH 25.6 LAB 742-7(LOINC) 0.00-0.90 thou/mcL Normal Monocyte Absolute 0.40 LAB 73393-1(LOINC) 0.0-2.0 % Normal Basophil 0.3 LAB 36801-9(LOINC) 3.80-5.10 million/mcL Normal Red Blood Cell Count 4.26 LAB 60115-9(LOINC) 11.0-14.8 % High RDW 16.6 LAB 70264-2(LOINC) 22.0-44.0 % Low Lymphocyte 12.4 LAB 731-0(LOINC) 1.00-4.80 thou/mcL Normal Lymphocyte Absolute 1.10 LAB 34768-5(LOINC) 4.6-10.2 thou/mcL Normal WBC Count 8.6 LAB 74523-1(LOINC) 40.0-70.0 % High Neutrophil 82.4 LAB 751-8(LOINC) 1.80-7.70 thou/mcL Normal Neutrophil Absolute 7.10 LAB 82147-5(LOINC) 0.0-7.0 % Normal Eosinophil 0.4 LAB 26766-2(LOINC) 80.0-97.0 FL Low MCV 79.4 Performed By: #### 49675-9 #### [facility], [address] [place], [place] GLYCOHEMOGLOBIN (HGB A1C) Collected: 06/09/2018 Status: F Source: [place] PANEL 4:56 AM [facility]ALTH SYSTEM REPOSITORY TYPE CODE TESTS RESULT OUT OF REFERENCE UNITS RANGE LAB 4548-4(SUKHDEEP 4.0-6.0 % tl hgb NC) High Hemoglobin A1c 6.6 Result Comment: New method 11/30/14: On[employer] HPLC (high-performance liquid chromatography) Performed By: #### 4549-2 #### [facility], [address] [place], [place]. CONSULTATION Observed: 06/09/2018 Status: F Source: [facility] 3:26 AM [facility] SYSTEM REPOSITORY Patient: NADYA MONCADA MRN: [id number] Age: 57 years Sex: Female : 1960 Associated Diagnoses: None Author: Ria GUILLORY, Shanta Veronica Supervising Physician Comments Documentation By: Consulting Physician. Admission Information Requesting Source The Requesting source is primary care physician. History of Present Illness Ms Moncada is a 57 year old female with history of depression, possible Bipolar disorder, SINDHU, DM and HTN per medical record who presented to the ED after brother found her unresponsive in a hotel room. Per Social work discussion with brother patient was supposed to be meeting a gentleman, but it is not clear if he ever arrived. Brother is concerned that she became suicidal and drank alcohol and took p ills. Per EMS report there were open pill bottles suggestive of her taking 14 tizanidine 4mg and 14 amitriptyline 50mg as well as a bottle of wine. Patient on arrival to the ED was hemodynamically sta ble and would arouse to sternal rub and was felt to be protecting her airway. EKG showed somewhat increased QRS of 108 and patient was given 2amps bicarb and poison control was contacted. Patient did have a mild decrease in her blood pressure which improved with IV fluids. On arrival to the ICU patient was somnolent but appears to be protecting her airway. She is hemodynamically stable. EKG showe d QRS of 108 again and patient was given an additional 2 amps of Bicarb and started on bicarb drip per TCA overdose algorithm. Past Medical History Back pain Suicidal thoughts Depression DM HTN Surgical History Surgical/Procedure Hx Neck ([id number]). Health Status Allergies Allergic Reactions (Selected) NKA Medication List (Selected) Inpatient Medications Ordered Dextrose 50% Syringe*: 12.5 Gm, IV Push, PRN, PRN: See Comments Glucagon: 1 mg, Subcut, PRN, PRN: See Comments Insulin Lispro Sliding Scale (HumaLOG)*: Conservative Scale, Subcut, Q6h Water for Inj, Sterile* 1,000 mL + sodium bicarbonate 150 mEq: 250 mL/hr, IV, Stop: 07/09/18 2:17:00 EST famotidine: 20 mg, IV Push, BID heparin: 5,000 Unit, Subcut, Q12h oxygen: 1 Each, Inhalation, Daily Review of Systems Unable to obtain as patient is encephalopathic Family History Family Hx No family history items have been selected or recorded. Unable to obtain as patient is encephalopathic Social History Unable to obtain as patient is encephalopathic Physical Examination Last Charted Vital Signs Temperature: 96.1 (06/09 01:15) Pulse: 73 (06/09 03:00) Respiration: 14 (06/09 03:00) BP: 104/63 (06/09 03:00) Pulse Ox: 96 (06/09 03:00) Oxygen Delivery: Nasal cannula (06/08 23:55) O2 Device Flow: 2 L/min Pain Score: Not Charted General: Somnolent but arouses to sternal rub and loud voice. Protecting airway Eyes: No conjunctival injection pupils dilated but reactive bilaterally. HENT: Normocephalic atraumatic Neck: No lymphadenopathy or JVD Chest: No increased work of breathing, good air entry. Lungs clear to auscultation bilaterally Cardiac: Regular rate and rhythm. S1and S2 appreciated without murmur. Trace lower extremity pitting edema. Distal pulses palpable on all 4 extremities Abdomen: Soft, nontender, non, distended abdomen. Bowel sounds present in all 4 quadrants Neuro: Withdraws to pain. Somnolent but awakens to sternal rub and loud voice. Moves all extremities, no evident focal deficit. Results Review General Results Lab Results : LAB 06/09/2018 05:08 EDT Blood Gas ph Venous POCT 7.35 pCO2 Venous POCT 67 mmHg HI pO2 Venous POCT 26 mmHg HCO3 Venous POCT 37.2 mMol/L HI O2 Saturation Venous POCT 41.2 % Total Hemoglobin Venous POCT 10.5 gm/dL LOW Total CO2 Venous POCT 35.4 mMol/L HI O2 Content POCT 5.9 VOL% Lactic Acid POCT 1.3 mMol/L Base Excess POCT 9.6 mMol/L HI FiO2 POCT 28.0 O2 Hemoglobin POCT 39.9 % LOW Carboxyhemoglobin POCT 1.2 % Methemoglobin POCT 1.9 % HI Sodium Whole Blood POCT 143 mEq/L Potassium Whole Blood POCT 3.1 mEq/L LOW Anion Gap POCT 100 mEq/L Anion Gap POCT 5.9 mEq/L LOW Glucose POCT 88 mg/dL Calcium Ionized POCT 1.06 mMol/L LOW Hematocrit POCT 32 % LOW 06/09/2018 02:34 EDT Sample Type POCT Arterial Blood Gas pH Arterial POCT 7.36 pCO2 Arterial POCT 58 mmHg HI pO2 Arterial POCT 65 mmHg LOW HCO3 Arterial POCT 32.4 mMol/L HI O2 Saturation Arterial POCT 91.8 % LOW Total CO2 Arterial POCT 30.3 mMol/L HI O2 Content POCT 13.7 VOL% Lactic Acid POCT 0.6 mMol/L Base Excess POCT 5.6 mMol/L HI FiO2 POCT 28.0 O2 Hemoglobin POCT 89.2 % LOW Carboxyhemoglobin POCT 1.3 % Methemoglobin POCT 1.6 % HI Sodium POCT 143 mEq/L Potassium POCT 2.9 mEq/L LOW Chloride POCT 103 mEq/L Anion Gap POCT 7.1 mEq/L LOW Glucose POCT 103 mg/dL Calcium Ionized POCT 1.10 mMol/L LOW Hemoglobin POCT 10.9 gm/dL LOW Hematocrit POCT 33 % LOW 06/09/2018 02:00 EDT Color Urine YELLOW Appearance Urine HAZY Specific Parnell Urine 1.015 pH Urine 5.0 Glucose Urine NORMAL Ketones Urine NEGATIVE Bilirubin Urine NEGATIVE Blood Urine 70/UL Urobilinogen Urine NORMAL Leukocyte Esterase Urine NEGATIVE Nitrite Urine NEGATIVE Protein Urine 100MG/DL WBC Urine 7 /hpf HI RBC Urine <1 /hpf Squamous Epithelial Cells Urine MANY Bacteria Urine OCCASSNL Mucous Urine FEW Granular Casts 5 /lpf Hyaline Casts 76 /lpf WBC Clumps Urine MODERATE 06/09/2018 00:54 EDT Test POCT -Clinic Negative 06/08/2018 23:55 EDT Blood Gas pH Venous 7.239 LOW pCO2 Venous 65.6 mmHg HI pO2 Venous 35.9 mmHg HCO3 Venous 27.1 mMol/L O2 Saturation Venous 53.0 % Base Excess (Venous) -1.3 mMol/L Total Hemoglobin Venous 12.8 gm/dL Hematocrit Venous 39.2 % Carboxyhemoglobin Venous 0.7 % O2 Hemoglobin Venous 52.3 % Methemoglobin (Venous) 0.6 % Total CO2 Venous 25.5 mMol/L Lactic Acid Whole Blood 1.7 mMol/L Sodium Whole Blood 137 mEq/L Potassium Whole Blood 3.2 mEq/L LOW Chloride Whole Blood 103 mEq/L Anion Gap Blood Gas 6.9 mEq/L Glucose Blood Gas 121 mg/dL HI Calcium Ionized 1.15 mMol/L 06/08/2018 23:02 EDT Amphetamine Scr Urine NEGATIVE Barbiturates Scr Urine NEGATIVE Benzodiazepine Scr Urine POSITIVE (Modified) Cocaine Scr Urine NEGATIVE Methadone Scr Urine NEGATIVE Opiate Scr Urine NEGATIVE Oxycodone Scr Urine NEGATIVE Tetrahydrocannabinoid Scr Urine NEGATIVE Tricyclic Antidepressant Scr Urine POSITIVE Color Urine YELLOW Appearance Urine HAZY Specific Parnell Urine 1.008 pH Urine 6.0 Glucose Urine NORMAL Ketones Urine NEGATIVE Bilirubin Urine NEGATIVE Blood Urine NEGATIVE Urobilinogen Urine NORMAL Leukocyte Esterase Urine NEGATIVE Nitrite Urine NEGATIVE Protein Urine 30MG/DL WBC Urine 1 /hpf RBC Urine <1 /hpf Squamous Epithelial Cells Urine RARE Bacteria Urine RARE Mucous Urine RARE 06/08/2018 22:33 EDT Sodium Level 137 mMol/L Potassium Level 3.5 mMol/L LOW Chloride Level 97 mMol/L LOW Carbon Dioxide Level 26 mMol/L Anion Gap 14.0 mMol/L Glucose Level 132 mg/dL HI BUN 15 mg/dL Creatinine 2.16 mg/dL HI Est CrCl IBW (mL/min)-RX 25.19 mL/min Est CrCl AdjBW (mL/min)-RX 35.72 mL/min GFR Estimated Non 23 mL/min GFR Estimated 28 mL/min Calcium Total 9.8 mg/dL Alkaline Phosphatase 73 Units/L ALT/SGPT 38 Units/L AST/SGOT 52 Units/L HI Bilirubin Total 0.7 mg/dL Bilirubin Direct 0.2 mg/dL Protein 7.1 gm/dL Albumin Level 4.0 gm/dL Bilirubin Indirect 0.5 mg/dL Magnesium Level 2.2 mg/dL Creatine Kinase Random 3,078 Units/L HI Troponin I <0.03 ng/mL Acetaminophen (Tylenol) Level <10 mcg/mL Alcohol (Ethanol) Level <0.01 gm/dL Salicylate Level <4.0 mg/dL Thyroid Stimulating Hormone 2.19 mcIU/mL WBC Count 10.1 thou/mcL Red Blood Cell Count 5.43 million/mcL HI Hemoglobin 13.9 gm/dL Hematocrit 43.4 % MCV 79.9 FL LOW MCH 25.6 Picograms LOW MCHC 32.0 gm/dL RDW 16.6 % HI Platelet Count 322 thou/mcL MPV 8.7 FL Neutrophil 71.3 % HI Lymphocyte 23.4 % Monocyte 4.1 % Eosinophil 0.7 % Basophil 0.5 % Neutrophil Absolute 7.20 thou/mcL Lymphocyte Absolute 2.40 thou/mcL Monocyte Absolute 0.40 thou/mcL Eosinophil Absolute 0.10 thou/mcL Basophil Absolute 0.10 thou/mcL 06/08/2018 22:29 EDT Blood Gas pH Venous 7.252 LOW pCO2 Venous 67.3 mmHg HI pO2 Venous 32.3 mmHg HCO3 Venous 28.6 mMol/L HI O2 Saturation Venous 47.3 % Base Excess (Venous) 0.0 mMol/L Total Hemoglobin Venous 14.3 gm/dL Hematocrit Venous 43.8 % Carboxyhemoglobin Venous 0.5 % O2 Hemoglobin Venous 46.9 % Methemoglobin (Venous) 0.3 % Total CO2 Venous 26.5 mMol/L Lactic Acid Whole Blood 2.1 mMol/L Sodium Whole Blood 135 mEq/L LOW Potassium Whole Blood 3.4 mEq/L LOW Chloride Whole Blood 100 mEq/L Anion Gap Blood Gas 6.3 mEq/L Glucose Blood Gas 131 mg/dL HI Calcium Ionized 1.24 mMol/L 06/08/2018 22:24 EDT Glucose POCT-LAB 107 mg/dL Impression and Plan Impression and Plan Diagnosis Drug overdose, multiple drugs ([id number] T50.901A, Working, Medical). Assessment: Suspected intentional drug overdose. Patient found with bottle of amitryptiline and tizanidine next to her along with wine. Poison control following. Repeat EKG shows QRS of 102. Poison control okay with discontinuing bicarb drip. Hypercapnia likely secondary to underlying SINDHU (patient snoring loudly) as well as medication overdose. Hypothermia likely secondary to drug overdose. Currently on bare hugger Acute metabolic encephalopathy from above GEETHA likely prerenal in addition to mild rhabdo from unknown time unresponsive. CK level 3000 on admission Plan: Monitor EKG q2 hours goal QRS duration <100. VBG improving. Consider starting BIPAP as mental status continues to improve. Follow up renal function and CK with fluid administration Continue bear hugger Psych consult and sitter for possible suicide attempt. ISS and NPO until improvement in mental status. Lines: PIV DVT prophy: Lovenox Code Status: Full Code. BLOOD GAS POCT ABG Collected: 06/09/2018 Status: F Source: [facility] 2:34 AM [facility] (UPLOAD) REPOSITORY TYPE CODE TESTS RESULT OUT OF REFERENCE UNITS RANGE LAB 86176-1(L 94.0-99.0 % OINC) O2 Low Hemoglobin POCT 89.2 LAB 39791-5(L 1.12-1.32 mMol/L OINC) Low Calcium Ionized POCT 1.10 LAB 2703-7(LO 83-108 mmHg INC) pO2 Low Arterial POCT 65 LAB 2026-3(LO 22.0-29.0 mMol/L INC) Total CO2 Arterial High POCT 30.3 LAB 06311-3(L 10.0-20.0 mEq/L OINC) Low Anion Gap POCT 7.1 LAB 2019-8(LO 32-48 mmHg INC) pCO2 Arterial POCT High 58 LAB 49288-0(L -2.0-3.0 mMol/L OINC) Base Excess POCT High 5.6 LAB 59613-4(L % OINC) Carboxyhemoglobin POCT Normal 1.3 Result Comment: NON SMOKERS <1.5% SMOKERS 1.5 - 9.0% LAB 42710-2(LOINC) 70-110 mg/dL Normal Glucose POCT 103 LAB 2744-1(LOINC) 7.35-7.45 Normal Blood Gas pH Arterial POCT 7.36 Result Comment: A result of UNABLE indicates the actual value could not be calculated. Treatment ranges and critical values established by Patient Care Services. All follow-up actions were taken by Patient Care Services. LAB 33825-0(LOINC) VOL% O2 Content Normal POCT 13.7 LAB 2075-0(LOINC) 98-10 mEq/L 6 Chloride POCT Normal 103 LAB 27831-9(LOINC) 0.5-1 mMol/L .6 Lactic Acid Normal POCT 0.6 LAB 718-7(LOINC) 12.0- gm/dL Low 16.0 Hemoglobin POCT 10.9 LAB 2708-6(LOINC) 95.0- % Low 99.0 O2 Saturation Arterial POCT 91.8 LAB 06400-6(LOINC) FiO2 POCT Normal 28.0 LAB 16158-0(LOINC) 35-45 % Low Hematocrit POCT 33 LAB 22989-4(LOINC) 3.5-5 mEq/L Low .0 Potassium POCT 2.9 LAB 11131-3(LOINC) 21.0- mMol/L 28.0 HCO3 Arterial High POCT 32.4 LAB 2614-6(LOINC) 0.2-0 % .6 Methemoglobin High POCT 1.6 LAB 76740-8(LOINC) Sample Type Normal POCT Arterial LAB 2951-2(LOINC) 136-1 mEq/L 46 Sodium POCT Normal 143 Performed By: #### [id number] #### POINT OF CARE HISTORY AND PHYSICAL Observed: 06/09/2018 Status: F Source: [place] 2:17 AM [facility] REPOSITORY Patient: NADYA MONCADA MRN: [id number] Age: 57 years Sex: Female : 1960 Associated Diagnoses: None Author: Osmel Shearer MD Supervising Physician Comments Documentation By: Attending Physician. Admission Information Reason for admission Chief complaint: Altered mental status. Accompanied By: Patient is alone. Source of History Source of History: the patient's medical record. History of Present Illness 57 yo F with PMH of HTN, HLD, DM, GERD, obesity, anxiety and depression, chronic back pain presented with altered mental status. Per EMS report, family found pt less responsive with bottles of wine and medication bottle next to the patient. Pt apparently took 14 tabs of Tizainidine 4mg and amitryptyline 50 mg each and drank 1 and a half bottles of wine. Pt is somnolent and unable to provide any history. No family at bedside. Past Medical History Past Medical Hx No active or resolved past medical history items have been selected or recorded. Active Back pain Suicidal thoughts Surgical History Surgical/Procedure Hx Neck (SNOMED CT [id number]). Health Status Allergies Allergic Reactions (Selected) NKA Medication List (Selected) Inpatient Medications Ordered Normal Saline 1,000 mL: 100 mL/hr, IV, Stop: 07/08/18 22:48:00 EST oxygen: 1 Each, Inhalation, Daily Review of Systems Unable to obtain due to clinical condition Family History Family Hx No family history items have been selected or recorded. unable to obtain due to clinical condition and no family at beside Social History Social history reviewed Recreational drug use _unable to obtain Social History (Tobacco Hx/Audit C) Smoking Status: Unknown if ever smoked How Often Do You Drink ..: Unable to Obtain (0) Physical Examination Last Charted Vital Signs Temperature: 96.1 (06/09 01:15) Pulse: 78 (06/09 01:25) Respiration: 13 (06/09 01:25) BP: 112/65 (06/09 01:25) Pulse Ox: 99 (06/09 01:25) Oxygen Delivery: Nasal cannula (06/08 23:55) O2 Device Flow: 2 L/min Pain Score: Not Charted General: somnolent Skin: Warm/dry. No icterus noted. No rashes visible. Eyes: Conjunctivae clear. Sclera anicteric. No drainage noted. pupils dilated/sluggish response HENT: Normocephalic/atraumatic. No nasal deviation/ no nasal drainage. Lips dry. Tongue normal Neck: Supple. No thyromegaly or adenopathy noted. No carotid bruit auscultated. Cardiovascular: No thrills or heaves. Regular rate and rhythm. S1-S2. No murmurs, rubs or gallops.. Respiratory: Patient appears to be breathing comfortably. No wheeze, rales or rhonchi noted bilaterally.. Abdomen: Positive bowel sounds. No organomegaly noted. Soft nontender nondistended.. Extremities: No signs of muscle atrophy noted. No clubbing, cyanosis or edema. 2+ radial pulses. Psych: unable to assess Neurology: pt somnolent, responds to deep noxious stimuli, sometimes to verbal stimuli, unable to perform full neuro assessment Results Review Labs - Last 36 hours (Max 2 / lab test) CHEMISTRY Sodium 137 (06/08 22:) Potassium 3.5 (06/08 22:) Chloride 97 (06/08 22:) CO2 26 (06/08 22:) Glucose 132 (06/08) Glucose POCT No result BUN 15 (06/08 22:) Creatinine 2.16 (06/08) Calcium Total 9.8 (06/08) Magnesium 2.2 (06/08) HEMATOLOGY WBC 10.1 (06/08 22:) RBC 5.43 (06/08) Hb 13.9 (06/08) Hematocrit 43.4 (06/08) Platelets 322 (06/08) MCV 79.9 (06/08 22:) MCH 25.6 (06/08) RDW 16.6 (06/08 22:) MCHC 32.0 (06/08 22:) Neutrophil Ab 7.20 (06/08 22:) Monocyte Ab 0.40 (06/08 22:) Eosinophil Ab 0.10 (06/08 22:) Basophil Ab 0.10 (06/08) Lymphocyte Ab 2.40 (06/08 22:) OTHER LABS Anion Gap 14.0 mMol/L (06/08) Est CrCl IBW (mL/min)-RX 25.19 mL/min (06/08) Est CrCl AdjBW (mL/min)-R 35.72 mL/min (06/08) GFR Est. Non 23 mL/min (06/08) GFR Est. Lucia 28 mL/min (06/08) Alkaline Phosphatase 73 Units/L (06/08) ALT/SGPT 38 Units/L (06/08) AST/SGOT 52 Units/L (06/08) Bilirubin Total 0.7 mg/dL (06/08) Bilirubin Direct 0.2 mg/dL (06/08) Protein 7.1 gm/dL (06/08) Albumin Level 4.0 gm/dL (06/08) Bilirubin Indirect 0.5 mg/dL (06/08) Calcium Ionized 1.15 mMol/L (06/08) 1.24 mMol/L (06/08) Creatine Kinase Random 3078 Units/L (06/08) Troponin I <0.03 ng/mL (06/08) Acetaminophen (Tylenol) L <10 mcg/mL (06/08) Alcohol (Ethanol) Level <0.01 gm/dL (06/08) Amphetamine Scr Urine NEGATIVE (06/08 23:) Barbiturates Scr Urine NEGATIVE (06/08 23:) Benzodiazepine Scr Urine POSITIVE (06/08) Cocaine Scr Urine NEGATIVE (06/08) Methadone Scr Urine NEGATIVE (06/08) Opiate Scr Urine NEGATIVE (06/08 23:) Oxycodone Scr Urine NEGATIVE (06/08 23:) Salicylate Level <4.0 mg/dL (06/08) Tetrahydrocannabinoid Scr NEGATIVE (06/08) Tricyclic Antidepressant POSITIVE (06/08) Thyroid Stimulating Hormo 2.19 mcIU/mL (06/08) MPV 8.7 FL (06/08) Neutrophil 71.3 % (10/07 22:33) Lymphocyte 23.4 % (06/08 22:33) Monocyte 4.1 % (06/08 22:33) Eosinophil 0.7 % (06/08 22:) Basophil 0.5 % (06/08 22:) General Results Radiology : RADIOLOGY 06/09/2018 01:[address] Head w/o Contrast REPORT No acute findings Arterial calcifications. Impression and Plan 57 yo F with PMH of HTN, HLD, DM, GERD, obesity, anxiety and depression, chronic back pain presented with altered mental status. Per EMS report, family found pt less responsive with bottles of wine and medication bottle next to the patient. Pt apparently took 14 tabs of Tizainidine 4mg and amitryptyline 50 mg each and drank 1 and a half bottles of wine. Poison control contacted by ER team. Recommend frequent QRS assessment and bicarb if needed ##Plan 1. Drug overdose: continue frequent EKGs for QRS monitoring. Goal <100. s/p Bicarb IVP x 2. Full bicarb ordered per CC team. -hypotensive in ER but BP now improved with fluids -on bear hugger for hypothermia -currently pink slipped. Psych consult when pt more awake 2. Acute metabolic encephalopathy: 2/ 1. monitor for respiratory depression 3. Elevated Creatinine: unclear baseline. On IVF. f/u repeat in AM 4. Hypokalemia: replaced. monitor 5. DM2: NPO for now pending improvement in mental status. follow accucheks and cover with sliding scale 6. HTN: BP borderline low. hold home meds 7. GERD: will add pepcid IV for now 8. DVT ppx: Lovenox sq Code Full My Concern for this patient is drug overdose Hospitalization is medically necessary for frequent QRS assessment, bicarb drip This patient may be at risk for progressing on to cardiac arrhythmias Impression and Plan Assessment Diagnosis Drug overdose, multiple drugs ([id number] T50.901A, Working, Medical). Condition Critical. Estimated length of stay Distribute Copy of H and P Copy of History and Physical URINALYSIS WITH Collected: 06/09/2018 Status: F Source: [place] [facility] 2:00 AM [facility] WITH REFLEX REPOSITORY TYPE CODE TESTS RESULT OUT OF RANGE REFERENCE UNITS LAB 13291-8(L NEGATIVE OINC) Normal Nitrite Urine NEGATIVE LAB 5767-9(LO CLEAR INC) Appearance Abnormal Urine HAZY LAB 5792-7(LO NORMAL INC) Normal Glucose Urine NORMAL LAB 5804-0(LO NEGATIVE INC) Protein Abnormal Urine 100MG/DL LAB 5811-5(LO 1.002-1.030 INC) Normal Specific Parnell Urine 1.015 LAB 5797-6(LO NEGATIVE INC) Normal Ketones Urine NEGATIVE LAB 5799-2(LO NEGATIVE INC) Normal Leukocyte Esterase Urine NEGATIVE LAB 19493-4(L NEGATIVE OINC) Normal Bilirubin Urine NEGATIVE LAB 5803-2(LO 4.5-8.0 INC) Normal pH Urine 5.0 LAB 5794-3(LO NEGATIVE INC) Blood Urine Abnormal 70/UL LAB 64357-2(L NORMAL OINC) Normal Urobilinogen NORMAL Urine LAB 5778-6(LO YELLOW INC) Normal Color Urine YELLOW Performed By: #### [id number], 44141-1 #### [facility], [address] [place] [address]. URINALYSIS MICROSCOPIC Collected: 06/09/2018 Status: F Source: [place] 2:00 AM [facility] SYSTEM REPOSITORY TYPE CODE TESTS RESULT OUT OF RANGE REFERENCE UNITS LAB 5793-5(SUKHDEEP /lpf NC) Normal Granular Casts 5 LAB 8247-9(SUKHDEEP NONE/LPF NC) Abnormal Mucous Urine FEW LAB 5769-5(SUKHDEEP NONE/HPF NC) Abnormal Bacteria Urine OCCASSNL LAB 64155-9(LO NONE/HPF INC) WBC Abnormal Clumps Urine MODERATE LAB 5796-8(SUKHDEEP /lpf NC) Normal Hyaline Casts 76 LAB 40783-2(LO FEW/LPF INC) Abnormal Squamous MANY Epithelial Cells Urine LAB 39880-2(LO 0-5/HPF /hpf INC) Normal RBC Urine <1 LAB 5821-4x1(L 0-5 /hpf OINC) High WBC Urine 7 Performed By: #### 33315-3, 62234-0 #### [facility], [address] [place] [address]. CT HEAD W/O CONTRAST Observed: 06/09/2018 Status: F Source: [place] 1:08 AM [facility] SYSTEM REPOSITORY EXAM: CT Head w/o Contrast DATE OF EXAM:06/09/2018 1:08 AM CLINICAL INDICATIONS: Other-, overdose COMPARISON: None FINDINGS: Normal brain volume. No intracranial hemorrhage or mass effect. Arterial calcifications. The paranasal sinuses, mastoid air cells, and orbits are unremarkable. IMPRESSION: No acute findings Arterial calcifications. Magalys Rojo thanks you for the opportunity to care for your patient. Workstation ID: [id number] - [id number] FINAL REPORT Dictated By: Alejandro Williamson MD 06/09/2018 01:08 Assigned Physician: Alejandro Williamson MD Reviewed and Electronically Signed By: Alejandro Williamson MD 06/09/2018 01:11 Transcribed by: QUENTIN 06/09/2018 01:08 Technologist: JOHN BLOOD GAS VENOUS Collected: 06/08/2018 Status: F Source: [facility] 11:55 PM [facility] REPOSITORY TYPE CODE TESTS RESULT OUT OF REFERENCE UNITS RANGE LAB 2711-0(LO 40.0-70.0 % INC) O2 Saturation Venous Normal 53.0 LAB 2069-3(LO 98-106 mEq/L INC) Chloride Whole Blood Normal 103 LAB 2705-2(LO 25.0-40.0 mmHg INC) pO2 Venous Normal 35.9 LAB 61444-2(L 1.15-1.37 mMol/L OINC) Calcium Ionized Normal 1.15 LAB 2716-9(LO 40.0-70.0 % INC) O2 Hemoglobin Venous Normal 52.3 LAB 2021-4(LO 41.0-51.0 mmHg INC) pCO2 Venous High 65.6 LAB 6298-4(LO 3.5-5.0 mEq/L INC) Low Potassium Whole Blood 3.2 LAB 84093-8(L 0.5-2.2 mMol/L OINC) Lactic Acid Whole Normal Blood 1.7 LAB 35436-5(L 36.0-53.0 % OINC) Hematocrit Venous Normal 39.2 LAB 2746-6(LO 7.310-7.410 INC) Low Blood Gas pH Venous 7.239 LAB 2600-5(LO 136-146 mEq/L INC) Sodium Whole Blood Normal 137 LAB 2339-0(LO 70-110 mg/dL INC) Glucose Blood Gas High 121 LAB 2617-9(LO 0.2-0.6 % INC) Methemoglobin (Venous) Normal 0.6 LAB 85435-9(L 12.0-16.0 gm/dL OINC) Total Hemoglobin Normal Venous 12.8 LAB 98138-0(L 6.0-18.0 mEq/L OINC) Anion Gap Blood Gas Normal 6.9 LAB 2032-1(LO % INC) Carboxyhemoglobin Normal Venous 0.7 Result Comment: NON SMOKERS <1.5% SMOKERS 1.5 - 9.0% LAB 68636-0(LOINC) 21.0-28.0 mMol/L Normal HCO3 Venous 27.1 LAB 7-1(LOINC) 22.0-29.0 mMol/L Normal Total CO2 Venous 25.5 LAB 1927-3(LOINC) -2.0-3.0 mMol/L Normal Base Excess -1.3 (Venous) Performed By: #### [id number] #### [facility], [address] [place] [address]. XR CHEST 1 VIEW Observed: 06/08/2018 Status: F Source: [place] 11:11 PM [facility]ALTH SYSTEM REPOSITORY EXAMINATION TYPE: XR Chest 1 View DATE OF EXAM: 06/08/2018 11:11 PM HISTORY: Chest Pain. Intoxicated patient, overdose, altered level of consciousness COMPARISON:NONE VIEWS:Portable AP semiupright FINDINGS: The lungs are clear with less than full inspiratory volume. The pulmonary vascular pattern is normal. Heart size is within normal limits, and mediastinal and hilar contours are unremarkable. There is no pneumothorax, pleural effusion or acute bony abnormality. There is plate and screw fixation visual ized in the lower cervical spine. IMPRESSION: 1. No acute cardiopulmonary disease. Magalys Rojo thanks you for the opportunity to care for your patient. Workstation ID: [id number] - [id number] FINAL REPORT Dictated By: Fabiano Hayden MD 06/08/2018 23:19 Assigned Physician: Fabiano Hayden MD Reviewed and Electronically Signed By: Fabiano Hayden MD 06/08/2018 23:20 Transcribed by: [facility] 06/08/2018 23:19 URINALYSIS WITH Collected: 06/08/2018 Status: F Source: [facility] 11:02 PM [facility] WITH REFLEX REPOSITORY TYPE CODE TESTS RESULT OUT OF RANGE REFERENCE UNITS LAB 5767-9(LO CLEAR INC) Appearance Abnormal Urine HAZY LAB 5794-3(LO NEGATIVE INC) Normal Blood Urine NEGATIVE LAB 20470-6(L NEGATIVE OINC) Normal Bilirubin Urine NEGATIVE LAB 5792-7(LO NORMAL INC) Normal Glucose Urine NORMAL LAB 5811-5(LO 1.002-1.030 INC) Normal Specific Parnell Urine 1.008 LAB 57903-9(L NORMAL OINC) Normal Urobilinogen NORMAL Urine LAB 5803-2(LO 4.5-8.0 INC) Normal pH Urine 6.0 LAB 56127-4(L NEGATIVE OINC) Normal Nitrite Urine NEGATIVE LAB 5804-0(LO NEGATIVE INC) Protein Abnormal Urine 30MG/DL LAB 5778-6(LO YELLOW INC) Normal Color Urine YELLOW LAB 5797-6(LO NEGATIVE INC) Normal Ketones Urine NEGATIVE LAB 5799-2(LO NEGATIVE INC) Normal Leukocyte Esterase Urine NEGATIVE Performed By: #### [id number], 82958-5 #### [facility], [address] [place] [address]. URINALYSIS MICROSCOPIC Collected: 06/08/2018 Status: F Source: [place] 11:02 [facility] SYSTEM REPOSITORY TYPE CODE TESTS RESULT OUT OF RANGE REFERENCE UNITS LAB 8247-9(SUKHDEEP NONE/LPF NC) Mucous Abnormal Urine RARE LAB 31012-5(LO FEW/LPF INC) Normal Squamous Epithelial Cells RARE Urine LAB 5769-5(SUKHDEEP NONE/HPF NC) Bacteria Abnormal Urine RARE LAB 75545-7(LO 0-5/HPF /hpf INC) Normal RBC Urine <1 LAB 5821-4x1(L 0-5 /hpf OINC) Normal WBC Urine 1 Performed By: #### 63837-6, 50522-5 #### [facility], [address] [place] [address]. DRUG ABUSE SCREEN 8 Collected: 06/08/2018 Status: F Source: [place] URINE 11:02 HEALTH SYSTEM REPOSITORY TYPE CODE TESTS RESULT OUT OF RANGE REFERENCE UNITS LAB 41802-6(LO INC) Normal Opiate NEGATIVE Scr Urine Result Comment: INTERPRETATION TABLE FOR SAP8 URINE DRUG SCREEN PRESUMPTIVE POSITIVE CUT-OFF VALUES (NG/DL) TEST POSITIVE CUT-OFF VALUES(NG/ML) Amphetamine 1000 Barbiturate 200 Benzodiazepines 200 Cannabinoids 50 Cocaine 300 Methadone 300 Opiates 300 Oxycodone 100 All drugs identified should be considered presumptive positives. Presumptive Positive Screens can be confirmed by a reference lab upon request. ALL DRUG SCREEN RESULTS ARE FOR MEDICAL PURPOSES ONLY. LAB 17833-7(LOINC) Barbiturates Scr Urine Normal NEGATIVE LAB 44657-1(LOINC) Cocaine Scr Urine Normal NEGATIVE LAB 59428-2(LOINC) NEGATIVE Methadone Scr Urine Normal NEGATIVE LAB 52974-6(LOINC) Tetrahydrocannabinoid Normal Scr Urine NEGATIVE LAB 38658-7(LOINC) Oxycodone Scr Urine Normal NEGATIVE LAB 59100-7(LOINC) Amphetamine Scr Urine Normal NEGATIVE LAB 11739-2(LOINC) Benzodiazepine Scr Urine Abnormal POSITIVE Result Comment: Confirmatory testing available upon request. Performed By: #### 03328-5 #### [facility], [address] [place], [place]. TRICYCLIC ANTIDEPRESSANTS Collected: 06/08/2018 Status: F Source: [facility] URINE 11:02 PM HEALTH SYSTEM REPOSITORY TYPE CODE TESTS RESULT OUT OF RANGE REFERENCE UNITS LAB 30436-9(L OINC) Tricyclic Abnormal Antidepressant Scr POSITIVE Urine Performed By: #### 54721-9 #### [facility], [address] [place], [place]. ED PHYSICIAN NOTES Observed: 06/08/2018 Status: C Source: [facility] 10:34 PM HEALTH SYSTEM REPOSITORY Chief Complaint OD ED Assigned Provider/Time Time Seen: Louise Knox DO / 06/08/2018 22:13 History of Present Illness I have reviewed and agree with the nursing notes. 7-year-old female arrives via EMS for altered mental status. History is provided by her family members who are at bedside. They state the patient has been off and on talking to someone from out of the country. Planned to need up with him this weekend and are not sure whether he showed up.he states he found her just before arrival barely conscious. They note that she open refill prescription and packages and a bottle of wine beside her. They suspect a suicide attempt. She is on many medications, please see scanned document. Remainder of history is limited. REVIEW OF SYSTEMS: UNOBTAINABLE DUE TO PATIENT CONDITION PHYSICAL EXAM: Initial Vital Signs: 06/08/18 22:20:00 Pulse: 85 BP: 107/75 Respiration: 18 Pulse Ox: 97 Last Charted Vital Signs: Temperature: 94.6 (06/08 21:58) Pulse: 85 (06/08 22:20) Respiration: 18 (06/08 22:20) BP: 107/75 (06/08 22:20) Pulse Ox: 97 (06/08 22:20) Oxygen Delivery: Room air (06/08 21:58) Pain Score: Not Charted PULSE OX INTERPRETATION: The Pulse ox is [ 97], which is [normal] Constitutional: [Drowsy, awakens to voice. NAD] Head: [Normocephalic, Atraumatic] Eyes: [Pupils 7mm and sluggish bilaterally, no scleral icterus] Nose: [Normal in appearance, no rhinorrhea] Mouth: [Dry mucous membranes] Neck: [Supple, trachea midline] Cardiovascular: [Regular rate and rhythm, no murmurs, rubs, gallops. Peripheral pulses intact and symmetrical bilaterally.] Respiratory: [Clear to auscultation bilaterally without wheezes, rhonchi, rales. Equal air exchange without accessory muscle use] Gastrointestinal: [Non-distended, non-tender. Soft, No rebound or guarding.] Genitourinary: [Deferred] Skin: [Normal for age, no rash or lesions] Musculoskeletal: [No edema. No bony or joint deformities.] Neurologic: [Drowsy. Awakens to voice and follows commands. GCS 14. CN II-XII intact. MS and sensation grossly intact and symmetrical.] Psych: [Normal affect] DIFFERENTIAL DIAGNOSIS: [medication overdose, drug overdose, alcohol intoxication, suicide attempt, head injury, metabolic encephalopathy ] PUBLIC IMPROVEMENT INSPECTOR INTERPRETATION: Rhythm strip interpreted by [ myself] shows [sinus ] rhythm, rate of [66 ], no ectopy. PREVIOUS RECORDS REVIEWED: [ yes] CRITICAL CARE TIME: [ ] My attention was given to the direct care of this patient for [35 ] minutes of critical care time due to (include reason) [overdose with unstable vitals ]. The critical care treatment and management interventions I performed included [vital signs monitoring, discussion with poison center and consultants, reassessments ] Time spent teaching and performing procedures billed separately is not included. This time is exclusively billable from procedures. ED PROCEDURES: [ ] PROGRESS NOTES: [2247 I spoke with poison center. Recommend supportive care for tizanidine and monitoring EKG and QRS q2h for amitriptyline. Bicarb boluses as needed. 2351 Bicarb ordered for prolonged QRS. 0115 Poison center, [place], called back to check on patient. She was informed of the patient's other medications and hypotension with prolonged QRS, requiring bicarb. ] MEDICAL DECISION MAKING: [Patient arrives via EMS for altered mental status. This is a suspected suicide attempt. Patient has possibly taken many different medications. She was hypotensive and hypot hermic on arrival, vitals were otherwise stable. GCS 14, and she is protecting her airway. Pupils dilated to 7 mm. Initial EKG with normal intervals. however, QRS wide, and bicarbonate. With the Center was contacted, and they recommend serial EKGs with VBGs q2h for 6 hours to monitor QRS. If prolonged, bicarb bolus recommended. Symptomatic care for tizanidine. VBG with respiratory acidosis. Tox work-u p signifant for benzos, which are not onher medication list. Tylenol and ASA levels not elevated. etoh wnl. Labs otherwise non-diagnostic. CXR non-acute. I suspect that symptoms are related to overdose. She was intermittently hypotensive in ED but responded to fluids. Given warm fluids for hypothermia, and melissa hugger ordered but was delayed due to equipment transport reasons. She was admitted to the ICU for additional evaluation and management. She was taken for head CT on the way to the ICU. ] DISCHARGE PLAN: Condition: [Stable]. Disposition: [Medically cleared], Admitted to ICU, Sound FINAL DIAGNOSIS: [medication overdose ] SCRIBE USED? No Physical Exam Vitals and Measurements T: 94.6 F HR: 85 RR: 18 BP: 107/75 SpO2: 97% HT: 165 cm WT: 116.362 kg BMI: 42.7 Assessment/Plan Ordered: Dextrose 5% in Water 1,000 mL + sodium bicarbonate 150 mEq, 1,000 ml, 150 mL/hr, IV, 06/08/18 22:31:00 EDT, Routine, 1,000 mL, Infusion, 06/08/18 22:31:00 EDT, 116.362 kg Acetaminophen (Tylenol) Level Alcohol (Ethanol) Level Melissa Ramirez Blood Gas Venous BMP (Basic Metabolic Panel) Cardiac Monitoring CBC with Differential Drug Abuse Screen 8 Urine ECG 12 Lead Glucose POCT for Docking Process Insert IV Liver Function Panel Magnesium Level Salicylate Level Troponin I TSH (Thyroid Stimulating Hormone) Urinalysis with Reflex Microscopic + Reflex Culture Problem List/Past Medical History Ongoing Back pain Suicidal thoughts Historical No qualifying data Procedure/Surgical History Neck. Medications Home No active home medications ED Administered Medications Sodium Chloride 0.9%: 1,000 mL Adm Date/time:06/08/2018 22:20 Route: IV Sodium Chloride 0.9%: 1,000 mL Adm Date/time:06/09/2018 00:02 Route: IV sodium bicarbonate: 100 mEq Adm Date/time:06/09/2018 00:15 Route: IV Push Prescriptions No active Prescriptions Allergies NKA Social History Alcohol - Medium Risk Tobacco Smoking Status: Never smoked Diagnostic Results POINT OF CARE TESTING glucose poct-lab: 107 IMAGING RESULTS: Emergency Physician Interpretation: Radiologist CT Interpretation: Interpretation No qualifying data available. Emergency Physician Interpretation: Radiologist Diagnostics Interpretation: Interpretation No qualifying data available. Emergency Physician Interpretation: Radiologist US Interpretation: Interpretation No qualifying data available. Emergency Physician Interpretation: Radiologist MR Interpretation: Interpretation No qualifying data available. EKG INTERPRETATIONS: Time: [4 ] Rate: [89 ] EKG interpreted by [ myself] Sinus rhythm with artifact. No ST elevations or T wave inversions. Q wave in lead III. QRS 90, QTc 486 Time:2350 Rate 66 EKG interpreted by Myself. Sinus rhythm. NO ST elevations. Q wave in lead III. QRS 106, QTc 488 Time: 0051 Rate 72 EKG interpreted by myself. Sinus rhythm. No ST elevations. Q wave in lead III. QRS 102, QTc 501 ORDERS PLACED: Laboratory POC GLUC Louise Knox DO June 08, 2018 22:25 Completed CBC with Differential Louise Knox DO June 08, 2018 22:14 InProcess BMP (Basic Metabolic Panel) Louise Knox DO June 08, 2018 22:14 InProcess Magnesium Level Louise Knox DO June 08, 2018 22:14 InProcess Liver Function Panel Louise Knox DO June 08, 2018 22:14 InProcess Blood Gas Venous Abilio BORJA Louise June 08, 2018 22:14 InProcess Troponin I Abilio BORJA Louise June 08, 2018 22:14 InProcess Alcohol (Ethanol) Level Abilio BORJA Louise June 08, 2018 22:14 InProcess Acetaminophen (Tylenol) Level Abilio BORJA Louise June 08, 2018 22:14 InProcess Salicylate Level Abilio BORJA Louise June 08, 2018 22:15 InProcess TSH (Thyroid Stimulating Hormone) Abilio BORJA Louise June 08, 2018 22:15 InProcess Glucose POCT for Docking Process Abilio BORJA Louise June 08, 2018 22:14 Ordered Urinalysis with Reflex Microscopic + Reflex Culture Abilio BORJA Louise June 08, 2018 22:14 Ordered Drug Abuse Screen 8 Urine Louise Knox DO June 08, 2018 22:14 Ordered EKG / Respiratory / Ancillary ECG 12 Lead Louise Knox DO June 08, 2018 22:14 Ordered My concern for this patient is: drug overdose Hospitalization is necessary due to: bicarb administration, monitoring of airway and vitals The patient may be at risk of: airway compromise, hypotension, arrhythmia, CBC WITH DIFFERENTIAL Collected: 06/08/2018 Status: F Source: [place] 10:33 PM HEALTH SYSTEM REPOSITORY TYPE CODE TESTS RESULT OUT OF REFERENCE UNITS RANGE LAB 31191-0(LO 3.80-5.10 million/mcL INC) Red High Blood Cell 5.43 Count LAB 09186-2(LO 142-424 thou/mcL INC) Normal Platelet Count 322 LAB 18605-0(LO 0.0-12.0 % INC) Normal Monocyte 4.1 LAB 731-0(LOIN 1.00-4.80 thou/mcL C) Normal Lymphocyte 2.40 Absolute LAB 55664-4(LO 4.6-10.2 thou/mcL INC) WBC Normal Count 10.1 LAB 08170-9(LO 80.0-97.0 FL INC) Low MCV 79.9 LAB 92849-2(LO 22.0-44.0 % INC) Normal Lymphocyte 23.4 LAB 16568-4(LO 6.2-12.1 FL INC) MPV Normal 8.7 LAB 59251-1(LO 40.0-70.0 % INC) High Neutrophil 71.3 LAB 742-7(LOIN 0.00-0.90 thou/mcL C) Normal Monocyte 0.40 Absolute LAB 17129-3(LO 35.0-45.0 % INC) Normal Hematocrit 43.4 LAB 86947-2(LO 32.0-36.0 gm/dL INC) MCHC Normal 32.0 LAB 02177-9(LO 0.0-2.0 % INC) Normal Basophil 0.5 LAB 704-7(LOIN 0.00-0.20 thou/mcL C) Normal Basophil 0.10 Absolute LAB 718-7(LOIN 12.0-16.0 gm/dL C) Normal Hemoglobin 13.9 LAB 83326-4(LO 27.0-34.0 Picograms INC) Low MCH 25.6 LAB 15219-7(LO 0.0-7.0 % INC) Normal Eosinophil 0.7 LAB 711-2(LOIN 0.00-0.70 thou/mcL C) Normal Eosinophil 0.10 Absolute LAB 751-8(LOIN 1.80-7.70 thou/mcL C) Normal Neutrophil 7.20 Absolute LAB 95020-2(LO 11.0-14.8 % INC) RDW High 16.6 Performed By: #### 21887-3 #### [facility], [address] [place] [address]. TROPONIN I Collected: 06/08/2018 Status: F Source: [place] [address] SYSTEM REPOSITORY TYPE CODE TESTS RESULT OUT OF RANGE REFERENCE UNITS LAB 59744-6(LO <0.06 ng/mL INC) Normal Troponin I <0.03 Performed By: #### 33694-6, 33389-3, 66431- 3x1, 08725-9, 71245-9, 20716-4, 83347-8, 3016-3, 38078-9, 76039-9, 2157-6 #### [facility], [address] [place] [address]. GFRAA Collected: 06/08/2018 Status: F Source: [place] 10:33 HEALTH SYSTEM REPOSITORY TYPE CODE TESTS RESULT OUT OF RANGE REFERENCE UNITS LAB 31252-3(LO mL/min INC) GFR Normal Estimated 28 Result Comment: The MDRD equation has not been validated for those over 70 years, women, patients with serious co-morbid conditions, or with extremes of body size, muscle mass of nutritional status. Performed By: #### 47645-7, 10942-7, 71142- 3x1, 91654-1, 29915-8, 87326-5, 39870-3, 3016-3, 44010-6, 12962-4, 2157-6 #### [facility], [address] [place], [place]. GFRBB Collected: 06/08/2018 Status: F Source: [place] 10:33 PM HEALTH SYSTEM REPOSITORY TYPE CODE TESTS RESULT OUT OF RANGE REFERENCE UNITS LAB 60011-4(LO mL/min INC) GFR Normal Estimated Non 23 Performed By: #### 06176-7, 95112-5, 83436- 3x1, 78933-6, 51614-3, 19830-3, 85403-5, 3016-3, 78749-1, 02463-1, 2157-6 #### [facility], [address] [place], [place]. MAGNESIUM LEVEL Collected: 06/08/2018 Status: F Source: [place] 10:33 PM HEALTH SYSTEM REPOSITORY TYPE CODE TESTS RESULT OUT OF RANGE REFERENCE UNITS LAB 56841-7(LO 1.8-2.5 mg/dL INC) Normal Magnesium Level 2.2 Performed By: #### 46194-2, 53261-1, 62576- 3x1, 07780-7, 62045-8, 70370-7, 08972-3, 3016-3, 04115-2, 57213-7, 2157-6 #### [facility], [address] [place], [place]. BASIC METABOLIC PANEL Collected: 06/08/2018 Status: F Source: [place] 10:33 PM HEALTH SYSTEM REPOSITORY TYPE CODE TESTS RESULT OUT OF RANGE REFERENCE UNITS LAB 95960-9(LO 8.9-10.3 mg/dL INC) Calcium Normal Total 9.8 LAB 24963-2(LO 8-20 mg/dL INC) BUN Normal 15 LAB 2951-2(SUKHDEEP 136-145 mMol/L NC) Sodium Normal Level 137 LAB 2823-3(SUKHDEEP 3.6-5.1 mMol/L NC) Low Potassium Level 3.5 LAB 2075-0(SUKHDEEP 98-107 mMol/L NC) Low Chloride Level 97 LAB 2160-0(SUKHDEEP 0.66-1.30 mg/dL NC) High Creatinine 2.16 LAB 20323-3(LO 6.0-18.0 mMol/L INC) Anion Normal Gap 14.0 LAB 11987-3(LO 70-110 mg/dL INC) High Glucose Level 132 LAB 2028-9(SUKHDEEP 22-32 mMol/L NC) Carbon Normal Dioxide Level 26 Performed By: #### 10813-8, 17737-2, 61089- 3x1, 52895-0, 92312-6, 47899-9, 50274-7, 3016-3, 19121-4, 01686-8, 2157-6 #### [facility], [address] [place] [address]. HEPATIC FUNCTION Collected: 06/08/2018 Status: F Source: [facility] DARREL PANEL 10:33 PM HEALTH SYSTEM REPOSITORY TYPE CODE TESTS RESULT OUT OF RANGE REFERENCE UNITS LAB 1742-6(SUKHDEEP 14-63 Units/L NC) ALT/SGPT Normal 38 LAB 1974-2(SUKHDEEP 0.3-1.2 mg/dL NC) Bilirubin Normal Total 0.7 LAB 1920-8(SUKHDEEP 15-41 Units/L NC) High AST/SGOT 52 LAB 1970-1(SUKHDEEP 0.0-1.0 mg/dL NC) Bilirubin Normal Indirect 0.5 LAB 1967-7(SUKHDEEP 0.1-0.5 mg/dL NC) Bilirubin Normal Direct 0.2 LAB 2885-2(SUKHDEEP 6.1-7.9 gm/dL NC) Protein Normal 7.1 LAB 1751-7(SUKHDEEP 3.5-4.8 gm/dL NC) Albumin Normal Level 4.0 LAB 6768-6(SUKHDEEP 32-91 Units/L NC) Alkaline Normal Phosphatase 73 Performed By: #### 22572-8, 33933-2, 11519- 3x1, 14079-9, 29279-9, 46549-7, 82833-5, 3016-3, 74018-2, 02151-3, 2157-6 #### [facility], [address] [place] [address]. ALCOHOL (ETHANOL) Collected: 06/08/2018 Status: F Source: [facility] DARREL LEVEL 10:33 PM HEALTH SYSTEM REPOSITORY TYPE CODE TESTS RESULT OUT OF RANGE REFERENCE UNITS LAB 5643-2(LOIN 0.00-0.00 gm/dL C) Normal Alcohol <0.01 (Ethanol) Level Performed By: #### 87195-4, 14799-6, 05138- 3x1, 94165-8, 93783-9, 01766-4, 43991-1, 3016-3, 99467-7, 64086-9, 2157-6 #### [facility], [address] [place] [address]. THYROID STIMULATING Collected: 06/08/2018 Status: F Source: [place] HORMONE 10:33 PM HEALTH SYSTEM REPOSITORY TYPE CODE TESTS RESULT OUT OF RANGE REFERENCE UNITS LAB 3015-5(SUKHDEEP 0.45-5.33 mcIU/mL NC) Thyroid Normal Stimulating 2.19 Hormone Performed By: #### 41826-1, 76080-8, 66900- 3x1, 77529-8, 98587-5, 12918-9, 08894-0, 3016-3, 82758-4, 97580-7, 2157-6 #### [facility], [address] [place] [address]. ACETAMINOPHEN (TYLENOL) Collected: 06/08/2018 Status: F Source: [facility]AR[facility] LEVEL 10:33 PM HEALTH SYSTEM REPOSITORY TYPE CODE TESTS RESULT OUT OF REFERENCE UNITS RANGE LAB 3298-7(SUKHDEEP 10.0-30.0 mcg/mL NC) Acetaminophen Normal (Tylenol) Level <10 Performed By: #### 94858-1, 04070-6, 38114- 3x1, 68157-3, 83964-7, 17791-7, 40346-8, 3016-3, 39943-8, 62405-4, 2157-6 #### [facility], [address] [place] [address]. SALICYLATE LEVEL Collected: 06/08/2018 Status: F Source: [place] 10:33 PM HEALTH SYSTEM REPOSITORY TYPE CODE TESTS RESULT OUT OF RANGE REFERENCE UNITS LAB 4024-6(SUKHDEEP 2.8-30.0 mg/dL NC) Normal Salicylate Level <4.0 Performed By: #### 62154-0, 72541-2, 69848- 3x1, 93243-9, 59968-4, 20436-0, 26674-3, 3016-3, 37250-9, 28910-1, 2157-6 #### [facility], [address] [place], [place]. CREATINE KINASE (CK) Collected: 06/08/2018 Status: F Source: [place] 10:33 [facility] SYSTEM REPOSITORY TYPE CODE TESTS RESULT OUT OF REFERENCE UNITS RANGE LAB 2157-6(LOIN 21-232 Units/L C) High Creatine 3078 Kinase Random Performed By: #### 54135-0, 26846-0, 43722- 3x1, 72962-3, 81721-2, 95293-2, 16699-9, 3016-3, 34866-0, 87632-9, 2157-6 #### [facility], [address] [place] [address]. BLOOD GAS VENOUS Collected: 06/08/2018 Status: F Source: [place] 10:29 PM HEALTH SYSTEM REPOSITORY TYPE CODE TESTS RESULT OUT OF REFERENCE UNITS RANGE LAB 2617-9(LO 0.2-0.6 % INC) Methemoglobin (Venous) Normal 0.3 LAB 39697-7(L 12.0-16.0 gm/dL OINC) Total Hemoglobin Normal Venous 14.3 LAB 55873-3(L 6.0-18.0 mEq/L OINC) Anion Gap Blood Gas Normal 6.3 LAB 2031-(LO % INC) Carboxyhemoglobin Normal Venous 0.5 Result Comment: NON SMOKERS <1.5% SMOKERS 1.5 - 9.0% LAB 97125-9(LOINC) 21.0-28.0 mMol/L HCO3 High Venous 28.6 LAB 2026-(LOINC) 22.0-29.0 mMol/L Total Normal CO2 Venous 26.5 LAB 07572-7(LOINC) 0.5-2.2 mMol/L Normal Lactic Acid Whole Blood 2.1 LAB 2705-2(LOINC) 25.0-40.0 mmHg pO2 Normal Venous 32.3 LAB 2711-0(LOINC) 40.0-70.0 % O2 Normal Saturation Venous 47.3 LAB 2069-3(LOINC) 98-106 mEq/L Normal Chloride Whole Blood 100 LAB 1927-3(LOINC) -2.0-3.0 mMol/L Base Normal Excess (Venous) 0.0 LAB 6298-4(LOINC) 3.5-5.0 mEq/L Low Potassium Whole Blood 3.4 LAB 2716-9(LOINC) 40.0-70.0 % O2 Normal Hemoglobin Venous 46.9 LAB 2021-4(LOINC) 41.0-51.0 mmHg pCO2 High Venous 67.3 LAB 29954-1(LOINC) 1.15-1.37 mMol/L Normal Calcium Ionized 1.24 LAB 2600-5(LOINC) 136-146 mEq/L Low Sodium Whole Blood 135 LAB 12783-5(LOINC) 36.0-53.0 % Normal Hematocrit Venous 43.8 LAB 2339-0(LOINC) 70-110 mg/dL High Glucose Blood Gas 131 LAB 2746-6(LOINC) 7.310-7.410 Low Blood Gas pH Venous 7.252 Performed By: #### 67778-3t2 #### [facility], [facility] [place], [place]. GLUCOSE POCT Collected: 06/08/2018 Status: F Source: [place] [facility] (UPLOADED) 10:24 PM HEALTH SYSTEM REPOSITORY TYPE CODE TESTS RESULT OUT OF RANGE REFERENCE UNITS LAB 2340-8(LOIN 70-110 mg/dL C) Normal Glucose 107 POCT-LAB Result Comment: Treatment ranges and critical values established by Patient Care Services. All follow-up actions were taken by Patient Care Services. Performed By: #### 2430-8 #### [facility] POINT OF CARE PRE-ARRIVAL FORM Observed: 06/08/2018 Status: F Source: [place] [facility] 9:57 PM HEALTH SYSTEM REPOSITORY Pre-Arrival Summary Name: [id number], Current Date: 06/08/2018 21:57:19 EDT Gender: Date of : Age: Pre-Arrival Type: EMS ETA: 06/08/2018 22:10:00 EDT Primary Care Physician: Presenting Problem: Pre-Arrival User: Marge Miramontes RN Referring Source: Location: PreArrival Emergency Department Pre Arrival Form EMS: PHYSICIAN REFERRAL: Reason for Visit: 57 F alt LOC, +ETOH, amytriptilline, tizanidine 160/90, 16, 98%/10l, 84 bs 94 Vital Signs: Medications Given: Comments: XR TOE 3V AP/LAT/OBL Observed: 05/29/2018 Status: F Source: [facility] 3:48 PM CL[facility]IC [facility] REPOSITORY * * *Final Report* * * DATE OF EXAM: May 29 2018 3:48PM WRX [id number] - XR TOE 3V AP/LAT/OBL LT / PROCEDURE REASON: Onychomycosis * * * * Physician Interpretation * * * * FIRST DIGIT RIGHT FOOT Indication: Pain nail thickening Views: AP, Lateral and oblique Comparison: None. Findings: There is no evidence for fracture or dislocation. There is no radiopaque foreign body or destructive lesion . Osteoarthritis IMPRESSION: No acute pathology . FIRST DIGIT LEFT FOOT Indication: Pain nail thickening Views: AP, Lateral and oblique Comparison: None. Findings: There is no evidence for fracture or dislocation. There is no radiopaque foreign body or destructive lesion . Osteoarthritis IMPRESSION: No acute pathology . Pathology Manager: MANISHA Transcribe Date/Time: May 29 2018 6:03P Dictated by : ALEXEI CRAIN DO This examination was interpreted and the report reviewed and electronically signed by: ALEXEI CRAIN DO on May 29 2018 6:06PM EST [id number] XR TOE 3V AP/LAT/OBL Observed: 05/29/2018 Status: F Source: [facility] 3:48 PM [facility] [place] REPOSITORY * * *Final Report* * * DATE OF EXAM: May 29 2018 3:48PM WRX 5269 - XR TOE 3V AP/LAT/OBL RT / PROCEDURE REASON: Onychomycosis * * * * Physician Interpretation * * * * FIRST DIGIT RIGHT FOOT Indication: Pain nail thickening Views: AP, Lateral and oblique Comparison: None. Findings: There is no evidence for fracture or dislocation. There is no radiopaque foreign body or destructive lesion . Osteoarthritis IMPRESSION: No acute pathology . FIRST DIGIT LEFT FOOT Indication: Pain nail thickening Views: AP, Lateral and oblique Comparison: None. Findings: There is no evidence for fracture or dislocation. There is no radiopaque foreign body or destructive lesion . Osteoarthritis IMPRESSION: No acute pathology . Pathology Manager: MANISHA Transcribe Date/Time: May 29 2018 6:03P Dictated by : ALEXEI CRAIN DO This examination was interpreted and the report reviewed and electronically signed by: ALEXEI CRAIN DO on May 29 2018 6:06PM EST [id number] PROGRESS Observed: 05/29/2018 Status: COMPLETED Source: [place] 3:38 PM [facility] REPOSITORY HNO ID: [id number] Author: Itzel Braxton (Rt) Service: (none) Author Type: Iron Erector Type: Progress Notes Filed: 05/29/2018 3:48 PM Note Text: Radiology Service Progress Note PATIENT NAME: Nadya Moncada DATE OF SERVICE: May 29, 2018 TIME: 3:38 PM PATIENT IDENTITY VERIFICATION COMPLETED USING TWO (2) METHODS: Patient confirmed name verbally and Date of . PATIENT GENDER DATA: Female. status: : No status: NO. PATIENT RELEVANT IMPLANT DATA REVIEWED: Not Applicable RADIOLOGY DEPARTMENT: General X-ray: Exam(s) Completed: Lower Extremity X-Ray(s): Toes, Bilateral: PERIPHERAL IV DATA: Not applicable SIGNED BY: RT Irais May 29, 2018 3:38 PM PROGRESS Observed: 05/29/2018 Status: COMPLETED Source: [place] 3:21 PM [facility] REPOSITORY HNO ID: [id number] Author: Christian Salmeron Service: (none) Author Type: Physician Type: Progress Notes Filed: 05/29/2018 3:31 PM Note Text: Subjective: Patient presents to clinic c/o painful toenails. They state that the nails are especially painful with shoe gear and pressure. Patient states that nails 1-5 b/l are painful. Patient admits to being diabetic and states that their blood sugar was 80-90 mg/dL this past week. No other pedal complaints at this time. Patient states no change in medications or medical history since last visit. Objective: Patient presents to clinic ambulating in diabetic shoes Vasc: DP and PT pulses are palpable bilateral. CFT is less than 5 seconds bilateral. Skin temperature is warm to cool proximal to distal bilateral. There is no edema or varicosities noted. Neuro: Protective sensation is intact to the foot and toes when tested with the 5.07 SWM bilateral. Vibratory sensation is decreased at the hallux IPJ bilateral. The hallux is downgoing bilateral. Derm: Nails 1-5 b/l are painful, discolored-yellow, thick, crumbly, dystrophic and with subungal debris. Skin is dry and scaly bilateral. There are no hyperkeratosis, ulcerations, scars, verruca or other lesions noted. Ortho: Muscle strength is 5/5 for all pedal groups tested. Ankle joint DF is full with the knee extended with no pain or crepitus noted. 1st MPJ ROM is full bilateral. 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 Nails 1-5 bilateral were debrided in length and thickness. Continue with amlactin for dryness. Recommend bid use. Will check xray of b/l hallux toe evaluate for any exostosis causing pain beneath nail plate Patient was instructed on the continued importance of diabetic foot care along with proper diet and keeping their blood sugar under control to prevent complications. Patient is to RTC in 3-4 months. Christian Salmeron DPM PROGRESS Observed: 05/29/2018 Status: COMPLETED Source: [place] 2:51 PM CLINIC [facility]IN [place] REPOSITORY HNO ID: [id number] Author: Taya Hannah RN Service: (none) Author Type: (none) Type: Progress Notes Filed: 05/29/2018 3:31 PM Note Text: AMB ROOMING INTAKE FLOWSHEET DATA Risk Screening Do you have concerns about personal safety or safety in the home?: No Patient presents for diabetic foot care. She did not check her blood sugar this morning but states it has been running around 100 mg/dL. She recently received her diabetic shoes from [employer] and is very happy with them. Taya Hannah RN CNOV Observed: 05/29/2018 Status: COMPLETED Source: [place] 2:30 PM [facility] REPOSITORY Office Visit (PODIWS) NADYA MONCADA ([id number]) 1960 F Date Time Provider Department 05/29/18 2:30 PM CHRISTIAN SALMERON During your visit today, we recorded the following information about you: Taya Hannah RN 05/29/2018 3:31 PM Signed AMB ROOMING INTAKE FLOWSHEET DATA Risk Screening Do you have concerns about personal safety or safety in the home?: No Patient presents for diabetic foot care. She did not check her blood sugar this morning but states it has been running around 100 mg/dL. She recently received her diabetic shoes from [employer] and is very happy with them. Taya Salmeron DPM 05/29/2018 3:31 PM Signed Subjective: Patient presents to clinic c/o painful toenails. They state that the nails are especially painful with shoe gear and pressure. Patient states that nails 1-5 b/l are painful. Patient admits to being diabetic and states that their blood sugar was 80-90 mg/dL this past week. No other pedal complaints at this time. Patient states no change in medications or medical history since last visit. Objective: Patient presents to clinic ambulating in diabetic shoes Vasc: DP and PT pulses are palpable bilateral. CFT is less than 5 seconds bilateral. Skin temperature is warm to cool proximal to distal bilateral. There is no edema or varicosities noted. Neuro: Protective sensation is intact to the foot and toes when tested with the 5.07 SWM bilateral. Vibratory sensation is decreased at the hallux IPJ bilateral. The hallux is downgoing bilateral. Derm: Nails 1-5 b/l are painful, discolored-yellow, thick, crumbly, dystrophic and with subungal debris. Skin is dry and scaly bilateral. There are no hyperkeratosis, ulcerations, scars, verruca or other lesions noted. Ortho: Muscle strength is 5/5 for all pedal groups tested. Ankle joint DF is full with the knee extended with no pain or crepitus noted. 1st MPJ ROM is full bilateral. 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 Nails 1-5 bilateral were debrided in length and thickness. Continue with amlactin for dryness. Recommend bid use. Will check xray of b/l hallux toe evaluate for any exostosis causing pain beneath nail plate Patient was instructed on the continued importance of diabetic foot care along with proper diet and keeping their blood sugar under control to prevent complications. Patient is to RTC in 3-4 months. Christian Salmeron DPM Referring Provider: SELF [[id number]] Allergies As of Date: 05/29/2018 (No Known Allergies) Date Reviewed: 05/29/2018 Reviewed by: Taya Hannah RN - Fully Assessed Reason for Visit: Diabetic Foot Care [916] Primary Visit Diagnosis:Onychomycosis [B35.1] Other Visit Diagnoses:Pain in toe of left foot [M79.675] Pain in toe of right foot [M79.674] Other diabetic neurological complication associated with type 2 diabetes mellitus (HCC) [E11.49] Xerosis cutis [L85.3] Order(s):XR TOE AP/LAT/OBL RT [[id number]] Order #: [id number] FUTURE XR TOE AP/LAT/OBL LT [[id number]] Order #: [id number] FUTURE Prescriptions as of 05/29/2018 Sig: METFORMIN 500 MG TABLET Take 500 mg by mouth daily wi* LYRICA 100 MG CAPSULE Take 1 capsule by mouth three* TRAMADOL 50 MG TABLET Take 1 tablet by mouth four t* BUSPIRONE 15 MG TABLET Take 15 mg by mouth three jody* MELOXICAM 15 MG TABLET Take 15 mg by mouth once maria eugenia* ATORVASTATIN 40 MG TABLET Take 40 mg by mouth once maria eugenia* UREA 40 % TOPICAL CREAM Apply 1 application to affect* AMMONIUM LACTATE-SODIUM LACTA* Apply 1 application to affect* LOSARTAN 50 MG TABLET Take 50 mg by mouth once maria eugenia* OMEPRAZOLE 40 MG CAPSULE,MARLENE* Take 40 mg by mouth once maria eugenia* AMITRIPTYLINE 50 MG TABLET Take 50 mg by mouth daily at * TIZANIDINE 4 MG TABLET Take 4 mg by mouth every 6 ho* BUPROPION XL 150 MG TAB Take 300 mg by mouth once kaylynn* SERTRALINE 100 MG TABLET Take 200 mg by mouth once kaylynn* PREGABALIN 50 MG CAPSULE Take 50 mg by mouth three jody* MILNACIPRAN 50 MG TABLET Take by mouth twice daily. METRONIDAZOLE 0.75 % TOPICAL * Apply 1 application to affect* POLYETHYLENE GLYCOL 3350 17 G* Take 17 g by mouth once daily. CHOLECALCIFEROL (VITAMIN D3) * Take by mouth. FENTANYL 75 MCG/HR TRANSDERMA* Apply 1 Patch as directed delmi* Problem List As Of Date 05/29/2018 Noted Resolved Type 2 diabetes mellitus without retinopathy (H*INVALID FOR* Other vitreous opacities [H43.399] INVALID FOR*05/25/2016 Vitreous floaters of both eyes [H43.393] INVALID FOR* Essential hypertension [I10] INVALID FOR* Prediabetes [R73.03] INVALID FOR* Corneal abrasion, right, subsequent encounter [*INVALID FOR* Contusion of right eyeball [S05.11XA] INVALID FOR* Rce (recurrent corneal erosion), 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]INVALID FOR* Corneal epithelial and basement membrane dystro*INVALID FOR* Encounter Status:Closed by CHRISTIAN SALMERON DPM on 05/29/18 US THYROID Observed: 05/23/2018 Status: F Source: [facility] 9:04 AM [facility] REPOSITORY Exam Date/Time: 05/23/2018 09:30 EDT Reason for Exam: CAROTID ARTERY STENOSIS MULTIPLE THYROID NODULES;Other (please specify) Report STUDY: US Thyroid; 05/23/2018 9:30 am INDICATION: Other (please specify). COMPARISON: 05/28/2016 ACCESSION NUMBER(S): [id number] ORDERING CLINICIAN: Dipika El TECHNIQUE: Multiple ultrasonographic images of the thyroid gland were obtained. FINDINGS: Heterogeneous mildly enlarged thyroid gland with normal internal vascularity. RIGHT LOBE: The right thyroid lobe measures 6.1 x 1.7 x 2 cm. A mixed solid cystic nodule measuring up to 1.8 x 1.1 x 1.5 cm in the mid right thyroid lobe, not significantly changed in comparison with the prior exam. LEFT LOBE: The left thyroid lobe measures 4.8 x 1.2 x 1.5 cm. A 1.7 x 0.9 x 1.3 cm cystic nodule in the lower pole of the left thyroid lobe, unchanged. ISTHMUS: The isthmus measures up to 0.3 cm in thickness. CERVICAL LYMPH NODES: No cervical lymphadenopathy. IMPRESSION: Multinodular goiter without significant change in comparison with the prior exam. FINAL REPORT Dictated: 05/23/2018 10:24 am Thi Andre MD Signed (Electronic Signature): 05/23/2018 10:24 am Signed by: Thi Andre MD Technologist: ASTER UMANZOR Collected: 05/23/2018 Status: F Source: [facility] 8:54 AM [facility] REPOSITORY TYPE CODE TESTS RESULT OUT OF RANGE REFERENCE UNITS LAB [id number](L 70-99 mg/dL OINC) High Glucose Lvl 111 LAB [id number](L 8.4-10.2 mg/dL OINC) Calcium Normal Lvl 9.3 LAB [id number](L 136-145 mEq/L OINC) Sodium Normal Lvl 141 LAB [id number](L 3.5-5.1 mEq/L OINC) Normal Potassium Lvl 3.5 LAB [id number](L 98-107 mEq/L OINC) Low Chloride 95 LAB [id number](L 24.0-30.0 mEq/L OINC) High CO2 30.7 LAB 62078678(L 7-18 mg/dL OINC) BUN Normal 14 LAB 2882042(LO 0.6-1.3 mg/dL INC) Normal Creatinine 0.9 LAB [id number](L 5.4-30.0 ratio OINC) Normal BUN/Creat Ratio 15.6 Performed By: #### [id number] #### SHARON [employer] [address] [place] [address] MICROALB/CREAT RATIO Collected: 05/23/2018 Status: F Source: [facility] 8:54 AM [facility] REPOSITORY TYPE CODE TESTS RESULT OUT OF REFERENCE UNITS RANGE LAB [id number](L 0.0-1.9 mg/dL OINC) Ur High Microalbumin 11.9 LAB [id number](L 20.0-300.0 mg/dL OINC) Ur Creat High 332.0 LAB [id number](L 0-30 ug/mg OINC) Microalb/Creat High 36 Performed By: #### [id number] #### SHARON [employer] [address] [place] [address] EGFR Collected: 05/23/2018 Status: F Source: [facility] 8:54 AM [facility] REPOSITORY Order Comment: Order added by Discern Expert. TYPE CODE TESTS RESULT OUT OF RANGE REFERENCE UNITS LAB [id number](LO mL/min/1.73 INC) m2 Normal eGFR >60 LAB [id number](LO mL/min/1.73 INC) m2 Normal eGFR AA >60 Performed By: #### [id number] #### SHARON [employer] [address] [place], [place] [id number] LIPID PROFILE Collected: 05/23/2018 Status: F Source: [facility] 8:54 AM [facility] REPOSITORY TYPE CODE TESTS RESULT OUT OF RANGE REFERENCE UNITS LAB 19648942(LO 50-200 mg/dL INC) Normal Chol 147 Result Comment: TOTAL CHOLEESTEROL: <200 NORMAL 200 - 239 BORDERLINE HIGH >240 HIGH LAB 44399541(LOINC) >=41 mg/dL Normal HDL 56 LAB 79976931(LOINC) 0-130 mg/dL Normal LDL 67 Result Comment: <100 OPTIMAL 100-129 NEAR / ABOVE OPTIMAL 130-159 BORDERLINE HIGH 160-189 HIGH >190 VERY HIGH CALC LDL NOT VALID WHEN TRIGLYCERIDE IS >400 MG/DL LAB 04671291(LOINC) 35-150 mg/dL Normal Trig 122 Result Comment: <150 NORMAL 150-199 BORDERLINE HIGH 200-499 HIGH >500 VERY HIGH LAB 90337787(LOINC) Normal VLDL 24 Performed By: #### [id number] #### SHARON [employer] [address] [id number] HGBA1C Collected: 05/23/2018 Status: F Source: [facility] 8:54 AM [facility] REPOSITORY TYPE CODE TESTS RESULT OUT OF REFERENCE UNITS RANGE LAB [id number]( 4.0-6.3 % LOINC) High Hemoglobin A1c 6.6 Performed By: #### [id number] #### SHARON Chemistry Manual [address] [place] [address] PROGRESS Observed: 05/06/2018 Status: COMPLETED Source: [place] 3:56 PM [facility] REPOSITORY HNO ID: [id number] Author: Juan J Park Service: (none) Author Type: Physician Type: Progress Notes Filed: 05/06/2018 3:58 PM Note Text: ASSESSMENT/PLAN: 1. 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 Rce (recurrent corneal erosion), right - ICD9: 371.42, ICD10: H18.831 Continue: 1) Systane Gel Overnight Therapy four times daily into right eye. 2) Sameer 128 5% Ointment at bedtime into right eye. 3. Type 2 diabetes mellitus without retinopathy (HCC) - Both Eyes - ICD9: 250.00, ICD10: E11.9 Please keep your blood sugar under good control to minimize risk of ocular complications from diabetes. Continue care with DO Juan J Haney MD I have confirmed and edited as necessary the relevant ophthalmic history, review of systems, surgical history, and ophthalmological examination findings as obtained by the ophthalmic technical staff. I have seen and examined Nadya Moncada. I have discussed the examination findings, diagnosis, and treatment options with Nadya Moncada and/or her family. I have also reviewed and agree with the assessment and plan as stated above and agree with all its relevant components. I gave the patient the opportunity to ask questions about the findings, diagnosis, and treatment options. IGP W/HPV RFX Collected: 04/22/2018 Status: F Source: [facility] [id number] 12:25 PM [facility] REPOSITORY Order Comment: Thin Prep. Menopause TYPE CODE TESTS RESULT OUT OF RANGE REFERENCE UNITS LAB [id number](LO INC) Normal See Ref Lab Diagnosis: Report Performed By: #### [id number] #### SHARON Send Outs Subsection [address] [place] [id number] PATHOLOGY ([facility]) Observed: 04/22/2018 Status: F Source: [facility] 12:00 AM REPOSITORY FINAL GYNECOLOGIC CYTOLOGY REPORT [id number] SPECIMEN ADEQUACY Satisfactory for Evaluation Endocervical component absent but acceptable due to patient age/history Sample is obscured by inflammation. GENERAL CATEGORIZATION Negative for Intraepithelial Lesion or Malignancy COMMENT Atrophic cellular pattern. CLINICAL HISTORY Menopause SPECIMEN (A) SCREENING CERVICAL/ENDOCERVICAL THIN PREP VIAL Performed at [facility], [address] [place] [address] Screened by: Signed Out by: JOSÉ DOVER Laborer/Grade Check Reported: 04/24/2018 Performed By: #### DOPSTER #### [facility] [address] [place] [id number] PROGRESS Observed: 03/24/2018 Status: COMPLETED Source: [place] 4:42 PM [facility] REPOSIT[facility] HNO ID: [id number] Author: Juan J Park Service: (none) Author Type: Physician Type: Progress Notes Filed: 03/24/2018 4:52 PM Note Text: ASSESSMENT/PLAN: 1. Corneal abrasion, right, subsequent encounter - ICD9: V58.89, ICD10: S05.01XD (primary diagnosis) Healing well. 2. Rce (recurrent corneal erosion), right - ICD9: 371.42, ICD10: H18.831 Continue: Systane Gel Overnight Therapy four times daily into right eye. Sameer 128 5% Ointment at bedtime into right eye. Return to office in 6 weeks for follow up. Juan J Park MD I have confirmed and edited as necessary the relevant ophthalmic history, review of systems, surgical history, and ophthalmological examination findings as obtained by the ophthalmic technical staff. I have seen and examined Nadya Moncada. I have discussed the examination findings, diagnosis, and treatment options with Nadya Moncada and/or her family. I have also reviewed and agree with the assessment and plan as stated above and agree with all its relevant components. I gave the patient the opportunity to ask questions about the findings, diagnosis, and treatment options. PROGRESS Observed: 03/06/2018 Status: COMPLETED Source: [place] 4:19 PM [facility] REPOSITORY HNO ID: [id number] Author: Juan J Park Service: (none) Author Type: Physician Type: Progress Notes Filed: 03/06/2018 4:33 PM Note Text: ASSESSMENT/PLAN: 1. Corneal abrasion, right, subsequent encounter - ICD9: V58.89, ICD10: S05.01XD (primary diagnosis) -Patient to bring the following medications to next visit: 1) Systane gel 4 times a day 2) Sameer 128 5% Ointment ( Patient has not started yet, Dr. Park advised to begin) BCL REMOVED WITH FORCEPS 2. Rce (recurrent corneal erosion), right - ICD9: 371.42, ICD10: H18.831 -Patient to bring the following medications to next visit: 1) Systane gel 4 times a day 2) Sameer 128 5% Ointment(Patient has not started yet, Dr. Park advised pt to begin) 3. Type 2 diabetes mellitus without retinopathy (HCC) - Both Eyes - ICD9: 250.00, ICD10: E11.9 -Please keep your blood sugar under good control to minimize risk of ocular complications from diabetes. 4. Essential hypertension - ICD9: 401.9, ICD10: I10 -Continue care with PCP Advised patient to be seen by Her feed in worker for an updated glasses prescription Juan J Park MD I have confirmed and edited as necessary the relevant ophthalmic history, review of systems, surgical history, and ophthalmological examination findings as obtained by the ophthalmic technical staff. I have seen and examined Nadya Moncada. I have discussed the examination findings, diagnosis, and treatment options with Nadya Moncada and/or her family. I have also reviewed and agree with the assessment and plan as stated above and agree with all its relevant components. I gave the patient the opportunity to ask questions about the findings, diagnosis, and treatment options. If you have any questions please contact our office at [phone]. After office hours or on the weekend, please call the receptionist/telephone operator at [facility] ([phone]) and page Dr. Park. PROGRESS Observed: 03/01/2018 Status: COMPLETED Source: [place] 11:23 AM [facility] REPOSITORY HNO ID: [id number] Author: Juan J Park Service: (none) Author Type: Physician Type: Progress Notes Filed: 03/01/2018 11:25 AM Note Text: ASSESSMENT/PLAN: 1. Corneal abrasion, right, subsequent encounter - ICD9: V58.89, ICD10: S05.01XD (primary diagnosis) 2. Rce (recurrent corneal erosion), right - ICD9: 371.42, ICD10: H18.831 Current Ophthalmic Meds ofloxacin (OCUFLOX) 0.3 % ophthalmic solution (Taking) Use 1 Drop in the right eye four times daily. Ketorolac Tromethamine (ACULAR LS) 0.4 % drop (Taking) Use 1 Drop in the right eye twice daily. Patient to bring the following medications to next visit: 1) Systane Balance 2) Sameer 128 5% Ointment Juan J Park MD I have confirmed and edited as necessary the relevant ophthalmic history, review of systems, surgical history, and ophthalmological examination findings as obtained by the ophthalmic technical staff. I have seen and examined Nadya Moncada. I have discussed the examination findings, diagnosis, and treatment options with Nadya Moncada and/or her family. I have also reviewed and agree with the assessment and plan as stated above and agree with all its relevant components. I gave the patient the opportunity to ask questions about the findings, diagnosis, and treatment options. PROGRESS Observed: 02/26/2018 Status: COMPLETED Source: [place] 4:47 PM [facility] REPOSITORY HNO ID: [id number] Author: Juan J Park Service: (none) Author Type: Physician Type: Progress Notes Filed: 02/26/2018 4:48 PM Note Text: ASSESSMENT/PLAN: 1. Corneal abrasion, right, subsequent encounter - ICD9: V58.89, ICD10: S05.01XD (primary diagnosis) 2. Rce (recurrent corneal erosion), right - ICD9: 371.42, ICD10: H18.831 Current Ophthalmic Meds ofloxacin (OCUFLOX) 0.3 % ophthalmic solution (Taking) Use 1 Drop in the right eye four times daily. Ketorolac Tromethamine (ACULAR LS) 0.4 % drop (Taking) Use 1 Drop in the right eye twice daily. Return on Saturday. 3. Type 2 diabetes mellitus without retinopathy (HCC) - Both Eyes - ICD9: 250.00, ICD10: E11.9 Please keep your blood sugar under good control to minimize risk of ocular complications from diabetes. Juan J Park MD I have confirmed and edited as necessary the relevant ophthalmic history, review of systems, surgical history, and ophthalmological examination findings as obtained by the ophthalmic technical staff. I have seen and examined Nadya Moncada. I have discussed the examination findings, diagnosis, and treatment options with Nadya Moncada and/or her family. I have also reviewed and agree with the assessment and plan as stated above and agree with all its relevant components. I gave the patient the opportunity to ask questions about the findings, diagnosis, and treatment options. PROGRESS Observed: 02/24/2018 Status: COMPLETED Source: [place] 11:24 AM [facility] REPOSITORY O ID: [id number] Author: Juan J Park Service: (none) Author Type: Physician Type: Progress Notes Filed: 02/24/2018 11:45 AM Note Text: ASSESSMENT/PLAN: 1. Rce (recurrent corneal erosion), right - ICD9: 371.42, ICD10: H18.831 (primary diagnosis) Current Ophthalmic Meds ofloxacin (OCUFLOX) 0.3 % ophthalmic solution (Taking) Use 1 Drop in the right eye four times daily. Ketorolac Tromethamine (ACULAR LS) 0.4 % drop (Taking) Use 1 Drop in the right eye twice daily. Bandage contact lens inserted into Right EYe. Acuvue Oasys, BC 8.8, Diameter 14.0 2. Vitreous floaters of both eyes - ICD9: 379.24, ICD10: H43.393 Patient was given both written and verbal information on flashes and floaters. Patient was instructed to call the office ([phone]) immediately upon noticing flashes of light, increase in floaters, or changes in vision. 3. Essential hypertension - ICD9: 401.9, ICD10: I10 Continue to monitor with Dr. El. Juan J Park MD I have confirmed and edited as necessary the relevant ophthalmic history, review of systems, surgical history, and ophthalmological examination findings as obtained by the ophthalmic technical staff. I have seen and examined Nadya Moncada. I have discussed the examination findings, diagnosis, and treatment options with Nadya Moncada and/or her family. I have also reviewed and agree with the assessment and plan as stated above and agree with all its relevant components. I gave the patient the opportunity to ask questions about the findings, diagnosis, and treatment options. I have confirmed and edited as necessary the relevant ophthalmic history, review of systems, surgical history, and ophthalmological examination findings as obtained by the ophthalmic technical staff. I have seen and examined Nadya Moncada. I have discussed the examination findings, diagnosis, and treatment options with Nadya Moncada and/or her family. I have also reviewed and agree with the assessment and plan as stated above and agree with all its relevant components. I gave the patient the opportunity to ask questions about the findings, diagnosis, and treatment options. If you have any questions please contact our office at [phone]. After office hours or on the weekend, please call the receptionist/telephone operator at [facility] ([phone]) and page Dr. Park. BRISEIDA Observed: 02/13/2018 Status: COMPLETED Source: [place] 1:10 PM [facility] REPOSITORY Office Visit (PODIWS) NADYA MONCADA ([id number]) 1960 F Date Time Provider Department 02/13/18 1:10 PM CHRISTIAN SALMERON PODHAMZAHS During your visit today, we recorded the following information about you: Chrisitan Salmeron DPM 02/13/2018 1:34 PM Signed Christian Salmeron DPM Department of Podiatry [address] [facility] [address] Dept: [phone] Dept Diabetic Nail Care SUBJECTIVE: Follow up office visit: This 57 year old female presents to clinic c/o painful toenails. Patient states that the nails are especially painful with shoe gear and pressure. Patient admits to being diabetic and states that she did not check her blood sugar this AM. Patient is using carmol 40 but is not consistenty using. Patient denies claudication type symptoms when walking. Patient waiting for Diabetic Shoes to come in from [facility]. No other pedal complaints at this time. No change in medications or medical history since last visit. OBJECTIVE: Patient presents to clinic ambulating in flip flops. Vasc: DP and PT pulses are palpable bilateral. CFT is less than 5 seconds bilateral. Skin temperature is warm to warm proximal to distal bilateral. There is no edema or varicosities noted. Hair growth present. Neuro: Protective sensation is intact to the foot and toes when tested with the 5.07 SWM bilateral. Vibratory sensation is decreased at the hallux bilateral. significant neurological defecits. Derm: Inspection and palpation performed. Nails 1-5 b/l are painful, discolored-yellow, thick, crumbly, dystrophic and with subungal debris. Skin is dry and scaly b/l Hyperkeratosis b/l hallux and left 1st metatarsal. NO ulcerations, scars, verruca or other lesions noted. Ortho: Ankle joint DF is full with the knee extended and full with knee flexed. No pain or crepitus noted. STJ, MTJ ROM are full and free of pain or crepitus. Muscle strength is 5/5 for dorsiflexors, plantarflexors, inverters, everters. Digital deformities include no. ASSESSMENT: (B35.1) Onychomycosis (primary encounter diagnosis) (79.675) Pain in toe of left foot (M79.674) Pain in toe of right foot (E11.49) Other diabetic neurological complication associated with type 2 diabetes mellitus (HCC) (L85.9) Hyperkeratosis PLAN: Patient was seen and evaluated. Nails 1-5 bilateral were debrided in length and thickness. Callus filed to b/l feet with sanding disk as courtesy. Recommend she be more compliant with carmol 40. She should use 7 days a week and consider bid application. Diabetic shoes have been ordered . She has not yet received. Patient was instructed on the continued importance of diabetic foot care along with proper diet and keeping their blood sugar under control to prevent complications. Patient is to RTC in 3-4 months. Christian Salmeron DPM Referring Provider: CHRISTIAN SALMERON [[id number]] Allergies As of Date: 02/13/2018 (No Known Allergies) Date Reviewed: 02/13/2018 Reviewed by: Maryam Weems Ma - Fully Assessed Reason for Visit: Diabetic Foot Care [916] Primary Visit Diagnosis:Onychomycosis [B35.1] Other Visit Diagnoses:Pain in toe of left foot [M79.675] Pain in toe of right foot [M79.674] Other diabetic neurological complication associated with type 2 diabetes mellitus (HCC) [E11.49] Hyperkeratosis [L85.9] Prescriptions as of 02/13/2018 Sig: LYRICA 100 MG CAPSULE Take 1 capsule by mouth three* TRAMADOL 50 MG TABLET Take 1 tablet by mouth four t* BUSPIRONE 15 MG TABLET Take 15 mg by mouth three jody* MELOXICAM 15 MG TABLET Take 15 mg by mouth once maria eugenia* ATORVASTATIN 40 MG TABLET Take 40 mg by mouth once maria eugenia* UREA 40 % TOPICAL CREAM Apply 1 application to affect* AMMONIUM LACTATE-SODIUM LACTA* Apply 1 application to affect* LOSARTAN 50 MG TABLET Take 50 mg by mouth once maria eugenia* OMEPRAZOLE 40 MG CAPSULE,MARLENE* Take 40 mg by mouth once maria eugenia* AMITRIPTYLINE 50 MG TABLET Take 50 mg by mouth daily at * TIZANIDINE 4 MG TABLET Take 4 mg by mouth every 6 ho* BUPROPION XL 150 MG TAB Take 150 mg by mouth once kaylynn* SERTRALINE 100 MG TABLET Take 200 mg by mouth once kaylynn* PREGABALIN 50 MG CAPSULE Take 50 mg by mouth three jody* MILNACIPRAN 50 MG TABLET Take by mouth twice daily. FENTANYL 75 MCG/HR TRANSDERMA* Apply 1 Patch as directed delmi* METRONIDAZOLE 0.75 % TOPICAL * Apply 1 application to affect* POLYETHYLENE GLYCOL 3350 17 G* Take 17 g by mouth once daily. CHOLECALCIFEROL (VITAMIN D3) * Take by mouth. Problem List As Of Date 02/13/2018 Noted Resolved Type 2 diabetes mellitus without retinopathy (H*INVALID FOR*05/25/2016 Other vitreous opacities [H43.399] INVALID FOR*05/25/2016 Vitreous floaters of both eyes [H43.393] INVALID FOR* Essential hypertension [I10] INVALID FOR* Prediabetes [R73.03] INVALID FOR* Corneal abrasion, right, subsequent encounter [*INVALID FOR* Contusion of right eyeball [S05.11XA] INVALID FOR* Disposition: Return in about 3 months (around 05/16/2018) for nail care. Follow-up and Disposition History Recorded Encounter Status:Closed by CHRISTIAN SALMERON DPM on 02/13/18 PROGRESS Observed: 02/13/2018 Status: COMPLETED Source: [place] 1:07 PM [facility] REPOSITORY HNO ID: [id number] Author: Christian Salmeron Service: (none) Author Type: Physician Type: Progress Notes Filed: 02/13/2018 1:34 PM Note Text: Christian Salmeron DPM Department of Podiatry [address] [facility] [address] Dept: [phone] Dept Diabetic Nail Care SUBJECTIVE: Follow up office visit: This 57 year old female presents to clinic c/o painful toenails. Patient states that the nails are especially painful with shoe gear and pressure. Patient admits to being diabetic and states that she did not check her blood sugar this AM. Patient is using carmol 40 but is not consistenty using. Patient denies claudication type symptoms when walking. Patient waiting for Diabetic Shoes to come in from [facility]. No other pedal complaints at this time. No change in medications or medical history since last visit. OBJECTIVE: Patient presents to clinic ambulating in flip flops. Vasc: DP and PT pulses are palpable bilateral. CFT is less than 5 seconds bilateral. Skin temperature is warm to warm proximal to distal bilateral. There is no edema or varicosities noted. Hair growth present. Neuro: Protective sensation is intact to the foot and toes when tested with the 5.07 SWM bilateral. Vibratory sensation is decreased at the hallux bilateral. significant neurological defecits. Derm: Inspection and palpation performed. Nails 1-5 b/l are painful, discolored-yellow, thick, crumbly, dystrophic and with subungal debris. Skin is dry and scaly b/l Hyperkeratosis b/l hallux and left 1st metatarsal. NO ulcerations, scars, verruca or other lesions noted. Ortho: Ankle joint DF is full with the knee extended and full with knee flexed. No pain or crepitus noted. STJ, MTJ ROM are full and free of pain or crepitus. Muscle strength is 5/5 for dorsiflexors, plantarflexors, inverters, everters. Digital deformities include no. ASSESSMENT: (B35.1) Onychomycosis (primary encounter diagnosis) (79.675) Pain in toe of left foot (M79.674) Pain in toe of right foot (E11.49) Other diabetic neurological complication associated with type 2 diabetes mellitus (HCC) (L85.9) Hyperkeratosis PLAN: Patient was seen and evaluated. Nails 1-5 bilateral were debrided in length and thickness. Callus filed to b/l feet with sanding disk as courtesy. Recommend she be more compliant with carmol 40. She should use 7 days a week and consider bid application. Diabetic shoes have been ordered . She has not yet received. Patient was instructed on the continued importance of diabetic foot care along with proper diet and keeping their blood sugar under control to prevent complications. Patient is to RTC in 3-4 months. Christian Salmeron DPM URINE DRUG SCREEN Collected: 12/12/2017 Status: F Source: [place]) 11:26 AM [facility] REPOSITORY Order Comment: Comments: [id number] URINE DRUG [id number] URINE DRUG List of Drugs Taken or Suspected? UNK TYPE CODE TESTS RESULT OUT OF RANGE REFERENCE UNITS LAB L505.0075 TO BE Normal CONFIRMED Result Comment: CONFIRMATORY TESTING FOR ALL POSITIVE URINE DRUG SCREEN RESULTS WILL ONLY BE SENT OUT UPON PHYSICIAN ORDER. VISTA Urine Drug Screen methods provide only preliminary analytical test results. A more specific alternate chemical method must be used in order to obtain a confirmed analytical result. Gas chromatography/mass spectrometery (GC/MS) is the preferred confirmatory method. Clinical consideration and professional judgement should be applied to any drug of abuse test result, particularly when preliminary positive results are used. URINE TCA TESTING MUST BE ORDERED SEPARATELY. USE TEST MNEMONIC: [facility] LAB L505.5005 VISTA UDS PH 5 Normal LAB L505.5015 <1000 ng/mL AMPHETAMINES Normal NEGATIVE LAB L505.5025 < 200 ng/mL BARBITIURATES Normal NEGATIVE LAB L505.5035 < 200 ng/mL BENZODIAZIPINE Normal NEGATIVE LAB L505.5045 < 300 ng/mL COCAINE Normal NEGATIVE LAB L505.5055 < 500 High ng/mL ECSTACY POSITIVE LAB L505.5065 < 300 ng/mL METHADONE Normal NEGATIVE LAB L505.5075 < 300 ng/mL OPIATES Normal NEGATIVE LAB L505.5085 < 25 ng/mL PCP Normal NEGATIVE LAB L505.5095 < 50 ng/mL THC Normal NEGATIVE Performed By: #### L505.5000 #### [facility] [address] [place], [address] MISCELLANEOUS LAB Collected: 12/12/2017 Status: F Source: [place] 11:26 AM [facility] REPOSITORY Order Comment: Comments: [id number] URINE DRUG [id number] URINE DRUG Test(s) Ordered: [id number] URINE DRUG TYPE CODE TESTS RESULT OUT OF RANGE REFERENCE UNITS LAB L801.1541 Normal [facility] LAB TEST Result Comment: [id number] 6+OXYCODONE-BUND (ng/mL) DRUG RESULT SCREEN CUTOFF ____ Amphetamines,Urine Negative ng/mL 1000 Amphetamine test includes Amphetamine and Methamphetamine. Barbiturates Negative ng/mL 200 Benzodiazepines Negative ng/mL 200 Cannabinoid Negative ng/mL 20 Cocaine (Metab) Negative ng/mL 300 Opiates Negative ng/mL 300 Opiates test includes Codeine, Morphine, Hydromorphone, Hydrocodone. Oxycodone/Oxymorphone,Urine Negative ng/mL 300 Test includes Oxydodone and Oxymorphone. TESTING PERFORMED AT [facility]. ORIGINAL REPORT ON FILE IN LAB CONTAINS ADDITIONAL TEST SITE INFORMATION. Performed By: #### L801.1541 #### [facility] [address] [place], [address] MISCELLANEOUS LAB Collected: 12/12/2017 Status: F Source: [place] 2 11:26 AM [facility] REPOSITORY Order Comment: Comments: [id number] URINE DRUG [id number] URINE DRUG List Test(s) Ordered by Physician: [id number] TRAMADOL URINE TYPE CODE TESTS RESULT OUT OF RANGE REFERENCE UNITS LAB L801.1543 Normal [facility] LAB TEST 2 Result Comment: TEST RESULT LIMITS Tramadol Positive Dbdmmr=502 Tramadol GC/MS Conf >3000 Rksoxe=978 TESTING PERFORMED AT [facility]. ORIGINAL REPORT ON FILE IN LAB CONTAINS ADDITIONAL TEST SITE INFORMATION. Performed By: #### L801.1543 #### [facility] [address] [place], [address] [facility] Collected: 12/10/2017 Status: F Source: [facility] 2:22 PM [facility] REPOSITORY TYPE CODE TESTS RESULT OUT OF RANGE REFERENCE UNITS LAB [id number](L 70-99 mg/dL OINC) High Glucose Lvl 114 LAB 87732029(L 8.4-10.2 mg/dL OINC) Calcium Normal Lvl 10.0 LAB 99733152(L 136-145 mEq/L OINC) Sodium Normal Lvl 138 LAB 67001908(L 3.5-5.1 mEq/L OINC) Normal Potassium Lvl 3.7 LAB 66989461(L 98-107 mEq/L OINC) Low Chloride 97 LAB 45052623(L 24.0-30.0 mEq/L OINC) High CO2 31.2 LAB 41122545(L 7-18 mg/dL OINC) BUN Normal 11 LAB 4056077(LO 0.6-1.3 mg/dL INC) Normal Creatinine 0.7 LAB 20404047(L 5.4-30.0 ratio OINC) Normal BUN/Creat Ratio 15.7 Performed By: #### [id number] #### [facility] [employer] [facility] [place] [address] EGFR Collected: 12/10/2017 Status: F Source: [facility] 2:22 PM [facility] REPOSITORY Order Comment: Order added by Discern Expert. TYPE CODE TESTS RESULT OUT OF RANGE REFERENCE UNITS LAB 29767337(LO mL/min/1.73 INC) m2 Normal eGFR >60 LAB 89554583(LO mL/min/1.73 INC) m2 Normal eGFR AA >60 Performed By: #### [id number] #### [facility] [employer] [facility] [place] [address] LIPID PROFILE Collected: 12/10/2017 Status: F Source: [facility] 2:22 PM [facility] REPOSITORY TYPE CODE TESTS RESULT OUT OF RANGE REFERENCE UNITS LAB 69380770(LO 50-200 mg/dL INC) High Chol 260 Result Comment: TOTAL CHOLEESTEROL: <200 NORMAL 200 - 239 BORDERLINE HIGH >240 HIGH LAB 90084798(LOINC) >=41 mg/dL Normal HDL 72 LAB 64674933(LOINC) 0-130 mg/dL High LDL 155 Result Comment: <100 OPTIMAL 100-129 NEAR / ABOVE OPTIMAL 130-159 BORDERLINE HIGH 160-189 HIGH >190 VERY HIGH CALC LDL NOT VALID WHEN TRIGLYCERIDE IS >400 MG/DL LAB 98734750(LOINC) 35-150 mg/dL High Trig 166 Result Comment: <150 NORMAL 150-199 BORDERLINE HIGH 200-499 HIGH >500 VERY HIGH LAB 28658287(LOINC) Normal VLDL 33 Performed By: #### [id number] #### [facility] [employer] [address] [place] [address] HGBA1C Collected: 12/10/2017 Status: F Source: [facility] 2:22 PM [facility] REPOSITORY TYPE CODE TESTS RESULT OUT OF REFERENCE UNITS RANGE LAB 464412227( 4.0-6.3 % LOINC) High Hemoglobin A1c 6.7 Performed By: #### [id number] #### [facility] Chemistry Manual Subsection [address] [place], [place] [id number] PROGRESS Observed: 12/09/2017 Status: COMPLETED Source: [place] 2:10 PM [facility] REPOSITORY HNO ID: [id number] Author: Juan J Park Service: (none) Author Type: Physician Type: Progress Notes Filed: 12/09/2017 2:13 PM Note Text: ASSESSMENT/PLAN: 1. Vitreous floaters of both eyes - ICD9: 379.24, ICD10: H43.393 (primary diagnosis) Patient was given both written and verbal information on flashes and floaters. Patient was instructed to call the office ([phone]) immediately upon noticing flashes of light, increase in floaters, or changes in vision. 2. Essential hypertension - ICD9: 401.9, ICD10: I10 Continue to monitor with primary care physician. Recommended patient see Dr. Kenny at [facility] for refraction and glasses. Juan J Park MD I have confirmed and edited as necessary the relevant ophthalmic history, review of systems, surgical history, and ophthalmological examination findings as obtained by the ophthalmic technical staff. I have seen and examined Nadya Moncada. I have discussed the examination findings, diagnosis, and treatment options with Nadya Moncada and/or her family. I have also reviewed and agree with the assessment and plan as stated above and agree with all its relevant components. I gave the patient the opportunity to ask questions about the findings, diagnosis, and treatment options. PROGRESS Observed: 11/06/2017 Status: COMPLETED Source: [place] 7:56 AM [facility] REPOSITORY [facility] ID: [id number] Author: Christian Salmeron Service: (none) Author Type: Physician Type: Progress Notes Filed: 11/06/2017 8:40 AM Note Text: Subjective: Patient presents to clinic c/o painful toenails. They state that the nails are especially painful with shoe gear and pressure. Patient states that nails b/l hallux are painful. Patient admits to being diabetic and states that their blood sugar was 92 mg/dL this AM. Patient does not have diabetic shoes. No other pedal complaints at this time. Patient states no change in medications or medical history since last visit. Objective: Patient presents to clinic ambulating in [facility] Vasc: DP and PT pulses are palpable bilateral. CFT is less than 5 seconds bilateral. Skin temperature is warm to cool proximal to distal bilateral. There is no edema or varicosities noted. Neuro: Protective sensation is intact to the foot and toes when tested with the 5.07 SWM bilateral. Vibratory sensation is decreased at the hallux IPJ bilateral. The hallux is downgoing bilateral. Derm: Nails 1-5 b/l are painful, discolored-yellow, thick, crumbly, dystrophic and with subungal debris. Skin is dry and scaly bilateral. There are callus to b/l hallux. No ulceration noted. Ortho: Muscle strength is 5/5 for all pedal groups tested. Ankle joint DF is full with the knee extended with no pain or crepitus noted. 1st MPJ ROM is full bilateral. Assessment: (B35.1) Onychomycosis (primary encounter diagnosis) (M79.675) Pain in toe of left foot (M79.674) Pain in toe of right foot (E11.49) Other diabetic neurological complication associated with type 2 diabetes mellitus (HCC) (L85.9) Hyperkeratosis Plan: Patient was seen and evaluated. Nails 1-5 bilateral were debrided in length and thickness. Callus to b/l hallux debrided with sanding disk as courtesy. carmol 40 prescribed. She can come back in 5-6 weeks for callus. Diabetic shoes were ordered. Patient was instructed on the continued importance of diabetic foot care along with proper diet and keeping their blood sugar under control to prevent complications. Christian Salmeron DPM CNOV Observed: 11/06/2017 Status: COMPLETED Source: [place] 7:55 AM [facility] REPOSITORY Office Visit (PODIWS) NADYA MONCADA ([id number]) 1960 F Date Time Provider Department 11/06/17 7:55 AM CHRISTIAN SALMERON PODADAIR During your visit today, we recorded the following information about you: Maryam Weems Ma 11/06/2017 8:40 AM Signed Patient reports home blood glucose reading at 92 mg/dL this AM. Patient reports that she see's Dr. Cancino for Pain Management. Maryam Salmeron DPM 11/06/2017 8:40 AM Signed Subjective: Patient presents to clinic c/o painful toenails. They state that the nails are especially painful with shoe gear and pressure. Patient states that nails b/l hallux are painful. Patient admits to being diabetic and states that their blood sugar was 92 mg/dL this AM. Patient does not have diabetic shoes. No other pedal complaints at this time. Patient states no change in medications or medical history since last visit. Objective: Patient presents to clinic ambulating in [facility] Vasc: DP and PT pulses are palpable bilateral. CFT is less than 5 seconds bilateral. Skin temperature is warm to cool proximal to distal bilateral. There is no edema or varicosities noted. Neuro: Protective sensation is intact to the foot and toes when tested with the 5.07 SWM bilateral. Vibratory sensation is decreased at the hallux IPJ bilateral. The hallux is downgoing bilateral. Derm: Nails 1-5 b/l are painful, discolored-yellow, thick, crumbly, dystrophic and with subungal debris. Skin is dry and scaly bilateral. There are callus to b/l hallux. No ulceration noted. Ortho: Muscle strength is 5/5 for all pedal groups tested. Ankle joint DF is full with the knee extended with no pain or crepitus noted. 1st MPJ ROM is full bilateral. Assessment: (B35.1) Onychomycosis (primary encounter diagnosis) (M79.675) Pain in toe of left foot (M79.674) Pain in toe of right foot (E11.49) Other diabetic neurological complication associated with type 2 diabetes mellitus (HCC) (L85.9) Hyperkeratosis Plan: Patient was seen and evaluated. Nails 1-5 bilateral were debrided in length and thickness. Callus to b/l hallux debrided with sanding disk as courtesy. carmol 40 prescribed. She can come back in 5-6 weeks for callus. Diabetic shoes were ordered. Patient was instructed on the continued importance of diabetic foot care along with proper diet and keeping their blood sugar under control to prevent complications. EVERARDO Haas Ma 11/06/2017 8:10 AM Signed Diabetes Foot Care Instructions When you have diabetes, proper foot care is very important. Poor foot care may lead to amputation of a foot or leg. As a person with diabetes, you are more vulnerable to foot problems, because diabetes can damage your nerves and reduce blood flow to your feet. Here are some diabetes foot care tips to follow: Wash and Dry Your Feet Daily Use mild soaps Use warm water Pat your skin dry; do not rub. Thoroughly dry your feet. After washing, use lotion on your feet to prevent cracking. Do not put lotion between your toes. ? Examine Your Feet Each Day Check the tops and bottoms of your feet. Have someone else look at your feet if you cannot see them. Check for dry, cracked skin. Look for blisters, cuts, scratches, or other sores. Check for redness, increased warmth, or tenderness when touching any area of your feet. Check for ingrown toenails, corns, and calluses. If you get a blister or sore from your shoes, do not ANDquot;popANDquot; it. Apply a bandage and wear a different pair of shoes. Take Care of Your Toenails Cut toenails after bathing, when they are soft. Cut toenails straight across and smooth with a nail file. Avoid cutting into the corners of toes. Do not cut cuticles. If you have neuropathy (or decreased sensation in your feet) a echocardiographer should always cut your toenails. ? Be Careful When Exercising Walk and exercise in comfortable shoes. Do not exercise when you have open sores on your feet. Protect Your Feet With Shoes and Socks Never go barefoot. Always protect your feet by wearing shoes or hard-soled slippers or footwear. Avoid shoes with high heels and pointed toes. Avoid shoes that expose your toes or heels (such as open-toed shoes or sandals). These types of shoes increase your risk for injury and potential infections. Try on new footwear with the type of socks you usually wear. Do not wear new shoes for more than an hour at a time. Change your socks daily. Look and feel inside your shoes before putting them on to make sure there are no foreign objects or rough areas. Avoid tight socks. Wear natural-fiber socks (cotton, wool, or a cotton-wool blend). Wear special shoes if your health care provider recommends them. Wear shoes/boots that will protect your feet from various weather conditions (cold, moisture, etc.). Make sure your shoes fit properly. If you have neuropathy (nerve damage), you may not notice that your shoes are too tight. Perform the ANDquot;footwear testANDquot; described below. Footwear Test Use this simple test to see if your shoes fit correctly: Stand on a piece of paper. (Make sure you are standing and not sitting, because your foot changes shape when you stand.) Trace the outline of your foot. Trace the outline of your shoe. Compare the tracings: Is the shoe too narrow? Is your foot crammed into the shoe? The shoe should be at least 1/2 inch longer than your longest toe and as wide as your foot. Proper Shoe Choices The following types of shoes are best for people with diabetes Closed toes and heels Leather uppers without a seam inside At least 1/2 inch extra space at the end of your longest toe Inside of shoe should be soft with no rough areas Outer sole should be made of stiff material Shoes should be at least as wide as your feet Tips for Foot Care in Diabetes Don't wait to treat a minor foot problem if you have diabetes. Follow your health care provider's guidelines and first aid guidelines. Report foot injuries and infections to your health care provider immediately. Check water temperature with your elbow, not your foot. Do not use a heating pad on your feet. Do not cross your legs. Do not self-treat your corns, calluses, or other foot problems. Go to your health care provider or echocardiographer to treat these conditions. Urea Cream sent to pharmacy - make sure to only put this on callused area's only. Order for Diabetic Shoes - contact [employer] to schedule. [place] [id number] [facility], [facility] [address] PH: [phone] Contact our office if any questions, concerns. Referring Provider: DIPIKA EL [[id number]] Allergies As of Date: 11/06/2017 (No Known Allergies) Date Reviewed: 11/06/2017 Reviewed by: Maryam Weems Ma - Fully Assessed Reason for Visit: Diabetic Foot Care [916] Primary Visit Diagnosis:Onychomycosis [B35.1] Other Visit Diagnoses:Pain in toe of left foot [M79.675] Pain in toe of right foot [M79.674] Other diabetic neurological complication associated with type 2 diabetes mellitus (HCC) [E11.49] Hyperkeratosis [L85.9] Order(s):DIAB SHOE FOR DENSITY INSERT [[id number]] Order #: [id number] urea (CARMOL) 40 % creaApply 1 application to affected area as needed.Disp: 200 gRfl: 11 Prescriptions as of 11/06/2017 Sig: LYRICA 100 MG CAPSULE Take 1 capsule by mouth three* TRAMADOL 50 MG TABLET Take 1 tablet by mouth four t* BUSPIRONE 15 MG TABLET Take 15 mg by mouth three jody* MELOXICAM 15 MG TABLET Take 15 mg by mouth once maria eugenia* ATORVASTATIN 40 MG TABLET Take 40 mg by mouth once maria eugenia* AMMONIUM LACTATE-SODIUM LACTA* Apply 1 application to affect* LOSARTAN 50 MG TABLET Take 50 mg by mouth once maria eugenia* OMEPRAZOLE 40 MG CAPSULE,MARLENE* Take 40 mg by mouth once maria eugenia* AMITRIPTYLINE 50 MG TABLET Take 50 mg by mouth daily at * TIZANIDINE 4 MG TABLET Take 4 mg by mouth every 6 ho* BUPROPION XL 150 MG TAB Take 150 mg by mouth once kaylynn* SERTRALINE 100 MG TABLET Take 200 mg by mouth once kaylynn* PREGABALIN 50 MG CAPSULE Take 50 mg by mouth three jody* MILNACIPRAN 50 MG TABLET Take by mouth twice daily. METRONIDAZOLE 0.75 % TOPICAL * Apply 1 application to affect* POLYETHYLENE GLYCOL 3350 17 G* Take 17 g by mouth once daily. CHOLECALCIFEROL (VITAMIN D3) * Take by mouth. UREA 40 % TOPICAL CREAM Apply 1 application to affect* FENTANYL 75 MCG/HR TRANSDERMA* Apply 1 Patch as directed delmi* Medication notes this encounter MILNACIPRAN 50 MG TABLET >> Maryam Weems Ma 11/06/2017 7:48 AM >> MARYAM WEEMS MA SatNov 06, 2017 7:48 AM Patient taking. Maryam Weems Ma FENTANYL 75 MCG/HR TRANSDERMAL PATCH >> Maryam Weems Ma 11/06/2017 7:48 AM >> MARYAM WEEMS MA SatNov 06, 2017 7:48 AM Not using. Please d/c Problem List As Of Date 11/06/2017 Noted Resolved Type 2 diabetes mellitus without retinopathy (H*INVALID FOR*05/25/2016 Other vitreous opacities [H43.399] INVALID FOR*05/25/2016 Vitreous floaters of both eyes [H43.393] INVALID FOR* Essential hypertension [I10] INVALID FOR* Prediabetes [R73.03] INVALID FOR* Corneal abrasion, right, subsequent encounter [*INVALID FOR* Contusion of right eyeball [S05.11XA] INVALID FOR* Other instructions from your clinician: Diabetes Foot Care Instructions When you have diabetes, proper foot care is very important. Poor foot care may lead to amputation of a foot or leg. As a person with diabetes, you are more vulnerable to foot problems, because diabetes can damage your nerves and reduce blood flow to your feet. Here are some diabetes foot care tips to follow: Wash and Dry Your Feet Daily Use mild soaps Use warm water Pat your skin dry; do not rub. Thoroughly dry your feet. After washing, use lotion on your feet to prevent cracking. Do not put lotion between your toes. ? Examine Your Feet Each Day Check the tops and bottoms of your feet. Have someone else look at your feet if you cannot see them. Check for dry, cracked skin. Look for blisters, cuts, scratches, or other sores. Check for redness, increased warmth, or tenderness when touching any area of your feet. Check for ingrown toenails, corns, and calluses. If you get a blister or sore from your shoes, do not pop it. Apply a bandage and wear a different pair of shoes. Take Care of Your Toenails Cut toenails after bathing, when they are soft. Cut toenails straight across and smooth with a nail file. Avoid cutting into the corners of toes. Do not cut cuticles. If you have neuropathy (or decreased sensation in your feet) a echocardiographer should always cut your toenails. ? Be Careful When Exercising Walk and exercise in comfortable shoes. Do not exercise when you have open sores on your feet. Protect Your Feet With Shoes and Socks Never go barefoot. Always protect your feet by wearing shoes or hard-soled slippers or footwear. Avoid shoes with high heels and pointed toes. Avoid shoes that expose your toes or heels (such as open- toed shoes or sandals). These types of shoes increase your risk for injury and potential infections. Try on new footwear with the type of socks you usually wear. Do not wear new shoes for more than an hour at a time. Change your socks daily. Look and feel inside your shoes before putting them on to make sure there are no foreign objects or rough areas. Avoid tight socks. Wear natural-fiber socks (cotton, wool, or a cotton-wool blend). Wear special shoes if your health care provider recommends them. Wear shoes/boots that will protect your feet from various weather conditions (cold, moisture, etc.). Make sure your shoes fit properly. If you have neuropathy (nerve damage), you may not notice that your shoes are too tight. Perform the footwear test described below. Footwear Test Use this simple test to see if your shoes fit correctly: Stand on a piece of paper. (Make sure you are standing and not sitting, because your foot changes shape when you stand.) Trace the outline of your foot. Trace the outline of your shoe. Compare the tracings: Is the shoe too narrow? Is your foot crammed into the shoe? The shoe should be at least 1/2 inch longer than your longest toe and as wide as your foot. Proper Shoe Choices The following types of shoes are best for people with diabetes Closed toes and heels Leather uppers without a seam inside At least 1/2 inch extra space at the end of your longest toe Inside of shoe should be soft with no rough areas Outer sole should be made of stiff material Shoes should be at least as wide as your feet Tips for Foot Care in Diabetes Don't wait to treat a minor foot problem if you have diabetes. Follow your health care provider's guidelines and first aid guidelines. Report foot injuries and infections to your health care provider immediately. Check water temperature with your elbow, not your foot. Do not use a heating pad on your feet. Do not cross your legs. Do not self-treat your corns, calluses, or other foot problems. Go to your health care provider or echocardiographer to treat these conditions. Urea Cream sent to pharmacy - make sure to only put this on callused area's only. Order for Diabetic Shoes - contact [employer] to schedule. [place] [address], [facility] [address] PH: [phone] Contact our office if any questions, concerns. Prescriptions ordered this encounter Disp Refills Start End UREA 40 % TOPICAL CREAM 200 g 11 11/06/2017 11/06/2018 Route: TOPICAL Sig: Apply 1 application to affected area as needed. Disposition: Return in about 3 months (around 02/06/2018) for Diabetic Nail Care. Follow-up and Disposition History Recorded Encounter Status:Closed by CHRISTIAN SALMERON DPM on 11/06/17 PROGRESS Observed: 11/06/2017 Status: COMPLETED Source: [place] 7:51 AM [facility] REPOSITORY HNO ID: [id number] Author: Maryam Weems Ma Service: (none) Author Type: (none) Type: Progress Notes Filed: 11/06/2017 8:40 AM Note Text: Patient reports home blood glucose reading at 92 mg/dL this AM. Patient reports that she see's Dr. Cancino for Pain Management. Maryam Weems Ma PROGRESS Observed: 10/28/2017 Status: COMPLETED Source: [place] 5:04 PM [facility] REPOSITORY HNO ID: [id number] Author: Juan J Park Service: (none) Author Type: Physician Type: Progress Notes Filed: 10/28/2017 5:05 PM Note Text: ASSESSMENT/PLAN: 1. Corneal abrasion, right, subsequent encounter - ICD9: V58.89, ICD10: S05.01XD (primary diagnosis) 2. Contusion of globe of right eye, subsequent encounter - ICD9: V58.89, 921.3, ICD10: S05.11XD Sytane Gel 4 times a day in the right eye Refresh PM ointment at bedtime in the right eye ? Juan J Park MD I have confirmed and edited as necessary the relevant ophthalmic history, review of systems, surgical history, and ophthalmological examination findings as obtained by the ophthalmic technical staff. I have seen and examined Nadya Moncada. I have discussed the examination findings, diagnosis, and treatment options with Nadya Moncada and/or her family. I have also reviewed and agree with the assessment and plan as stated above and agree with all its relevant components. I gave the patient the opportunity to ask questions about the findings, diagnosis, and treatment options. PROGRESS Observed: 10/07/2017 Status: COMPLETED Source: [place] 5:07 PM [facility] REPOSITORY HNO ID: [id number] Author: Juan J Park Service: (none) Author Type: Physician Type: Progress Notes Filed: 10/07/2017 5:09 PM Note Text: ASSESSMENT/PLAN: 1. Corneal abrasion, right, subsequent encounter - ICD9: V58.89, ICD10: S05.01XD (primary diagnosis) 2. Contusion of globe of right eye, subsequent encounter - ICD9: V58.89, 921.3, ICD10: S05.11XD Sytane Gel 4 times a day in the right eye Refresh PM ointment at bedtime in the right eye Juan J Park MD I have confirmed and edited as necessary the relevant ophthalmic history, review of systems, surgical history, and ophthalmological examination findings as obtained by the ophthalmic technical staff. I have seen and examined Nadya Moncada. I have discussed the examination findings, diagnosis, and treatment options with Nadya Moncada and/or her family. I have also reviewed and agree with the assessment and plan as stated above and agree with all its relevant components. I gave the patient the opportunity to ask questions about the findings, diagnosis, and treatment options. ALLERGIES ALLERGIES DATE TYPE / CODE NAME / CODE REACTION SEVERITY SOURCE Drug NO KNOWN [facility] Class/86064 ALLERGIES Repository 1003(SNOMED CT) Drug/697486 No Known Alevism 003(SNOMED [facility] CT) System Repository Drug NO KNOWN [facility] Class/[address] [facility] 1003(SNOMED Repository CT) ENCOUNTERS ENCOUNTERS ADMIT/DISCHARGE ACCOUNT NUMBER ADMITTING ENCOUNTER LOCATION SOURCE CLASS 09/26/2018/ [id number] Ambulatory [place] [facility]19 [facility] [place] Repository 09/25/2018/ [id number] [facility]iah [facility] Alicia Alevism 019 Khalida Michel [facility] ng:[employer] System MedicRoom: Repository Room 1 09/24/2018 [id number] Ambulatory [facility] ng:LAB Repository 09/23/2018/ [id number] [facility] Alevism 019 [facility] ng:[facility]oo Repository m: Room 2 08/20/2018/ [id number] Ambulatory [place] [facility] [place] Repository 08/20/2018/ [id number] Ambulatory [place] [facility] [place] Repository 08/12/2018/ [id number] Luis, Ambulatory Samariran Alevism 018 [facility] ng:[facility]oo Repository m: Room 1 08/07/2018/ [id number] Luis, Ambulatory Alevism Alevism 018 Alejandro Alvarez [facility] ng:[facility] System Repository 08/07/[id number] Repository 07/29/2018/ [id number] Luis, Ambulatory Samariran Alevism 018 Ale[facility]andro [facility] ng:[facility]oo Repository m: Room 2 07/29/2018/ [id number] Ambulatory [place] [facility] [place] Repository 07/29/2018/ [id number] Ambulatory [place] [facility] [place] Repository 07/14/2018/ [id number] [facility] Ambulatory [place] Alevism 018 [facility] ng:[place] System MedicRoom: Repository Room 2 07/11/2018/ [id number] Ambulatory [place] [facility] [place] Repository 07/11/2018/ [id number] Ambulatory [place] [facility] [place] Repository 06/24/2018/ [id number] Ambulatory [place] [facility] [place] Repository 06/24/2018/ [id number] Luis, Ambulatory Samariran Alevism 018 Ale[facility]andro [facility]varez [facility] ng:[facility]oo Repository m: Room 2 06/11/2018 [id number] Ambulatory [facility] ng:[facility] Repository 06/09/2018/ [id number] [place] Yashasvini [facility] :2ESHRoom: System 8A94Xjz: 01 Repository 06/05/2018/ [id number] [place], Ambulatory [place] Alevism 018 [facility] ng:[place] System MedicRoom: Repository Room 3 06/02/2018 [id number] Ambulatory Building:[facility] VERRD Repository 05/29/2018/ [id number] Ambulatory [place] [facility] [place] Repository 05/29/2018/ [id number] Ambulatory [place] 018 [facility] [place] Repository 05/23/2018/ [id number] [place], Ambulatory Alevism Alevism [address] [place] [address] ng:[facility] Repository 05/23/2018/ [id number] [place] ng:[facility] System Repository 05/23/2018 [id number] Ambulatory [address] [place] [address] Repository 05/23/2018 [id number] Ambulatory [address] [place] [address] Repository 05/06/2018/ [id number] Ambulatory [address] Repository 04/22/2018/ [id number] Rodrigo De La Torre [facility] ng:[facility] System Repository 04/22/2018/ [id number] Rodrigo De La Torre Ambulatory Alevism Alevism 018 [facility] CareBuilding:[facility] amWomensRoom: System Room 5 Repository 04/22/2018 [id number] Ambulatory [address] [place] [address] Repository 03/24/2018/ [id number] Ambulatory [place] [facility] [place] Repository 03/06/2018/ [id number] Ambulatory [place] [facility] [place] Repository 03/01/2018/ [id number] Ambulatory [place] [facility] [place] Repository 02/26/2018/ [id number] Ambulatory [place] [facility] [place] Repository 02/24/2018/ [id number] Ambulatory [place] [facility] [place] Repository 02/13/2018/ [id number] Ambulatory [place] [facility] [place] Repository 12/16/2017/ [id number] [place], Ambulatory [place] Alevism [address] [place] [address] ng:[place] System MedicRoom: Repository Room 3 12/12/2017 [id number] Ambulatory Stan [facility] ng:LAB Repository 12/10/2017/ [id number] [place], Ambulatory Alevism Alevism [address] [place] [address] ng:SH.[facility] Health System Repository 12/09/2017/ [id number] Ambulatory [address] Repository 11/20/2017/ [id number] [place], Ambulatory [place] Alevism 018 [facility] ng:[place] System MedicRoom: Repository Room 1 11/06/2017/ [id number] Ambulatory [place] 018 [facility] [place] Repository 10/28/2017/ [id number] Ambulatory [place] 018 [facility] [place] Repository 10/07/2017/ [id number] Ambulatory [address] ng:[place] System Medic Repository 10/07/2017/ [id number] Ambulatory [address] Repository PAYERS PAYERS ENCOUNTER GUARANTOR PAYER SUBSCRIBER SOURCE 09/24/2018 NADYA Primary Insurance:[facility] NADYA Stan [id number] [facility] STONED[place]: [facility] Number: [id number] [place] [id number] Repository [address]Pba: 419) Date:6612-88-47KS [phone] [address]ZO: 09/24/2018 Secondary NOT GIVENUNK [place] Insurance:SELF PAY [facility] Number: Effective Repository Date:2018-09-24 08/07/2018 NADYA Primary NADYA [place] STONEDOB: Insurance[facility] [id number] Repository [place] [facility] Number: [address] [place], [place] [id number] [place] [id number]: Date:Plan Name:Health [id number]: [address] [place] [address] (HP) [phone]: [phone] (HP) [phone] 06/11/2018 NADYA Primary Insurance:[facility] NADYA Reagan [id number] [facility] [place]ED[place]: Community [place] Number: [id number] [place], [place] [id number] Repository [address]Nei: 419) Date:2247-53-09VF [phone] () [address] [place] [address]80IS: 06/11/2018 Secondary NOT GIVENUNK [place] Insurance:SELF PAY [facility] Number: Effective Repository Date:2018-06-02 06/09/2018 NADYA Primary Insurance:[facility] NADYA [place] STONEDOB: [facility] PARPolicy Number: [id number] Repository [place] [id number] Date:2018-06-02 - [address]Hsm: [id number] Name:B [phone] (HP) () 06/05/2018 NADYA Primary Insurance:[facility] NADYA Alevism STONEB: [facility] STONEDOB: [facility] [id number] System [place] Number: Effective [address] Repository [place] Date:2017-12-16 - [place] [address]Ile: [id number] [address]Ghz: Name:CD:[id number].O. (HP) [address] [place] [address] (HP)Tel: [phone]: (WP) [phone] 06/02/2018 NADYA Primary Insurance:[facility] STONEDOB: MANAGED MEDICAIDPolmethodist jennie edmundson STONEDOB: Three Repository Number: [id number] [address] [id number] [address] [place] Date:3479-57-64[place] [address]Fee: [address] [place] [place] [address]Tel: [phone]: [phone] (HP) [phone] (HP) 05/23/2018 NADYA [facility] [id number] System [place] Number: Effective 6 [address] Repository [place] Date:2017-12-19 - [place] [address]Irw: [id number] [address]Idx: Name:CD:[id number] [facility] (HE) [address] [place] [address] ()Tel: [phone]: [phone] (WP) 05/23/2018 [facility]: [facility]: [facility] [id number] Repository [place] PlanPolicy Number: [address] [place], [place] [id number] [place] [id number]: Date:Plan Name:[facility] [id number]: [address] [place] [address] (HP) [phone]: [phone] ([phone] 05/23/2018 [facility] CenterB: Insurance:[facility] HospitalB: [facility] [id number] Repository [place] PlanPolicy Number: [address] [place] [id number], [place] [id number]: Date:Plan Name:[facility] [id number]: [address] [place] [address] (HP) [phone]: [phone] ([phone] 04/22/2018 NADYA Primary NADYA [employer] STONEDOB: Insurance:[facility] HospitalB: [facility] Healthcare [facility] [id number] Repository [place] [facility] Number: [address] [place], [place] [id number] [place] [id number]: Date:Plan Name:[facility] [id number]: [address] [place] [address] (HP) [phone]: [phone] 12/16/2017 NADYA Primary Insurance:[facility]YAOhioHealth [facility] Methodist HospitalB: [facility] [id number] System [place] Number: Effective [address] Repository [place] Date:2017-09-16 - [place] [address]Huq: [id number] [address]Mww: Name:CD:[id number].OFroylan () [address] ()Tel: [phone]) [phone]: [phone] 12/12/2017 Nadya Primary Insurance:[facility] Nadya Reagan [id number] [facility] CenterB: [facility] [place] Number: [id number] [id number] Repository [address]Xwb: 419) Date:9948-48-09ZS [facility] [phone] () [address] [place] [address]9440ZB: 12/12/2017 Secondary NOT GIVENUNK [place] Insurance:SELF PAY [facility] Number: Effective Repository Date:2017-12-12 12/10/2017 NADYA Primary NADYA [facility]ismMarcum and Wallace Memorial HospitalB: Insurance:[facility]: [facility] [id number] System [place] Number: Effective 6 [place] Repository [place] Date:2017-12-10 - [place] [address]Wrh: [id number] [phone]: Name:CD:[id number] BOX () [address] [place] [address] ()Tel: [phone]: (WP) [phone] 11/20/2017 NADYA Primary Insurance:[address] [place] [address]: [facility]: [facility] [id number] System [place] Number: Effective 6 [address] Repository [facility] [place] Date:2017-11-20 - [place] [address]Vdx: 1921-18-23Caug [address]Wwy: Name:CD:[id number].O. () [address] ()Tel: [phone]: (WP) [phone] 10/07/2017 NADYA Primary Insurance:1500 NADYA Alevism [facility]: [facility]: [facility] [id number] System [place] Number: Effective 6 [address] Repository [place] Date:2017-09-30 - [place] [address]Ucl: [id number] [phone]: Name:CD:[id number].O. (HP) [address] [place] [address] ()Tel: [phone]) [phone]: (WP) [phone]
== END ==
PROVIDERS: Family Provider Internal Medicine; PCP Internal Medicine; Referring Provider Anesthesiology Pain Medicine; Visit Provider Anesthesiology Pain Medicine
DX: F11.20 Opioid dependence, uncomplicated (principal)
CPT/HCPCS: 80307